=== PATIENT | female | born 1975 | race African-American/Black ===

== ENCOUNTER 2017-05-12 17:48 | Observation (INO) | payer MEDICARE, MEDICAID ==
[2017-05-12 18:38] LABS: #Eosinphils 0.4 thou/uL (0.0-0.7); #Lymphocytes 0.9 thou/uL (1.20-3.40); #Monocytes 0.5 thou/uL (0.11-0.59); #Neutrophils 4.3 thou/uL (1.40-6.50); %Basophils 0.2 % (0.0-1.0); %Eosinophils 6.8 % (0.0-10.0); %Lymphocytes 15.1 % (21.0-51.0); %Monocytes 8.5 % (0.0-10.0); Hematocrit 40.6 % (36.0-47.0); Mean Platelet Volume 9.8 fL (7.4-10.4); Red Blood Cell (RBC) Count 4.01 mill/uL (4.20-5.40); White Blood Cell (WBC) Count 6.2 thou/uL (4.8-10.8)
[2017-05-12 18:58] LABS: ALT (SGPT) 10 U/L (8-55); AST (SGOT) 18 U/L (5-34); Alkaline Phosphatase 134 U/L (40-150); Anion Gap 20 mmol/L (10-20); BUN (Urea Nitrogen) 18 mg/dL (7.0-18.7); CK (CPK) 33 U/L (29-168); Calc. Creatinine Clearance 0 mL/min (70-130); Calcium 8.5 mg/dL (7.8-10.44); Carbon Dioxide 24 mmol/L (22-29); Chloride 102 mmol/L (98-107); Estimated GFR-MDRD 5; Globulin 3.3 g/dL (2.4-3.5); Lipase 16 U/L (8-78); Protein, Total 7.2 g/dL (6.0-8.3)
[2017-05-12 19:05] LABS: Troponin I 0.024 ng/mL (< 0.028)
[2017-05-12] MEDS ORDERED: Nitroglycerin 0.4 MG TAB (25 Tab Bottle) ONE (19:06)
--- NOTE | 2017-05-12 19:18 | RAD ---
PORTABLE CHEST ONE VIEW: 05/12/17 at 6 p.m. HISTORY: Chest pain. FINDINGS/IMPRESSION: Comparison made with exam of 03/24/17. There are changes of median sternotomy again seen. The heart is enlarged. Pleural parenchymal change s in the left lower hemithorax are again noted. There is mild pulmonary vascular congestion. No pneumothoraces are identified. POS: [facility]
[2017-05-12] MEDS ORDERED: Enoxaparin Sodium 100 MG/ML SYRINGE ONE (19:49)
--- NOTE | 2017-05-12 21:34 | PDOC.EVN ---
Event Note - Event Note Event Note: [id number] h&p dictated 1. Chest pain 2. AFIB 3. ESRD 4. HTN 5. AOCD plan: see orders
[2017-05-12] MEDS ORDERED: ALPRAZolam 1 MG TAB PO PRN (22:15)
[2017-05-12] MEDS ORDERED: Gabapentin 300 MG CAP PO PRN (22:15)
[2017-05-12] MEDS ORDERED: Senokot 8.6 MG TAB PO PRN (22:16)
[2017-05-12] MEDS ORDERED: Docusate 100 MG CAP PO SCH (22:45)
[2017-05-12] MEDS ORDERED: Apixaban 5 MG TAB PO SCH (22:45)
[2017-05-12] MEDS ORDERED: levETIRAcetam 500 MG TAB PO SCH (22:45)
[2017-05-12] MEDS ORDERED: Heparin 5,000 UNITS/ML VIAL SC SCH (22:45)
[2017-05-12] MEDS ORDERED: Diltiazem HCl SR 60 mg Capsule PO SCH (22:45)
[2017-05-12] MEDS ORDERED: Cyclobenzaprine 10 MG TAB PO SCH (22:45)
[2017-05-12] MEDS: HYDROcodone/Acetaminophen 7.5/325 mg Tablet PO PRN (22:49)
[2017-05-12] MEDS: diphenhydrAMINE 25 MG CAP PO PRN (22:50)
[2017-05-12] MEDS: Ondansetron HCl/PF 4 MG/2 ML Vial IVP PRN (22:50)
[2017-05-12 22:59] VITALS: BMI 33.5
[2017-05-12 23:32] LABS: Troponin I 0.024 ng/mL (< 0.028)
[2017-05-13] MEDS ORDERED: Calcium Carbonate 500 MG ChewTAB PO PRN (00:56)
[2017-05-13 01:00] LABS: Troponin I 0.023 ng/mL (< 0.028)
[2017-05-13 04:50] LABS: #Eosinphils 0.4 thou/uL (0.0-0.7); #Lymphocytes 1.2 thou/uL (1.20-3.40); #Monocytes 0.7 thou/uL (0.11-0.59); #Neutrophils 4.4 thou/uL (1.40-6.50); %Basophils 0.2 % (0.0-1.0); %Eosinophils 6.1 % (0.0-10.0); %Lymphocytes 18.2 % (21.0-51.0); %Monocytes 10.5 % (0.0-10.0); Hematocrit 40.1 % (36.0-47.0); Mean Platelet Volume 8.5 fL (7.4-10.4); Red Blood Cell (RBC) Count 3.97 mill/uL (4.20-5.40); White Blood Cell (WBC) Count 6.8 thou/uL (4.8-10.8)
--- NOTE | 2017-05-13 06:13 | HP ---
DATE OF ADMISSION: 05/12/2017 CHIEF COMPLAINT: Chest pain. HISTORY OF PRESENT ILLNESS: Patient is a 41-year-old female with past medical history of end-stage renal disease, hypertension, anemia of chronic disease, seizures, atrial fibrillation, aortic dissection, who now came to the hospital because of chest pain and palpitations and constipation. Patient started having chest pain, all of sudden substernal pressure kind of pain, moderate in intensity, improved with pain medication, currently 5/10, worse with palpitations and irregular heartbeat, so patient came to the ER. The patient complains of constipation for the past 4 to 5 days. Last bowel movement is on Thursday. Constipation associated with blood. Today she had a bowel movement, but it was mixed with the stool. Denies any fever, denies any chills, denies any nausea, denies any vomiting. Complains some sweating also. The patient is supposed to go for dialysis today, but did not go to the dialysis because of the chest pain. PAST MEDICAL HISTORY: As per HPI. PAST SURGICAL HISTORY: AV fistula placement, colectomy, , and tubal ligation. SOCIAL HISTORY: Denies smoking, denies alcohol, denies any drugs. FAMILY HISTORY: Positive for heart problems. MEDICATIONS: Reviewed. REVIEW OF SYSTEMS: Constitutional: Denies any fever, denies any chills. Eyes : denies vision problems. Ears: Denies any hearing loss. Neck: Denies any neck pain. Cardiovascular System: Positive for chest pain. Respiratory System : Positive for dyspnea. Gastrointestinal: Positive for constipation. Positive for blood in the stool. Cranial Nerve System: Denies syncope, denies lightheadedness. Psychiatric: Denies anxiety. Integument: Denies any rash. Genitourinary: Denies dysuria. Musculoskeletal: denies joint deformities. All other review of systems are reviewed and are negative. PHYSICAL EXAMINATION: CONSTITUTIONAL/VITAL SIGNS: At the time of H and P performed, blood pressure is 123/89, afebrile, pulse oximetry 97%. GENERAL APPEARANCE: The patient appears comfortable. HEENT: Pupils are equal, round, and reactive. Anterior nares patent. Nose, normal. Ears, normal. Teeth, intact. Tongue is moist. NECK: Supple. No JVD. CARDIOVASCULAR SYSTEM: S1 and S2 present. Regular rate and rhythm. No murmurs , no rubs, no gallops. RESPIRATORY SYSTEM: No wheezing, no rhonchi. Breath sounds bilaterally. GASTROINTESTINAL: Soft, nontender, no guarding, no organomegaly, no masses felt. CRANIAL NERVE SYSTEM: Cranial nerves intact. Follows commands. Strength intact. Sensory intact. PSYCHIATRIC: Mood is appropriate at this time. GENITOURINARY: No suprapubic tenderness. No inguinal tenderness. MUSCULOSKELETAL: No edema. Positive for AV fistula. CRANIAL NERVES SYSTEM: Awake, follows commands, speech clear. LABORATORY DATA AND DIAGNOSTICS: At the time of H and P performed, white count 6.2, hemoglobin 12.6, and platelet count 158. BMP showed sodium 143, potassium 5.3, chloride 102, CO2 of 24, BUN 218, creatinine 9.49. EKG: Positive for atrial fibrillation. ASSESSMENT AND PLAN: The patient is a 41-year-old female. 1. Chest pain, need to rule out cardiac etiology. Plan to check cardiac enzymes. Plan to consult Cardiology to evaluate the patient. 2. History of atrial fibrillation. Monitor heart rate. Continue on home blood pressure medications. 3. Constipation plus history of GI bleed. Currently, hemoglobin is stable. We will monitor. We will check stool for occult blood. We will start patient on p.r.n. stool softeners and lactulose also. 4. History of hypertension. Continue on home blood pressure medications. 5. History of seizures. Continue seizure precautions. The case was discussed in detail with the patient. Patient is FULL CODE. MTDD
[2017-05-13 06:52] LABS: Anion Gap 19 mmol/L (10-20); BUN (Urea Nitrogen) 19 mg/dL (7.0-18.7); Calc. Creatinine Clearance 11 mL/min (70-130); Calcium 8.5 mg/dL (7.8-10.44); Carbon Dioxide 24 mmol/L (22-29); Chloride 103 mmol/L (98-107); Estimated GFR-MDRD 5
[2017-05-13 08:07] VITALS: BP 103/66
[2017-05-13] MEDS: diphenhydrAMINE 25 MG CAP PO PRN (08:15)
[2017-05-13] MEDS: HYDROcodone/Acetaminophen 7.5/325 mg Tablet PO PRN (08:15)
[2017-05-13] MEDS: Ondansetron HCl/PF 4 MG/2 ML Vial IVP PRN ×2 (08:15→19:47)
[2017-05-13] MEDS ORDERED: Docusate 100 MG CAP PO SCH (09:00)
[2017-05-13] MEDS ORDERED: Apixaban 5 MG TAB PO SCH (09:00)
[2017-05-13] MEDS ORDERED: levETIRAcetam 500 MG TAB PO SCH (09:00)
[2017-05-13] MEDS: Cyclobenzaprine 10 MG TAB PO SCH ×2 (14:14→14:54)
[2017-05-13] MEDS: Heparin 5,000 UNITS/ML VIAL SC SCH ×2 (14:15→14:54)
[2017-05-13] MEDS: Diltiazem HCl SR 60 mg Capsule PO SCH ×2 (14:15→14:54)
[2017-05-13 15:45] VITALS: TEMP 98.6
--- NOTE | 2017-05-13 20:37 | DIS ---
DATE OF ADMISISON: 05/12/2017 DATE OF DISCHARGE: 05/13/2017 DISCHARGE DIAGNOSES: 1. Acute volume overload in the context of end-stage renal disease with missed hemodialysis. 2. End-stage renal disease with hemodialysis. 3. Chronic atrial fibrillation with variable rate control on chronic Eliquis. 4. Constipation, resolved. 5. Hypertension, stable. 6. Seizure disorder, stable. 7. Hypokalemia, mild. CONSULTATIONS: Dr. Zeferino Matthew with Nephrology Service. PERTINENT LABORATORY DATA AND X-RAY FINDINGS: Potassium ranged between 3.1-3.3, creatinine ranged b etween 9.49-9.83 with estimated GFR of 5. LFTs within normal limits. Troponin I negative x3. BNP 1576 previously noted, 1153 on 03/24/2017. CBC showed a white blood cell count of 6.8, hemoglobin 1 2, hematocrit 40, MCV 101, platelet count 184. Stool Hemoccult negative x1 at 05/12/2017. Portable chest x-ray dated 05/12/2017 showed pulmonary vascular congestion. HOSPITAL COURSE: Patient was observed on the telemetry unit after initially presenting with chest p ain and shortness of breath in the context of missed hemodialysis. Patient underwent hemodialysis o n 05/13/2017 with near resolution of symptoms. The patient also was noted with constipation, treate d with lactulose and stool softeners with resolution of the situation. The patient was noted on tel emetry monitoring with atrial fibrillation with variable rate control, resumed on home regimen of di ltiazem 60 mg p.o. t.i.d. The patient was also continued on Eliquis 2.5 mg b.i.d. Overall, the pat ient remained clinically stable throughout the remainder of the hospital course and ready for discha rge on 05/13/2017. DISCHARGE MEDICATIONS: 1. Eliquis 2.5 mg p.o. b.i.d. 2. Alprazolam 1 mg p.o. b.i.d. p.r.n. 3. Flexeril 10 mg p.o. t.i.d. p.r.n. 4. Cardizem-SR 60 mg p.o. t.i.d. 5. Neurontin 300 mg p.o. daily. 6. [place] 7.5/325 mg 1 tab p.o. q.4-6 hours p.r.n. pain. 7. Motrin 600 mg p.o. q.8 hours p.r.n. 8. Floranex 1 tablet p.o. daily. 9. Multivitamin 1 tab p.o. daily. 10. Omeprazole 20 mg p.o. daily. 11. Zofran 4 mg p.o. q.6 hours p.r.n. 12. Zoloft 25 mg p.o. daily. 13. Ambien 5 mg p.o. at bedtime p.r.n. 14. Keppra 500 mg p.o. b.i.d. FOLLOWUP: The patient may follow up with her primary care provider, Dr. Bibiana Almanzar within 7 day s of discharge. The patient will follow with Dr. Zeferino Matthew with Nephrology service during hemodialysis 3 times per week. CONDITION ON DISCHARGE: Stable. ACTIVITY: ad emerson. DIET: Heart healthy and renal. CODE STATUS: FULL. DISPOSITION: Home, 05/13/2017.
--- NOTE | 2017-05-14 05:55 | CON ---
DATE OF CONSULTATION: 05/13/2017 CONSULTING PHYSICIAN: Zeferino Matthew M.D. REQUESTING PHYSICIAN: Dr. Rafa Selby. REASON FOR CONSULTATION: The need for maintenance hemodialysis. IMPRESSION: 1. End-stage renal disease, hemodialysis dependent on Thursday, , and Thursday schedule, vernon drummond dialyzed yesterday. 2. Chest pain, query cause. PLAN: The patient to be dialyzed today because of the fact that she skipped dialysis yesterday with ultrafiltration as tolerated by hemodynamics. We use a higher potassium bath. HISTORY OF PRESENT ILLNESS: History is that of a 41-year-old female patient, who presented here wit h chest pain and constipation. Of note, the patient has been having some runny issues with diarrhea for several months. Now, the patient is presented with constipation, query cause. Because of the need for maintenance hemodialysis, which the patient did not undergo yesterday, decision has been ta miguel to admit this patient today for further management. PAST MEDICAL HISTORY: Significant for end-stage renal disease, atrial fibrillation, bowel obstructi on status post bowel resection, peripheral vascular disease, status post aortic resection. SOCIAL HISTORY: Significant for tobacco use. No illicit drug use. REVIEW OF SYSTEMS: As documented in the body of the history. The other systems reviewed and were f ound not to be significantly related to the presenting illness. PHYSICAL EXAMINATION: GENERAL: The patient was found not to be in any obvious distress at dialysis. VITAL SIGNS: Afebrile with temperature 98.6, pulse 90-135, respiratory rate of 12-16, O2 saturation 98%, and blood pressure 103/63. HEENT: Unremarkable with moist oral mucosa. CARDIOVASCULAR SYSTEM: First and second heart sounds were heard. RESPIRATORY: Clear to auscultation anteriorly. DIGESTIVE: Revealed a benign abdomen. SUMMARY: A 41-year-old female patient with end-stage renal disease, hemodialysis dependent, who pre sented here with chest pain and constipation. Thank you for this consultation. We will follow with you.
--- OUTSIDE RECORDS SUMMARY | 2017-05-18 22:03 | XMS | Clinical Summary ---
:1975 Author Organization [facility] Address [address] [place] [address] Phone Care Team Providers Name Role Phone Luis F Veliz Primary Care Provider tel Allergies Active Allergy Reactions Severity Noted Date Comments Cefazolin Itching,Swelling 12/10/2015 Throat swells Codeine Sulfate Itching 12/10/2015 Phenytoin Sodium Extended 12/10/2015 Skins valencia Iodine And Iodide Containing Itching 05/22/2016 Products Current Medications Prescription Sig. Disp. Refills Start Date End Date Status carvedilol (COREG) 6.25 Take 3.125 mg by Active MG tablet mouth. diltiazem CD (CardIZEM Take 120 mg by Active CD) 120 MG 24 hr capsule mouth. levETIRAcetam (KEPPRA) Take 500 mg by Active 500 MG tablet mouth. pregabalin (LYRICA) 50 MG Take 50 mg by Active capsule mouth. pravastatin (PRAVACHOL) Take 20 mg by Active 20 MG tablet mouth. sevelamer (RENVELA) 800 Take 800 mg by Active mg tablet mouth. omeprazole (PriLOSEC) 20 Take 20 mg by mouth Active MG capsule daily. ALPRAZolam (XANAX) 1 MG Take 1 mg by mouth Active tablet nightly as needed for anxiety. zolpidem (AMBIEN) 5 MG Take 5 mg by mouth Active tablet nightly as needed for sleep. sertraline (ZOLOFT) 25 MG Take 25 mg by mouth Active tablet daily. Active Problems Problem Noted Date Hypertensive nephrosclerosis 05/22/2016 Social History Tobacco Use Types Packs/Day Years Used Date Former Smoker 0.25 17 Quit: 07/27/2014 Sex Assigned at Date Recorded Not on file Last Filed Vital Signs Not on file Plan of Treatment Not on file Results Not on filefrom Last 3 Months Insurance Payer Benefit Plan / Group Subscriber ID Type Phone Address MEDICAID MEDICAID [id number] Medicaid MEDICARE MEDICARE PART A AND B [id number] Medicare [place] [address]: [address] [phone] [place], [place] [phone] MYRIAM MORRIS [employer] Self 1975 Home: [address] Liability [phone] [place], [place] [phone]
== END 2017-05-13 20:13 | disposition home or self-care (01) ==
LOC: ERS 17:48 → 2SW 21:31
PROVIDERS: ADMIT Internal Medicine; ATTEND Internal Medicine
DX: E87.70 Fluid overload, unspecified (principal); I12.0 Hypertensive chronic kidney disease with stage 5 chronic kidney disease or end stage renal disease; N18.6 End stage renal disease; I48.2 Chronic atrial fibrillation; K59.00 Constipation, unspecified; G40.909 Epilepsy, unspecified, not intractable, without status epilepticus; E87.6 Hypokalemia; D63.1 Anemia in chronic kidney disease; R07.2 Precordial pain; F17.200 Nicotine dependence, unspecified, uncomplicated; Z79.01 Long term (current) use of anticoagulants; Z79.899 Other long term (current) drug therapy; Z91.041 Radiographic dye allergy status; Z90.49 Acquired absence of other specified parts of digestive tract; Z98.890 Other specified postprocedural states; Z98.51 Tubal ligation status; Z88.5 Allergy status to narcotic agent; Z88.8 Allergy status to other drugs, medicaments and biological substances; Z88.1 Allergy status to other antibiotic agents; Z99.2 Dependence on renal dialysis
CPT/HCPCS: 71010; 80048; 80053; 82274; 82550; 82553; 83690; 83880; 84484 ×3; 85025 ×2; 93005; 96372; 96374; 96376; 99285; G0378; 36415; 90935; G0257; J1644; J1650; J2405

== ENCOUNTER 2017-05-28 08:03 | Emergency (ER) | payer MEDICARE, MEDICAID ==
[2017-05-28] MEDS ORDERED: Hydrocortisone/Pramoxine (Proctofoam HC) 10 GM BOX PR ONE (09:15)
--- NOTE | 2017-05-28 09:29 | RAD ---
AP ABDOMINAL RADIOGRAPH: Date: 05/28/17 HISTORY: Constipation. COMPARISON: 12/14/16. FINDINGS: Surgical clips overlie the right mid abdomen, as well as pelvis. Vascular calcification again seen i n the abdominal aorta and involving the iliac arteries. The bowel gas pattern is overall nonspecific . No definite significant retained fecal material is seen throughout the expected course of the colo n. No suspicious calcifications are seen. Limited evaluation of the lung bases demonstrates what appears to be a left pleural effusion unchang ed from prior exam as well. No other interval change. IMPRESSION: 1. Nonspecific bowel gas pattern. 2. Pleural and parenchymal changes left lung base, probably related to left pleural effusion and at electasis. This is a stable finding compared to the prior exam. POS: [facility]
[2017-05-28] MEDS ORDERED: Bacitracin Zinc 1 Packet ONE (11:16)
[2017-05-28] MEDS ORDERED: Ibuprofen 200 MG TAB ONE (11:16)
== END 2017-05-28 11:35 | disposition home or self-care (01) ==
LOC: ERS 08:03
DX: K64.8 Other hemorrhoids (principal); K64.4 Residual hemorrhoidal skin tags; K59.00 Constipation, unspecified; I12.0 Hypertensive chronic kidney disease with stage 5 chronic kidney disease or end stage renal disease; N18.6 End stage renal disease; I48.91 Unspecified atrial fibrillation; F41.9 Anxiety disorder, unspecified; F17.210 Nicotine dependence, cigarettes, uncomplicated; Z79.891 Long term (current) use of opiate analgesic; Z79.899 Other long term (current) drug therapy
CPT/HCPCS: 74000; 94760; 99406

== ENCOUNTER 2017-05-29 21:48 | Inpatient (IN) | payer MEDICARE, MEDICAID ==
[~2017-05-29 21:48] MED LIST: ISOVUE-370 76%-LOCM 1 ML ONE
[2017-05-29] MEDS ORDERED: diphenhydrAMINE 50 MG/ML VIAL ONE (22:05)
[2017-05-29] MEDS ORDERED: Labetalol HCl 100 MG/20 ML VIAL ONE (22:13)
--- NOTE | 2017-05-29 22:19 | RAD ---
PORTABLE UPRIGHT FRONTAL CHEST RADIOGRAPH 05/29/17 COMPARISON: None. HISTORY: Pain. FINDINGS: Midline sternotomy wires are present. Stable vascular stent material overlies the superior aspect of the mediastinum. There is no pneumothorax seen. There is pulmonary vascular congestion. There is patchy interstitial and alveolar opacity in both jm ng bases, new when compared to the prior exam. There is stable blunting of the left costophrenic an gle suggesting left pleural effusion and/or pleural scar. IMPRESSION: Pulmonary vascular congestion with interstitial and alveolar opacity in the lung bases, new. Finding s may be related to pulmonary edema and/or infectious pneumonitis/aspiration. Followup imaging follo wing treatment advised. POS: [facility]
[2017-05-29] MEDS ORDERED: Morphine 4 MG/ML Carpuject ONE (22:33)
[2017-05-29 22:34] LABS: ALT (SGPT) 12 U/L (8-55); AST (SGOT) 15 U/L (5-34); Alkaline Phosphatase 114 U/L (40-150); Anion Gap 24 mmol/L (10-20); BUN (Urea Nitrogen) 31 mg/dL (7.0-18.7); Bilirubin, Total 0.9 mg/dL (0.2-1.2); CK (CPK) 40 U/L (29-168); Calc. Creatinine Clearance 0 mL/min (70-130); Calcium 8.7 mg/dL (7.8-10.44); Carbon Dioxide 23 mmol/L (22-29); Chloride 101 mmol/L (98-107); Estimated GFR-MDRD 5; Globulin 3.9 g/dL (2.4-3.5); Protein, Total 8.2 g/dL (6.0-8.3)
[2017-05-29 22:38] LABS: Troponin I 0.034 ng/mL (< 0.028)
[2017-05-29 22:42] LABS: Hematocrit 40.9 % (36.0-47.0); Mean Platelet Volume 9.2 fL (7.4-10.4); Neutrophil 65 % (42-75); Red Blood Cell (RBC) Count 4.07 mill/uL (4.20-5.40); White Blood Cell (WBC) Count 7.8 thou/uL (4.8-10.8)
[2017-05-29] MEDS ORDERED: Potassium Chloride 20 MEQ TAB ONE (22:49)
--- NOTE | 2017-05-29 22:49 | CT ---
CTA CHEST AND ABDOMEN AND PELVIS CTA AORTOGRAM WITH 3D VOLUME RENDERING 05/29/17 COMPARISON: 08/26/16 CLINICAL HISTORY: Chest pain. FINDINGS: There is a stable configuration of the aortic arch and great vessels that emanate from the aortic ar ch with associated peripherally located calcified and noncalcified plaque. There is no interval, acu te aortic dissection. Focal areas of ectasia of the thoracic aorta are similar appearing. Redemonstr ation of vascular stent about the left subclavian artery approximating the confluence with the SVC. There is grossly stable to slightly increased pleural based density of the left hemithorax. There is newly developed linear density along the major fissure of the right lung. There is increased volume of the previously described complex left renal lesion now measuring approximately 3.9 cm where it p reviously measured 3.5 cm in a similar location. Cirrhotic morphology of the liver with ascites is a gain seen. There is prominence of the splenic volume with adjacent varices compatible with portal hy pertension. Diffuse body wall edema is present. Stable multifocal patchy density of the mediastinal fat is seen. There is diffuse mottled appearance of the sclerotic osseous structures. Evaluation of the pelvic vasculature reveals a stable area of concentric predominantly noncalcified plaque of the proximal to mid aspect of the left common iliac artery with associated moderate stenosis. There are calcifications at the major branch vessels that emanate from the abdominal aorta. IMPRESSION: 1. Stable areas of ectasia of the thoracic aorta. There is no acute dissection identified. 2. Slight increased volume of the previously described complex left renal lesion. Recommend uro logy consultation for further evaluation. 3. Cirrhosis and portal hypertension. 4. Additional details are described above. POS: [facility]
[2017-05-29] MEDS ORDERED: Promethazine HCl 25 MG/ML VIAL ONE (22:57)
[2017-05-30] MEDS ORDERED: Diltiazem 125 MG/25 ML ONE (00:33)
[2017-05-30] MEDS ORDERED: Diltiazem HCl 125 MG, Admixture Fee 1 EACH in Sodium Chloride 0.9% 100 ML SLOW IVP SCH (00:45)
[2017-05-30 01:24] LABS: Troponin I 0.038 ng/mL (< 0.028)
[2017-05-30] MEDS ORDERED: Morphine 4 MG/ML Carpuject ONE (02:05)
[2017-05-30] MEDS ORDERED: Ondansetron ODT 4 MG TAB SL PRN (02:46)
[2017-05-30] MEDS ORDERED: Acetaminophen 325 MG TAB PO PRN (02:46)
[2017-05-30] MEDS ORDERED: Ondansetron HCl/PF 4 MG/2 ML Vial IVP PRN (02:46)
[2017-05-30] MEDS ORDERED: MORPHINE 10 MG/ML SYRINGE IV PRN ×2 (03:21→04:43)
[2017-05-30] MEDS ORDERED: Gabapentin 300 MG CAP PO PRN (03:21)
[2017-05-30] MEDS ORDERED: cloNIDine 0.1 MG TAB PO PRN (03:21)
[2017-05-30] MEDS ORDERED: Diltiazem 125 MG in Sodium Chloride 0.9% 100 ML IVPB SCH (03:21)
[2017-05-30] MEDS ORDERED: Sodium Chloride 0.9% 1,000 ML IV SCH (03:21)
[2017-05-30] MEDS ORDERED: hydrALAZINE 20 MG/ML VIAL SLOW IVP PRN (03:21)
[2017-05-30] MEDS: Ondansetron HCl/PF 4 MG/2 ML Vial IVP PRN (05:31)
[2017-05-30 05:42] LABS: Band 1 % (5-11); Hematocrit 39.4 % (36.0-47.0); Mean Platelet Volume 8.8 fL (7.4-10.4); Neutrophil 71 % (42-75); Red Blood Cell (RBC) Count 3.92 mill/uL (4.20-5.40); White Blood Cell (WBC) Count 7.7 thou/uL (4.8-10.8)
[2017-05-30 05:46] LABS: Anion Gap 20 mmol/L (10-20); BUN (Urea Nitrogen) 31 mg/dL (7.0-18.7); Calc. Creatinine Clearance 10 mL/min (70-130); Calcium 7.8 mg/dL (7.8-10.44); Carbon Dioxide 21 mmol/L (22-29); Chloride 104 mmol/L (98-107); Estimated GFR-MDRD 5
[2017-05-30 05:47] LABS: Troponin I 0.041 ng/mL (< 0.028)
[2017-05-30] MEDS: Ondansetron ODT 4 MG TAB PO PRN (08:54)
[2017-05-30] MEDS ORDERED: Famotidine/PF 20 mg/2ml Vial SLOW IVP SCH (09:00)
--- NOTE | 2017-05-30 10:05 | HP ---
DATE OF ADMISSION: 05/30/2017 PRIMARY CARE PROVIDER: Dr. Bibiana Almanzar. PRIMARY TAXATION INSPECTOR: Dr. Zeferino Matthew. CHIEF COMPLAINT: Chest pain, shortness of breath. HISTORY OF PRESENT ILLNESS: This is a 41-year-old -[place] female with significant history of end-stage renal disease with hemodialysis on Thursday, , and Saturdays presenting with angela [facility] pain and shortness of breath. The patient states her symptoms began last 24 to 48 hours and has been compliant with her hemodialysis sessions. The patient denies any specific increasing lower ext remity edema and notes that her current weight is below her actual dry weight calculated by the dial ysis unit. The patient does state she has a history of aortic dissection, status post repair as wel l as hypertension, and chronic atrial fibrillation. The patient denies any specific injury, blunt t rauma, cough, fever, or purulent sputum production. Patient denies any recent travel history, recen t increase to her activity level or family members listed more symptoms. In the emergency room, the patient underwent general evaluation, receiving normal saline 500 mL infusion as well as diltiazem 5 mg per hour after patient was noted with atrial fibrillation and rapid ventricular response. The patient also received aspirin 324 mg, Phenergan 12.5 mg IV, potassium chloride supplement 40 mEq ora lly and labetalol intravenously 10 mg, Benadryl 50 mg IV push and morphine intravenously 4 mg x1 dos e. The patient was referred to the Hospitalist Service for admission. PAST MEDICAL HISTORY: 1. End-stage renal disease with hemodialysis. 2. Chronic atrial fibrillation with variable rate, controlled on chronic Eliquis. 3. Hypertension. 4. Seizure disorder, stable. 5. History of hypokalemia. 6. Peripheral neuropathy. 7. Status post left tibial plateau fracture with open reduction internal fixation in 03/2017. 8. Seizure disorder. PAST SURGICAL HISTORY: 1. Status post AV fistula placement. 2. Status post colectomy. 3. Status post section. 4. Status post bilateral tubal ligation. CURRENT MEDICATIONS: 1. Eliquis 2.5 mg p.o. b.i.d. 2. Flexeril 10 mg 1 tab p.o. t.i.d. 3. Diltiazem SR 60 mg p.o. t.i.d. 4. Gabapentin 300 mg 1 tab p.o. daily. 5. [place] 7.5/325 mg 1 tab p.o. q.4-6 hours p.r.n. pain. 6. Motrin 600 mg 1 tab p.o. q.8 hours p.r.n. 7. Multivitamin 1 tab p.o. daily. 8. Omeprazole 20 mg p.o. daily. 9. Zoloft 25 mg 1 tab p.o. daily. 10. Ambien 5 mg 1 tablet p.o. at bedtime p.r.n. 11. Keppra 500 mg 1 tab p.o. b.i.d. ALLERGIES: To CEFAZOLIN, CODEINE, CLINDAMYCIN, IODINE. FAMILY HISTORY: Positive for coronary artery disease. SOCIAL HISTORY: Resides in [place], [place]. Disabled. Smokes up to half a pack to 1 pack of cigarett es daily. No alcohol or illicit drug use. REVIEW OF SYSTEMS: The following complete review of systems was negative, unless otherwise mentione d in the HPI or below: CONSTITUTIONAL: Weight loss or gain, ability to conduct usual activities. SKIN: Rash, itching. EYES: Double vision, pain. ENT/MOUTH: Nose bleeding, neck stiffness, pain, tenderness. CARDIOVASCULAR: Palpitations, dyspnea on exertion, orthopnea. RESPIRATORY: Shortness of breath, wheezing, cough, hemoptysis, fever or night sweats. GASTROINTESTINAL: Poor appetite, abdominal pain, heartburn, nausea, vomiting, constipation, or diar nadja. GENITOURINARY: Urgency, frequency, dysuria, nocturia. MUSCULOSKELETAL: Pain, swelling. NEUROLOGIC/PSYCHIATRIC: Anxiety, depression. ALLERGY/IMMUNOLOGIC: Skin rash, bleeding tendency. PHYSICAL EXAMINATION: VITAL SIGNS: Currently, blood pressure 127/96, pulse 89, respiratory rate is 18, temperature 97.9 d egrees Fahrenheit, O2 saturation 98% on room air. GENERAL APPEARANCE: This is a 41-year-old -[place] female, alert and oriented x3, pleasant, in no acute distress. HEENT: Pupils are equal, round, and reactive to light and accommodation. Extraocular muscles are i ntact. No scleral icterus, no conjunctival injection. Nares patent. OP is clear. NECK: Supple, no cervical adenopathy, no thyromegaly, no carotid bruits, no JVD appreciated. Cervi solomon spine with full active and passive range of motion. No meningeal signs appreciated. CHEST: Diminished breath sounds in the bases bilaterally. CARDIOVASCULAR: S1, S2 with a 2/6 systolic ejection murmur, loudest in the right upper sternal bord er. ABDOMEN: Obese, soft, nontender, nondistended. Bowel sounds are positive in all four quadrants. T here is no hepatosplenomegaly, no abdominal bruits, no rebound or guarding appreciated. EXTREMITIES: Warm and dry with fair turgor. Mild edema to the lower extremities bilaterally. No a symmetric edema appreciated. Pulses palpable distally at the dorsalis pedis, posterior tibial, and popliteal arteries bilaterally. Capillary refill less than 2 seconds. SKIN: Shows healing ulceration and open wound of the left proximal tibia anteriorly. No purulence expressed. No calor or erythema. PERTINENT LABORATORY DATA AND X-RAY FINDINGS: Sodium 145, potassium 2.7, chloride 101, CO2 of 23, B UN 31, creatinine 10.74, estimated GFR 5, glucose 105, calcium 8.7. LFTs within normal limits. Tro ponin I's ranged between 0.034 to 0.038, albumin 4.3. CBC showed a white blood cell count of 7.8, h emoglobin 12.7, hematocrit 41, MCV 100, platelet count 171 with 65% neutrophils. D-dimer 0.48. Por table chest x-ray dated on 05/29/2017 showed pulmonary vascular prominence with alveolar opacity in the lung bases. CT of the chest with aortic dissection protocol showed no evidence for aortic disse ction. Cirrhosis and portal hypertension noted. EKG dated on 05/29/2017 at 2248 shows atrial fibri llation with premature ventricular conducted complexes. Attenuated R waves noted in the precordial leads. Right axis deviation. Likely septal infarct, age indeterminate. A 2D transthoracic echocar diogram dated in 04/09/2017 showed preserved ejection fraction of 60% to 65%, moderate concentric le ft ventricular hypertrophy with severe tricuspid valve regurgitation and moderate pulmonic regurgita tion. ASSESSMENT AND PLAN: 1. Atrial fibrillation with rapid ventricular response. We will continue general supportive measur es. We will continue IV fluids with normal saline at 50 mL per hour. Continue diltiazem infusion f or optimal rate control. Resume Eliquis 2.5 mg p.o. b.i.d. 2. Chest pain. Suspect secondarily to mild volume overload in the context of end-stage renal disea se and conjunction with hypertension and conjunction with chronic atrial fibrillation with variable rate control. We will consult Cardiology service in the a.m. for any further recommendations. Cont inue general rate control measures including Cardizem SR 60 mg p.o. t.i.d. 3. End-stage renal disease with hemodialysis. We will consult Nephrology service for timing of the next hemodialysis session. 4. Hypokalemia. We will continue potassium chloride supplementation and repeat potassium level in the a.m. 5. Elevated troponin I. Suspect demand ischemia in the context of paroxysmal atrial fibrillation w ith variable rate control. We will complete third troponin I and monitor trend. 6. Seizure disorder. We will continue Keppra 500 mg p.o. b.i.d. 7. Prophylaxis. Sequential compression devices while in bed. Wound Care consult for left lower ex tremity. Pepcid 20 mg p.o. b.i.d. 8. Code status is FULL. Surrogate medical decision maker is patient's son, Jayden Morris.
[2017-05-30] MEDS: Apixaban 5 MG TAB PO SCH ×2 (12:17→20:25)
[2017-05-30] MEDS: Famotidine/PF 20 mg/2ml Vial SLOW IVP SCH (12:17)
[2017-05-30] MEDS: Cyclobenzaprine 10 MG TAB PO SCH ×3 (12:17→20:25)
[2017-05-30] MEDS: levETIRAcetam 500 MG TAB PO SCH ×2 (12:17→20:25)
[2017-05-30] MEDS: Diltiazem HCl SR 60 mg Capsule PO SCH ×3 (12:17→20:25)
--- NOTE | 2017-05-30 13:40 | PDOC.PN ---
- Subjective Encounter Start Date: 05/30/17 Encounter Start Time: 13:40 Ms. Morris is complaining of chest and upper back pain. She is requesting Morphine or Dilaudid for pain. She left Dialysis one hour early, in order to go to the bathroom, in which she was noted to be in the bathroom( by myself personally) . for almost 45 minutes. She is resting in bed now and appears comfortable - Objective Resuscitation Status: Resuscitation Status FULL:Full Resuscitation MAR Reviewed: Yes Vital Signs & Weight: Vital Signs (12 hours) Temp Pulse Resp BP Pulse Ox 05/30/17 13:22 98.0 F 98 18 115/72 95 05/30/17 08:17 97.7 F 87 19 105/75 98 I&O: 05/29/17 05/30/17 05/31/17 06:59 06:59 05:59 Intake Total 300 Balance 300 Result Diagrams: 05/30/17 04:24 05/30/17 04:24 Phys Exam - Physical Examination HEENT: PERRLA Respiratory: no wheezing, no rales, no rhonchi, clear to auscultation bilateral Cardiovascular: no significant murmur, irregular Gastrointestinal: soft, positive bowel sounds Musculoskeletal: no edema Dx/Plan (1) Atrial fibrillation Code(s): I48.91 - UNSPECIFIED ATRIAL FIBRILLATION Status: Chronic (2) Diastolic CHF Code(s): I50.30 - UNSPECIFIED DIASTOLIC (CONGESTIVE) HEART FAILURE Status: Chronic Qualifiers: Congestive heart failure chronicity: acute on chronic Qualified Code(s): I50.33 - Acute on chronic diastolic (congestive) heart failure (3) End stage renal failure on dialysis Code(s): N18.6 - END STAGE RENAL DISEASE; Z99.2 - DEPENDENCE ON RENAL DIALYSIS Status: Chronic (4) Benign hypertension Code(s): I10 - ESSENTIAL (PRIMARY) HYPERTENSION Status: Chronic - Plan * Persistent AFIB with variable heart rate- She was noted to have atrial fibrilation on priovious admissions. She was recommended to be on anticoagulation for at least a month before consideration of anti-arrhythmic therapy or cardioversion- That was in March. Will consult Cardiology for evaluation * Back and Chest pain-this is likely not ischemic in nature- She had a stress test a little over a year ago which was negative, and a CTA on this admission which was negative for dissection. There is currently not a good indication for opiod medication at this time- this was explained to the patient * ESRD- stable * Volume overload- improved * HTN- blood pressure is stable.
[2017-05-30] MEDS: diphenhydrAMINE 25 MG CAP PO PRN (18:24)
[2017-05-30] MEDS: traMADol HCl 50 MG TAB PO PRN (23:10)
--- NOTE | 2017-05-30 23:26 | CON ---
DATE OF CONSULTATION: 05/30/2017 HISTORY OF PRESENT: Patient is a 41-year-old woman who presented with chest pain and palpitations. The patient has a long history of cardiac disease. She has previously undergone stent placement into her thoracic aorta. She also has long history of atrial fibrillation. The patient has been admitted multiple occasions with volume overload. She also has a history of severe pulmonary hypertension. The patient has been maintained on chronic anticoagulation. The patient states that she developed right-sided chest discomfort. This has been a persistent discomfort for the past 24 hours. The patient states this chest pain is improved by taking pain medication. PAST MEDICAL HISTORY: 1. Chronic atrial fibrillation. 2. Hypertension. 3. Seizure disorder. 4. End-stage renal disease. PAST SURGICAL HISTORY: AV fistula colectomy, tubal ligation, . MEDICATIONS: See nursing list. ALLERGIES: CEFAZOLIN, CODEINE, IODINE, CLINDAMYCIN. FAMILY HISTORY: Strong family history of heart disease. SOCIAL HISTORY: The patient continues to abuse tobacco. REVIEW OF SYSTEMS: Ten point system noticeable for persistent pain. Ten-point system otherwise unremarkable. PHYSICAL EXAMINATION: GENERAL: This is an obese woman in no acute distress. VITAL SIGNS: Blood pressure of 115/72, heart rate is 110, irregular. NECK: Full. LUNGS: Clear to auscultation. HEART: Irregular rate and rhythm, normal S1 with a loud P2, 1/6 systolic murmur. ABDOMEN: Distended. EXTREMITIES: Showed mild bilateral edema. VASCULAR: Radial pulses 2+. NEUROLOGIC: Nonfocal. LABORATORY RESULTS: Sodium is 142, potassium 3.0, chloride 104, bicarbonate 21 , BUN 31, creatinine 10.6, troponin 0.041. White blood cell count 7.7, hemoglobin 11.9, hematocrit 39.4, platelets are 162. Her EKG revealed atrial fibrillation with a rate of approximately 140 with a right bundle branch block, and nonspecific T-wave abnormality. IMPRESSION: 1. Chest pain, atypical. 2. Rapid atrial fibrillation. 3. History of flutter ablation. 4. Severe pulmonary hypertension. 5. End-stage renal disease. 6. Hypertension. 7. History of thoracic aortic aneurysm repair. This patient presents with atypical chest pain. Her cardiac enzymes reveal no evidence of myocardial infarction. The patient's heart rate is very rapid. We will add Toprol. We will ask EP to further evaluate. The patient will continue on apixaban. We will follow this patient with you through her hospitalization. ABHINAV
[2017-05-31] MEDS: Acetaminophen 500 MG TAB PO PRN ×2 (04:37→22:33)
[2017-05-31] MEDS: Ondansetron ODT 4 MG TAB PO PRN ×2 (05:23→17:55)
[2017-05-31 05:59] LABS: Anion Gap 21 mmol/L (10-20); BUN (Urea Nitrogen) 20 mg/dL (7.0-18.7); Calc. Creatinine Clearance 13 mL/min (70-130); Carbon Dioxide 21 mmol/L (22-29); Chloride 101 mmol/L (98-107); Estimated GFR-MDRD 7
--- NOTE | 2017-05-31 07:12 | CON ---
DATE OF CONSULTATION: 05/30/2017 CONSULTING PHYSICIAN: Zeferino Matthew M.D. REQUESTING PHYSICIAN: Peng Leary D.O. REASON FOR CONSULTATION: Need for maintenance hemodialysis. IMPRESSION: 1. End-stage renal disease, hemodialysis dependent on Thursday, , and Thursday schedule, due for dialysis today. 2. Chest pain, query cause. 3. History of atrial fibrillation. PLAN: 1. The patient to be dialyzed today in accordance with her schedule. Given the low potassium in patient, we will go ahead and dialyze this patient with higher potassium bath. 2. Further management will be dependent on the clinical course. HISTORY OF PRESENT ILLNESS: This is a 41-year-old female patient with end-stage renal disease, hemo dialysis dependent, atrial fibrillation, secondary hyperparathyroidism, status post parathyroidectom y, who presented here with shortness of breath and chest pain and the need for continued hemodialysi s necessitated this renal consultation. PAST MEDICAL HISTORY: Significant for end-stage renal disease, atrial fibrillation, hypertension, s eizure disorder, peripheral neuropathy, status post fracture secondary to fall. MEDICATIONS: Have been reviewed and as documented on I-Pulse. ALLERGIES: CEFAZOLIN, CODEINE, CLINDAMYCIN, and IODINE. FAMILY HISTORY: Significant for heart disease. SOCIAL HISTORY: Significant for tobacco use. No alcohol, no illicit drug use. REVIEW OF SYSTEMS: As documented in the body of the history. All the other systems reviewed were f ound not to be significantly related to the presenting illness. PHYSICAL EXAMINATION: GENERAL: The patient was found not to be in any obvious distress. VITAL SIGNS: Noted with the following vital signs: Afebrile with temperature 98, pulse 98-116, res piratory rate of 18, O2 sat 95% with a blood pressure of 115/72. HEENT: Unremarkable with moist oral mucosa. Neck was supple. No conjunctival injection or icterus . CARDIOVASCULAR SYSTEM: First and second heart sounds, irregularly irregular. DIGESTIVE SYSTEM: Revealed a benign abdomen. EXTREMITIES: No peripheral edema. SKIN: No new gross rash. LYMPHATICS: No peripheral lymphadenopathy. SUMMARY: A 41-year-old female patient with end-stage renal disease, hemodialysis dependent, who pre sented here with chest pain and shortness of breath. Thank you for this consultation. We will follow with you.
[2017-05-31] MEDS: Apixaban 5 MG TAB PO SCH ×2 (09:28→22:34)
[2017-05-31] MEDS: Cyclobenzaprine 10 MG TAB PO SCH ×3 (09:29→22:33)
[2017-05-31] MEDS: levETIRAcetam 500 MG TAB PO SCH ×2 (09:29→22:34)
[2017-05-31] MEDS: Diltiazem HCl SR 60 mg Capsule PO SCH ×3 (09:29→22:34)
[2017-05-31] MEDS: Famotidine/PF 20 mg/2ml Vial SLOW IVP SCH (09:30)
--- NOTE | 2017-05-31 12:29 | PDOC.PN ---
- Subjective Encounter Start Date: 05/31/17 Encounter Start Time: 12:26 Ms. Morris says she is been having loose stools the past few days. She is breathing better. - Objective Resuscitation Status: Resuscitation Status FULL:Full Resuscitation MAR Reviewed: Yes Vital Signs & Weight: Vital Signs (12 hours) Temp Pulse Resp BP Pulse Ox 05/31/17 11:40 98.1 F 101 H 18 101/72 93 L 05/31/17 09:26 97.5 F L 96 18 114/71 96 05/31/17 04:00 97.8 F 97 20 93/71 92 L Weight Admit Weight 200 lb Weight 205 lb 0.478 oz I&O: 05/30/17 05/31/17 06/01/17 07:59 06:59 06:59 Intake Total Output Total Balance Result Diagrams: 05/30/17 04:24 05/31/17 04:59 Phys Exam - Physical Examination HEENT: PERRLA Respiratory: no wheezing, no rales, no rhonchi, clear to auscultation bilateral Cardiovascular: irregular tachycardic Gastrointestinal: soft, non-tender, positive bowel sounds Musculoskeletal: no edema Dx/Plan (1) Atrial fibrillation Code(s): I48.91 - UNSPECIFIED ATRIAL FIBRILLATION Status: Chronic (2) Diastolic CHF Code(s): I50.30 - UNSPECIFIED DIASTOLIC (CONGESTIVE) HEART FAILURE Status: Chronic Qualifiers: Congestive heart failure chronicity: acute on chronic Qualified Code(s): I50.33 - Acute on chronic diastolic (congestive) heart failure (3) End stage renal failure on dialysis Code(s): N18.6 - END STAGE RENAL DISEASE; Z99.2 - DEPENDENCE ON RENAL DIALYSIS Status: Chronic (4) Benign hypertension Code(s): I10 - ESSENTIAL (PRIMARY) HYPERTENSION Status: Chronic - Plan * AFIB with RVR- Cardiology input appreciated- Toprol has been added * She is on Eliquis for CVA prevention * Will consult EP in the AM * Diarrhea- will screen for C. Diff, and if negative, will treat symptomatically * ESRD- continue maintenance HD * HTN- blood pressure is stable.
[2017-05-31] MEDS: Hydrocortisone Acetate 25 MG Suppository PR PRN (17:55)
[2017-05-31] MEDS: Etodolac 200 MG CAP PO PRN (17:55)
[2017-05-31] MEDS: Famotidine 20 MG TAB PO SCH (22:34)
[2017-06-01] MEDS: Ondansetron ODT 4 MG TAB PO PRN ×2 (08:14→17:40)
[2017-06-01] MEDS: Apixaban 5 MG TAB PO SCH ×2 (09:36→22:09)
[2017-06-01] MEDS: levETIRAcetam 500 MG TAB PO SCH ×2 (09:36→22:13)
[2017-06-01] MEDS: Cyclobenzaprine 10 MG TAB PO SCH ×4 (09:37→22:12)
[2017-06-01] MEDS: Famotidine 20 MG TAB PO SCH ×2 (09:37→22:13)
[2017-06-01] MEDS: Diltiazem HCl SR 60 mg Capsule PO SCH ×4 (09:37→22:13)
[2017-06-01] MEDS ORDERED: Diprivan 0 ML ONE (14:10)
[2017-06-01] MEDS ORDERED: Benzocaine 20% Spray 60 ML CAN ONE (14:10)
[2017-06-01] MEDS ORDERED: Diprivan 20 ML ONE (14:11)
[2017-06-01] MEDS ORDERED: Norepinephrine 8 MG/0.9% NS 0 ML ONE ×2 (14:12→14:13)
[2017-06-01] MEDS ORDERED: EPINEPHrine 1 MG/ML AMP ONE (14:12)
[2017-06-01] MEDS ORDERED: Norepinephrine 4 MG/4 ML VIAL ONE (14:13)
[2017-06-01] MEDS ORDERED: Propofol 200 MG/20 ML VIAL ONE (14:23)
--- NOTE | 2017-06-01 15:48 | OP ---
PROCEDURE PERFORMED: Electrical cardioversion. This is a 41-year-old woman with paroxysmal atrial fibrillation. The patient was taken to the PACU. The patient was sedated by anesthesiology. The patient was shocked with 200 joules of synchronized electricity. The patient converted to normal sinus rhythm. IMPRESSION: Successful electrical cardioversion.
--- NOTE | 2017-06-01 15:53 | CON ---
ELECTROPHYSIOLOGY CONSULTATION REPORT DATE OF CONSULTATION: 06/01/2017 REFERRING PHYSICIANS: Dr. Sly Guardado and Dr. Vargas. I am seeing Ms. Morris at our [facility] telemetry floor as an electrophysiology agriculture consultant . Her problems are: 1. Recurrent atrial arrhythmias. A. Prior history of atrial flutter since ablation in 2011 and redo CTA ablation in 12/13/2014. B. Presentation in 10/2016 with narrow complex regular tachycardia, not typical for flutter, possib le SVT. C. Paroxysmal atrial fibrillation with recurrent admissions in 03/2017 and 05/2017. 2. History of normal EF of 55% of 60% on echo in 03/2017. 3. Mild left atrial enlargement, mild MR, severe TR and severe pulmonary hypertension . 4. History of coronary artery disease, status post abnormal stress test and heart catheterization d eclined in 2009. 5. History of thoracic aortic aneurysm, status post repair. 6. Coronary artery risk factors. A. Hypertension. 7. History of end-stage renal disease, on hemodialysis. ALLERGIES: CEFAZOLIN, CODEINE, CLINDAMYCIN, IODINE and PHENYTOIN. MEDICATIONS AT HOME: Included zolpidem, sertraline, alprazolam, multivitamins, levetiracetam, Keppr a, diltiazem 60 mg 3 times a day, ondansetron, cyclobenzaprine, diphenhydramine, polyethylene glycol , mupirocin, hydrocortisone, omeprazole, hyoscyamine and tramadol. SUBJECTIVE: Ms. Morris was admitted with chest tightness sensation and atrial fibrillation with rap id rate. She supposedly had a difficult time completing her hemodialysis sessions due to rapid rate . This began about 24-48 hours prior to admission. Now, the chest pain is resolved. Heart rates a re better controlled. She has no fever, chills or cough. No stroke-like symptoms. Rest of the 12- point review of systems otherwise unremarkable. PAST MEDICAL AND SURGICAL HISTORY: As above. She has a prior history of seizure disorder, which leonard s been stable; peripheral neuropathy; status post left tibial plateau fracture, ORIF on 03/2017. Sh krystin has a history of AV fistula placement; cholecystectomy; section and bilateral tubal ligat ion. SOCIAL HISTORY: Lives in [place]. Disabled. Smokes up to half pack to a 1 pack of cigarettes a day. No EtOH or drug use noted. FAMILY HISTORY: Significant for coronary artery disease. OBJECTIVE DATA: VITAL SIGNS: Blood pressure currently 99/63, heart rate is 80, respirations are 16 and temperature 96 degrees Fahrenheit. GENERAL: This is an alert and oriented woman in no apparent distress. NECK: Supple. Jugular veins not distended. CHEST: Coarse without crackles. CARDIAC: Heart sounds are irregularly irregular. S1 and S2 are variable. No murmur or gallop. ABDOMEN: Benign. Bowel sounds are positive. EXTREMITIES: Lower extremities without edema, clubbing or cyanosis. DATABASE: EKGs reviewed reveals atrial fibrillation without significant ST-T changes. LABORATORY DATA: White blood cell count is 7.7, hemoglobin 11.9 and platelet count is 162. Sodium 139, potassium 3.5, BUN is 20 and creatinine is 7.97. Troponin I is 0.03-0.04. Initial potassium w as 2.7. ASSESSMENT AND PLAN: Ms. Morris is a pleasant 41-year-old woman who has history of end-stage renal disease. She is on dialysis. She also has history of paroxysmal atrial arrhythmias as detailed abo ve. She has had severe pulmonary hypertension in the past. We did discuss the presence of atrial arrhythmias. At this point, she is somewhat difficult to rate control, some degree of noncompliance present. She has not been on anticoagulation as expected but she said she did not get the prescription for that. We discussed different options. At this point, it would be reasonable to proceed with transesophage al echocardiography cardioversion and attempting Multaq as a suppressive therapy. If she has furthe r recurrent arrhythmias, she might benefit from long-term repeat electrophysiology evaluation, possi ble left atrial pulmonary venous isolation procedure as well. She might need to also have slow path way evaluation for atrioventricular robyn reentry tachycardia and possible modification. We will initiate the Multaq. Thank you for allowing me to participate in the care of this patient.
--- NOTE | 2017-06-01 15:54 | PDOC.PN ---
- Subjective Encounter Start Date: 06/01/17 Encounter Start Time: 15:35 Subjective: f/u for A-fib with variable rate s/p cardioversion and SR on tele. -: Pt denies any current complaints other than intermittent diarrhea. - Objective Resuscitation Status: Resuscitation Status FULL:Full Resuscitation MAR Reviewed: Yes Vital Signs & Weight: Vital Signs (12 hours) Temp Pulse Resp BP BP Pulse Ox 06/01/17 13:01 96.7 F L 100 18 133/78 93 L 06/01/17 08:15 96.7 F L 100 18 06/01/17 08:09 96.0 F L 80 16 99/63 98 06/01/17 04:30 97.7 F 76 20 93/61 93 L Weight Admit Weight 200 lb Weight 203 lb 9.6 oz I&O: 05/31/17 06/01/17 06/02/17 06:59 06:59 06:59 Intake Total 850 50 Output Total Balance 850 50 Result Diagrams: 05/30/17 04:24 05/31/17 04:59 Additional Labs: Microbiology 05/31/17 14:29 Stool C. difficile GDH Antigen & Toxins - Final EKG Reviewed by me: Yes (Tele - SR with PVC's) Phys Exam - Physical Examination Constitutional: NAD HEENT: PERRLA, oral pharynx no lesions Neck: no JVD, supple Respiratory: no wheezing Cardiovascular: RRR Gastrointestinal: soft, non-tender, no distention, positive bowel sounds Musculoskeletal: no edema, pulses present Neurological: normal sensation, moves all 4 limbs Psychiatric: A&O x 3 Skin: normal turgor, cap refill <2 seconds Dx/Plan (1) Atrial fibrillation Code(s): I48.91 - UNSPECIFIED ATRIAL FIBRILLATION Status: Chronic Comment: s /p cardioversion with return of SR, continue Metoprolol 25mg BID, Multaq 400mg BID and Diltiazem 60mg TID, continue Eliquis 2.5mg BID (2) End stage renal failure on dialysis Code(s): N18.6 - END STAGE RENAL DISEASE; Z99.2 - DEPENDENCE ON RENAL DIALYSIS Status: Chronic Comment: HD per Renal service (3) Seizure disorder Code(s): G40.909 - EPILEPSY, UNSP, NOT INTRACTABLE, WITHOUT STATUS EPILEPTICUS Status: Chronic Comment: Continue Keppra 500mg BID (4) Clostridium difficile diarrhea Code(s): A04.7 - ENTEROCOLITIS DUE TO CLOSTRIDIUM DIFFICILE * DO NOT USE * Status: Acute Comment: Start Flagyl 250mg TID (5) Diastolic dysfunction Code(s): I51.9 - HEART DISEASE, UNSPECIFIED Status: Chronic Comment: Compensated, EF 60-65% - Plan continue antibiotics, social insurance administrator, out of bed/ambulate, DVT proph w/SCDs Stable currently -: Continue AV robyn blocking agents -: Multaq 400mg BID -: Continue Eliquis 2.5mg BID -: Start Flagyl 250mg TID * AM lab: BMP, CBC
[2017-06-01] MEDS ORDERED: Dronedarone HCl 400 MG TAB PO SCH (16:00)
--- NOTE | 2017-06-01 18:26 | ECHO ---
DATE: 06/01/2017 TRANSESOPHAGEAL ECHOCARDIOGRAM INDICATION: A 41-year-old woman with paroxysmal atrial fibrillation. PROCEDURE: The patient was taken to the PACU. The patient was sedated by Anesthesiology. The díaz sesophageal probe was placed in the distal esophagus and stomach. Echocardiographic images were obt ained. The transesophageal probe was removed. FINDINGS: 1. Right atrial enlargement. 2. The right ventricle is dilated. 3. The left ventricle is not dilated. 4. Normal aortic valves. 5. Severe mitral annular calcification. 6. Mild mitral regurgitation. 7. Moderate tricuspid regurgitation. 8. No thrombus in the left atrium or left atrial appendage. 9. Atherosclerotic debris in the descending aorta. IMPRESSION: No formed thrombus in the left atrium or left atrial appendage. POS: ALEKSEY
[2017-06-01] MEDS: metroNIDAZOLE 250 MG TAB PO SCH (22:13)
[2017-06-02] MEDS: Ondansetron ODT 4 MG TAB PO PRN (04:37)
[2017-06-02] MEDS: traMADol HCl 50 MG TAB PO PRN ×2 (04:40→14:54)
[2017-06-02 05:52] LABS: Band 2 % (5-11); Hematocrit 39.8 % (36.0-47.0); Mean Platelet Volume 9.1 fL (7.4-10.4); Neutrophil 71 % (42-75); Nucleated RBC 1 % (0); Red Blood Cell (RBC) Count 3.92 mill/uL (4.20-5.40); White Blood Cell (WBC) Count 7.4 thou/uL (4.8-10.8)
[2017-06-02 06:11] LABS: Anion Gap 22 mmol/L (10-20); BUN (Urea Nitrogen) 31 mg/dL (7.0-18.7); Calc. Creatinine Clearance 10 mL/min (70-130); Calcium 7.6 mg/dL (7.8-10.44); Carbon Dioxide 22 mmol/L (22-29); Chloride 98 mmol/L (98-107); Estimated GFR-MDRD 5
[2017-06-02] MEDS: Cyclobenzaprine 10 MG TAB PO SCH ×3 (09:00→21:36)
[2017-06-02] MEDS: metroNIDAZOLE 250 MG TAB PO SCH ×3 (09:00→21:37)
--- NOTE | 2017-06-02 13:18 | PDOC.PN ---
- Subjective Encounter Start Date: 06/02/17 Encounter Start Time: 13:15 Subjective: f/u after cardioversion 06/01/17 for A-fib now with recurrence and tele -: showing accelerated junctional rhythm. Tolerated HD this am. - Objective Resuscitation Status: Resuscitation Status FULL:Full Resuscitation MAR Reviewed: Yes Vital Signs & Weight: Vital Signs (12 hours) Temp Pulse Resp BP Pulse Ox 06/02/17 06:00 81 20 100/69 06/02/17 04:00 97.5 F L 104 H 18 83/56 L 98 Weight Admit Weight 200 lb Weight 201 lb 8 oz I&O: 06/01/17 06/02/17 06/03/17 06:59 06:59 06:59 Intake Total 850 530 Output Total 0 Balance 850 530 Result Diagrams: 06/02/17 04:59 06/02/17 04:59 Radiology Reviewed by me: Yes (SOLITARIO - severe mitral annular calcification, mod TR ) EKG Reviewed by me: Yes (Tele - accelerated junctional in 110's) Phys Exam - Physical Examination Constitutional: NAD HEENT: PERRLA Neck: no JVD, supple Respiratory: no wheezing, clear to auscultation bilateral Cardiovascular: RRR Gastrointestinal: soft, non-tender, no distention, positive bowel sounds Musculoskeletal: no edema, pulses present Neurological: normal sensation, moves all 4 limbs Psychiatric: A&O x 3 Skin: normal turgor, cap refill <2 seconds Dx/Plan (1) Atrial fibrillation Code(s): I48.91 - UNSPECIFIED ATRIAL FIBRILLATION Status: Chronic Comment: s /p cardioversion with A-fib recurrence and now accelerated junctional rhythm, continue Metoprolol 25mg BID, Multaq 400mg BID and Diltiazem 60mg TID, continue Eliquis 2.5mg BID, may need RFA (2) End stage renal failure on dialysis Code(s): N18.6 - END STAGE RENAL DISEASE; Z99.2 - DEPENDENCE ON RENAL DIALYSIS Status: Chronic Comment: HD per Renal service (3) Seizure disorder Code(s): G40.909 - EPILEPSY, UNSP, NOT INTRACTABLE, WITHOUT STATUS EPILEPTICUS Status: Chronic Comment: Continue Keppra 500mg BID (4) Clostridium difficile diarrhea Code(s): A04.7 - ENTEROCOLITIS DUE TO CLOSTRIDIUM DIFFICILE * DO NOT USE * Status: Acute Comment: Flagyl 250mg TID (5) Diastolic dysfunction Code(s): I51.9 - HEART DISEASE, UNSPECIFIED Status: Chronic Comment: Compensated, EF 60-65% - Plan continue antibiotics, clinical social work aide, out of bed/ambulate, DVT proph w/SCDs Stable overall -: Continue Multaq 400mg BID -: Continue Metoprolol 25mg BID -: Continue Diltiazem 60mg TID -: HD per Renal service * Continue Flagyl 250mg TID * AM lab: BMP, Mg++, TSH
[2017-06-02] MEDS: Apixaban 5 MG TAB PO SCH ×2 (14:52→21:37)
[2017-06-02] MEDS: Dronedarone HCl 400 MG TAB PO SCH (14:52)
[2017-06-02] MEDS: levETIRAcetam 500 MG TAB PO SCH ×2 (14:53→21:37)
[2017-06-02] MEDS: Diltiazem HCl SR 60 mg Capsule PO SCH ×3 (14:55→22:43)
[2017-06-02] MEDS: Famotidine 20 MG TAB PO SCH ×2 (14:59→21:36)
--- NOTE | 2017-06-02 19:06 | PRG ---
DATE OF SERVICE: 06/02/2017 SUBJECTIVE: The patient was seen and examined today, status post hemodialysis with no new complaint noted with the following vital signs. PHYSICAL EXAMINATION: VITAL SIGNS: Afebrile with temperature 98.2, pulse 80, respiratory rate of 18, O2 sat 99% with bloo d pressure 100/63. HEENT EXAMINATION: Unremarkable. CARDIOVASCULAR SYSTEM: First and second heart sounds were heard, irregularly irregular. RESPIRATORY SYSTEM: Clear to auscultation. DIGESTIVE SYSTEM: Revealed a benign abdomen with positive bowel sounds. EXTREMITIES: No peripheral edema. SKIN EXAMINATION: No new gross rash. LYMPHATICS: No peripheral lymphadenopathy. IMPRESSION: 1. End-stage renal disease on hemodialysis Thursday, , and Thursday. 2. Atrial fibrillation with some difficulty in control. 3. Labile hemodynamics. PLAN: 1. We will continue the patient's hemodialysis per schedule. 2. Further management to be dependent on the clinical course as well as further recommendations fro m other specialty services.
[2017-06-02] MEDS: Acetaminophen 500 MG TAB PO PRN (21:36)
[2017-06-02] MEDS: Ondansetron HCl/PF 4 MG/2 ML Vial IVP PRN (21:38)
--- NOTE | 2017-06-02 22:18 | PRG ---
DATE OF SERVICE: 06/02/2017 ELECTROPHYSIOLOGY FOLLOWUP NOTE SUBJECTIVE: Ms. Morris seems to be doing well one day after her cardioversion, but she continues to have rapid heart rates. She has mild palpitations with that. No dizziness or loss of consciousness. No chest pains are noted. She has more issues with abdomen and history of C. diff. OBJECTIVE DATA: VITAL SIGNS: Blood pressure is 100/69, heart rate 81, respirations 20, temperature 97 degrees Fahrenheit. The heart rates are 110. GENERAL: Alert and oriented woman in no apparent distress. NECK: Supple. Jugular veins not distended. CHEST: Coarse without crackles. CARDIOVASCULAR: Heart sounds are regular to rate and rhythm, but tachycardic. No murmur or gallop. ABDOMEN: Benign. Bowel sounds positive. EXTREMITIES: Lower extremities without edema, clubbing or cyanosis. DATABASE: The telemetry strips reviewed, initially reveals atrial fibrillation occurring after the cardioversion, but later on converted to sinus rhythm. Eventually, a SVT at 110 beats per minute is noted which could be atrial tachycardia versus AVNRT seen. ASSESSMENT AND PLAN: Ms. Morris is a pleasant 41-year-old woman with prior history of atrial arrhythmias. She had prior history of atrial flutter with two ablations in the past in 2011 and 2014. In October, she was noted to have an supraventricular tachycardia and this last couple of admission, she had persistent atrial fibrillation. She underwent TET guided cardioversion yesterday, but had recurrence and Multaq was initiated which eventually terminated the atrial fibrillation. Now, she seems to be in a regular supraventricular tachycardia which either atrial tachycardia versus atrioventricular robyn reentrant tachycardia. I did attempt today without success to eliminate the arrhythmia. 1. I discussed the potential treatment options. For now, she prefers continued Multaq therapy over repeat ablation. I agree with that. 2. Anticoagulation on lower dose of Eliquis 2.5 mg twice a day. 3. History of Clostridium difficile on Flagyl. 4. History of seizure disorder on Keppra. 5. Diastolic dysfunction now stable. We will follow with you. ABHINAV
[2017-06-03] MEDS: traMADol HCl 50 MG TAB PO PRN ×2 (02:17→14:46)
[2017-06-03] MEDS: diphenhydrAMINE 25 MG CAP PO PRN ×2 (02:17→11:41)
[2017-06-03] MEDS: Hydrocortisone Acetate 25 MG Suppository PR PRN ×2 (02:28→14:52)
[2017-06-03 06:18] LABS: Anion Gap 17 mmol/L (10-20); BUN (Urea Nitrogen) 15 mg/dL (7.0-18.7); Calc. Creatinine Clearance 16 mL/min (70-130); Calcium 7.8 mg/dL (7.8-10.44); Carbon Dioxide 25 mmol/L (22-29); Chloride 100 mmol/L (98-107); Estimated GFR-MDRD 8; Magnesium 1.7 mg/dL (1.6-2.6)
[2017-06-03] MEDS: Apixaban 5 MG TAB PO SCH ×2 (10:51→21:50)
[2017-06-03] MEDS: metroNIDAZOLE 250 MG TAB PO SCH ×4 (10:52→21:53)
[2017-06-03] MEDS: Dronedarone HCl 400 MG TAB PO SCH ×3 (10:52→17:13)
[2017-06-03] MEDS: Cyclobenzaprine 10 MG TAB PO SCH ×4 (10:52→23:02)
[2017-06-03] MEDS: levETIRAcetam 500 MG TAB PO SCH ×2 (10:52→21:52)
[2017-06-03] MEDS: Famotidine 20 MG TAB PO SCH ×2 (10:53→21:51)
[2017-06-03] MEDS: Diltiazem HCl SR 60 mg Capsule PO SCH ×3 (11:41→21:48)
--- NOTE | 2017-06-03 12:19 | PRG ---
DATE OF SERVICE: 06/03/2017 The patient was seen and examined with no new complaint. PHYSICAL EXAMINATION: VITAL SIGNS: Afebrile with temperature 97.7, pulse 108, respiratory rate 16, O2 sat 94% with blood pressure 92/62. HEENT: Unremarkable. CARDIOVASCULAR: First and second heart sounds were heard. RESPIRATORY: Clear to auscultation. DIGESTIVE: Revealed a benign abdomen. EXTREMITIES: No peripheral edema. SKIN: No new gross rash. LYMPHATICS: No peripheral lymphadenopathy. IMPRESSION: 1. End-stage renal disease on hemodialysis. 2. Atrial fibrillation with rapid ventricular response. PLAN: 1. Continue renal supportive measures. 2. Further management to be dependent on the clinical course.
--- NOTE | 2017-06-03 15:27 | PDOC.PN ---
- Subjective Encounter Start Date: 06/03/17 Encounter Start Time: 15:25 Subjective: f/u for A-fib RVR and variable rates on Multaq and Eliquis. Plan for -: medical mgmt rather than ablation. Still having frequent, loose stools - Objective Resuscitation Status: Resuscitation Status FULL:Full Resuscitation MAR Reviewed: Yes Vital Signs & Weight: Vital Signs (12 hours) Temp Pulse Resp BP Pulse Ox 06/03/17 12:23 96.5 F L 110 H 17 100/67 92 L 06/03/17 08:00 96.5 F L 110 H 17 116/74 94 L Weight Admit Weight 200 lb Weight 201 lb 8 oz I&O: 06/02/17 06/03/17 06/04/17 06:59 06:59 06:59 Intake Total 530 720 870 Output Total 0 2000 Balance 530 -1280 870 Result Diagrams: 06/02/17 04:59 06/03/17 05:30 EKG Reviewed by me: Yes (Tele - A-fib with rates in 100's) Phys Exam - Physical Examination Constitutional: NAD HEENT: PERRLA, oral pharynx no lesions Neck: no JVD, supple Respiratory: no wheezing Cardiovascular: irregular Gastrointestinal: soft, non-tender, no distention, positive bowel sounds Musculoskeletal: no edema, pulses present Neurological: normal sensation, moves all 4 limbs Psychiatric: A&O x 3 Skin: normal turgor, cap refill <2 seconds Dx/Plan (1) Atrial fibrillation Code(s): I48.91 - UNSPECIFIED ATRIAL FIBRILLATION Status: Chronic Comment: s /p cardioversion with A-fib recurrence and now accelerated junctional rhythm, continue Metoprolol 25mg BID, Multaq 400mg BID and Diltiazem 60mg TID, continue Eliquis 2.5mg BID, opting for med mgmt (2) End stage renal failure on dialysis Code(s): N18.6 - END STAGE RENAL DISEASE; Z99.2 - DEPENDENCE ON RENAL DIALYSIS Status: Chronic Comment: HD per Renal service (3) Seizure disorder Code(s): G40.909 - EPILEPSY, UNSP, NOT INTRACTABLE, WITHOUT STATUS EPILEPTICUS Status: Chronic Comment: Continue Keppra 500mg BID (4) Clostridium difficile diarrhea Code(s): A04.7 - ENTEROCOLITIS DUE TO CLOSTRIDIUM DIFFICILE * DO NOT USE * Status: Acute Comment: Flagyl 250mg TID, start Vancomycin 125mg po q6h (5) Diastolic dysfunction Code(s): I51.9 - HEART DISEASE, UNSPECIFIED Status: Chronic Comment: Compensated, EF 60-65% - Plan continue antibiotics, out of bed/ambulate, DVT proph w/SCDs Stable overall -: Start Proctofoam HC BID prn -: Tums 1000mg q4h prn -: Continue Multaq 400mg BID -: Continue Diltiazem 60mg TID * Eliquis 2.5mg BID * HD per Renal service
[2017-06-03] MEDS ORDERED: Calcium Carbonate 500 MG ChewTAB PO PRN (15:32)
[2017-06-03] MEDS ORDERED: Vancomycin HCl 25 MG/ML Oral PO SCH (17:00)
[2017-06-03] MEDS: Hydrocortisone/Pramoxine (Proctofoam HC) 10 GM BOX TOP SCH ×2 (17:02→21:51)
[2017-06-03] MEDS: Ondansetron ODT 4 MG TAB PO PRN (17:05)
--- NOTE | 2017-06-03 17:31 | PRG ---
DATE OF SERVICE: 06/03/2017 ELECTROPHYSIOLOGY FOLLOWUP NOTE SUBJECTIVE: Ms. Morris seems to be doing fair today, her abdominal discomfort is better. She has atypical left-sided abnormal lower chest pains only. Minimal palpitations. OBJECTIVE DATA: VITAL SIGNS: Blood pressure is 90/62, heart rate 108, respirations 16. The patient is afebrile. GENERAL: Alert and oriented woman in no apparent distress. NECK: Supple. Jugular veins not distended. CHEST: Coarse without crackles. CARDIOVASCULAR: Heart sounds are regular to rate and rhythm. No murmur or gallop. ABDOMEN: Benign. Bowel sounds positive. EXTREMITIES: Lower extremities without edema, clubbing or cyanosis. Left upper extremity AV fistula is noted. DATABASE: Telemetry strips review reveals intermittent sinus rhythm alternating with persisting SVT with short RP and long RP type of tachycardia. LABORATORY DATA: Electrolytes with sodium 139, potassium 3.4, BUN 15, and creatinine is 6.49. ASSESSMENT AND PLAN: Ms. Morris is a pleasant 41-year-old woman with prior history of atrial arrhythmias. She had a prior cavotricuspid isthmus ablation, but had atrial fibrillation in the last visit and this visit as well. She was cardioverted from that and placed on Multaq, but now she has a regular arrhythmia, which could be atrial tachycardia versus atrioventricular robyn reentrant tachycardia. We will continue Multaq and monitor for maintenance of the rhythms. Alternatively, the EP study and ablation could be considered possibly tomorrow. Risks and benefits discussed and for now, we will continue to monitor her.. MTDD
[2017-06-03] MEDS ORDERED: Diltiazem HCl SR 60 mg Capsule PO SCH (21:55)
[2017-06-03 22:30] LABS: Mode NC; Modified Allen's Test POSITIVE; Oxyhemoglobin 96.3 % (94.0-97.0); Sodium 138 mmol/L (135-148); Vent NO
[2017-06-03 22:40] LABS: Hematocrit 38.5 % (36.0-47.0); Mean Platelet Volume 8.4 fL (7.4-10.4); Red Blood Cell (RBC) Count 3.76 mill/uL (4.20-5.40); White Blood Cell (WBC) Count 7.8 thou/uL (4.8-10.8)
--- NOTE | 2017-06-03 22:40 | RAD ---
FRONTAL VIEW CHEST 06/03/17 COMPARISON: 05/29/17 INDICATION: Shortness of breath. FINDINGS: There is enlargement of the cardiac silhouette and pulmonary vasculature. Left sided pleural effusio n present. Interval improvement with regard to edema from prior exam. IMPRESSION: Evidence of CHF with left side effusion. Improved edema comparing to prior exam. POS: [facility]
[2017-06-03 22:51] LABS: Anion Gap 21 mmol/L (10-20); BUN (Urea Nitrogen) 17 mg/dL (7.0-18.7); Calc. Creatinine Clearance 15 mL/min (70-130); Calcium 6.7 mg/dL (7.8-10.44); Carbon Dioxide 17 mmol/L (22-29); Chloride 103 mmol/L (98-107); Estimated GFR-MDRD 8
[2017-06-03 22:54] LABS: Band 2 % (5-11); Neutrophil 76 % (42-75); Nucleated RBC 1 % (0); Tear Drops SLIGHT = 2-5 cells (100X) (0-1/hpf)
[2017-06-03 22:57] LABS: Troponin I 0.024 ng/mL (< 0.028)
[2017-06-03] MEDS: Acetaminophen 500 MG TAB PO PRN (23:02)
[2017-06-03] MEDS: Norepinephrine 8 MG/0.9% NS 250 ML IVPB PRN (23:07)
[2017-06-03] MEDS ORDERED: Lidocaine 1% (PF) 30 ML VIAL ONE (23:53)
[2017-06-04] MEDS: Vancomycin HCl 25 MG/ML Oral PO SCH ×5 (00:50→23:48)
--- NOTE | 2017-06-04 01:10 | PRG ---
DATE OF SERVICE: 06/03/2017 I was called in for a code green because the patient's systolic blood pressure was in the 60s. She got 250 mL IV bolus and embarked the blood pressure only to 72. She also was a little short of edilma th with bibasilar rales on my examination. The patient is going to be transferred to the CCU. ABG and chest x-ray are pending. Most likely diagnosis would be loss of volume secondary to chronic C. diff. She will be monitored in the CCU for today, central line if needed, and Levophed if needed. Other diagnosis are atrial fibrillation, end-stage renal disease on dialysis, seizure disorder, Clos tridium difficile diarrhea , diastolic dysfunction. Possible cause of shortness of breath would be worsening diastolic dysfunction.
[2017-06-04 04:43] LABS: ALT (SGPT) 10 U/L (8-55); AST (SGOT) 15 U/L (5-34); Alkaline Phosphatase 94 U/L (40-150); Anion Gap 17 mmol/L (10-20); BUN (Urea Nitrogen) 20 mg/dL (7.0-18.7); Bilirubin, Total 0.9 mg/dL (0.2-1.2); Calc. Creatinine Clearance 14 mL/min (70-130); Calcium 7.4 mg/dL (7.8-10.44); Carbon Dioxide 24 mmol/L (22-29); Chloride 100 mmol/L (98-107); Estimated GFR-MDRD 7; Globulin 3.1 g/dL (2.4-3.5); Protein, Total 6.9 g/dL (6.0-8.3)
[2017-06-04 04:46] LABS: #Eosinphils 0.2 thou/uL (0.0-0.7); #Lymphocytes 1.5 thou/uL (1.20-3.40); #Monocytes 0.8 thou/uL (0.11-0.59); #Neutrophils 6.6 thou/uL (1.40-6.50); %Basophils 0.3 % (0.0-1.0); %Eosinophils 2.1 % (0.0-10.0); %Lymphocytes 16.3 % (21.0-51.0); %Monocytes 8.4 % (0.0-10.0); Hematocrit 39.3 % (36.0-47.0); Mean Platelet Volume 8.6 fL (7.4-10.4); Red Blood Cell (RBC) Count 3.84 mill/uL (4.20-5.40)
[2017-06-04 04:47] LABS: Troponin I 0.039 ng/mL (< 0.028)
--- NOTE | 2017-06-04 05:47 | OP-2 ---
DATE OF PROCEDURE: 06/04/2017 INDICATION: Hypotension requiring pressors. PROCEDURE MEDICAL TECHNOLOGIST GENERALIST: Dr. Britta Zamora and Dr. Cayetano Morse ATTENDING PHYSICIAN: Dr. Garo Wilks CONSENT: Consent was obtained from Myriam Morris prior to the procedure. Indications, risks and benefits were explained at length. PROCEDURE SUMMARY: A timeout was performed. Sterile procedure was used with handwashing, surgical caps, mask, protective eyewear, full gowns and sterile gloves worn by all parties throughout the procedure. The patient was placed in Trendelenburg position. The right chest and neck region was prepped using chlorhexidine, scrubbed and draped in sterile fashion. The internal jugular vein was identified using ultrasound and anesthesia was achieved over the vein using 1% lidocaine. The introducer needle was inserted into the internal jugular vein under direct ultrasound visualization and venous blood was withdrawn. The syringe was removed and a guidewire was advanced into the introducer needle; however, at this point, the guidewire was met with resistance and was unable to be fully advanced into the internal jugular vein. The introducer needle was removed and upon further ultrasound assessment, the internal jugular vein of this patient was found to be very torturous and so it was decided to switch to a subclavian approach. Anesthesia was achieved with 1% lidocaine. The introducer needle was inserted approximately 2 cm lateral to and 1 cm inferior to the normal curvature of the patient's clavicle. Venous blood was withdrawn. The syringe was removed and a guidewire was advanced into the introducer needle. A small incision was made at the skin surface with a scalpel and the introducer needle was exchanged for a dilator over the guidewire. After appropriate dilation was obtained, the dilator was exchanged over the wire for a triple-lumen central venous catheter. The wire was removed and the catheter was sutured in place at 15 cm. A sterile shield was placed over the catheter at the insertion site. The patient tolerated the procedure without any hemodynamic compromise. At time of procedure completion, all ports were aspirated and flushed properly. Post- procedure chest x-ray is pending at this time. ESTIMATED BLOOD LOSS: Less than 100 mL. MTDD
[2017-06-04] MEDS ORDERED: Budesonide 0.5 MG/2 ML NEB ONE (06:17)
--- NOTE | 2017-06-04 07:55 | RAD ---
SINGLE VIEW OF THE CHEST: COMPARISON: 06/03/17. HISTORY: Central line placement. FINDINGS: A single view of the chest shows an enlarged but stable cardiomediastinal silhouette. The patient i s status post sternotomy. There is a right subclavian central venous catheter with its tip in the s uperior vena cava. No pneumothorax is seen. There appears is a stent in the upper mediastinum. Th ere is a small left pleural effusion. IMPRESSION: 1. Status post central line placement without evidence of complication. 2. Small left pleural effusion. POS: [facility]
--- NOTE | 2017-06-04 07:56 | PDOC.PN ---
- Subjective Encounter Start Date: 06/04/17 Encounter Start Time: 07:30 Subjective: f/u after hypotensive episode overnight requiring IVF's, Levophed and -: transfer to CCU. Pt feels better overall and requesting to eat. No CP, SOB. -: + loose stools but decreased in last 24h. - Objective Resuscitation Status: Resuscitation Status FULL:Full Resuscitation MAR Reviewed: Yes Vital Signs & Weight: Vital Signs (12 hours) Temp Pulse Pulse Pulse Resp Resp BP 06/04/17 03:00 96.2 F L 06/04/17 00:00 95 F L 80 16 06/03/17 22:15 69 06/03/17 22:11 69 68 20 79/50 L 06/03/17 22:00 22 H 06/03/17 21:45 88 24 H 06/03/17 20:00 98.2 F 77 18 BP BP BP Pulse Ox Pulse Ox Pulse Ox 06/04/17 03:00 06/04/17 00:00 94 L 06/03/17 22:15 72/43 L 06/03/17 22:11 71/44 L 72/46 L 96 95 06/03/17 22:00 71/44 L 06/03/17 21:45 67/45 L 96 06/03/17 20:00 92/50 L 96 Weight Admit Weight 200 lb Weight 201 lb 8 oz Most Recent Monitor Data Heart Rate from ECG 64 NIBP 91/64 NIBP BP-Mean 75 Respiration from ECG 30 SpO2 87 I&O: 06/03/17 06/04/17 06/05/17 06:59 06:59 06:59 Intake Total 720 1842 Output Total 1999 Balance -1280 1842 Result Diagrams: 06/04/17 03:45 06/04/17 03:45 Additional Labs: Microbiology 05/31/17 14:29 Stool C. difficile GDH Antigen & Toxins - Final Laboratory Tests 06/03/17 06/03/17 06/03/17 05:30 05:30 22:22 Magnesium 1.7 Troponin I 0.024 TSH 3rd Generation 3.6845 06/04/17 03:45 Magnesium Troponin I 0.039 H TSH 3rd Generation Radiology Reviewed by me: Yes (PCXR - no acute infiltrates) EKG Reviewed by me: Yes (Tele - A-tach/fib in 70's) Phys Exam - Physical Examination Constitutional: NAD HEENT: PERRLA, oral pharynx no lesions Neck: no JVD, supple Respiratory: no wheezing Cardiovascular: irregular Gastrointestinal: soft, non-tender, no distention, positive bowel sounds Musculoskeletal: no edema, pulses present Neurological: normal sensation, moves all 4 limbs Psychiatric: A&O x 3 Skin: normal turgor, cap refill <2 seconds Dx/Plan (1) Hypotension Status: Acute Qualifiers: Hypotension type: other hypotension type Qualified Code(s): I95.89 - Other hypotension Comment: Likely due to volume depletion in context of C. diff colitis, improved currently, wean Levophed gtt, hold Diltiazem and Metoprolol, follow clinically (2) Atrial fibrillation Code(s): I48.91 - UNSPECIFIED ATRIAL FIBRILLATION Status: Chronic Comment: s /p cardioversion with A-fib recurrence and now accelerated junctional rhythm, continue Metoprolol 25mg BID, Multaq 400mg BID and Diltiazem 60mg TID, continue Eliquis 2.5mg BID, opting for med mgmt (3) End stage renal failure on dialysis Code(s): N18.6 - END STAGE RENAL DISEASE; Z99.2 - DEPENDENCE ON RENAL DIALYSIS Status: Chronic Comment: HD per Renal service, no volume removal (4) Seizure disorder Code(s): G40.909 - EPILEPSY, UNSP, NOT INTRACTABLE, WITHOUT STATUS EPILEPTICUS Status: Chronic Comment: Continue Keppra 500mg BID (5) Clostridium difficile diarrhea Code(s): A04.7 - ENTEROCOLITIS DUE TO CLOSTRIDIUM DIFFICILE * DO NOT USE * Status: Acute Comment: Flagyl 250mg TID, start Vancomycin 125mg po q6h (6) Diastolic dysfunction Code(s): I51.9 - HEART DISEASE, UNSPECIFIED Status: Chronic Comment: Compensated, EF 60-65% - Plan continue antibiotics, 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
[2017-06-04] MEDS: Dronedarone HCl 400 MG TAB PO SCH ×2 (08:48→17:09)
[2017-06-04] MEDS: levETIRAcetam 500 MG TAB PO SCH ×2 (08:51→20:05)
[2017-06-04] MEDS: Apixaban 5 MG TAB PO SCH ×2 (08:51→20:03)
[2017-06-04] MEDS: metroNIDAZOLE 250 MG TAB PO SCH ×4 (08:52→20:05)
[2017-06-04] MEDS: Cyclobenzaprine 10 MG TAB PO SCH ×3 (09:00→20:04)
[2017-06-04] MEDS: Hydrocortisone/Pramoxine (Proctofoam HC) 10 GM BOX TOP SCH ×3 (09:53→21:45)
--- NOTE | 2017-06-04 12:33 | CON ---
DATE OF CONSULTATION: 06/04/2017 HISTORY OF PRESENT ILLNESS: Ms. Morris is a 41-year-old female with end-stage renal disease. She p resented to the hospital with chest discomfort, shortness of breath and atrial fibrillation. I was consulted because of her presence in the Critical Care Unit. Apparently she was moved in last night because of blood pressures that were reported to be low. The lowest blood pressure I see rec orded was in the 70s. She has no complaints and says she feels fine at this time. She was electrically cardioverted on 06/01/2017 out of atrial fibrillation after a SOLITARIO was negative for thrombus. A note from yesterday showed the patient's blood pressure dropped into the 60s. Apparently, she has been diagnosed with C. diff and has been having issues with diarrhea. Reviewing weights, it looks like she was admitted with a weight of 200 pounds, her weight yesterday was 201. Her weight has been as high as 205 on the . It is not clear to me how these weight are being taken. She was noted to have 3 bowel movements yesterday, 2 yesterday and 1 each day the day before, so it is hard to believe she became severely volume contraction and with that. In any event, she says she feels much better and has no complaints today. PAST MEDICAL HISTORY: 1. Otherwise remarkable for vascular access procedures. 2. History of colon surgery in the past. 3. History of tibial plateau fracture requiring surgery in March of this year with Dr. Dipika nobles. 4. History of seizure disorder. 5. History of diastolic dysfunction. 6. History of hypertension. 7. History of reflux disease. 8. History of aortic dissection repair reportedly. 9. Her colon surgery and ileocolectomy with reanastomosis. 10. History of cholecystectomy. 11. History two C-sections and a tubal ligation. ALLERGIES: She reports an intolerance/allergy to CEFAZOLIN, CODEINE, CLINDAMYCIN, IODINE and PHENYT OIN. MEDICATIONS: Medications have been reviewed. SOCIAL HISTORY: She is a smoker, nondrinker. REVIEW OF SYSTEMS: Otherwise negative. PHYSICAL EXAMINATION: VITAL SIGNS: Blood pressure currently is 111/77, heart rate 95. She is being dialyzed, respiratory rate 16. GENERAL: She is in no distress. LUNGS: Clear anteriorly and laterally. HEART: Regular rhythm. S1 and S2 are normal. ABDOMEN: Soft. EXTREMITIES: Without asymmetry. LABORATORY DATA: White count 9, hemoglobin 12, platelets 187. Sodium 137, potassium 3.8, chloride 100, bicarbonate 24, BUN 20, creatinine 7.72, glucose 129. IMPRESSION: End-stage renal disease with transient hypotension that responded to volume resuscitati on. She is being dialyzed, but not having volume removed today. We need accurate weights on her. She does not clinically appear to be septic. Hopefully, she will be stable to move out of the ICU by late today or first thing in the morning.
[2017-06-04] MEDS: traMADol HCl 50 MG TAB PO PRN (12:54)
--- NOTE | 2017-06-04 18:18 | PRG ---
DATE OF SERVICE: 06/04/2017 SUBJECTIVE: The events of last night when patient decompensated necessitating transfer to ICU noted . PHYSICAL EXAMINATION: VITAL SIGNS: The patient today at the time of this dictation noted with the following vital signs. Afebrile, temperature 98, pulse 100, blood pressure 121/84. HEENT: Unremarkable with moist oral mucosa. Neck was supple. No conjunctival injection or icterus . CARDIOVASCULAR: First and second heart sounds were heard. RESPIRATORY: Clear to auscultation. DIGESTIVE: Revealed a benign abdomen with positive bowel sounds. EXTREMITIES: No peripheral edema. SKIN: No new gross rash. LYMPHATICS: No peripheral lymphadenopathy. IMPRESSION: 1. End-stage renal disease, hemodialysis dependent. 2. Cardiac decompensation in the context of cardiac arrhythmia. PLAN: 1. The patient to be dialyzed today in accordance with her schedule with no ultrafiltration to avoi d precipitating cardiac decompensation. 2. Further management will be dependent on the clinical course.
[2017-06-04] MEDS: Ondansetron HCl/PF 4 MG/2 ML Vial IVP PRN (18:30)
[2017-06-04] MEDS: Norepinephrine 8 MG/0.9% NS 250 ML IVPB PRN (19:05)
[2017-06-04] MEDS: Acetaminophen 500 MG TAB PO PRN (20:05)
[2017-06-04] MEDS: Famotidine 20 MG TAB PO SCH (20:05)
[2017-06-04] MEDS: Hydrocortisone Acetate 25 MG Suppository PR PRN (21:21)
[2017-06-04] MEDS: diphenhydrAMINE 25 MG CAP PO PRN (21:24)
--- NOTE | 2017-06-04 23:30 | PRG ---
DATE OF SERVICE: 06/04/2017 ELECTROPHYSIOLOGY FOLLOWUP NOTE SUBJECTIVE: Ms. Morris is being transferred overnight to the ICU having hypertension and dyspnea. She required Levophed for blood pressure adjustments. She seems to have more diarrhea than before. She denies chest pains or palpitations. The heart rates are normalized overnight. Rest of 12-poin t system otherwise unremarkable. OBJECTIVE: VITAL SIGNS: Blood pressure 111/77, heart rate 95, respirations 16. The patient is afebrile. GENERAL: This is an alert, oriented woman in no apparent distress. NECK: Supple. Jugular veins difficult to visualize. CHEST: Coarse without crackles. Left arm AV fistula is present. CARDIOVASCULAR: Heart sounds are regular to rate and rhythm. No murmur or gallop. ABDOMEN: Benign. Bowel sounds positive. EXTREMITIES: Lower extremities without edema, clubbing or cyanosis noted. SKIN: Without rash. DATABASE: The EKG shows junctional rhythm with some degree of AV disassociation. No bradycardia no dunia. Atrial flutter is also seen with controlled ventricular rates. LABORATORY DATA: White count 9, hemoglobin 12.4, platelet count is 187. Sodium 137, potassium 3.8, BUN is 7, creatinine is 7.72. Troponin I 0.24, then 0.039. ASSESSMENT AND PLAN: Ms. Morris is a 41-year-old woman with history of atrial arrhythmias. 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 She also has had a trial fibrillation on this admission for which she required cardioversion. She is on Multaq, and no w her SVT seems to be resolving. She has occasional atrial arrhythmias, but rates are controlled. On the other hand, she is somewhat hypertensive likely due to depleted volume status with diarrhea. Discussed with Dr. Leary. For now, we will monitor her current regimen including Multaq, but if the diarrhea not controllable with antibiotic measures, she might need to be considered to be discussin g the Multaq for which this is a known side effects. For now she is a poor candidate for ablation procedure.
[2017-06-04] MEDS: Etodolac 200 MG CAP PO PRN (23:47)
[2017-06-05] MEDS: Ondansetron HCl/PF 4 MG/2 ML Vial IVP PRN ×2 (00:56→12:26)
[2017-06-05 04:36] LABS: Anion Gap 17 mmol/L (10-20); BUN (Urea Nitrogen) 14 mg/dL (7.0-18.7); Calc. Creatinine Clearance 20 mL/min (70-130); Calcium 7.4 mg/dL (7.8-10.44); Carbon Dioxide 25 mmol/L (22-29); Chloride 101 mmol/L (98-107); Estimated GFR-MDRD 11
[2017-06-05 04:47] LABS: Hematocrit 36.9 % (36.0-47.0); Mean Platelet Volume 8.6 fL (7.4-10.4); Neutrophil 66 % (42-75); Red Blood Cell (RBC) Count 3.62 mill/uL (4.20-5.40); White Blood Cell (WBC) Count 6.9 thou/uL (4.8-10.8)
[2017-06-05] MEDS: Vancomycin HCl 25 MG/ML Oral PO SCH ×4 (06:18→23:33)
[2017-06-05] MEDS: levETIRAcetam 500 MG TAB PO SCH ×2 (10:09→20:17)
[2017-06-05] MEDS: metroNIDAZOLE 250 MG TAB PO SCH ×4 (10:09→20:17)
[2017-06-05] MEDS: Cyclobenzaprine 10 MG TAB PO SCH ×3 (10:09→20:17)
[2017-06-05] MEDS: Dronedarone HCl 400 MG TAB PO SCH ×2 (10:10→17:03)
[2017-06-05] MEDS: Apixaban 5 MG TAB PO SCH ×2 (10:23→20:16)
[2017-06-05] MEDS: Hydrocortisone/Pramoxine (Proctofoam HC) 10 GM BOX TOP SCH ×3 (10:40→20:18)
--- NOTE | 2017-06-05 10:40 | PRG ---
DATE OF SERVICE: 06/05/2017 SUBJECTIVE: Ms. Morris slept well. She says she is feeling better. PHYSICAL EXAMINATION: VITAL SIGNS: Blood pressure is in the 90s, heart rate 79 to 104 this morning, respiratory rate is in the low teens. LUNGS: Lungs are clear. HEART: Regular rhythm. ABDOMEN: Soft. LABORATORY DATA: White count 6.9, hemoglobin 11.3, platelets 152. Sodium 139, potassium 3.7, chloride 101, bicarb 25, BUN 14, creatinine 5.36. Stool is Clostridium difficile antigen positive, toxin negative. IMPRESSION: 1. Hypotension, for the most part resolved. 2. End-stage renal disease. 3. Clostridium difficile antigen positive on p.o. vancomycin and p.o. Flagyl. 4. Seizure disorder on Keppra, stable. PLAN: Continue current supportive care. I feel it would be reasonable to move her out of the Critical Care Unit. Critical care time 35 min. ABHINAV
[2017-06-05] MEDS: traMADol HCl 50 MG TAB PO PRN (16:59)
--- NOTE | 2017-06-05 19:24 | PDOC.PN ---
- Subjective Encounter Start Date: 06/05/17 Encounter Start Time: 19:00 Subjective: f/u for hypotension previously requiring Levophed and IVF's. BP stable -: but remains in 90's systolic. Decreased frequency of BM's. - Objective Resuscitation Status: Resuscitation Status FULL:Full Resuscitation MAR Reviewed: Yes Vital Signs & Weight: Vital Signs (12 hours) Temp Pulse Resp Pulse Ox 06/05/17 16:00 98.3 F 06/05/17 12:00 97.8 F 06/05/17 08:00 96.5 F L 71 16 100 Weight Admit Weight 200 lb Weight 201 lb 8 oz Most Recent Monitor Data Heart Rate from ECG 84 NIBP 95/67 NIBP BP-Mean 73 Respiration from ECG 17 SpO2 97 I&O: 06/04/17 06/05/17 06/06/17 06:59 06:59 06:59 Intake Total 1842 941 660 Output Total 0 Balance 1842 941 660 Result Diagrams: 06/05/17 03:50 06/05/17 03:50 EKG Reviewed by me: Yes (Tele - A-fib in 80's) Phys Exam - Physical Examination Constitutional: NAD HEENT: PERRLA, oral pharynx no lesions Neck: no JVD, supple Respiratory: no wheezing Cardiovascular: irregular Gastrointestinal: soft, non-tender, no distention, positive bowel sounds Musculoskeletal: no edema, pulses present Neurological: normal sensation, moves all 4 limbs Psychiatric: A&O x 3 Skin: normal turgor, cap refill <2 seconds Dx/Plan (1) Hypotension Status: Acute Qualifiers: Hypotension type: other hypotension type Qualified Code(s): I95.89 - Other hypotension Comment: Likely due to volume depletion in context of C. diff colitis, improved currently, wean Levophed gtt, hold Diltiazem and Metoprolol, follow clinically (2) Atrial fibrillation Code(s): I48.91 - UNSPECIFIED ATRIAL FIBRILLATION Status: Chronic Comment: s /p cardioversion with A-fib recurrence and now accelerated junctional rhythm, continue Metoprolol 25mg BID, Multaq 400mg BID and Diltiazem 60mg TID, continue Eliquis 2.5mg BID, opting for med mgmt (3) End stage renal failure on dialysis Code(s): N18.6 - END STAGE RENAL DISEASE; Z99.2 - DEPENDENCE ON RENAL DIALYSIS Status: Chronic Comment: HD per Renal service, no volume removal (4) Seizure disorder Code(s): G40.909 - EPILEPSY, UNSP, NOT INTRACTABLE, WITHOUT STATUS EPILEPTICUS Status: Chronic Comment: Continue Keppra 500mg BID (5) Clostridium difficile diarrhea Code(s): A04.7 - ENTEROCOLITIS DUE TO CLOSTRIDIUM DIFFICILE * DO NOT USE * Status: Acute Comment: Flagyl 250mg TID, start Vancomycin 125mg po q6h, improved (6) Diastolic dysfunction Code(s): I51.9 - HEART DISEASE, UNSPECIFIED Status: Chronic Comment: Compensated, EF 60-65% - Plan continue antibiotics, 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 difficile -: Hold Diltiazem and Metoprolol due to hypotension -: Continue Multaq 400mg BID -: Continue Eliquis 2.5mg BID * HD per Renal service
--- NOTE | 2017-06-05 19:48 | PRG ---
DATE OF SERVICE: 06/05/2017 SUBJECTIVE: The patient was seen and examined today with no new complaint, noted with the following vital signs. OBJECTIVE: VITAL SIGNS: Blood pressure 95/67, pulse of 84, respiratory rate of 17, O2 sat of 97%. HEENT: Unremarkable. CARDIOVASCULAR SYSTEM: First and second heart sounds were irregular. RESPIRATORY SYSTEM: Clear to auscultation. DIGESTIVE SYSTEM: Revealed a benign abdomen. EXTREMITIES: No peripheral edema. SKIN: No new gross rash. LYMPHATICS: No peripheral lymphadenopathy. IMPRESSION: 1. End-stage renal disease on hemodialysis. 2. Atrial fibrillation/hemodynamic instability. PLAN: 1. The patient to continue with renal replacement therapy (hemodialysis per her normal schedule of Thursday, , and Thursday). 2. Further management to be dependent on the clinical course.
[2017-06-05] MEDS: Famotidine 20 MG TAB PO SCH (20:17)
[2017-06-05] MEDS: Hydrocortisone Acetate 25 MG Suppository PR PRN (22:17)
[2017-06-06] MEDS: Vancomycin HCl 25 MG/ML Oral PO SCH ×4 (05:14→23:14)
[2017-06-06] MEDS: Apixaban 5 MG TAB PO SCH ×2 (08:36→20:02)
[2017-06-06] MEDS: Dronedarone HCl 400 MG TAB PO SCH ×2 (08:36→16:55)
[2017-06-06] MEDS: levETIRAcetam 500 MG TAB PO SCH ×2 (08:36→20:05)
[2017-06-06] MEDS: Cyclobenzaprine 10 MG TAB PO SCH ×3 (08:37→20:04)
[2017-06-06] MEDS: metroNIDAZOLE 250 MG TAB PO SCH ×4 (08:37→20:04)
[2017-06-06] MEDS: Hydrocortisone/Pramoxine (Proctofoam HC) 10 GM BOX TOP SCH ×3 (08:37→20:06)
[2017-06-06] MEDS: Ondansetron HCl/PF 4 MG/2 ML Vial IVP PRN (11:04)
--- NOTE | 2017-06-06 11:36 | PRG ---
DATE OF SERVICE: 06/06/2017 SERVICE: Pulmonary Medicine. INTERVAL HISTORY: The patient is doing fine from a respiratory standpoint. She denies any shortness breath or chest discomfort. She is currently on dialysis. She has no specific complaints of nausea, vomiting, diarrhea, fevers or chills. There were no significant overnight events. PHYSICAL EXAMINATION: VITAL SIGNS: Afebrile, pulse 85, blood pressure 102/73, respirations 17, saturation 98% on 2 liters nasal cannula. GENERAL: Patient is awake, alert, in no apparent distress. LUNGS: Excellent air entry with no prolonged expiratory phase, wheezing, rhonchi or crackles. HEART: Normal rate, regular. ABDOMEN: Soft, nontender, and nondistended. Bowel sounds positive. MUSCULOSKELETAL: No cyanosis or clubbing. A 1+ pitting throughout. GENITOURINARY: No Stewart. NEUROLOGIC: Grossly nonfocal. LABORATORY DATA: WBC 6.9, hemoglobin 11.3, platelets 152,000. Basic metabolic profile is unremarkable except for creatinine 5.37. BUN is nice and low at 14. C. diff antigen is positive, but toxin negative. ASSESSMENT: 1. Atrial flutter with 3:1 conduction. 2. Acute hypoxic respiratory failure, improving. 3. End-stage renal disease. 4. Hypotension, resolved. 5. Seizure disorder. 6. Possible Clostridium difficile infection. PLAN: She is stable from a respiratory standpoint. She is asymptomatic and rate controlled in atrial flutter, currently being worked up by EP. Pulmonary will continue to follow up for the time being. She has no further requirements for monitoring in the ICU; however. After dialysis is done, we will make an effort to transition her over to the telemetry unit. ABHINAV
[2017-06-06] MEDS: traMADol HCl 50 MG TAB PO PRN (12:15)
[2017-06-06] MEDS ORDERED: HYDROcodone/Acetaminophen 5/325 mg Tablet PO PRN (14:17)
[2017-06-06] MEDS: diphenhydrAMINE 25 MG CAP PO PRN ×2 (14:29→23:13)
[2017-06-06] MEDS: HYDROcodone/Acetaminophen 5/325 mg Tablet PO PRN ×2 (15:42→23:13)
--- NOTE | 2017-06-06 18:33 | PDOC.PN ---
- Subjective Encounter Start Date: 06/06/17 Encounter Start Time: 18:00 Subjective: f/u for C. diff colitis on Vanc and Flagyl. + 4 BM's daily down from 10. -: BP stable per nsg off all pressor support. A-fib persists but rate -: controlled. - Objective Resuscitation Status: Resuscitation Status FULL:Full Resuscitation MAR Reviewed: Yes Vital Signs & Weight: Vital Signs (12 hours) Temp Pulse Resp Pulse Ox 06/06/17 16:00 97.5 F L 06/06/17 12:00 97.9 F 06/06/17 08:00 98.0 F 106 H 15 94 L Weight Admit Weight 200 lb Weight 201 lb 8 oz Most Recent Monitor Data Heart Rate from ECG 87 NIBP 106/77 NIBP BP-Mean 91 Respiration from ECG 16 SpO2 98 I&O: 06/05/17 06/06/17 06/07/17 06:59 06:59 06:59 Intake Total 941 1000 540 Output Total 0 Balance 941 1000 540 Result Diagrams: 06/05/17 03:50 06/05/17 03:50 EKG Reviewed by me: Yes (Tele - A-fib in 90's) Phys Exam - Physical Examination Constitutional: NAD HEENT: PERRLA, oral pharynx no lesions Neck: no JVD, supple Respiratory: no wheezing Cardiovascular: irregular Gastrointestinal: soft, non-tender, no distention, positive bowel sounds Musculoskeletal: no edema, pulses present Neurological: normal sensation, moves all 4 limbs Psychiatric: A&O x 3 Skin: normal turgor, cap refill <2 seconds Dx/Plan (1) Hypotension Status: Acute Qualifiers: Hypotension type: other hypotension type Qualified Code(s): I95.89 - Other hypotension Comment: Likely due to volume depletion in context of C. diff colitis, improved (2) Atrial fibrillation Code(s): I48.91 - UNSPECIFIED ATRIAL FIBRILLATION Status: Chronic Comment: s /p cardioversion with A-fib recurrence and now accelerated junctional rhythm, continue Metoprolol 25mg BID, Multaq 400mg BID and Diltiazem 60mg TID, continue Eliquis 2.5mg BID, opting for med mgmt (3) End stage renal failure on dialysis Code(s): N18.6 - END STAGE RENAL DISEASE; Z99.2 - DEPENDENCE ON RENAL DIALYSIS Status: Chronic Comment: HD per Renal service, no volume removal (4) Seizure disorder Code(s): G40.909 - EPILEPSY, UNSP, NOT INTRACTABLE, WITHOUT STATUS EPILEPTICUS Status: Chronic Comment: Continue Keppra 500mg BID (5) Clostridium difficile diarrhea Code(s): A04.7 - ENTEROCOLITIS DUE TO CLOSTRIDIUM DIFFICILE * DO NOT USE * Status: Acute Comment: Flagyl 250mg TID, start Vancomycin 125mg po q6h, improved, may be a candidate for fecal transplant (6) Diastolic dysfunction Code(s): I51.9 - HEART DISEASE, UNSPECIFIED Status: Chronic Comment: Compensated, EF 60-65% - Plan continue antibiotics, PT/OT, social worker health services, out of bed/ambulate, DVT proph w/ SCDs Stable overall -: Continue Vancomycin and Flagyl for c. diff colitis -: Consider fecal transplantation(3 episode of C. diff) -: Continue Multaq 400mg BID -: Transfer to Telemetry * Likely home in 24-48h
[2017-06-06] MEDS: Famotidine 20 MG TAB PO SCH (20:05)
--- NOTE | 2017-06-07 00:49 | PRG ---
DATE OF SERVICE: 06/06/2017 HISTORY: The patient was seen and examined with no new complaint, now off pressors. Tolerating gisel lysis very well. Hemodynamically stable. PHYSICAL EXAMINATION: HEENT: Unremarkable. CARDIOVASCULAR SYSTEM: First and second heart sounds were heard. RESPIRATORY SYSTEM: Clear to auscultation. DIGESTIVE SYSTEM: Revealed a benign abdomen. EXTREMITIES: No peripheral edema.
[2017-06-07] MEDS: Vancomycin HCl 25 MG/ML Oral PO SCH ×3 (05:32→17:15)
--- NOTE | 2017-06-07 07:46 | PDOC.PN ---
- Subjective Encounter Start Date: 06/07/17 Encounter Start Time: 08:50 Subjective: Diarrhea down to 4x per day. Was seen by Dr. Villegas in past and d/c'd last -: time on 2 weeks of abx. - Objective Resuscitation Status: Resuscitation Status FULL:Full Resuscitation MAR Reviewed: Yes Vital Signs & Weight: Vital Signs (12 hours) Temp Pulse Resp BP BP Pulse Ox 06/07/17 04:42 88 16 98/58 L 06/07/17 04:26 97.5 F L 88 16 98/58 L 98 06/06/17 21:26 96.3 F L 86 16 97 06/06/17 21:20 96.3 F L 86 16 107/63 91 L 06/06/17 19:49 98.1 F 89 20 96 Weight Admit Weight 200 lb Weight 7.041 oz Most Recent Monitor Data Heart Rate from ECG 91 NIBP 86/57 NIBP BP-Mean 69 Respiration from ECG 16 SpO2 80 I&O: 06/06/17 06/07/17 06/08/17 06:59 06:59 06:59 Intake Total 1000 950 Balance 1000 950 Result Diagrams: 06/05/17 03:50 06/05/17 03:50 Phys Exam - Physical Examination Constitutional: NAD HEENT: moist MMs Respiratory: no wheezing, no rales, no rhonchi, clear to auscultation bilateral Cardiovascular: RRR, no significant murmur Gastrointestinal: soft, positive bowel sounds mild TTP generalized, no guarding Neurological: non-focal, moves all 4 limbs Psychiatric: normal affect, A&O x 3 Dx/Plan (1) Hypotension Status: Acute Qualifiers: Hypotension type: other hypotension type Qualified Code(s): I95.89 - Other hypotension Comment: Likely due to volume depletion in context of C. diff colitis, improved (2) Atrial fibrillation Code(s): I48.91 - UNSPECIFIED ATRIAL FIBRILLATION Status: Chronic Comment: s /p cardioversion with A-fib recurrence and now accelerated junctional rhythm, continue Metoprolol 25mg BID, Multaq 400mg BID and Diltiazem 60mg TID, continue Eliquis 2.5mg BID, opting for med mgmt (3) Clostridium difficile diarrhea Code(s): A04.7 - ENTEROCOLITIS DUE TO CLOSTRIDIUM DIFFICILE * DO NOT USE * Status: Acute Comment: Flagyl 250mg TID, Vancomycin 125mg po q6h, improved, consult Dr. Villegas in AM (4) End stage renal failure on dialysis Code(s): N18.6 - END STAGE RENAL DISEASE; Z99.2 - DEPENDENCE ON RENAL DIALYSIS Status: Chronic Comment: HD per Renal service, no volume removal (5) Seizure disorder Code(s): G40.909 - EPILEPSY, UNSP, NOT INTRACTABLE, WITHOUT STATUS EPILEPTICUS Status: Chronic Comment: Continue Keppra 500mg BID (6) Diastolic CHF Code(s): I50.30 - UNSPECIFIED DIASTOLIC (CONGESTIVE) HEART FAILURE Status: Chronic Qualifiers: Congestive heart failure chronicity: chronic Qualified Code(s): I50.32 - Chronic diastolic (congestive) heart failure Comment: Compensated, EF 60-65% - Plan cont current plan of care, continue antibiotics, out of bed/ambulate Possibly home tomorrow. Will ask GI to evaluate and determine home C. -: diff regimen. Wean O2. * . - Discharge Day Encounter end time: 09:15
[2017-06-07] MEDS: Saccharomyces boulardii 250 MG CAP PO SCH (08:35)
[2017-06-07] MEDS: Apixaban 5 MG TAB PO SCH ×2 (08:35→20:31)
[2017-06-07] MEDS: Cyclobenzaprine 10 MG TAB PO SCH ×3 (08:35→20:31)
[2017-06-07] MEDS: levETIRAcetam 500 MG TAB PO SCH ×2 (08:35→20:32)
[2017-06-07] MEDS: Dronedarone HCl 400 MG TAB PO SCH ×2 (08:35→15:58)
[2017-06-07] MEDS: Hydrocortisone/Pramoxine (Proctofoam HC) 10 GM BOX TOP SCH ×3 (08:35→20:32)
[2017-06-07] MEDS: metroNIDAZOLE 250 MG TAB PO SCH ×4 (08:35→20:31)
[2017-06-07] MEDS: Ondansetron HCl/PF 4 MG/2 ML Vial IVP PRN ×2 (12:50→20:37)
--- NOTE | 2017-06-07 15:48 | PDOC.CTH ---
<Adia Santamaria - Last Filed: 06/07/17 15:46> Cardiology Progress Note - Subjective the pt was seen and examined. No overnight events. No cardiac complaints. She still complains of mild lightheadedness when she gets up to bathroom. - Objective Vital Signs Temp Pulse Resp BP BP Pulse Ox 06/07/17 12:00 97.9 F 96 17 102/81 93 L 06/07/17 08:00 97.6 F 89 17 94/64 100 06/07/17 04:42 88 16 98/58 L 06/07/17 04:26 97.5 F L 88 16 98/58 L 98 Admit Weight 200 lb Weight 7.041 oz 06/06/17 06/07/17 06/08/17 06:59 06:59 06:59 Intake Total 1000 950 Balance 1000 950 - Physical Examination General/Neuro: alert & oriented x3 Neck: no JVD present Lungs: CTA Heart: other: (irregular) Abdomen: soft Extremities: other: (No edemas) - Telemetry Telemetry Rhythm: Afib 90-100s - Labs Result Diagrams: 06/05/17 03:50 06/05/17 03:50 Troponin/CKMB CK-MB (CK-2) 0.8 ng/mL (0-6.6) 05/29/17 21:59 Troponin I 0.039 ng/mL (< 0.028) H 06/04/17 03:45 - Assessment/Plan 1. Hypotension - gradually improved; still holding BP med; cont. monitor 2. Afib w/ S/p SOLITARIO and Cardioversion on 06/01/17 - remain Afib with HR 90-100s. on Eliquis 2.5mg BID 3. ESRD - Managed by drawing press operator 4. Chronic diastolic HF - stable with RA; cont. monitor 5. C diff diarrhea - GI consult by PCP MAR reviewed Review of Systems - Review of Systems Constitutional: reports: no symptoms reported EENTM: reports: no symptoms reported Respiratory: reports: no symptoms reported Cardiac (ROS): reports: no symptoms reported ABD/GI: reports: no symptoms reported : reports: no symptoms reported Musculoskeletal: reports: no symptoms reported Skin: reports: no symptoms reported <Sussy Duron - Last Filed: 06/07/17 23:11> Cardiology Progress Note - Objective Vital Signs Temp Pulse Resp BP Pulse Ox 06/07/17 20:00 97.8 F 99 20 111/73 92 L 06/07/17 16:00 97.9 F 97 18 110/75 96 06/07/17 12:00 97.9 F 96 17 102/81 93 L Admit Weight 200 lb Weight 7.041 oz 06/06/17 06/07/17 06/08/17 06:59 06:59 06:59 Intake Total 5451 490 5596 Balance 3436 554 7953 - Labs Result Diagrams: 06/05/17 03:50 06/05/17 03:50 Troponin/CKMB CK-MB (CK-2) 0.8 ng/mL (0-6.6) 05/29/17 21:59 Troponin I 0.039 ng/mL (< 0.028) H 06/04/17 03:45 - Assessment/Plan Pt. seen and eval. by me. I agree with the A/P by the PSYCHIATRIC AIDE INSTRUCTOR
[2017-06-07] MEDS: HYDROcodone/Acetaminophen 5/325 mg Tablet PO PRN (15:56)
[2017-06-07] MEDS: diphenhydrAMINE 25 MG CAP PO PRN (15:58)
--- NOTE | 2017-06-07 18:02 | PRG ---
DATE OF SERVICE: 06/07/2017 SERVICE: Pulmonary Medicine. INTERVAL HISTORY: The patient is doing very well from a respiratory standpoint. She has been weane d off of oxygen. She has no complaints of chest pain or shortness of breath. She remains in atrial fibrillation. She has converted into this from her atrial flutter with 3:1 block yesterday. PHYSICAL EXAMINATION: VITAL SIGNS: Afebrile, pulse 97, blood pressure 110/75, respirations 18, saturation 96% on room air . GENERAL: Patient is awake, alert, no apparent distress. LUNGS: Excellent air entry with no prolonged expiratory phase, wheezing, rhonchi or crackles. HEART: Tachycardic. Regular. ABDOMEN: Soft, nontender, nondistended. Bowel sounds positive. MUSCULOSKELETAL: No cyanosis or clubbing. No pitting in the bilateral lower extremities. NEUROLOGIC: Grossly nonfocal. ASSESSMENT: 1. Atrial fibrillation with rapid ventricular response, currently nearly rate controlled. 2. Acute hypoxic respiratory failure, resolved. 3. End-stage renal disease. 4. Seizure disorder. 5. Possible Clostridium difficile infection. PLAN: She is doing very well from a respiratory standpoint. Supportive care will be continued incl uding antibiotics and dialysis. Cardiology and Electrophysiology are trying to stabilize her atrial flutter/fibrillation. Dr. Gillis will resume care on Thursday. Please call with additional questions or concerns moving forward.
[2017-06-07] MEDS: Famotidine 20 MG TAB PO SCH (20:31)
[2017-06-08] MEDS: Vancomycin HCl 25 MG/ML Oral PO SCH ×4 (00:30→18:17)
[2017-06-08] MEDS: diphenhydrAMINE 25 MG CAP PO PRN ×3 (03:47→20:38)
[2017-06-08] MEDS: HYDROcodone/Acetaminophen 5/325 mg Tablet PO PRN ×2 (03:47→13:09)
--- NOTE | 2017-06-08 06:14 | PRG ---
DATE OF SERVICE: 06/07/2017 SUBJECTIVE: The patient was seen and examined today with no new complaint. Noted with the followin g vital signs, hemodynamically stable. PHYSICAL EXAMINATION: VITAL SIGNS: Temperature 97.8, pulse 99, respirations 20, blood pressure 111/73. HEENT: Unremarkable. CARDIOVASCULAR: First and second heart sounds were heard. RESPIRATORY: Clear to auscultation. DIGESTIVE: Revealed a benign abdomen. EXTREMITIES: No peripheral edema. SKIN: No new gross rash. LYMPHATICS: No peripheral lymphadenopathy. IMPRESSION: 1. End-stage renal disease, on hemodialysis. 2. Atrial fibrillation . PLAN: 1. The patient to continue with current support (01:23) dialysis patient .
[2017-06-08 06:40] LABS: Hematocrit 35.4 % (36.0-47.0); Mean Platelet Volume 8.4 fL (7.4-10.4); Red Blood Cell (RBC) Count 3.48 mill/uL (4.20-5.40); White Blood Cell (WBC) Count 6.4 thou/uL (4.8-10.8)
[2017-06-08 06:41] LABS: Myelocyte 1 % (0-0); Neutrophil 69 % (42-75); Nucleated RBC 1 % (0)
[2017-06-08 06:47] LABS: Anion Gap 16 mmol/L (10-20); BUN (Urea Nitrogen) 22 mg/dL (7.0-18.7); Calc. Creatinine Clearance 15 mL/min (70-130); Carbon Dioxide 26 mmol/L (22-29); Chloride 101 mmol/L (98-107); Estimated GFR-MDRD 8
--- NOTE | 2017-06-08 07:53 | PDOC.PN ---
- Subjective Encounter Start Date: 06/08/17 Encounter Start Time: 08:00 Subjective: 4 BM overnight. Some rectal spasm. Otherwise doing well. No abdominal pain. - Objective Resuscitation Status: Resuscitation Status FULL:Full Resuscitation MAR Reviewed: Yes Vital Signs & Weight: Vital Signs (12 hours) Temp Pulse Resp BP Pulse Ox 06/08/17 04:00 97.9 F 99 20 97/66 91 L 06/08/17 03:10 96 06/08/17 00:00 98.5 F 105 H 20 109/76 91 L 06/07/17 20:00 97.8 F 99 20 111/73 96 Weight Admit Weight 200 lb Weight 199 lb 1.6 oz Most Recent Monitor Data Heart Rate from ECG 91 NIBP 86/57 NIBP BP-Mean 69 Respiration from ECG 16 SpO2 80 I&O: 06/07/17 06/08/17 06/09/17 06:59 06:59 06:59 Intake Total 950 1590 Output Total 0 Balance 950 1590 Result Diagrams: 06/08/17 06:15 06/08/17 06:15 Phys Exam - Physical Examination Constitutional: NAD HEENT: moist MMs Respiratory: no wheezing, no rales, no rhonchi, clear to auscultation bilateral Cardiovascular: no significant murmur, irregular Gastrointestinal: soft, non-tender, no distention, positive bowel sounds Neurological: non-focal, moves all 4 limbs Psychiatric: normal affect, A&O x 3 Dx/Plan (1) Hypotension Status: Resolved Qualifiers: Hypotension type: other hypotension type Qualified Code(s): I95.89 - Other hypotension Comment: Likely due to volume depletion in context of C. diff colitis, improved (2) Atrial fibrillation Code(s): I48.91 - UNSPECIFIED ATRIAL FIBRILLATION Status: Chronic Comment: s /p cardioversion with A-fib recurrence and now accelerated junctional rhythm, continue Metoprolol 25mg BID, Multaq 400mg BID and Diltiazem 60mg TID, continue Eliquis 2.5mg BID, opting for med mgmt (3) Clostridium difficile diarrhea Code(s): A04.7 - ENTEROCOLITIS DUE TO CLOSTRIDIUM DIFFICILE * DO NOT USE * Status: Acute Comment: Flagyl 250mg TID, Vancomycin 125mg po q6h, improved, consult Dr. Villegas for recommendation on home regimen (4) End stage renal failure on dialysis Code(s): N18.6 - END STAGE RENAL DISEASE; Z99.2 - DEPENDENCE ON RENAL DIALYSIS Status: Chronic Comment: HD per Renal service, no volume removal (5) Seizure disorder Code(s): G40.909 - EPILEPSY, UNSP, NOT INTRACTABLE, WITHOUT STATUS EPILEPTICUS Status: Chronic Comment: Continue Keppra 500mg BID (6) Diastolic CHF Code(s): I50.30 - UNSPECIFIED DIASTOLIC (CONGESTIVE) HEART FAILURE Status: Chronic Qualifiers: Congestive heart failure chronicity: chronic Qualified Code(s): I50.32 - Chronic diastolic (congestive) heart failure Comment: Compensated, EF 60-65% - Plan cont current plan of care, continue antibiotics, out of bed/ambulate Home after GI sees and determines treatment plan for recurrent C. diff. * .
[2017-06-08] MEDS: levETIRAcetam 500 MG TAB PO SCH ×2 (09:02→20:38)
[2017-06-08] MEDS: Apixaban 5 MG TAB PO SCH ×2 (09:02→20:37)
[2017-06-08] MEDS: Saccharomyces boulardii 250 MG CAP PO SCH (09:02)
[2017-06-08] MEDS: Dronedarone HCl 400 MG TAB PO SCH ×2 (09:02→16:01)
[2017-06-08] MEDS: Cyclobenzaprine 10 MG TAB PO SCH ×3 (09:02→20:38)
[2017-06-08] MEDS: metroNIDAZOLE 250 MG TAB PO SCH ×3 (09:03→16:01)
[2017-06-08] MEDS: Hydrocortisone/Pramoxine (Proctofoam HC) 10 GM BOX TOP SCH ×3 (09:03→20:41)
[2017-06-08] MEDS: Ondansetron HCl/PF 4 MG/2 ML Vial IVP PRN (10:02)
--- NOTE | 2017-06-08 13:27 | PRG ---
DATE OF SERVICE: 06/08/2017 Ms. Morris is still having fairly frequent bowel movements. PHYSICAL EXAMINATION: VITAL SIGNS: She is afebrile, heart rate 99 to 105, blood pressures have been 97 to 111. There is no change in her exam. IMPRESSION: Status post hypotensive episode that led to transfer to the Critical Care Unit. Other than frequent bowel movements, no pathological process has been identified. She is Clostridium diff icile antigen positive, toxin negative. She is being treated for this. It may have been that she w as just a little on the dry side from a dialysis standpoint. I have no pulmonary suggestions at thi s point in time, she appears to be stable.
[2017-06-08 14:35] VITALS: BMI 32.1
--- NOTE | 2017-06-08 18:37 | PRG ---
DATE OF SERVICE: 06/08/2017 SUBJECTIVE: The patient was seen and examined with no new complaints and noted with the following. OBJECTIVE: VITAL SIGNS: Afebrile with a temperature of 97.9, pulse 99, respiratory rate of 20, blood pressure 97/66 and O2 sat 91% to 96%. HEENT: Unremarkable. Moist oral mucosa. No conjunctival injection or icterus. NECK: Supple. CARDIOVASCULAR: First and second heart sounds were heard, irregularly irregular diet. RESPIRATORY: Clear to auscultation. DIGESTIVE: Revealed a benign abdomen with positive bowel sounds. EXTREMITIES: No peripheral edema. SKIN: No new gross rash. LYMPHATICS: No peripheral lymphadenopathy. IMPRESSION: 1. End-stage renal disease, hemodialysis dependent, due for dialysis tomorrow. 2. Atrial fibrillation with rapid ventricular response. 3. Hypotension. 4. Seizure disorder. PLAN: 1. If patient remains here by tomorrow, we will undergo dialysis as per her schedule. 2. Further management will be dependent on the clinical course.
[2017-06-08] MEDS: Cholestyramine/Aspartame 4 gm Packet PO SCH (20:36)
[2017-06-08] MEDS: Famotidine 20 MG TAB PO SCH (20:38)
--- NOTE | 2017-06-08 22:07 | CON ---
DATE OF CONSULTATION: 06/08/2017 HISTORY OF PRESENT ILLNESS: The patient is a 41-year-old -[place] female who presented to [facility] on 05/29/2017 with chest pain. She initially reports a little bit of diarrhea on presen tation, but then she was checked for C. diff and was noted to be antigen positive and toxin negative . She has been started on treatment with both Flagyl and vancomycin and has had persistent diarrhea . She is having 7 bowel movements per day, which are watery in color, watery in consistency. She d enies any abdominal pain, any nausea, vomiting, any fever or chills. She received antibiotics for a leg fracture. She reports she has had C. diff earlier this year in January and earlier this year as w nicolle. She reports that these episodes were treated successfully and she had no further problems with diarrhea. Looking back in the electronic medical record, she had a stool for Clostridium difficile in January, which was negative; however, 02/08, is antigen positive, toxin negative. Stool lactoferri n in November was positive and again November antigen was positive, toxin negative. Back in 2014, stool antig en and toxin were both negative. The patient was last seen in the office in 02/2017. She was start ed on cholestyramine, which seemed to resolve her diarrhea and was having some constipation at that time. Previous endoscopy from 02/09 showed a diffuse gastritis, but otherwise no abnormalities. Th ere is a protuberant area in the ileocolonic anastomosis, which was felt to be possibly a retained i leocecal valve versus lipoma. Biopsies returned as unremarkable duodenal mucosa, gastritis without Helicobacter pylori and anastomotic biopsies showed focal active colitis. Random biopsies of the co ivanna were unremarkable. PAST MEDICAL HISTORY: Includes end-stage renal disease on hemodialysis, chronic atrial fibrillation with variable rate, hypertension, seizure disorder, neuropathy, leg fracture, seizure disorder. PAST SURGICAL HISTORY: Includes a partial colectomy, AV fistula, and tubal ligation. MEDICATIONS ON ADMISSION: Include Eliquis, Flexeril, diltiazem, gabapentin, [place], Motrin, multivit [place], omeprazole, Zoloft, Ambien, and Keppra. ALLERGIES: Include CEFAZOLIN, CODEINE, CLINDAMYCIN, and IODINE. SOCIAL HISTORY: She smokes up to a half pack per day and does not drink. FAMILY HISTORY: Negative for GI or liver disease. REVIEW OF SYSTEMS: Constitutional: No fever or chills, no weight loss. Eyes: No blurred vision o r double vision. ENT: No sore throat or earaches. Cardiovascular: Positive for chest pain. Posi tive for shortness of breath. Positive for palpitations. Pulmonary: Negative for cough. GI: See above. : No hematuria or dysuria. Musculoskeletal: Positive for right lower extremity pain. Neurologic: No numbness or seizure activity. PHYSICAL EXAMINATION: GENERAL: She is a well-developed, well-nourished -[place] female in no acute distress. VITAL SIGNS: Temperature 97.8, pulse 101, respiratory rate 18, blood pressure 113/82. HEENT: Unremarkable. NECK: Supple. CHEST: Clear. CARDIOVASCULAR: Regular rate and rhythm. ABDOMEN: Soft, nontender, without organomegaly or masses. Bowel sounds are present and normoactive . RECTAL: Deferred. EXTREMITIES: Normal. NEUROLOGIC: Nonfocal. LABORATORY DATA: Shows a white blood cell count of 6.4, hemoglobin 10.9, hematocrit 35.4 with MCV o f 102. Chemistries show a creatinine of 7.01, BUN 22. ASSESSMENT: 1. Acute diarrhea - the patient received antibiotics for lower extremity fracture and subsequently developed diarrhea, this was not her main complaint. Stool studies showed a positive C. difficile a ntigen, but negative toxin. Lactoferrin was not done. She was started on treatment for this and he r diarrhea seems to have worsened; therefore, may be an antibiotic-associated of diarrhea on top of a bile acid diarrhea with possible contribution from other medications. 2. End-stage renal disease on hemodialysis. 3. Atrial fibrillation. 4. Partial colectomy. RECOMMENDATIONS: 1. Resume cholestyramine. 2. Discontinue Flagyl. 3. Complete course of vancomycin.
[2017-06-09] MEDS: Vancomycin HCl 25 MG/ML Oral PO SCH ×4 (00:20→17:43)
[2017-06-09] MEDS: Ondansetron HCl/PF 4 MG/2 ML Vial IVP PRN (07:37)
[2017-06-09 07:43] VITALS: TEMP 98.2
[2017-06-09] MEDS: Hydrocortisone/Pramoxine (Proctofoam HC) 10 GM BOX TOP SCH ×2 (09:00→14:08)
--- NOTE | 2017-06-09 10:04 | PDOC.PN ---
- Subjective Encounter Start Date: 06/09/17 Encounter Start Time: 10:20 Subjective: Continued loose stools, maybe a bit less today after starting -: cholestyramine. No other complaints. - Objective Resuscitation Status: Resuscitation Status FULL:Full Resuscitation MAR Reviewed: Yes Vital Signs & Weight: Vital Signs (12 hours) Temp Pulse Resp BP Pulse Ox 06/09/17 07:43 98.2 F 119 H 18 98 06/09/17 07:42 98.2 F 119 H 18 104/46 L 98 06/09/17 04:00 97.9 F 116 H 18 96/58 L 100 06/09/17 02:13 96 Weight Admit Weight 200 lb Weight 200 lb 1.6 oz Most Recent Monitor Data Heart Rate from ECG 91 NIBP 86/57 NIBP BP-Mean 69 Respiration from ECG 16 SpO2 80 I&O: 06/08/17 06/09/17 06/10/17 06:59 06:59 06:59 Intake Total 1590 1330 Output Total 0 0 Balance 1590 1330 Result Diagrams: 06/08/17 06:15 06/08/17 06:15 Phys Exam - Physical Examination Constitutional: NAD HEENT: moist MMs Respiratory: no wheezing, no rales, no rhonchi Cardiovascular: no significant murmur, irregular Gastrointestinal: soft, non-tender, positive bowel sounds Musculoskeletal: no edema Neurological: non-focal, moves all 4 limbs Psychiatric: normal affect, A&O x 3 Dx/Plan (1) Hypotension Status: Resolved Qualifiers: Hypotension type: other hypotension type Qualified Code(s): I95.89 - Other hypotension Comment: Likely due to volume depletion in context of C. diff colitis, improved (2) Atrial fibrillation Code(s): I48.91 - UNSPECIFIED ATRIAL FIBRILLATION Status: Chronic Comment: s /p cardioversion with A-fib recurrence and now accelerated junctional rhythm, continue Metoprolol 25mg BID, Multaq 400mg BID and Diltiazem 60mg TID, continue Eliquis 2.5mg BID, opting for med mgmt (3) Clostridium difficile diarrhea Code(s): A04.7 - ENTEROCOLITIS DUE TO CLOSTRIDIUM DIFFICILE * DO NOT USE * Status: Acute Comment: Antigen positive, toxin negative. Diarrhea thought to be antibiotic associate. Dr. Villegas has resumed cholestyramine, stopped Flagyl, will complete 2 week course of oral vancomycin. (4) End stage renal failure on dialysis Code(s): N18.6 - END STAGE RENAL DISEASE; Z99.2 - DEPENDENCE ON RENAL DIALYSIS Status: Chronic Comment: HD per Renal service, no volume removal (5) Seizure disorder Code(s): G40.909 - EPILEPSY, UNSP, NOT INTRACTABLE, WITHOUT STATUS EPILEPTICUS Status: Chronic Comment: Continue Keppra 500mg BID (6) Diastolic CHF Code(s): I50.30 - UNSPECIFIED DIASTOLIC (CONGESTIVE) HEART FAILURE Status: Chronic Qualifiers: Congestive heart failure chronicity: chronic Qualified Code(s): I50.32 - Chronic diastolic (congestive) heart failure Comment: Compensated, EF 60-65% - Plan cont current plan of care, continue antibiotics can d/c home after ok'd by cardiology. * . - Discharge Day Encounter end time: 10:40
[2017-06-09] MEDS: Dronedarone HCl 400 MG TAB PO SCH ×2 (12:59→17:43)
[2017-06-09] MEDS: Saccharomyces boulardii 250 MG CAP PO SCH (13:00)
[2017-06-09] MEDS: levETIRAcetam 500 MG TAB PO SCH (13:00)
[2017-06-09] MEDS: Apixaban 5 MG TAB PO SCH (13:00)
[2017-06-09] MEDS: Cyclobenzaprine 10 MG TAB PO SCH ×2 (13:00→14:09)
--- NOTE | 2017-06-09 13:04 | PRG ---
DATE OF SERVICE: 06/09/2017 SUBJECTIVE: The patient has had one bowel movement today. She had 5 last night. She says they see m to be getting thicker in consistency. She has no abdominal pain, no nausea, vomiting. OBJECTIVE: VITAL SIGNS: Temperature 98.2, pulse 119, respiratory rate 18, blood pressure 104/46. A repeat Clostridium difficile has not been performed. ASSESSMENT: 1. Diarrhea. I think this is multifactorial secondary to recent antibiotics, right colon resection and possibly Clostridium difficile with antigen positive, toxin negative. Her Flagyl was stopped, but her vancomycin was continued. 2. End-stage renal disease on hemodialysis. 3. Atrial fibrillation. 4. Partial colectomy. RECOMMENDATIONS: 1. Continue Cholestyramine. 2. Continue vancomycin.
[2017-06-09] MEDS: Cholestyramine/Aspartame 4 gm Packet PO SCH (14:08)
[2017-06-09] MEDS: HYDROcodone/Acetaminophen 5/325 mg Tablet PO PRN (14:09)
[2017-06-09] MEDS: diphenhydrAMINE 25 MG CAP PO PRN (14:09)
[2017-06-09 14:15] VITALS: BP 101/68
[2017-06-09] MEDS: Acetaminophen 500 MG TAB PO PRN (16:35)
--- NOTE | 2017-06-10 21:46 | EKG ---
Test Reason : Blood Pressure : / mmHG Vent. Rate : 111 BPM Atrial Rate : 015 BPM P-R Int : 000 ms QRS Dur : 094 ms QT Int : 406 ms P-R-T Axes : 000 153 108 degrees QTc Int : 552 ms Accelerated Junctional rhythm Right axis deviation Incomplete right bundle branch block Right ventricular hypertrophy Abnormal ECG When compared with ECG of 29-MAY-2017 22:48, (Unconfirmed) Junctional rhythm has replaced Atrial fibrillation Criteria for Septal infarct are no longer Present T wave inversion no longer evident in Anterior leads Confirmed by ABHINAV MARIA (2) on 06/10/2017 9:46:31 PM Referred By: CROW Confirmed By:ABHINAV MARIA
--- NOTE | 2017-06-10 22:12 | DIS ---
PRIMARY CARE PHYSICIAN: Dr. Bibiana Almanzar. PRIMARY AREA OPERATIONS DIRECTOR: Dr. Mcgarry. ADMISSION DIAGNOSES: 1. Atrial fibrillation with rapid ventricular response. 2. Chest pain. 3. End-stage renal disease with hemodialysis. 4. Hypokalemia. 5. Elevated troponin I. DISCHARGE DIAGNOSES: 1. Hypotension, resolved secondary to volume depletion from diarrhea. 2. Clostridium difficile diarrhea combined with direct antibiotic affect causing diarrhea, improved with cholestyramine. 3. Atrial fibrillation with rapid ventricular response, controlled. 4. End-stage renal disease, on dialysis. 5. Seizure disorder. 6. Diastolic congestive heart failure. CONSULTATIONS: 1. Cardiology, Dr. Vargas. 2. Nephrology, Dr. Mcgarry. 3. EP, Dr. Aleman. 4. Pulmonology, Dr. Gillis. 5. Gastroenterology, Dr. Villegas. PROCEDURES PERFORMED: 1. CT dissection protocol showing stable areas of ectasia of the thoracic aorta, a slightly increase d left renal lesion cirrhosis with portal hypertension. 2. Transesophageal echocardiogram showing no formed thrombus in the left atrium or left atrial appen dage, but with some dilation of the right and left ventricles, right atrial enlargement. 3. Electrical cardioversion with return to normal sinus rhythm, but later returned to atrial fibrill ation spontaneously. 4. Triple lumen catheter placed under ultrasound guidance. PERTINENT LABORATORY DATA: Hemoglobin was stable around 10. D-dimer was elevated initially during h ospitalization. Creatinine remained around 7. Discharged with regular hemodialysis and normal elect rolytes. SUMMARY OF HOSPITAL COURSE: This is a 41-year-old -[place] Islander female with family history of end -stage renal disease on hemodialysis, who presented with chest pain and shortness of breath. She was found to be in atrial fibrillation with rapid ventricular rate, was also noted to be hypotensive. S he was given fluids and antibiotics in the hospital. During the hospitalization, she did not have hy potension initially, but she developed during the hospitalization and had to be put in the ICU and gi dave pressors. She had developed significant diarrhea during the hospitalization as well with the int roduction of antibiotics and she has a history of 2 possible previous C. diff episodes. The patient was put on Flagyl and vancomycin and she had improvement, though not resolution of the diarrhea. She was initially transferred out of the unit. Her atrial fibrillation was initially controlled with ca rdioversion after assuring that there were no clots in the heart; however, it returned into atrial fi brillation, so it was determined to do a rate control strategy. Dr. Villegas was consulted for Gastroent erology about the diarrhea. He determined after reviewing the records that he was uncertain if C. di ff was a big cause as patient has never had toxin positive, only antigen positive. He discontinued t he Flagyl, kept the vancomycin and added cholestyramine, which she had in the past for this recurrent diarrhea, but had stopped when she got constipated. Patient's diarrhea markedly improved. She was determined to be stable from a cardiovascular standpoint and she was discharged home. DISCHARGE MANAGEMENT: Discharged home with home health. ACTIVITY: As tolerated. DIET: Low sodium, renal diet. DISCHARGE MEDICATIONS: 1. Cholestyramine 4 grams twice a day, 60 doses. 2. Multaq 400 mg twice a day, 60 doses. 3. Hydrocortisone/pramoxine (Proctofoam-HC) to be applied 3 times a day. 4. Florastor 250 mg daily, 30 tablets dispensed. 5. Vancomycin 125 mg every 6 hours, 2 weeks supply dispensed. The patient is also to continue her sertraline 25 mg daily, her Apresoline as needed and her ProRenal softgels along with her Keppra 500 mg twice a day, her ondansetron 4 mg every 6 hours as needed, her cyclobenzaprine 5 mg 3 times a day as needed, her diphenhydramine as needed, her mupirocin ointment to her leg wound 3 times a day, her omeprazole 40 mg daily and her hyoscyamine sulfate 1-2 tabs subli ngual as needed for GI upset. She is to stop her Ambien, her diltiazem HCL, her polyethylene glycol and her tramadol. FOLLOWUP INSTRUCTIONS: She is to follow up with Dr. Mcgarry for continued hemodialysis. She is a lso to follow up with Dr. Villegas in 2 weeks, to follow up with Dr. Bibiana Almanzar on 06/12 and to follo w up with Dr. Vargas on 07/01.
--- NOTE | 2017-06-14 14:39 | EKG ---
Test Reason : Blood Pressure : / mmHG Vent. Rate : 093 BPM Atrial Rate : 070 BPM P-R Int : 000 ms QRS Dur : 098 ms QT Int : 454 ms P-R-T Axes : 000 166 109 degrees QTc Int : 564 ms Accelerated Junctional rhythm Right axis deviation Incomplete right bundle branch block Right ventricular hypertrophy Nonspecific ST abnormality Prolonged QT Abnormal ECG When compared with ECG of 02-JUN-2017 10:28, (Unconfirmed) No significant change was found Confirmed by ABHINAV MARIA (2) on 06/14/2017 2:39:46 PM Referred By: CROW Confirmed By:ABHINAV MARIA
--- NOTE | 2017-07-24 14:46 | EKG ---
Test Reason : CHEST PAIN Blood Pressure : / mmHG Vent. Rate : 143 BPM Atrial Rate : 119 BPM P-R Int : 000 ms QRS Dur : 144 ms QT Int : 336 ms P-R-T Axes : 000 147 -40 degrees QTc Int : 518 ms Wide QRS tachycardia with Fusion complexes Right bundle branch block Abnormal ECG Confirmed by GERRI MARVIN, SHIRLEY Cadena ([id number]), video editor HERSON GARZA ([id number]) on 07/24/2017 2:45:49 PM Referred By: Confirmed By:SHIRLEY TALLEY MD
--- NOTE | 2017-07-24 14:46 | EKG ---
Test Reason : Blood Pressure : / mmHG Vent. Rate : 098 BPM Atrial Rate : 093 BPM P-R Int : 000 ms QRS Dur : 088 ms QT Int : 424 ms P-R-T Axes : 000 166 108 degrees QTc Int : 541 ms Atrial fibrillation with premature ventricular or aberrantly conducted complexes Right axis deviation Right ventricular hypertrophy with repolarization abnormality Septal infarct , age undetermined Prolonged QT Abnormal ECG Confirmed by GERRI MARVIN, SHIRLEY Cadena ([id number]), railroad dispatcher HERSON GARZA ([id number]) on 07/24/2017 2:45:51 PM Referred By: Confirmed By:SHIRLEY TALLEY MD
== END 2017-06-09 19:57 | disposition home health service (06) | DRG 308 ==
LOC: ERS 21:48 → 2NO 05-30 02:40 → CCU 06-03 22:41 → 2NO 06-06 21:53
PROVIDERS: ADMIT Family Medicine; ATTEND Family Medicine
PROC: 5A1D70Z Performance of Urinary Filtration, Intermittent, Less than 6 Hours Per Day (ICD-10-PCS; 2017-05-30)
PROC: 5A2204Z Restoration of Cardiac Rhythm, Single (ICD-10-PCS; principal; 2017-06-01)
PROC: B24BZZ4 Ultrasonography of Heart with Aorta, Transesophageal (ICD-10-PCS; 2017-06-01)
PROC: 02HV33Z Insertion of Infusion Device into Superior Vena Cava, Percutaneous Approach (ICD-10-PCS; 2017-06-04)
PROC: B548ZZA Ultrasonography of Superior Vena Cava, Guidance (ICD-10-PCS; 2017-06-04)
PROC: 05JY3ZZ Inspection of Upper Vein, Percutaneous Approach (ICD-10-PCS; 2017-06-04)
DX: I48.0 Paroxysmal atrial fibrillation (principal); N18.6 End stage renal disease; J96.01 Acute respiratory failure with hypoxia; I50.33 Acute on chronic diastolic (congestive) heart failure; I95.89 Other hypotension; K52.1 Toxic gastroenteritis and colitis; A04.72 Enterocolitis due to Clostridium difficile, not specified as recurrent; I13.2 Hypertensive heart and chronic kidney disease with heart failure and with stage 5 chronic kidney disease, or end stage renal disease; I50.32 Chronic diastolic (congestive) heart failure; I24.8 Other forms of acute ischemic heart disease; N25.81 Secondary hyperparathyroidism of renal origin; E86.9 Volume depletion, unspecified; Z99.2 Dependence on renal dialysis; E87.6 Hypokalemia; I48.2 Chronic atrial fibrillation; T36.95XA Adverse effect of unspecified systemic antibiotic, initial encounter; R07.89 Other chest pain; G40.909 Epilepsy, unspecified, not intractable, without status epilepticus; Z90.49 Acquired absence of other specified parts of digestive tract; G62.9 Polyneuropathy, unspecified; F17.210 Nicotine dependence, cigarettes, uncomplicated; I27.20 Pulmonary hypertension, unspecified; I47.1 Supraventricular tachycardia; S81.812A Laceration without foreign body, left lower leg, initial encounter; X58.XXXA Exposure to other specified factors, initial encounter
CPT/HCPCS: 36415; 71010; 71275; 74000; 80048; 80053; 82550; 82553; 82805; 83735; 84443; 84484; 85007; 85025; 85027; 85379; 85730; 87324; 87340; 87449; 87493; 90935; 92960; 93005; 93010; 93312; 94760; 96365; 96375; 99406; A4216; C1751; G0257; J0171; J1200; J2001; J2270; J2405; J2550; J2704; J7050; J7626; Q0162; S0028

== ENCOUNTER 2017-06-20 13:10 | Observation (INO) | payer MEDICARE, MEDICAID ==
[2017-06-20] MEDS ORDERED: Ondansetron HCl/PF 4 MG/2 ML Vial ONE (14:24)
[2017-06-20 14:31] LABS: #Basophils 0.1 thou/uL (0.0-0.2); #Eosinphils 0.2 thou/uL (0.0-0.7); #Lymphocytes 1.3 thou/uL (1.20-3.40); #Monocytes 0.7 thou/uL (0.11-0.59); #Neutrophils 5.9 thou/uL (1.40-6.50); %Basophils 0.7 % (0.0-1.0); %Eosinophils 2.7 % (0.0-10.0); %Lymphocytes 15.8 % (21.0-51.0); %Monocytes 8.3 % (0.0-10.0); Mean Platelet Volume 8.4 fL (7.4-10.4); Red Blood Cell (RBC) Count 4.16 mill/uL (4.20-5.40); White Blood Cell (WBC) Count 8.2 thou/uL (4.8-10.8)
[2017-06-20 14:38] LABS: PTT 34.4 SEC (22.9-36.1); Prothrombin Time 15.9 SEC (12.0-14.7)
[2017-06-20 14:44] LABS: ALT (SGPT) 9 U/L (8-55); AST (SGOT) 9 U/L (5-34); Alkaline Phosphatase 83 U/L (40-150); Anion Gap 20 mmol/L (10-20); BUN (Urea Nitrogen) 33 mg/dL (7.0-18.7); CK (CPK) 18 U/L (29-168); Calc. Creatinine Clearance 0 mL/min (70-130); Calcium 8.3 mg/dL (7.8-10.44); Carbon Dioxide 25 mmol/L (22-29); Chloride 102 mmol/L (98-107); Estimated GFR-MDRD 6; Globulin 3.3 g/dL (2.4-3.5); Lipase 13 U/L (8-78); Magnesium 1.9 mg/dL (1.6-2.6); Phosphorus 2.8 mg/dL (2.3-4.7); Protein, Total 7.3 g/dL (6.0-8.3)
[2017-06-20 14:47] LABS: Troponin I 0.033 ng/mL (< 0.028)
[2017-06-20] MEDS ORDERED: Nitroglycerin 2% Ointment 1 INCH/1 GM Packet ONE (15:12)
--- NOTE | 2017-06-20 15:58 | RAD ---
PORTABLE AP CHEST XRAY: DATE: 06/20/17. HISTORY: Chest pain. COMPARISON: 05/29/17. FINDINGS: Postsurgical changes related to median sternotomy are noted. Vascular stent again overlies the left upper chest and mediastinum. Cardiac silhouette remains enlarged. Again noted are pleural and paren chymal changes at the left lung base which may be related to left pleural effusion and atelectasis. Pulmonary vasculature is at the upper limits of normal. Right lung appears clear. There has been no significant interval change compared to the prior exam. IMPRESSION: 1. Persistent pleural and parenchymal changes left lung base which may be related to persistent left pleural effusion and associated atelectasis. Associated pneumonia at the left lung base could not b e entirely excluded. 2. Cardiomegaly. POS: ALEKSEY
--- NOTE | 2017-06-20 16:03 | HP ---
PRIMARY CARE PHYSICIAN: Bibiana Almanzar M.D. REASON FOR ADMISSION: Atrial fibrillation with rapid ventricular response. HISTORY OF PRESENT ILLNESS: A 41-year-old -[place] female who has history of paroxysmal atri al fibrillation with rapid ventricular response, who was sent from dialysis because she was having A. fib with RVR. The patient took Cardizem which she carries with her, but that did not drop her pulse rate and that is why they were not able to do dialysis. The patient was also feeling palpitations a nd chest discomfort and that is why they advised her to go to the emergency room for evaluation. This patient did not take her medications today because she was scheduled for dialysis today and she was instructed not to take medication to prevent hypotension with dialysis. The patient's last dialysis was on Thursday. Because of holiday, her regular dialysis schedule of , Thursday, , Thursday was changed and today she had regular dialysis day, but they were n ot able to do dialysis and that is why they sent her back to the emergency room. Her chest pain description is nonanginal. She describes chest pain is all over the place. Her descr iption of pain is not classic for angina. She reports across the chest discomfort with palpitations and with shortness of breath, without any association of vomiting, but she feels nausea, she denies a ny syncope. In the emergency room when she arrived, at that time her heart rate was 127. She was given Cardizem bolus and subsequently her heart rate dropped to below 100, again her heart rate increased to 115 and that is why Cardizem drip was started. She is given Zofran and nitropatch and subsequently she does not have any further pain. REVIEW OF SYSTEMS: The following complete review of systems was negative, unless otherwise mentioned in the HPI or below: Constitutional: Weight loss or gain, ability to conduct usual activities. Skin: Rash, itching. Eyes: Double vision, pain. ENT/Mouth: Nose bleeding, neck stiffness, pain, tenderness . Cardiovascular: Palpitations, dyspnea on exertion, orthopnea. Respiratory: Shortness of breath, whe ezing, cough, hemoptysis, fever or night sweats. Gastrointestinal: Poor appetite, abdominal pain, hea rtburn, nausea, vomiting, constipation, or diarrhea. Genitourinary: Urgency, frequency, dysuria, noct uria. Musculoskeletal: Pain, swelling. Neurologic/Psychiatric: Anxiety, depression. Allergy/Immunolog ic: Skin rash, bleeding tendency. Please see my HPI for pertinent positives and negatives. All other review of systems reviewed and negative except as mentioned in the HPI. ALLERGIES: ANCEF, CLINDAMYCIN, CODEINE, SULFATE, DILANTIN, HYDROCODONE, IODINE. CURRENT HOME MEDICATIONS: The patient was recently admitted in our hospital and she was given follow ing medications: Xanax 1 mg p.o. b.i.d. p.r.n., Questran 4 grams p.o. b.i.d., Flexeril 5 mg t.i.d. p .r.n., Multaq 400 mg p.o. b.i.d., Keppra 500 mg p.o. b.i.d., omeprazole 40 mg p.o. daily, Florastor 2 50 mg p.o. daily, Zoloft 25 mg p.o. daily, first vancomycin 125 mg q.6 hourly. ADDITIONAL INFORMATION: This patient was recently admitted in our hospital. At that time, transesop hageal echocardiography was done and cardioversion was done, but the patient did not have any success ful cardioversion. The patient also has several ablations done in the past for her atrial arrhythmia . In 2011 as well as in 2014, the patient had ablation done. The patient also required an admission in 03/2017 as well as in 05/2017 and this is the third admission for atrial fibrillation with rapid ventricular response. She also had C. diff diarrhea, which was treated with [facility]comycin [facility] that [facility] course in next couple of days. PAST MEDICAL HISTORY: End-stage renal disease on hemodialysis Thursday, , and Thursday; atria l fibrillation with variable rate control, chronic anticoagulation with Eliquis, seizure disorder, hy pertension, and peripheral neuropathy. PAST SURGICAL HISTORY: AV fistula placement, colectomy, , bilateral tubal ligation, thoraci c aortic aneurysm repair. PAST PSYCHIATRIC HISTORY: Anxiety and depression. FAMILY HISTORY: Positive for heart disease among several family members. SOCIAL HISTORY: Patient lives in [place]. She is on disability. She smokes about 1/2 pack per day. She denies any alcohol abuse. She denies any other illicit drug abuse. EMERGENCY ROOM COURSE: Patient is given Cardizem bolus and subsequently Cardizem drip was started. Patient is also given nitropatch and Zofran. PHYSICAL EXAMINATION: VITAL SIGNS: On arrival, blood pressure 106/79, pulse 127, respiratory rate 18, temperature 97.7, sa turation 94% on room air, weight 94.2 kilogram. GENERAL: Patient is currently alert, awake, no obvious acute distress. HEENT: Head: Normocephalic, atraumatic. Eyes: Pupils round, reactive to light. Extraocular muscl es intact. ENT: Oropharynx within normal limits. Moist mucous membranes. No oral lesions. No pharyngeal eryt christo, no exudate. NECK: Supple. Range of motion is normal. No meningeal signs of irritation. LUNGS: Clear to auscultation without any rhonchi or rales. CARDIAC: S1, S2 irregularly irregular. No murmur, no gallop, no rub. ABDOMEN: Obesity present. Bowel sounds present. Nontender, nondistended. No organomegaly, no mass , no suprapubic tenderness. BACK: Unremarkable, no CVA tenderness. EXTREMITIES: Upper extremity, AV fistula in left upper extremity with good thrill. Lower extremitie s: No edema. Good peripheral pulsation. No calf tenderness. SKIN: No skin rash. HEMATOLOGIC: No lymphadenopathy. PSYCHIATRIC: Normal affect. SIGNIFICANT LABS: 1. CBC: WBC 8.2, hemoglobin 13.2, MCV 101, platelets 172. INR 1.3. D-dimer is 0.50. BMP: Sodium 143, potassium 3.8, chloride 102, carbon dioxide 25, anion gap 20, BUN 33, creatinine 8.58, glucose 90, calcium 8.3, phosphorus 2.8, magnesium 1.9. 2. LFT: AST 9, ALT 9, alkaline phosphatase 83, albumin 4.0, lipase 13. CK 18, CK-MB 0.8, troponin I 0.033. EKG based on my review, atrial fibrillation with rapid ventricular response. Chest x-ray based on my review, mild pulmonary vascular congestion, chronic changes. ASSESSMENT AND PLAN: 1. Atrial fibrillation with rapid ventricular response. At this point, the patient's heart rate is variable. The patient is started on Cardizem drip in the emergency room. Currently, rate is under c ontrol. We will monitor on telemetry floor. We will keep as observation status. We will start Mult aq 400 mg twice daily. We will use p.o. Cardizem 30 mg p.o. a.c. and at bedtime and only absolutely needed then we will use Cardizem drip p.r.n. basis. If patient needs constantly Cardizem drip, then we will consider changing her status to inpatient status. We will consult Cardiology for her recurre nt atrial fibrillation with rapid ventricular response. The patient will continue chronic anticoagul ation therapy with Eliquis. 2. End-stage renal disease on hemodialysis. Patient missed her dialysis today. We will consult Dr. Mcgarry and he will have dialysis done today. 3. Macrocytosis. We will consider adding Nephro-Clinton one tablet p.o. daily. 4. Seizure disorder. We will continue Keppra 500 mg twice daily. 5. History of Clostridium difficile diarrhea. Patient will finish vancomycin therapy while in [facility] and will also continue Florastor 250 mg p.o. daily. Patient does not have any longer diarrhea. 6. Chest pain. The patient's chest pain description is atypical, most likely noncardiac pain, proba cassidy related with missed dialysis as well as atrial fibrillation. We will do serial cardiac enzymes x 3 and check lipid profile for risk stratification. We will use nitroglycerin p.r.n. basis and aspiri n 81 mg p.o. daily. 7. Abnormal troponin, likely due to demand ischemia and renal failure. We will do serial cardiac en zymes x3 to rule out acute coronary syndrome. 8. Anxiety and depression. We will continue Xanax 1 mg p.o. b.i.d. p.r.n. and Zoloft 25 mg p.o. polina ly. 9. Deep venous thrombosis prophylaxis not needed because the patient is already on Levaquin therapy. 10. Gastrointestinal prophylaxis. Pepcid 20 mg daily. CODE STATUS: The patient is FULL CODE. Patient does not have a surrogate decision maker. Disposition plan based on clinical course, we are expecting patient's stay in the hospital for 24 medardo rs, but if needed, we will consider changing to inpatient status based on clinical course.
[2017-06-20] MEDS ORDERED: hydrALAZINE 20 MG/ML VIAL SLOW IVP PRN (17:18)
[2017-06-20] MEDS ORDERED: Ondansetron HCl/PF 4 MG/2 ML Vial IVP PRN (17:18)
[2017-06-20] MEDS ORDERED: Eucerin (Mineral Oil/Petrolatum,White) 30 gm Jar TOP PRN (17:18)
[2017-06-20] MEDS ORDERED: cloNIDine 0.1 MG TAB PO PRN (17:18)
[2017-06-20] MEDS ORDERED: Artificial Tear Sol 15 ML BOT EA EYE PRN (17:18)
[2017-06-20] MEDS ORDERED: Milk Of Magnesia 30 ML UDCUP PO PRN (17:18)
[2017-06-20] MEDS ORDERED: ALPRAZolam 1 MG TAB PO PRN (17:18)
[2017-06-20] MEDS ORDERED: Acetaminophen 325 MG TAB PO PRN (17:18)
[2017-06-20] MEDS ORDERED: Mag-Al 1200 mg/1200 mg/30 ML UDCUP PO PRN (17:18)
[2017-06-20] MEDS ORDERED: Ondansetron ODT 4 MG TAB PO PRN (17:18)
[2017-06-20] MEDS ORDERED: Loratadine 10 MG TAB PO PRN (17:18)
[2017-06-20] MEDS ORDERED: Senokot 8.6 MG TAB PO PRN (17:18)
[2017-06-20] MEDS ORDERED: Loperamide HCl 2 MG CAP PO PRN (17:18)
[2017-06-20] MEDS ORDERED: Zolpidem Tartrate 5 MG TAB PO PRN (17:18)
[2017-06-20] MEDS ORDERED: Cyclobenzaprine 10 MG TAB PO PRN (17:18)
[2017-06-20] MEDS ORDERED: Sodium Chloride 0.65% Nasal 44 ML BOT EA NARE PRN (17:18)
[2017-06-20] MEDS ORDERED: Diabetic Tussin 200 MG/10 ML UDCUP PO PRN (17:18)
[2017-06-20] MEDS ORDERED: Nitroglycerin 0.4 MG TAB (25 Tab Bottle) SL PRN (17:18)
[2017-06-20] MEDS ORDERED: Chloraseptic Spray 180 ml Bottle PO PRN (17:18)
[2017-06-20 17:34] LABS: Troponin I 0.033 ng/mL (< 0.028)
[2017-06-20] MEDS: Vancomycin HCl 25 MG/ML Oral PO SCH ×2 (17:52→21:00)
[2017-06-20] MEDS: Dronedarone HCl 400 MG TAB PO SCH (17:53)
[2017-06-20 18:15] VITALS: BMI 33.0
[2017-06-20] MEDS: Apixaban 5 MG TAB PO SCH (20:59)
[2017-06-20] MEDS: levETIRAcetam 500 MG TAB PO SCH (20:59)
[2017-06-20 21:43] LABS: Troponin I 0.028 ng/mL (< 0.028)
--- NOTE | 2017-06-20 21:55 | CON ---
DATE OF CONSULTATION: 06/20/2017 REASON FOR CONSULTATION: Atrial fibrillation with rapid ventricular response. HISTORY OF PRESENT ILLNESS: Ms. Morris is a very pleasant 41-year-old -[place] female, who c omes to the hospital for atrial fibrillation with RVR. She was recently here for the same reason. S he had a cardioversion, started on Multaq and Eliquis and she went back into atrial fibrillation soon after, so she was discharged home with a rate control strategy. Her blood pressure dips down during dialysis, so they instructed her to stop all her medications on dialysis days. When she got to them , they found that she was in atrial fibrillation with RVR, so she was sent back to the hospital for t his. Heart rate was in the 120s. Restart all her home medications and her heart rate is back to bet ween 90 and 105. She is doing better. She denies any tightness or pressure. She admits some chest pain, which she has had for some time. PAST MEDICAL HISTORY: 1. Several episodes of atrial arrhythmias including atrial fibrillation in the past. 2. End-stage renal disease on hemodialysis Thursday, , and Thursday. 3. Chronic anticoagulation with Eliquis. 4. Seizure disorder. 5. Hypertension. 6. Peripheral neuropathy. PAST SURGICAL HISTORY: 1. IV fistula placement. 2. Colectomy. 3. . 4. BTL. 5. Thoracic aortic aneurysm repair. FAMILY HISTORY: Heart disease. Positive for early coronary artery disease. SOCIAL HISTORY: On disability. Smokes half a pack a day. No alcohol, no drug use. REVIEW OF SYSTEMS: A 12-point review of systems was done and is all negative unless stated in the hi story of present illness. PHYSICAL EXAMINATION: VITAL SIGNS: Temperature 98.2, pulse 102, respiratory rate 20, satting 92% on room air, blood pressu re 115/70. GENERAL: Awake, alert, oriented x3, in no distress. HEENT: Normocephalic, atraumatic. NECK: Supple. LUNGS: Clear. CARDIOVASCULAR: S1, S2. No S3, S4. No murmurs or rubs. ABDOMEN: Soft, positive bowel sounds. EXTREMITIES: 1+ edema. SKIN: Warm and dry. LABORATORY DATA: Laboratory work was reviewed. Hematology with white count of 8, hemoglobin of 13, hematocrit of 42, platelet count of 172. Coags were unremarkable except for PT of 15 and D-dimer of 0.5. Chemistry; high BUN and creatinine, otherwise normal. Troponins were 0.03, 0.03, and 0.03. CK -MB was normal x2. Albumin of 4.0, lipase of 13. EKG was reviewed, atrial fibrillation with RVR. Telemetry has been reviewed, atrial fibrillation wit h heart rate between 90 and 105. ASSESSMENT AND PLAN: Atrial fibrillation with rapid ventricular rate, likely related to not taking h er medications. We will agree with restarting all her home medications. We will see how her heart r ate does overnight. If it is difficult to rate control, we will try to put her on low dose digoxin a s this will not drop her blood pressure. She should not stop her Multaq on dialysis days. She may s top her diltiazem, although she only takes this every night. Otherwise, continue Eliquis with curren t dose for stroke prophylaxis. Thank you for letting us to participate in the care of your patient. We will follow.
[2017-06-21] MEDS: Cholestyramine/Aspartame 4 gm Packet PO SCH ×2 (00:06→10:01)
[2017-06-21 06:28] LABS: Hematocrit 40.4 % (36.0-47.0); Mean Platelet Volume 8.4 fL (7.4-10.4); Neutrophil 69 % (42-75); Red Blood Cell (RBC) Count 3.97 mill/uL (4.20-5.40); White Blood Cell (WBC) Count 7.8 thou/uL (4.8-10.8)
[2017-06-21 06:34] LABS: Anion Gap 19 mmol/L (10-20); BUN (Urea Nitrogen) 40 mg/dL (7.0-18.7); BUN/Creatinine Ratio 4.34; Calc. Creatinine Clearance 12 mL/min (70-130); Calcium 7.8 mg/dL (7.8-10.44); Carbon Dioxide 23 mmol/L (22-29); Chloride 104 mmol/L (98-107); Cholesterol 117 mg/dl (< 200 Desired); Estimated GFR-MDRD 6; LDL Cholesterol, Calculated 42 mg/dL; Phosphorus 3.1 mg/dL (2.3-4.7)
[2017-06-21] MEDS: Apixaban 5 MG TAB PO SCH (08:33)
[2017-06-21] MEDS: Vancomycin HCl 25 MG/ML Oral PO SCH ×3 (08:33→18:08)
[2017-06-21] MEDS: levETIRAcetam 500 MG TAB PO SCH (08:34)
[2017-06-21] MEDS: Dronedarone HCl 400 MG TAB PO SCH ×2 (08:34→17:12)
[2017-06-21] MEDS ORDERED: Famotidine 20 MG TAB PO SCH (09:00)
[2017-06-21] MEDS ORDERED: Folic Acid/Vit B Comp W-C PO SCH (09:00)
[2017-06-21] MEDS ORDERED: Saccharomyces boulardii 250 MG CAP PO SCH (09:00)
--- NOTE | 2017-06-21 11:28 | DIS ---
DATE OF ADMISSION: 06/20/2017 DATE OF DISCHARGE: 06/21/2017 PRIMARY CARE PHYSICIAN: Dr. Bibiana Almanzar. DISCHARGE DISPOSITION: Home. PRIMARY DISCHARGE DIAGNOSES: 1. Atrial fibrillation with rapid ventricular response, controlled. 2. Chest pain, resolved. 3. Demand ischemia. SECONDARY DISCHARGE DIAGNOSES: Recent history of Clostridium difficile diarrhea, improved; anxiety a nd depression; hypertension; chronic diastolic heart failure; end-stage renal disease, on hemodialysi s; gastroesophageal reflux disease; history of aortic dissection, requiring surgical repair; dyslipid emia; obesity with BMI 33; paroxysmal atrial fibrillation with variable rate control; seizure disorde r. PRIMARY PROCEDURE/OPERATION: Maintenance hemodialysis. RADIOLOGICAL INVESTIGATION: Chest x-ray showed cardiomegaly and chronic lung changes without any acu te process. SIGNIFICANT LABORATORY DATA: WBC 7.8, hemoglobin 12.4, MCV 102, platelets 161. INR 1.3. D-dimer 0. 50. Sodium 142, potassium 3.8, BUN 40, creatinine 9.21, calcium 7.8, phosphorus 3.1, CK-MB 1.0, trop onin 0.028, triglycerides 73, cholesterol 117, LDL 42, HDL 60, lipase 13. DISCHARGE MEDICATIONS: Xanax 1 mg p.o. b.i.d. p.r.n., Questran 4 mg p.o. b.i.d. to finish as prescri bed, Flexeril 5 mg t.i.d. p.r.n., Cardizem 30 mg p.o. a.c. and at bedtime, Benadryl 25 mg q.6 hourly p.r.n., Multaq 400 mg p.o. b.i.d., Nephro-Clinton one tablet p.o. daily, Keppra 500 mg p.o. b.i.d., omep razole 40 mg p.o. daily, Florastor 250 mg p.o. daily to finish as directed, Zoloft 25 mg p.o. daily, vancomycin 125 mg p.o. q.6 hourly finish as directed, Eliquis 2.5 mg p.o. b.i.d. CONTRAINDICATIONS: None. CODE STATUS: FULL CODE. INPATIENT CONSULTANTS: Dr. Cabral was consulted while in hospital and he recommended to continue her home medications. INPATIENT REGISTERED NURSE FETAL: Dr. Mcgarry was consulted for maintenance hemodialysis. TEST RESULTS PENDING ON DISCHARGE: None. ALLERGIES: CEFAZOLIN, CODEINE, CLINDAMYCIN, IODINE, DILANTIN. DISCHARGE PLAN: Post hospital, the patient will follow up with primary care physician, Dr. Cristina arguello and Cardiology as instructed. HOSPITAL COURSE: The patient is a 41-year-old female with the above mentioned medical problems who h as a history of atrial fibrillation with rapid ventricular response and heart rate is already variabl y controlled and she went to dialysis center where her heart rate was fast and she took her Cardizem at dialysis center, but that did not drop her pulse and that is why they did not do dialysis and send her back to the emergency room. The patient was feeling mild chest discomfort at that time. In the emergency room, she was found with atrial fibrillation with rapid ventricular response. She was giv en Cardizem bolus and subsequently rate was under control. She was admitted as observation status to observation floor. She was not requiring any Cardizem drip while in hospital. The patient was not taking her medication as prescribed as well. We continued her Multaq therapy as well as we added Car dizem to use at home as well. The patient will continue her chronic anticoagulation with Eliquis. At this point, the patient is chest pain free. We are doing dialysis today; after dialysis, the roderick ent will be discharged home. Her rate is under control. She does not need any further evaluation at this point. She was fully evaluated in the recent admission in our hospital. PHYSICAL EXAMINATION: The patient is seen and examined at bedside today. VITAL SIGNS: Currently, temperature 97.1, pulse 90 with irregularity, respiratory rate 20, saturatio n 95%, blood pressure 101/76, weight 206 pounds. GENERAL: The patient is currently alert, awake, no obvious acute distress. HEAD: Normocephalic, atraumatic. EYES: Pupils round, reactive to light. Extraocular muscle intact. ENT: Oropharynx within normal limits. Moist mucous membranes. No oral lesions. No pharyngeal eryt christo, no exudates. NECK: Supple, range of motion is normal. No meningeal signs of irritation. LUNGS: Clear to auscultation without any rhonchi. EXTREMITIES: Lower extremity, she has wound which is dressed by wound care team today. NEUROLOGIC: Nonfocal examination. ADDENDUM: As mentioned above, I added Cardizem on her discharge medication, but we know that this patient is go ing for hypotension more frequently and that is why we discontinued Cardizem prescription and instead we started on digoxin 0.125 mg p.o. daily and 30 tablets prescription is given. She will continue a long with that Multaq therapy.
[2017-06-21 14:48] VITALS: BP 98/65; TEMP 98
--- NOTE | 2017-06-21 15:43 | PDOC.CTH ---
Cardiology Progress Note - Subjective She is doing well. No chest pain, no more episodes of SVT. - Objective Vital Signs Temp Pulse Resp BP Pulse Ox 06/21/17 14:42 98.0 F 104 H 16 98/65 93 L 06/21/17 07:50 97.1 F L 105 H 16 110/80 98 06/21/17 07:49 98.3 F 90 20 Weight 206 lb 14.4 oz 06/20/17 06/21/17 06/22/17 06:59 06:59 06:59 Intake Total 1320 Output Total 0 Balance 1320 - Physical Examination General/Neuro: alert & oriented x3, NAD Neck: no JVD present Lungs: unlabored respirations Heart: RRR Abdomen: NT/ND Extremities: other: (no edema.) - Telemetry Telemetry Rhythm: NSR - Labs Result Diagrams: 06/21/17 05:34 06/21/17 05:34 Troponin/CKMB CK-MB (CK-2) 1.0 ng/mL (0-6.6) 06/20/17 21:06 Troponin I 0.028 ng/mL (< 0.028) 06/20/17 21:06 - Assessment/Plan 1. Afib RVR, rate control now. PLAN: - Continue home meds. - Eliquis for stroke prophylaxis. - Follow up with EP as outpatient.
--- NOTE | 2017-06-22 00:18 | CON ---
DATE OF CONSULTATION: 06/21/2017 CONSULTING PHYSICIAN: Dr. Mcgarry. REQUESTING PHYSICIAN: Dr. Snider. REASON FOR CONSULTATION: The need for maintenance hemodialysis. IMPRESSION: 1. End-stage renal disease, hemodialysis dependent, unable to dialyze yesterday. 2. Atrial fibrillation with rapid ventricular response. 3. Hypervolemia. PLAN: 1. The patient to be dialyzed today with ultrafiltration as tolerated by hemodynamics. 2. Further management will be dependent on the clinical course. HISTORY OF PRESENT ILLNESS: This is a 41-year-old female patient with end-stage renal disease, hemod ialysis dependent, who went to dialysis, but could not dialyze because of hemodynamic instability in of atrial fibrillation with rapid ventricular response. The patient presented to the ER and wa s stabilized overnight. The patient is now due for dialysis to address the hypervolemia. Past medical history, family history and social history remains the same. Please for the details, re alvaro to the recent note during the recent hospitalization. REVIEW OF SYSTEMS: As documented in the body of the history. All the other systems were reviewed an d were found not to be significantly related to the presenting illness. PHYSICAL EXAMINATION: GENERAL: On exam, the patient was found to be in some respiratory distress, noted with the following . VITAL SIGNS: Afebrile with temperature 98.3, pulse 90, respiratory rate 20, O2 sat 98% on 2 liters w ith a blood pressure of 101/76. HEENT: Unremarkable. Moist oral mucosa. Neck was supple. CARDIOVASCULAR SYSTEM: First and second heart sounds were heard. RESPIRATORY SYSTEM: Clear to auscultation. DIGESTIVE SYSTEM: Revealed a benign abdomen. EXTREMITIES: Showed some mild peripheral edema. NEUROLOGIC: Alert and oriented. No lateralizing sign. SUMMARY: A 41-year-old female patient with end-stage renal disease who presented here with hemodynam ic instability in the context of atrial fibrillation with rapid ventricular response. Thank you for this consultation. We will follow with you.
== END 2017-06-21 18:09 | disposition home or self-care (01) ==
LOC: ERS 13:10 → 2SW 16:41
PROVIDERS: ADMIT Internal Medicine; ATTEND Internal Medicine
DX: I48.0 Paroxysmal atrial fibrillation (principal); R07.89 Other chest pain; I24.8 Other forms of acute ischemic heart disease; I13.2 Hypertensive heart and chronic kidney disease with heart failure and with stage 5 chronic kidney disease, or end stage renal disease; N18.6 End stage renal disease; I50.32 Chronic diastolic (congestive) heart failure; G40.909 Epilepsy, unspecified, not intractable, without status epilepticus; E78.5 Hyperlipidemia, unspecified; K21.9 Gastro-esophageal reflux disease without esophagitis; F32.9 Major depressive disorder, single episode, unspecified; F41.9 Anxiety disorder, unspecified; F17.210 Nicotine dependence, cigarettes, uncomplicated; E66.9 Obesity, unspecified; Z68.33 Body mass index [BMI] 33.0-33.9, adult; Z88.5 Allergy status to narcotic agent; Z88.1 Allergy status to other antibiotic agents; Z88.8 Allergy status to other drugs, medicaments and biological substances; Z91.041 Radiographic dye allergy status; Z79.01 Long term (current) use of anticoagulants; Z79.899 Other long term (current) drug therapy; Z90.49 Acquired absence of other specified parts of digestive tract; Z98.890 Other specified postprocedural states; Z99.2 Dependence on renal dialysis
CPT/HCPCS: 71010; 80053; 80061; 80069; 82550; 82553 ×2; 83690; 83735; 84100; 84484 ×2; 85025 ×2; 85379; 85610; 85730; 93005; 96365; 96375; 96376 ×2; 97139; 99285; G0378; 36415; 36416; 90935; G0257; J2405; J7050

== ENCOUNTER 2017-07-01 21:19 | Emergency (ER) | payer MEDICARE, MEDICAID ==
[2017-07-01 22:01] LABS: Hematocrit 44.9 % (36.0-47.0); Mean Platelet Volume 8.6 fL (7.4-10.4); Red Blood Cell (RBC) Count 4.45 mill/uL (4.20-5.40)
--- NOTE | 2017-07-01 22:07 | RAD ---
EXAM: TIBIA AND FIBULA TWO VIEWS 07/01/17 HISTORY: Pain. Previous surgery. Comparison 04/10/17. FINDINGS: Internal fixation hardware at the level of the proximal tibia is present. There is no perihardware jm cency. When compared to the previous fluoroscopic views, there is no change. No acute fracture. No co rtical irregularity or periosteal reaction. There does appear to be ulceration involving the anterior left lower extremity soft tissues, to the l evel of the proximal tibia. IMPRESSION: 1. Soft tissue ulceration. Correlate for possible infection. 2. No radiographic evidence of osteomyelitis or loosening of the internal fixation hardware. POS: [facility]
[2017-07-01 22:11] LABS: Lactic Acid - Sepsis 1.4 mmol/L (0.5-2.2)
[2017-07-01 22:15] LABS: ALT (SGPT) 8 U/L (8-55); AST (SGOT) 12 U/L (5-34); Alkaline Phosphatase 83 U/L (40-150); Anion Gap 15 mmol/L (10-20); BUN (Urea Nitrogen) 16 mg/dL (7.0-18.7); Bilirubin, Total 1.2 mg/dL (0.2-1.2); Calc. Creatinine Clearance 0 mL/min (70-130); Calcium 9.2 mg/dL (7.8-10.44); Carbon Dioxide 30 mmol/L (22-29); Chloride 98 mmol/L (98-107); Estimated GFR-MDRD 8; Globulin 3.4 g/dL (2.4-3.5); Protein, Total 7.4 g/dL (6.0-8.3)
[2017-07-01 22:17] LABS: Band 1 % (5-11); Neutrophil 75 % (42-75); Nucleated RBC 1 % (0); White Blood Cell (WBC) Count 7.8 thou/uL (4.8-10.8)
[2017-07-01] MEDS ORDERED: Ketorolac Tromethamine 30 MG/ML VIAL ONE (22:27)
== END 2017-07-01 22:48 | disposition home or self-care (01) ==
LOC: ERS 21:19
DX: T81.89XA Other complications of procedures, not elsewhere classified, initial encounter (principal); I12.0 Hypertensive chronic kidney disease with stage 5 chronic kidney disease or end stage renal disease; N18.6 End stage renal disease; I48.91 Unspecified atrial fibrillation; F41.9 Anxiety disorder, unspecified; F17.210 Nicotine dependence, cigarettes, uncomplicated; Z79.899 Other long term (current) drug therapy
CPT/HCPCS: 80053; 83605; 85025; 96374; 99406; J1885

== ENCOUNTER 2017-07-07 11:24 | Inpatient (IN) | payer MEDICARE, MEDICAID ==
[2017-07-07] MEDS ORDERED: Lidocaine 1% (PF) 30 ML VIAL ONE ×2 (12:36→18:13)
[2017-07-07] MEDS ORDERED: Fentanyl 100 MCG/2 ML VIAL ONE ×2 (12:53→15:18)
[2017-07-07] MEDS ORDERED: Vancomycin HCl 1.5 GM in Sodium Chloride 0.9% 250 ML 300 ML IVPB SCH (13:00)
[2017-07-07 14:04] LABS: Hemoglobin 15.1 g/dL (12.0-16.0)
[2017-07-07 14:33] LABS: Anion Gap 22 mmol/L (10-20); BUN (Urea Nitrogen) 32 mg/dL (7.0-18.7); Calc. Creatinine Clearance 11 mL/min (70-130); Calcium 8.9 mg/dL (7.8-10.44); Carbon Dioxide 25 mmol/L (22-29); Chloride 98 mmol/L (98-107); Estimated GFR-MDRD 6; Glucose 73 mg/dL (70-105); Potassium 3.8 mmol/L (3.5-5.1); Sodium 141 mmol/L (136-145)
[2017-07-07] MEDS ORDERED: Propofol 200 MG/20 ML VIAL ONE (16:21)
[2017-07-07] MEDS ORDERED: Ondansetron ODT 4 MG TAB PO PRN ×2 (17:21→18:14)
[2017-07-07] MEDS ORDERED: Morphine 4 MG/ML VIAL ONE ×2 (17:27→17:45)
[2017-07-07] MEDS ORDERED: Hydrocortisone/Pramoxine (Proctofoam HC) 10 GM BOX TOP PRN (17:30)
[2017-07-07] MEDS ORDERED: Zolpidem Tartrate 5 MG TAB PO PRN (17:30)
[2017-07-07] MEDS ORDERED: Digoxin 0.125 MG TAB PO PRN (17:30)
[2017-07-07] MEDS ORDERED: Fentanyl 250 MCG/5 ML VIAL ONE (18:15)
--- NOTE | 2017-07-07 19:52 | OP ---
DATE OF OPERATION: 07/07/2017 OPERATIONS: 1. Left tibia hardware removal, tibial plateau plate. 2. Irrigation and debridement with wound closure. 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 COMPLICATIONS: None. ESTIMATED BLOOD LOSS: Minimal. SURGEON: Zion Salmeron M.D. ANESTHESIA: General plus local. INDICATIONS: Ms. Morris is a 41-year-old female who is on dialysis. She sustained a fracture of the tibial plateau. She underwent open reduction and internal fixation. She developed a wound, which i s nonhealing. She has received wound care, but has not made progress. She has been indicated for ir rigation and debridement of the wound with closure as well as removal of her underlying tibial instru mentation. Risks have been reviewed which to include further infection, wound complication, worsenin g with problems such as osteomyelitis and others. She wants to proceed. DESCRIPTION OF PROCEDURE: Ms. Morris was identified in the preoperative holding area. Her correct e xtremity was marked. She was carried to the operating room. She was positioned supine. General ane sthesia was induced. A multidisciplinary timeout was performed. The left lower extremity was preppe d and draped in sterile fashion. We began the procedure with opening the patient's previous scar. We ellipsed out the chronic wound d own through the subcutaneous tissue to the fascia level. This tissue was cultured. At this point, w e trimmed all the skin edges to a bleeding healthy viable tissue. We then thoroughly irrigated with copious lavage. Next, I opened the deep fascia and exposed the underlying tibial plate. Screws were removed and the plate was removed appropriately. We took an x-ray image confirming this. The fracture was well heal ed. At this point, we thoroughly irrigated with copious lavage. We then closed with an 0 Vicryl sut ure, followed by 2-0 Vicryl suture and multiple nylon sutures were placed. A sterile dressing was pl aced as well as a knee brace. The patient was taken to the recovery room appropriately.
[2017-07-07] MEDS ORDERED: Ondansetron HCl/PF 4 MG/2 ML Vial IVP PRN (20:43)
[2017-07-07] MEDS ORDERED: Promethazine HCl 25 MG/ML VIAL IM PRN (20:43)
[2017-07-07] MEDS ORDERED: Promethazine HCl 25 MG/ML VIAL SLOW IVP PRN (20:43)
[2017-07-07] MEDS: HYDROcodone/Acetaminophen 5/325 mg Tablet PO PRN (21:35)
[2017-07-07] MEDS: Docusate 100 MG CAP PO SCH (21:36)
[2017-07-07] MEDS: diphenhydrAMINE 25 MG CAP PO PRN (21:36)
[2017-07-07] MEDS: levETIRAcetam 500 MG TAB PO SCH (21:36)
[2017-07-07] MEDS: Cholestyramine/Aspartame 4 gm Packet PO SCH (21:36)
[2017-07-07] MEDS: traMADol HCl 50 MG TAB PO PRN (22:58)
[2017-07-07] MEDS: Cyclobenzaprine 10 MG TAB PO PRN (23:01)
[2017-07-08] MEDS: HYDROcodone/Acetaminophen 5/325 mg Tablet PO PRN ×2 (01:41→09:13)
[2017-07-08] MEDS: Ibuprofen 200 MG TAB PO PRN ×3 (03:42→23:14)
[2017-07-08] MEDS: diphenhydrAMINE 25 MG CAP PO PRN ×3 (03:42→20:48)
[2017-07-08 07:37] LABS: #Eosinphils 0.3 thou/uL (0.0-0.7); #Lymphocytes 1.3 thou/uL (1.20-3.40); #Monocytes 0.6 thou/uL (0.11-0.59); #Neutrophils 5.6 thou/uL (1.40-6.50); %Basophils 0.1 % (0.0-1.0); %Lymphocytes 16.4 % (21.0-51.0); %Neutrophils 71.5 % (42.0-75.0); Hemoglobin 13.2 g/dL (12.0-16.0); Mean Corpuscular HGB CONC 30.7 g/dL (32.0-36.0); Mean Corpuscular Hemoglobin 30.7 pg (27.0-31.0); Mean Corpuscular Volume 99.7 fl (81.0-99.0); Platelet Count 160 thou/uL (130-400); RBC Distribution Width 18.2 % (11.5-14.5); Red Blood Cell (RBC) Count 4.31 mill/uL (4.20-5.40); White Blood Cell (WBC) Count 7.9 thou/uL (4.8-10.8)
[2017-07-08 07:52] LABS: Anion Gap 20 mmol/L (10-20); BUN (Urea Nitrogen) 37 mg/dL (7.0-18.7); Calc. Creatinine Clearance 10 mL/min (70-130); Calcium 8.2 mg/dL (7.8-10.44); Carbon Dioxide 25 mmol/L (22-29); Chloride 98 mmol/L (98-107); Estimated GFR-MDRD 5; Glucose 108 mg/dL (70-105); Sodium 140 mmol/L (136-145)
[2017-07-08 08:15] LABS: HBSAg Index 0.26 S/CO (0-0.99); Hep B Surf Ag Non-Reactive S/CO (NonReactive)
[2017-07-08] MEDS: Dronedarone HCl 400 MG TAB PO SCH ×2 (14:34→18:16)
[2017-07-08] MEDS: Cholestyramine/Aspartame 4 gm Packet PO SCH ×2 (14:35→20:48)
[2017-07-08] MEDS: Docusate 100 MG CAP PO SCH ×2 (14:35→20:48)
[2017-07-08] MEDS: Cyclobenzaprine 10 MG TAB PO PRN ×2 (14:41→23:13)
[2017-07-08] MEDS: levETIRAcetam 500 MG TAB PO SCH ×2 (14:42→20:48)
[2017-07-08] MEDS: Enoxaparin Sodium 30 MG/0.3 ML SYRINGE SC SCH (14:42)
[2017-07-08] MEDS: Folic Acid/Vit B Comp W-C PO SCH (17:04)
[2017-07-08] MEDS: Acetaminophen 325 MG TAB PO PRN (20:48)
[2017-07-09] MEDS: ALPRAZolam 1 MG TAB PO PRN (05:06)
[2017-07-09] MEDS: diphenhydrAMINE 25 MG CAP PO PRN ×3 (05:06→22:24)
[2017-07-09] MEDS: Acetaminophen 325 MG TAB PO PRN (05:06)
[2017-07-09 05:11] VITALS: BMI 32.3
--- NOTE | 2017-07-09 06:04 | CON ---
DATE OF CONSULTATION: 07/08/2017 CONSULTING PHYSICIAN: Dr. Mcgarry. REQUESTING PHYSICIAN: Dr. Salmeron. REASON FOR CONSULTATION: The need for maintenance dialysis. IMPRESSION: 1. End-stage renal disease, hemodialysis dependent. 2. management of . 3. Atrial fibrillation, labile hemodynamics. PLAN: 1. The patient to be dialyzed with ultrafiltration as tolerated by hemodynamics. 2. Further management to be dependent on the clinical course. Renally dose all medications. HISTORY OF PRESENT ILLNESS: History is that of a 41-year-old female patient, who presented here for . The patient is due for hemodialysis and therefore will be placed on hemodialysis. The patien t denies any other significant medical history. FAMILY HISTORY: Not significantly related to the presenting illness. SOCIAL HISTORY: Denies alcohol or illicit drug use. The patient smokes cigarettes. REVIEW OF SYSTEMS: As documented in the body of the history. All the other systems were reviewed an d are negative. SUMMARY: A 41-year-old female patient with end-stage renal disease .
[2017-07-09 06:16] LABS: Anion Gap 17 mmol/L (10-20); BUN (Urea Nitrogen) 21 mg/dL (7.0-18.7); Calc. Creatinine Clearance 15 mL/min (70-130); Calcium 8.2 mg/dL (7.8-10.44); Carbon Dioxide 27 mmol/L (22-29); Chloride 100 mmol/L (98-107); Estimated GFR-MDRD 8; Glucose 94 mg/dL (70-105); Potassium 3.3 mmol/L (3.5-5.1); Sodium 141 mmol/L (136-145)
[2017-07-09] MEDS: Docusate 100 MG CAP PO SCH ×3 (09:54→22:15)
[2017-07-09] MEDS: Cholestyramine/Aspartame 4 gm Packet PO SCH ×2 (09:54→22:15)
[2017-07-09] MEDS: Enoxaparin Sodium 30 MG/0.3 ML SYRINGE SC SCH (09:54)
[2017-07-09] MEDS: Dronedarone HCl 400 MG TAB PO SCH ×2 (09:54→16:07)
[2017-07-09] MEDS: Folic Acid/Vit B Comp W-C PO SCH (09:54)
[2017-07-09] MEDS: levETIRAcetam 500 MG TAB PO SCH ×2 (09:55→22:15)
[2017-07-09] MEDS: Ibuprofen 200 MG TAB PO PRN (13:55)
[2017-07-09] MEDS: Cyclobenzaprine 10 MG TAB PO PRN (13:55)
[2017-07-09] MEDS: HYDROcodone/Acetaminophen 5/325 mg Tablet PO PRN ×2 (17:00→22:24)
[2017-07-10] MEDS: ALPRAZolam 1 MG TAB PO PRN (03:21)
[2017-07-10 05:48] LABS: Anion Gap 15 mmol/L (10-20); BUN (Urea Nitrogen) 17 mg/dL (7.0-18.7); Calc. Creatinine Clearance 22 mL/min (70-130); Calcium 7.8 mg/dL (7.8-10.44); Carbon Dioxide 28 mmol/L (22-29); Chloride 101 mmol/L (98-107); Estimated GFR-MDRD 12; Glucose 95 mg/dL (70-105); Potassium 3.7 mmol/L (3.5-5.1); Sodium 140 mmol/L (136-145)
[2017-07-10] MEDS: Dronedarone HCl 400 MG TAB PO SCH (08:04)
[2017-07-10] MEDS: Enoxaparin Sodium 30 MG/0.3 ML SYRINGE SC SCH (08:04)
[2017-07-10] MEDS: levETIRAcetam 500 MG TAB PO SCH (08:05)
[2017-07-10] MEDS: Docusate 100 MG CAP PO SCH (08:05)
[2017-07-10] MEDS: traMADol HCl 50 MG TAB PO PRN (08:05)
[2017-07-10] MEDS: Folic Acid/Vit B Comp W-C PO SCH (08:05)
--- NOTE | 2017-07-10 08:47 | PRG ---
DATE OF SERVICE: 07/09/2017 SUBJECTIVE: The patient was seen in dialysis with no new complaint. PHYSICAL EXAMINATION: VITAL SIGNS: AFebrile, temperature 97.6, pulse 98, respiratory rate 20, O2 sat 91%, blood pressure 9 6/63. HEAD/NECK: Moist oral mucosa. NECK: Supple. CARDIOVASCULAR: First and second heart sounds heard. LUNGS: Clear to auscultation. ABDOMEN: . SKIN: No new gross rash. LYMPHATICS: No peripheral lymphadenopathy. IMPRESSION: 1. End-stage renal disease on hemodialysis. 2. Atrial fibrillation. PLAN: 1. The patient to continue with current hemodialysis. 2. The patient gastroenterology evaluation. 3. Further management to be dependent on clinical course.
[2017-07-10] MEDS: HYDROcodone/Acetaminophen 5/325 mg Tablet PO PRN (11:32)
[2017-07-10] MEDS: diphenhydrAMINE 25 MG CAP PO PRN (11:36)
[2017-07-10 16:09] VITALS: BP 106/70; TEMP 97.9
--- NOTE | 2017-07-10 23:52 | PRG ---
DATE OF SERVICE: 07/10/2017 SUBJECTIVE: No new complaint. Noted with the following vital signs. PHYSICAL EXAMINATION: VITAL SIGNS: Afebrile with temperature 97.9, pulse 96, respiratory rate 16, and blood pressure 106/7 0. HEENT: Unremarkable with moist oral mucosa. Neck was supple. No conjunctival injection or icterus. CARDIOVASCULAR: First and second heart sounds were heard. RESPIRATORY SYSTEM: Clear to auscultation. DIGESTIVE SYSTEM: Revealed a benign abdomen. EXTREMITIES: No peripheral edema. SKIN: No new gross rash. LYMPHATICS: No peripheral lymphadenopathy. IMPRESSION: 1. End-stage renal disease, hemodialysis dependent. 2. Atrial fibrillation with rapid ventricular response. PLAN: 1. The patient scheduled for dialysis Thursday, and Thursday. 2. Further management will be dependent on the clinical course.
--- NOTE | 2017-07-13 12:43 | DIS ---
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 PROCEDURE: 1. Left tibial hardware removal of the tibial plateau plate. 2. Irrigation and debridement with wound closure. HOSPITAL COURSE: Hospital stay was unremarkable. The patient was admitted to [address] where she worked with staff, physical therapy, occupational therapy, and progressed fairly well. By 07/10/2017, she was ready to discharge home. DISCHARGE CONDITION: Good/stable. DISPOSITION: Home with family. FOLLOWUP: Followup would be in 10-14 days, sooner if there are problems and/or concerns. DISCHARGE MEDICATIONS: Given with usage instructions. This is Santana Darling PA-C dictating for Dr. Zion Salmeron.
== END 2017-07-10 19:00 | disposition home health service (06) | DRG 907 ==
LOC: SDC 11:24 → SURG A 17:21
PROVIDERS: ADMIT Orthopaedic Surgery; ATTEND Orthopaedic Surgery
PROC: 0JDP0ZZ Extraction of Left Lower Leg Subcutaneous Tissue and Fascia, Open Approach (ICD-10-PCS; principal; 2017-07-07)
PROC: 0QPH04Z Removal of Internal Fixation Device from Left Tibia, Open Approach (ICD-10-PCS; 2017-07-07)
PROC: 5A1D70Z Performance of Urinary Filtration, Intermittent, Less than 6 Hours Per Day (ICD-10-PCS; 2017-07-08)
DX: T81.32XA Disruption of internal operation (surgical) wound, not elsewhere classified, initial encounter (principal); N18.6 End stage renal disease; I12.0 Hypertensive chronic kidney disease with stage 5 chronic kidney disease or end stage renal disease; T84.84XA Pain due to internal orthopedic prosthetic devices, implants and grafts, initial encounter; I48.91 Unspecified atrial fibrillation; Z87.81 Personal history of (healed) traumatic fracture; Z99.2 Dependence on renal dialysis
CPT/HCPCS: 36415; 76001; 80048; 85014; 85018; 85025; 87070; 87077; 87186; 87205; 87340; 90935; G0257; G8978-GP-CJ; G8979-GP-CI; J1650; J2001; J2270; J2704; J3010; J3370; J7050; Q0162

== ENCOUNTER 2017-07-24 00:22 | Inpatient (IN) | payer MEDICARE, MEDICAID ==
[2017-07-24] MEDS ORDERED: Nitroglycerin 0.4 MG TAB (25 Tab Bottle) ONE (00:55)
[2017-07-24 01:24] LABS: Band 1 % (5-11); Eosinophils 1 % (0-10); Hemoglobin 13.7 g/dL (12.0-16.0); Lymphocytes 22 % (21-51); MDiff Complete? YES; Mean Corpuscular HGB CONC 31.3 g/dL (32.0-36.0); Mean Corpuscular Hemoglobin 31.1 pg (27.0-31.0); Mean Corpuscular Volume 99.4 fl (81.0-99.0); Mean Platelet Volume 9.2 fL (7.4-10.4); Monocytes 4 % (0-10); Neutrophil 72 % (42-75); Nucleated RBC 3 % (0); PLT Morphology Comment Appears Adequate; Platelet Count 157 thou/uL (130-400); RBC Distribution Width 18.9 % (11.5-14.5); Red Blood Cell (RBC) Count 4.42 mill/uL (4.20-5.40); White Blood Cell (WBC) Count 8.9 thou/uL (4.8-10.8)
[2017-07-24] MEDS ORDERED: Fentanyl 100 MCG/2 ML VIAL ONE ×2 (01:25→06:45)
[2017-07-24 01:35] LABS: Anion Gap 23 mmol/L (10-20); BUN (Urea Nitrogen) 31 mg/dL (7.0-18.7); Calc. Creatinine Clearance 0 mL/min (70-130); Calcium 10.1 mg/dL (7.8-10.44); Carbon Dioxide 24 mmol/L (22-29); Chloride 96 mmol/L (98-107); Estimated GFR-MDRD 8; Glucose 109 mg/dL (70-105); Potassium 4.2 mmol/L (3.5-5.1); Sodium 139 mmol/L (136-145)
[2017-07-24 01:41] LABS: CKMB 1.4 ng/mL (0-6.6); Troponin I 0.094 ng/mL (< 0.028)
[2017-07-24] MEDS ORDERED: diphenhydrAMINE 50 MG/ML VIAL ONE (04:10)
[2017-07-24] MEDS ORDERED: methylPREDNISolone Sod Succ/PF 125 MG/2 ML VIAL ONE (04:10)
[2017-07-24] MEDS ORDERED: Famotidine 20 MG TAB ONE (04:10)
[2017-07-24] MEDS ORDERED: Acetaminophen 325 MG TAB PO PRN (06:00)
[2017-07-24] MEDS ORDERED: Ondansetron HCl/PF 4 MG/2 ML Vial IVP PRN (06:00)
[2017-07-24] MEDS ORDERED: Ondansetron ODT 4 MG TAB SL PRN (06:00)
[2017-07-24] MEDS ORDERED: Aspirin 325 MG TAB ONE (06:29)
[2017-07-24 07:41] LABS: Troponin I 1.091 ng/mL (< 0.028)
--- NOTE | 2017-07-24 08:31 | RAD ---
PORTABLE CHEST ONE VIEW: 07/24/2017 at 2:11 a.m. HISTORY: Chest pain. FINDINGS/IMPRESSION: Comparison is made with the exam of 06/20/2017. There are post op changes of median sternotomy. The heart size is normal. There is a vascular stent that remains in place. There is a left-sided pleural effusion. No overt consolidation or pneumotho races are seen. There is no evidence of lavelle pleural edema. POS: [facility]
[2017-07-24] MEDS ORDERED: Nitroglycerin 0.4 MG TAB (25 Tab Bottle) SL PRN (08:52)
[2017-07-24] MEDS ORDERED: Heparin 25,000 units/D5W 500 ML IVPB SCH (09:00)
--- NOTE | 2017-07-24 09:03 | CT ---
PRELIMINARY REPORT/[facility]/EMERGENCY AFTER HOURS PROCEDURE: EXAM: CT Angiography Chest With Intravenous Contrast CLINICAL HISTORY: 41 years old, female; Pain and signs and symptoms; Tachypnea; Sternal or substernal pain; Other: Tach ycardia; Other: Chest pain; Prior surgery; Surgery type: Peritoneal shunt (removed), surgical history of cholecystectomy, surgical history of section x 2 , surgical history of dialysis shunt, t o the left upper extremity, surgical history of tubal ligation. Thyroidectomy. Partial colectomy on 11/21/16; Patient HX: F41 presents to ed C/O substernal cp. HX of afib but she's not on anticoagulants . Tachy 120-130. 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 History difficult to obtain TECHNIQUE: Axial computed tomographic angiography images of the chest with intravenous contrast using pulmonary embolism protocol. Coronal and sagittal reformatted images were created and reviewed. CONTRAST: 95 mL of isovue 370 administered intravenously. COMPARISON: No relevant prior studies available. FINDINGS: Pulmonary arteries: There is no evidence of peripheral filling defects within the pulmonary arterial circulation to suggest pulmonary embolism. Findings consistent with acute pulmonary embolism. Aorta: There is no evidence of aortic dissection, leak, rupture, or other complications. There is solomon cification of the ascending aorta. Great vessels of aortic arch: There is partially visualized dissection of the LEFT common carotid art therese and proximal LEFT subclavian artery which may be chronic. Other veins: There is a patent LEFT brachiocephalic vein stent. Lungs: There is prominent vasculature within the LEFT lower lobe which may represent anomalous vascul ar shunting. LEFT basilar atelectasis and/or scarring is also noted. No mass. Pleural space: Normal. No significant effusion. No pneumothorax. Heart: There is marked calcification of the coronary arteries. No significant pericardial effusion. N o evidence of RV dysfunction. Thyroid: The visualized thyroid gland is unremarkable. Bones/joints: There are sternal wires consistent with previous sternotomy incision. No acute fracture . No dislocation. Soft tissues: Normal. Lymph nodes: There is nonspecific innumerable hypoattenuating densities throughout the mediastinum wh ich are nonspecific probably represent venous collaterals (given the amount of LEFT chest wall collat erals) although reactive lymphadenopathy or postsurgical change is also possible. IMPRESSION: 1. 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 Correlation with prior CTA neck performed 07/03/16 is advised (imag es not available for comparison). 2. There is no evidence of aortic dissection, leak, rupture, or other complications. 3. There is prominent vasculature within the LEFT lower lobe which may represent anomalous vascular s hunting. LEFT basilar atelectasis and/or scarring is also noted. Findings were discussed with ELINOR PURCELL at 07/24/2017 5:42 AM TAILOR HELPER. EXAM: CT Angiography Abdomen With Intravenous Contrast EXAM DATE/TIME: Exam ordered 07/24/2017 5:02 AM CLINICAL HISTORY: 41 years old, female; Pain and signs and symptoms; Tachypnea; Sternal or substernal pain; Other: Tach ycardia; Other: Chest pain; Prior surgery; Surgery type: Peritoneal shunt (removed), surgical history of cholecystectomy, surgical history of section x 2 , surgical history of dialysis shunt, t o the left upper extremity, surgical history of tubal ligation. Thyroidectomy. Partial colectomy on 11/21/16; Patient HX: F41 presents to ed C/O substernal cp. HX of afib but she's not on anticoagulants . Tachy 120-130. 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 Coronal and sagittal reformatted images were created and reviewed. CONTRAST: 95 mL of isovue 370 administered intravenously. COMPARISON: No relevant prior studies available. FINDINGS: Aorta: No acute findings. No abdominal aortic aneurysm. No dissection. Celiac trunk and mesenteric arteries: The inferior mesenteric artery is patent with noncalcified plaq ue just prior to its colic bifurcation. There is mild calcification of the origin of the celiac arter y without significant stenosis. The SMA is patent. Renal arteries: There is atherosclerotic calcification of the bilateral renal arteries, resulting in moderate to severe stenosis. Iliac arteries: There is moderate stenosis of the LEFT common iliac artery from atherosclerotic disea se. There is atherosclerotic calcification of the RIGHT common iliac artery with mild stenosis. Liver: There are no focal liver lesions present. Gallbladder and bile ducts: There has been a cholecystectomy. No ductal dilation. Pancreas: The pancreas is normal. No ductal dilation. Spleen: The spleen is normal. Adrenals: The adrenal glands are normal. Kidneys and ureters: The bilateral kidneys are atrophic with numerous simple cysts within the LEFT ki dney. Hyperdense RIGHT renal cyst is noted. Stomach and bowel: The stomach is normal. The duodenum is unremarkable. There are multiple surgical c lips consistent with previous bowel resection and reanastomosis. No obstruction. No mucosal thickenin g. Intraperitoneal space: There is small to moderate RIGHT upper quadrant and small LEFT upper quadrant ascites. No free air. Bones/joints: No acute fracture. No dislocation. Soft tissues: Bilateral flank soft tissue edema is noted. Lymph nodes: Normal. No enlarged lymph nodes. IMPRESSION: No acute findings. Thank you for allowing us to participate in the care of your patient. Dictated and Authenticated by: Neeraj Mera MD 07/24/2017 5:55 AM Central Time ([place] & [place]) FINAL REPORT CT ANGIOGRAM OF THE THORACIC AND ABDOMINAL AORTA: HISTORY: Substernal chest pain. The patient has a history of dissection. COMPARISON: 05/29/2017 TECHNIQUE: A CT angiogram of the thoracic and abdominal aorta is performed in the axial plane. Sagittal and cor onal three-dimensional reformatted images are submitted for interpretation. FINDINGS: No evidence of an acute aortic dissection, leak, or rupture. There are chronic short-segment dissect ions involving the left common carotid artery and the proximal left subclavian artery. This dissecti on is noted on a CT from 08/26/2016. Nonspecific lung parenchymal opacities. There is evidence of portal hypertension, along with hepatom egaly. There is nonspecific free fluid in the abdomen and pelvis. There is renal atrophy. Sclerosi s of the osseous structures due to renal osteodystrophy is identified. The report is in agreement with the preliminary report by [facility]. POS: [facility]
[2017-07-24] MEDS ORDERED: Digoxin 0.125 MG TAB PO PRN (09:15)
[2017-07-24] MEDS ORDERED: Hydrocortisone/Pramoxine (Proctofoam HC) 10 GM BOX TOP PRN (09:15)
[2017-07-24] MEDS ORDERED: Zolpidem Tartrate 5 MG TAB PO PRN (09:15)
[2017-07-24 10:00] LABS: Hemoglobin 13.7 g/dL (12.0-16.0); Platelet Count 143 thou/uL (130-400)
[2017-07-24] MEDS: Aspirin 325 MG TAB PO SCH (10:03)
[2017-07-24] MEDS: Heparin 10,000 UNITS/ 10 ML VIAL SLOW IVP SCH ×2 (10:04→22:39)
[2017-07-24] MEDS: Nicotine 21 MG PATCH TD SCH (10:25)
[2017-07-24] MEDS: traMADol HCl 50 MG TAB PO PRN (10:25)
[2017-07-24] MEDS ORDERED: Digoxin 0.5 MG/2 ML AMP SLOW IVP SCH (11:30)
--- NOTE | 2017-07-24 11:36 | HP ---
PRIMARY CARE PHYSICIAN: Bibiana Almanzar M.D. CHIEF COMPLAINT: Chest pain. HISTORY OF PRESENT ILLNESS: Ms. Morris is a pleasant 41-year-old lady who was seen at [facility] on 07/24/2017. She reports that she developed chest pain last night. She descri bes it as a squeezing sensation in retrosternal area, radiating to the back, 10/10 at its worst, acco mpanied by shortness of breath, not accompanied by nausea or vomiting. She cannot recall any aggrava ting or relieving factors. She denies any fevers or chills. She came to the emergency room because of ongoing chest pain. REVIEW OF SYSTEMS: The following complete review of systems was negative, unless otherwise mentioned in the HPI or below: Constitutional: Weight loss or gain, sense of well-being, ability to conduct usual activities, exerc ise tolerance. Skin/Breast: Rash, itching, changes in hair growth or loss, nail changes, breast lumps, tenderness, swelling, nipple discharge. Eyes: Vision, double vision, tearing, blind spots, pain. ENT/Mouth: Headaches (location, time of onset, duration, precipitating factors), vertigo, lightheade dness, injury. Vision, double vision, tearing, blind spots, pain, nose bleeding, colds, obstruction, discharge, dental difficulties, gingival bleeding, dentures, neck stiffness, pain, tenderness, masses in thyroid or other areas Cardiovascular: Precordial pain, substernal distress, palpitations, syncope, dyspnea on exertion, or thopnea, nocturnal paroxysmal dyspnea, edema, cyanosis, hypertension, heart murmurs, varicosities, ph lebitis, claudication. Respiratory: Pain, shortness of breath, wheezing, stridor, cough, hemoptysis, fever or night sweats Gastrointestinal: Poor appetite, dysphagia, indigestion, abdominal pain, heartburn, eructation, naus ea, vomiting, hematemesis, jaundice, constipation, or diarrhea, abnormal stools (moi-colored, tarry, bloody, greasy, foul smelling), flatulence, hemorrhoids, recent changes in bowel habits. Genitourinary: Urgency, frequency, dysuria, nocturia, hematuria, polyuria, oliguria, unusual (or ori nge in) color of urine, stones, hesitancy, change in size of stream, dribbling, acute retention or in continence, libido, potency. Musculoskeletal: Pain, swelling, redness or heat of muscles or joints, limitation, of motion, muscul ar weakness, atrophy, cramps. Neurologic/Psychiatric: Convulsions, paralyses, tremor, incoordination, paraesthesias, difficulties with memory of speech, sensory or motor disturbances, or muscular coordination (ataxia, tremor), emot ional problems, anxiety, depression, previous psychiatric care, unusual perceptions, hallucinations. Allergy/Immunologic: Skin rash, anemia, bleeding tendency, polydipsia, polyuria, intolerance to heat or cold. PAST MEDICAL HISTORY: Significant for atrial tachyarrhythmia, end-stage renal disease on hemodialysi s Thursday, , and Thursday, seizure disorder, hypertension, and peripheral neuropathy. She wa s supposed to be on chronic anticoagulation, but is not taking any anticoagulants at this time. PAST SURGICAL HISTORY: Significant for AV fistula placement, colectomy, , bilateral tubal l igation and thoracic aortic aneurysm repair. PSYCHIATRIC HISTORY: Significant for anxiety and depression. FAMILY HISTORY: Myocardial infarction among several family members. SOCIAL HISTORY: She smokes half to 1 pack of cigarettes a day. She denies any alcohol use or recrea tional drug use. ALLERGIES: ANCEF, CLINDAMYCIN, CODEINE, PHENYTOIN, HYDROCODONE, and IODINE. CURRENT MEDICATIONS: Cardizem 60 mg 3 times a day, Fiorinal 1 tablet daily, levetiracetam 500 mg 2 t imes a day, sertraline 25 mg daily, zolpidem 5 mg at bedtime, alprazolam 1 mg as needed, and Coreg 3. 125 mg daily. PHYSICAL EXAMINATION: GENERAL: On examination, Ms. Morris is awake and alert, not in acute distress. VITAL SIGNS: Blood pressure is 83/63, pulse is 112. She is breathing at rate of 26 and saturating 9 2% on 2 liters of oxygen. She is afebrile. She is obese, with BMI of 30.7 kilogram per square meter . EYES: No scleral icterus. No conjunctival pallor. ENT: Moist mucosal membranes, no oropharyngeal erythema or exudates. NECK: Supple, nontender, normal range of movement, trachea is midline. RESPIRATORY: Accessory muscles of breathing are not active. Chest wall movements are symmetric bila terally. LUNGS: Clear to auscultation without wheeze, rhonchi or crepitations. CARDIOVASCULAR: S1 and S2 are heard, tachycardic and regular. LUNGS: Peripheral pulses palpable. No carotid bruit, no pericardial rub. ABDOMEN: Soft, nontender, bowel sounds heard, no hepatomegaly, no splenomegaly. NEUROLOGIC: Cranial nerves II-XII intact, deep tendon reflexes are 2+. SKIN: No rashes or subcutaneous nodules. She has dialysis access over the left upper extremity MUSCULOSKELETAL: Power is 5/5 in all 4 extremities. Normal range of movement at all major extremity joints. PSYCHIATRIC: Normal mood, normal affect, patient is oriented to person, place and time. LYMPHATIC: No cervical lymphadenopathy. IMAGING DATA AND LABORATORY DATA: Ms. Morris's labs and investigations were reviewed. I reviewed he r electrocardiogram, which shows atrial fibrillation with rapid ventricular response. I also reviewe d her chest x-ray, which does not show any pulmonary infiltrates. She also had CT dissection protoco l, which did not show any acute abnormalities. Laboratory investigations show an unremarkable CBC, n ormal sodium, normal potassium, elevated creatinine of 7.07, elevated blood urea nitrogen of 31, trop onin I elevated at 1.091 at 0650 hours, from 0.094 at 0052 hours today. ASSESSMENT AND PLAN: Ms. Morris is a pleasant 41-year-old lady who was seen at [facility] on 07/24/2017. Her problem list includes: 1. Non-ST elevation myocardial infarction: Ms. Morris is presenting with non-ST elevation myocardia l infarction. She will be admitted to the hospital for further management. Will start patient on he laura drip and consult Cardiology Service. She will be monitored on telemetry. We will obtain 2D ec hocardiogram to rule out regional wall motion abnormalities. 2. End-stage renal disease on dialysis. Nephrology Service will be consulted for maintenance hemodi alysis. She gets dialyzed on Thursday, , and Thursday. 3. Atrial fibrillation with rapid ventricular response: She is currently hypotensive, will not give any diltiazem. She is taking digoxin at home. We will give an extra dose of digoxin. 4. Hypertension: Monitor vital signs, titrate antihypertensives as needed. Hold antihypertensives at this time secondary to hypotension. 5. Tobacco abuse: Patient counseled regarding tobacco cessation, start nicotine replacement therapy . Many thanks for allowing me to participate in your patient's care. Please feel free to contact me wi th any questions or concerns. LEVEL OF RISK: High. LEVEL OF COMPLEXITY: High.
[2017-07-24] MEDS: Vancomycin HCl 25 MG/ML Oral PO SCH ×3 (13:30→21:02)
[2017-07-24] MEDS ORDERED: ISOVUE-370 76%-LOCM 1 ML ONE (16:53)
[2017-07-24] MEDS: Dronedarone HCl 400 MG TAB PO SCH (17:37)
[2017-07-24] MEDS ORDERED: Communication Order-Pharmacy FS SCH (20:15)
[2017-07-24] MEDS ORDERED: Diazepam 5 MG TAB PO SCH (20:15)
[2017-07-24] MEDS: Cyclobenzaprine 10 MG TAB PO SCH (21:00)
[2017-07-24] MEDS: ALPRAZolam 0.5 MG TAB PO SCH (21:00)
[2017-07-24] MEDS: levETIRAcetam 500 MG TAB PO SCH (21:00)
[2017-07-24] MEDS: Famotidine 20 MG TAB PO SCH (21:01)
[2017-07-24] MEDS: predniSONE 20 MG TAB PO SCH (21:01)
[2017-07-24] MEDS: Cholestyramine/Aspartame 4 gm Packet PO SCH (21:02)
--- NOTE | 2017-07-24 21:11 | CON ---
DATE OF CONSULTATION: 07/24/2017 REASON FOR CONSULTATION: Non-ST elevation myocardial infarction, chest pain, atrial fibrillation. PRIMARY THAW SHED HEATER TENDER: Dr. Sly Guardado. HISTORY OF PRESENT ILLNESS: Ms. Morris is a 41-year-old woman. She has a long cardiac history. She has been admitted to the hospital on multiple occasions. Please see the notes for full details. Josie mcclelland has been seen in the hospital by Dr. Cabral, Dr. Duron, Dr. Newman, Dr. Vargas, but she identif ies Dr. Guardado is her primary iron miner. The patient was in the hospital previously, she was in atrial fibrillation. Apparently, she was card ioverted, but went back into fibrillation; therefore, she was taken off the Multaq and put on Cardize m; however, the patient somehow is got now back on the Multaq and off the Cardizem. She said she had an episode of severe substernal chest pain yesterday, she lost consciousness, she woke up on the aicha or. She came to the emergency room for further evaluation. She did have a CT angiogram done at the aorta and pulmonary arteries. There is no pulmonary embolism and she has a previous dissection of th e aorta, but that is not a problem now it is healed, but her troponin levels elevated. She had severe substernal pain. PAST MEDICAL HISTORY: 1. She has end-stage renal disease. 2. Aortic dissection. 3. Atrial fibrillation. She also states she has a fractured leg and fractured knee in the past. REVIEW OF SYSTEMS: Constitutional: No significant weight gain or loss. Vision: No changes. Heari ng: No changes. Pulmonary: No cough or wheezing. Gastrointestinal: No nausea, vomiting, diarrhea . Skin: No rashes. Neurologic: No unilateral weakness or numbness. Psychiatric: No unusual depr ession or anxiety. Hematologic: No unusual bruising. Genitourinary: No burning with urination. She does not make urine. PHYSICAL EXAMINATION: GENERAL: This is a pleasant 41-year-old woman. She looks much older than her chronologic age. VITAL SIGNS: Blood pressure 111/85, pulse 90 to 100, irregular. HEENT: Eyes: Sclerae nonicteric. Mouth: Mucous membranes moist. NECK: Supple, no lymphadenopathy. LUNGS: Clear. CARDIAC: Irregularly irregular. ABDOMEN: Soft, nontender. EXTREMITIES: Cool, but not cold. Peripheral pulses are diminished. I did feel diminished pulses in both femoral arteries. I do not feel popliteal pulses or any pulses in her feet. X-RAY FINDINGS: EKG reveals atrial fibrillation. PERTINENT LABORATORY DATA: The troponin level was at 1.09 up to 3. ASSESSMENT: 1. End-stage renal disease. 2. Previous thoracic aortic dissection. 3. Atrial fibrillation. 4. Substernal non-ST elevation myocardial infarction. 5. Peripheral vascular disease. 6. As mentioned in end-stage renal disease on dialysis. The patient's prognosis is guarded. She has multiple problems. PLAN: I discussed the options, the patient wishes to have a cardiac catheterization that define her coronary anatomy to see if anything else could be done. Discussed risks of stroke, heart attack, iod ine allergy, loss of blood supply to the leg or kidney, stent thrombosis, stent restenosis. The roderick ent understands and wishes to proceed. The patient does have markedly diminished pulses. If we were unable to obtain access from the femoral arteries may need to come back from the radial artery in th e right, the access is on the left, though we would try to avoid doing that and the patient is on gisel lysis. Long-term prognosis is guarded to poor.
[2017-07-25] MEDS: predniSONE 20 MG TAB PO SCH ×2 (02:16→08:06)
[2017-07-25] MEDS: Famotidine 20 MG TAB PO SCH ×2 (02:16→08:05)
[2017-07-25 04:21] LABS: #Basophils 0.1 thou/uL (0.0-0.2); #Lymphocytes 1.1 thou/uL (1.20-3.40); #Monocytes 0.5 thou/uL (0.11-0.59); #Neutrophils 8.1 thou/uL (1.40-6.50); %Basophils 0.5 % (0.0-1.0); %Eosinophils 0.4 % (0.0-10.0); %Lymphocytes 11.5 % (21.0-51.0); %Monocytes 5.5 % (0.0-10.0); %Neutrophils 82.1 % (42.0-75.0); Hemoglobin 12.3 g/dL (12.0-16.0); Mean Corpuscular HGB CONC 30.8 g/dL (32.0-36.0); Mean Corpuscular Hemoglobin 30.8 pg (27.0-31.0); Mean Platelet Volume 9.3 fL (7.4-10.4); Platelet Count 164 thou/uL (130-400); RBC Distribution Width 19.4 % (11.5-14.5); White Blood Cell (WBC) Count 9.8 thou/uL (4.8-10.8)
[2017-07-25 04:36] LABS: PTT 134.9 SEC (22.9-36.1)
[2017-07-25 04:50] LABS: Digoxin 0.51 ng/mL (0.8-2.0)
[2017-07-25 04:54] LABS: Anion Gap 22 mmol/L (10-20); BUN (Urea Nitrogen) 48 mg/dL (7.0-18.7); Calc. Creatinine Clearance 12 mL/min (70-130); Calcium 8.6 mg/dL (7.8-10.44); Carbon Dioxide 23 mmol/L (22-29); Chloride 96 mmol/L (98-107); Estimated GFR-MDRD 6; Glucose 122 mg/dL (70-105); Potassium 4.8 mmol/L (3.5-5.1); Sodium 136 mmol/L (136-145)
[2017-07-25] MEDS: Sodium Chloride 0.9% 1,000 ML IV SCH ×2 (06:28→21:10)
[2017-07-25] MEDS: Cyclobenzaprine 10 MG TAB PO SCH ×2 (06:33→21:06)
[2017-07-25] MEDS: Folic Acid/Vit B Comp W-C PO SCH (06:33)
[2017-07-25] MEDS: Aspirin 325 MG TAB PO SCH (06:33)
[2017-07-25] MEDS: levETIRAcetam 500 MG TAB PO SCH ×2 (06:33→21:06)
[2017-07-25] MEDS: Dronedarone HCl 400 MG TAB PO SCH ×2 (06:33→16:18)
[2017-07-25] MEDS: Cholestyramine/Aspartame 4 gm Packet PO SCH ×2 (06:34→21:48)
[2017-07-25] MEDS: Nicotine 21 MG PATCH TD SCH (06:34)
[2017-07-25] MEDS: Vancomycin HCl 25 MG/ML Oral PO SCH ×4 (06:34→21:05)
[2017-07-25] MEDS: diphenhydrAMINE 25 MG CAP PO PRN (08:54)
[2017-07-25] MEDS ORDERED: Midazolam HCl 2 mg/2 ml Vial ONE (09:02)
[2017-07-25] MEDS ORDERED: Digoxin 0.5 MG/2 ML AMP ONE (09:09)
[2017-07-25] MEDS ORDERED: Nitroglycerin 0.4 MG TAB (25 Tab Bottle) SL PRN (09:38)
[2017-07-25] MEDS ORDERED: Sodium Chloride 0.9% 200 ML IV SCH (09:45)
[2017-07-25] MEDS ORDERED: Iopamidol 370 76% 100 ML VIAL ONE (11:31)
--- NOTE | 2017-07-25 12:54 | PDOC.PN ---
- Subjective Encounter Start Date: 07/25/17 Encounter Start Time: 09:00 Pt seen for followup re: NSTEMI. Sleepy but arousable. Denies chest pain, shortness of breath, fevers or chills. - Objective MAR Reviewed: Yes Vital Signs & Weight: Vital Signs (12 hours) Temp Pulse Resp BP BP BP BP 07/25/17 11:47 96.6 F L 92 20 93/58 L 07/25/17 09:39 97.9 F 93 16 97/76 97/76 07/25/17 08:00 97.8 F 95 18 07/25/17 07:40 97.8 F 95 18 119/51 L 07/25/17 06:23 97.6 F 100 20 101/63 07/25/17 04:29 96.1 F L 88 20 89/70 L 07/25/17 02:13 88 20 93/56 L Pulse Ox 07/25/17 11:47 95 07/25/17 09:39 92 L 07/25/17 08:00 95 07/25/17 07:40 95 07/25/17 06:23 90 L 07/25/17 04:29 94 L 07/25/17 02:13 91 L Weight Weight 193 lb 4 oz I&O: 07/24/17 07/25/17 07/26/17 06:59 06:59 06:59 Intake Total 380 Balance 380 Result Diagrams: 07/25/17 04:10 07/25/17 04:10 EKG Reviewed by me: Yes (Tele: mike alarcon) Phys Exam - Physical Examination Obese HEENT: PERRLA, moist MMs, sclera anicteric, oral pharynx no lesions Neck: no nodes, no JVD, supple, full ROM Respiratory: no wheezing, no rales, no rhonchi, clear to auscultation bilateral Cardiovascular: no significant murmur, no rub, irregular Gastrointestinal: soft, non-tender, no distention, positive bowel sounds Neurological: moves all 4 limbs Psychiatric: normal affect, A&O x 3 Skin: no rash Dx/Plan (1) NSTEMI (non-ST elevated myocardial infarction) Code(s): I21.4 - NON-ST ELEVATION (NSTEMI) MYOCARDIAL INFARCTION Status: Acute (2) Benign hypertension Code(s): I10 - ESSENTIAL (PRIMARY) HYPERTENSION Status: Chronic (3) End stage renal disease on dialysis Code(s): N18.6 - END STAGE RENAL DISEASE; Z99.2 - DEPENDENCE ON RENAL DIALYSIS Status: Chronic (4) GERD (gastroesophageal reflux disease) Code(s): K21.9 - GASTRO-ESOPHAGEAL REFLUX DISEASE WITHOUT ESOPHAGITIS Status: Chronic (5) Hyperlipidemia Code(s): E78.5 - HYPERLIPIDEMIA, UNSPECIFIED Status: Chronic (6) Paroxysmal a-fib Code(s): I48.0 - PAROXYSMAL ATRIAL FIBRILLATION Status: Chronic - Plan * . Cath report noted. For medical management. Monitor vital signs, titrarte antihypertensives as needed. Dialysis per nephrology service. Continue PPI. Review of Systems - Review of Systems Respiratory: negative: Cough, Dry, Shortness of Breath, Hemoptysis, SOB with Excertion, Pleuritic Pain, Sputum, Wheezing Cardiovascular: negative: chest pain, palpitations, orthopnea, paroxysmal nocturnal dyspnea, edema, light headedness Gastrointestinal: negative: Nausea, Vomiting, Abdominal Pain, Diarrhea, Constipation, Melena, Hematochezia Genitourinary: negative: Dysuria, Frequency, Incontinence, Hematuria, Retention Skin: negative: Rash, Lesions, David, Bruising - Medications/Allergies Allergies/Adverse Reactions: Allergies Allergy/AdvReac Type Severity Reaction Status Date / Time cefazolin sodium [From Ancef] Allergy Intermediate Anaphylaxis Verified 07:48 codeine [Codeine] Allergy Intermediate ITCHING Verified 07/24/17 07:48 clindamycin Allergy Verified 07/24/17 07:48 Iodinated Contrast- Oral and Allergy itching Verified 07/24/17 07:48 IV Dye phenytoin sodium Allergy Rash Verified 07/24/17 07:48 [From Dilantin] phenytoin sodium extended Allergy Rash Verified 07/24/17 07:48 [From Dilantin] Medications: Current Medications Hydrocodone Bitart/Acetaminophen ([place] 5/325) 1 tab PO Q4H PRN PRN Reason: Moderate Pain (4-6) Alprazolam (Xanax) 1 mg PO QPM [facility] Last Admin: 07/24/17 21:00 Dose: 1 mg Aspirin (Aspirin) 325 mg PO DAILY [facility] Last Admin: 07/25/17 06:33 Dose: 325 mg Cholestyramine Resin (Questran Light) 4 gm PO BID [facility] Last Admin: 12/30/17 06:34 Dose: Not Given Cyclobenzaprine HCl (Flexeril) 5 mg PO BID [facility] Last Admin: 07/25/17 06:33 Dose: 5 mg Diazepam (Valium) 5 mg PO ONE [facility] Stop: 07/25/17 20:16 Digoxin (Lanoxin) 0.125 mg PO ASDIR PRN PRN Reason: A FIB Diphenhydramine HCl (Benadryl) 25 mg PO Q6H PRN PRN Reason: Itching & Insomnia Last Admin: 07/25/17 08:54 Dose: 25 mg Dronedarone (Multaq) 400 mg PO BID[facility] Last Admin: 07/25/17 06:33 Dose: 400 mg Hydrocortisone/Pramoxine (Proctofoam Hc) 0.5 gm TOP PRN PRN PRN Reason: Anal/Rectal Irritations Sodium Chloride (Normal Saline 0.9%) 1,000 mls @ 80 mls/hr IV .[id number] [facility] Last Admin: 07/25/17 06:28 Dose: 1,000 mls Sodium Chloride (Normal Saline 0.9%) 200 mls @ 0 mls/hr IV ONE [facility] PRN Reason: As Directed Stop: 07/25/17 21:00 Ibuprofen (Motrin) 600 mg PO Q4H PRN PRN Reason: Fever>101/(Mi/Mod/Sev) Pain Levetiracetam (Keppra) 500 mg PO BID [facility] Last Admin: 07/25/17 06:33 Dose: 500 mg Miscellaneous Information (Communication Order-Pharmacy) 0 each FS ONE [facility] Stop: 07/25/17 20:16 Nicotine (Nicoderm Patch) 21 mg TD Q24HR [facility] Last Admin: 07/25/17 06:34 Dose: Not Given Nitroglycerin (Nitrostat) 0.4 mg SL Q5MIN PRN PRN Reason: Chest Pain Nitroglycerin (Nitrostat) 0.4 mg SL Q5MIN PRN PRN Reason: Chest Pain Ondansetron HCl (Zofran Odt) 4 mg PO Q6H PRN PRN Reason: Nausea/Vomiting Pantoprazole Sodium (Protonix) 40 mg PO DAILY [facility] Last Admin: 07/25/17 06:33 Dose: 40 mg Sertraline HCl (Zoloft) 25 mg PO QAM [facility] Last Admin: 07/25/17 06:33 Dose: 25 mg Tramadol HCl (Ultram) 50 mg PO Q6H PRN PRN Reason: pain Last Admin: 07/24/17 10:25 Dose: 50 mg Tramadol HCl (Ultram) 50 mg PO Q6H PRN PRN Reason: Moderate Pain (4-6) Vancomycin HCl (First Vancomycin) 250 mg PO QID [facility] Last Admin: 07/25/17 06:34 Dose: Not Given Vitamin B Complex/Vit C/Folic Acid (Nephro-Clinton Tablet) 1 tab PO DAILY [facility] Last Admin: 07/25/17 06:33 Dose: 1 tab Zolpidem Tartrate (Ambien) 5 mg PO PRN PRN PRN Reason: Insomnia
--- NOTE | 2017-07-25 12:54 | EKG ---
Test Reason : CP Blood Pressure : / mmHG Vent. Rate : 115 BPM Atrial Rate : 144 BPM P-R Int : 000 ms QRS Dur : 092 ms QT Int : 404 ms P-R-T Axes : 000 133 053 degrees QTc Int : 558 ms Atrial fibrillation with rapid ventricular response with premature ventricular or aberrantly conducte d complexes Incomplete right bundle branch block Confirmed by ELINOR PURCELL ([id number]), film and video editor HERSON GARZA ([id number]) on 07/25/2017 12:53:58 PM Referred By: Confirmed By:ELINOR PURCELL
[2017-07-25] MEDS: ALPRAZolam 0.5 MG TAB PO SCH (21:05)
[2017-07-25] MEDS: traMADol HCl 50 MG TAB PO PRN (21:09)
[2017-07-26 04:41] LABS: Band 4 % (5-11); Hemoglobin 12.7 g/dL (12.0-16.0); Lymphocytes 8 % (21-51); MDiff Complete? YES; Mean Corpuscular HGB CONC 29.7 g/dL (32.0-36.0); Mean Corpuscular Hemoglobin 29.6 pg (27.0-31.0); Mean Corpuscular Volume 99.4 fl (81.0-99.0); Mean Platelet Volume 9.2 fL (7.4-10.4); Monocytes 2 % (0-10); Neutrophil 86 % (42-75); Nucleated RBC 4 % (0); PLT Morphology Comment Appears Adequate; Platelet Count 178 thou/uL (130-400); RBC Distribution Width 19.4 % (11.5-14.5); Red Blood Cell (RBC) Count 4.28 mill/uL (4.20-5.40); White Blood Cell (WBC) Count 8.8 thou/uL (4.8-10.8)
[2017-07-26 04:52] LABS: Anion Gap 21 mmol/L (10-20); BUN (Urea Nitrogen) 30 mg/dL (7.0-18.7); Calc. Creatinine Clearance 18 mL/min (70-130); Calcium 8.3 mg/dL (7.8-10.44); Carbon Dioxide 24 mmol/L (22-29); Chloride 95 mmol/L (98-107); Estimated GFR-MDRD 10; Glucose 98 mg/dL (70-105); Potassium 4.5 mmol/L (3.5-5.1); Sodium 135 mmol/L (136-145)
[2017-07-26] MEDS: Sodium Chloride 0.9% 1,000 ML IV SCH ×2 (06:43→22:29)
[2017-07-26] MEDS: Vancomycin HCl 25 MG/ML Oral PO SCH ×4 (08:13→21:24)
[2017-07-26] MEDS: Dronedarone HCl 400 MG TAB PO SCH ×2 (08:13→17:09)
[2017-07-26] MEDS: Cyclobenzaprine 10 MG TAB PO SCH ×2 (08:13→21:23)
[2017-07-26] MEDS: Folic Acid/Vit B Comp W-C PO SCH (08:13)
[2017-07-26] MEDS: levETIRAcetam 500 MG TAB PO SCH ×2 (08:14→21:24)
[2017-07-26] MEDS: Nicotine 21 MG PATCH TD SCH (08:14)
[2017-07-26] MEDS: Aspirin 325 MG TAB PO SCH (08:14)
[2017-07-26] MEDS: Cholestyramine/Aspartame 4 gm Packet PO SCH ×2 (08:15→21:24)
[2017-07-26] MEDS: diphenhydrAMINE 25 MG CAP PO PRN (12:03)
[2017-07-26] MEDS: HYDROcodone/Acetaminophen 5/325 mg Tablet PO PRN (12:03)
--- NOTE | 2017-07-26 14:31 | PDOC.PN ---
- Subjective Encounter Start Date: 07/26/17 Encounter Start Time: 10:00 Pt seen for followup re: NSTEMI. Denies chest pain or shortness of breath. No nausea or vomiting. - Objective MAR Reviewed: Yes Vital Signs & Weight: Vital Signs (12 hours) Temp Pulse Resp BP BP Pulse Ox 07/26/17 12:00 98.2 F 89 19 88/61 L 95 07/26/17 08:00 98.5 F 90 20 125/61 90 L 07/26/17 06:08 91 20 96/66 95 07/26/17 04:00 98.4 F 93 20 106/73 96 Weight Weight 191 lb 1.005 oz I&O: 07/25/17 07/26/17 07/27/17 06:59 06:59 06:59 Intake Total 380 810 Output Total 1600 Balance 380 -790 Result Diagrams: 07/26/17 03:56 07/26/17 03:56 EKG Reviewed by me: Yes (Tele: a. fib) Phys Exam - Physical Examination Constitutional: NAD HEENT: moist MMs Neck: supple Respiratory: clear to auscultation bilateral Cardiovascular: irregular Gastrointestinal: positive bowel sounds Neurological: moves all 4 limbs Psychiatric: normal affect Dx/Plan (1) NSTEMI (non-ST elevated myocardial infarction) Code(s): I21.4 - NON-ST ELEVATION (NSTEMI) MYOCARDIAL INFARCTION Status: Acute (2) Benign hypertension Code(s): I10 - ESSENTIAL (PRIMARY) HYPERTENSION Status: Chronic (3) End stage renal disease on dialysis Code(s): N18.6 - END STAGE RENAL DISEASE; Z99.2 - DEPENDENCE ON RENAL DIALYSIS Status: Chronic (4) GERD (gastroesophageal reflux disease) Code(s): K21.9 - GASTRO-ESOPHAGEAL REFLUX DISEASE WITHOUT ESOPHAGITIS Status: Chronic (5) Hyperlipidemia Code(s): E78.5 - HYPERLIPIDEMIA, UNSPECIFIED Status: Chronic (6) Paroxysmal a-fib Code(s): I48.0 - PAROXYSMAL ATRIAL FIBRILLATION Status: Chronic - Plan out of bed/ambulate * . For medical management of CAD. Dialysis per nephrology service. Monitor vital signs, titrate antihypertensives PRN. Review of Systems - Review of Systems Respiratory: negative: Cough, Dry, Shortness of Breath, Hemoptysis, SOB with Excertion, Pleuritic Pain, Sputum, Wheezing Cardiovascular: negative: chest pain, palpitations, orthopnea, paroxysmal nocturnal dyspnea, edema, light headedness - Medications/Allergies Allergies/Adverse Reactions: Allergies Allergy/AdvReac Type Severity Reaction Status Date / Time cefazolin sodium [From Ancef] Allergy Intermediate Anaphylaxis Verified 07:48 codeine [Codeine] Allergy Intermediate ITCHING Verified 07/24/17 07:48 clindamycin Allergy Verified 07/24/17 07:48 Iodinated Contrast- Oral and Allergy itching Verified 07/24/17 07:48 IV Dye phenytoin sodium Allergy Rash Verified 07/24/17 07:48 [From Dilantin] phenytoin sodium extended Allergy Rash Verified 07/24/17 07:48 [From Dilantin] Medications: Current Medications Hydrocodone Bitart/Acetaminophen ([place] 5/325) 1 tab PO Q4H PRN PRN Reason: Moderate Pain (4-6) Last Admin: 07/26/17 12:03 Dose: 1 tab Alprazolam (Xanax) 1 mg PO QPM [facility] Last Admin: 07/25/17 21:05 Dose: 1 mg Apixaban (Eliquis) 5 mg PO BID [facility] Aspirin (Aspirin) 325 mg PO DAILY [facility] Last Admin: 07/26/17 08:14 Dose: 325 mg Cholestyramine Resin (Questran Light) 4 gm PO BID [facility] Last Admin: 07/26/17 08:15 Dose: 4 gm Cyclobenzaprine HCl (Flexeril) 5 mg PO BID [facility] Last Admin: 07/26/17 08:13 Dose: 5 mg Digoxin (Lanoxin) 0.125 mg PO ASDIR PRN PRN Reason: A FIB Diphenhydramine HCl (Benadryl) 25 mg PO Q6H PRN PRN Reason: Itching & Insomnia Last Admin: 07/26/17 12:03 Dose: 25 mg Dronedarone (Multaq) 400 mg PO BID[facility] Last Admin: 07/26/17 08:13 Dose: 400 mg Hydrocortisone/Pramoxine (Proctofoam Hc) 0.5 gm TOP PRN PRN PRN Reason: Anal/Rectal Irritations Sodium Chloride (Normal Saline 0.9%) 1,000 mls @ 80 mls/hr IV .[id number] [facility] Last Admin: 07/26/17 06:43 Dose: Not Given Ibuprofen (Motrin) 600 mg PO Q4H PRN PRN Reason: Fever>101/(Mi/Mod/Sev) Pain Levetiracetam (Keppra) 500 mg PO BID [facility] Last Admin: 07/26/17 08:14 Dose: 500 mg Nicotine (Nicoderm Patch) 21 mg TD Q24HR [facility] Last Admin: 07/26/17 08:14 Dose: Not Given Nitroglycerin (Nitrostat) 0.4 mg SL Q5MIN PRN PRN Reason: Chest Pain Nitroglycerin (Nitrostat) 0.4 mg SL Q5MIN PRN PRN Reason: Chest Pain Ondansetron HCl (Zofran Odt) 4 mg PO Q6H PRN PRN Reason: Nausea/Vomiting Pantoprazole Sodium (Protonix) 40 mg PO DAILY [facility] Last Admin: 07/26/17 08:13 Dose: 40 mg Sertraline HCl (Zoloft) 25 mg PO QAM [facility] Last Admin: 07/26/17 08:13 Dose: 25 mg Tramadol HCl (Ultram) 50 mg PO Q6H PRN PRN Reason: pain Last Admin: 07/24/17 10:25 Dose: 50 mg Tramadol HCl (Ultram) 50 mg PO Q6H PRN PRN Reason: Moderate Pain (4-6) Last Admin: 07/25/17 21:09 Dose: 50 mg Vancomycin HCl (First Vancomycin) 250 mg PO QID [facility] Last Admin: 07/26/17 12:03 Dose: 250 mg Vitamin B Complex/Vit C/Folic Acid (Nephro-Clinton Tablet) 1 tab PO DAILY [facility] Last Admin: 07/26/17 08:13 Dose: 1 tab Zolpidem Tartrate (Ambien) 5 mg PO PRN PRN PRN Reason: Insomnia
[2017-07-26] MEDS: ALPRAZolam 0.5 MG TAB PO SCH (21:23)
[2017-07-26] MEDS: Apixaban 5 MG TAB PO SCH (21:23)
[2017-07-26] MEDS: Docusate 100 MG CAP PO SCH (21:24)
[2017-07-27 05:39] LABS: Anion Gap 23 mmol/L (10-20); BUN (Urea Nitrogen) 44 mg/dL (7.0-18.7); Calc. Creatinine Clearance 15 mL/min (70-130); Calcium 8.1 mg/dL (7.8-10.44); Carbon Dioxide 21 mmol/L (22-29); Chloride 95 mmol/L (98-107); Estimated GFR-MDRD 8; Glucose 91 mg/dL (70-105); Potassium 4.5 mmol/L (3.5-5.1); Sodium 134 mmol/L (136-145)
[2017-07-27 05:52] LABS: Eosinophils 2 % (0-10); Hemoglobin 13.2 g/dL (12.0-16.0); Lymphocytes 19 % (21-51); MDiff Complete? YES; Mean Corpuscular HGB CONC 30.4 g/dL (32.0-36.0); Mean Corpuscular Hemoglobin 30.4 pg (27.0-31.0); Mean Corpuscular Volume 99.9 fl (81.0-99.0); Mean Platelet Volume 8.9 fL (7.4-10.4); Monocytes 11 % (0-10); Neutrophil 68 % (42-75); Nucleated RBC 3 % (0); PLT Morphology Comment Appears Adequate; Platelet Count 160 thou/uL (130-400); RBC Distribution Width 19.6 % (11.5-14.5); Red Blood Cell (RBC) Count 4.35 mill/uL (4.20-5.40); White Blood Cell (WBC) Count 10.1 thou/uL (4.8-10.8)
[2017-07-27] MEDS: Sodium Chloride 0.9% 1,000 ML IV SCH ×2 (06:47→07:25)
[2017-07-27] MEDS: Docusate 100 MG CAP PO SCH ×2 (08:24→20:41)
[2017-07-27] MEDS: Dronedarone HCl 400 MG TAB PO SCH ×2 (08:25→18:28)
[2017-07-27] MEDS: Cyclobenzaprine 10 MG TAB PO SCH ×2 (08:25→20:40)
[2017-07-27] MEDS: Aspirin 325 MG TAB PO SCH (08:25)
[2017-07-27] MEDS: Apixaban 5 MG TAB PO SCH ×2 (08:26→20:42)
[2017-07-27] MEDS: Nicotine 21 MG PATCH TD SCH (08:26)
[2017-07-27] MEDS: levETIRAcetam 500 MG TAB PO SCH ×2 (08:26→20:41)
[2017-07-27] MEDS: Folic Acid/Vit B Comp W-C PO SCH (08:26)
[2017-07-27] MEDS: Vancomycin HCl 25 MG/ML Oral PO SCH ×4 (08:26→20:42)
[2017-07-27] MEDS: HYDROcodone/Acetaminophen 5/325 mg Tablet PO PRN ×3 (10:06→22:01)
[2017-07-27] MEDS: Cholestyramine/Aspartame 4 gm Packet PO SCH ×2 (10:08→20:42)
[2017-07-27] MEDS: diphenhydrAMINE 25 MG CAP PO PRN ×2 (10:12→22:01)
[2017-07-27] MEDS: Cepastat Lozenges 1 LOZ PO PRN ×2 (11:59→18:28)
[2017-07-27] MEDS: traMADol HCl 50 MG TAB PO PRN ×2 (12:02→18:29)
--- NOTE | 2017-07-27 15:24 | PDOC.CTH ---
<Adia Santamaria - Last Filed: 07/27/17 16:48> Cardiology Progress Note - Subjective The pt seen and examined. No overnight events. No cardiac complaints. She complains of discomfort at Rt shoulder. - Objective Vital Signs Temp Pulse Resp BP Pulse Ox 07/27/17 11:48 97.6 F 96 20 92/53 L 95 07/27/17 07:50 97.8 F 89 20 89/56 L 91 L 07/27/17 07:46 97.4 F L 83 16 94 L 07/27/17 04:00 97.4 F L 83 16 89/61 L 97 Weight 199 lb 6.4 oz 07/26/17 07/27/17 07/28/17 06:59 06:59 06:59 Intake Total 810 1200 Output Total 1600 0 Balance -790 1200 - Physical Examination General/Neuro: alert & oriented x3 Neck: no JVD present Lungs: other: (diminished at bases; on 3LNC) Heart: other: (Irregular) Abdomen: soft Extremities: other: (dressing on Lt knee; mild edema in RLE) - Telemetry Telemetry Rhythm: Afib 90s - Labs Result Diagrams: 07/27/17 04:49 07/27/17 04:49 Troponin/CKMB CK-MB (CK-2) 1.4 ng/mL (0-6.6) 07/24/17 00:52 Troponin I 3.000 ng/mL (< 0.028) H* 07/24/17 09:49 - Assessment/Plan 1. Afib with RVR - Rate well controlled with Multaq and Eliquis 5mg BID shich was started on 07/26/17; EP consult request for possible Ablation (LA is > 5.0cm ) 2. NSTEMI - W/p Cath; stable with medical management 3. ESRD - On HD; Last HD was on last Thursday 4. HTN - Hypotension at this moment; cont. monitor 5. seizure - on Keppra; managed by PCP 6. Hx of thracic Aorta dissection - healed and stable 7. smoker - on Nicotin patch; MAR reviewed Review of Systems - Review of Systems Constitutional: reports: no symptoms reported EENTM: reports: no symptoms reported Respiratory: reports: no symptoms reported Cardiac (ROS): reports: no symptoms reported ABD/GI: reports: no symptoms reported : reports: no symptoms reported Musculoskeletal: reports: see HPI Skin: reports: no symptoms reported <Sussy Duron - Last Filed: 07/27/17 20:02> Cardiology Progress Note - Objective Vital Signs Temp Pulse Resp BP Pulse Ox 07/27/17 15:48 97.8 F 79 20 85/57 L 100 07/27/17 11:48 97.6 F 96 20 92/53 L 95 Weight 199 lb 6.4 oz 07/26/17 07/27/17 07/28/17 06:59 06:59 06:59 Intake Total 810 1200 1030 Output Total 1600 0 Balance -790 1200 1030 - Labs Result Diagrams: 07/27/17 04:49 07/27/17 04:49 Troponin/CKMB CK-MB (CK-2) 1.4 ng/mL (0-6.6) 07/24/17 00:52 Troponin I 3.000 ng/mL (< 0.028) H* 07/24/17 09:49 - Assessment/Plan Pt. was seen and eval. by me. I agree with the A/P by the SLOT SHIFT MANAGER. Will consult EP for consideration for ablation. Chest clear. No edema.
--- NOTE | 2017-07-27 15:47 | PDOC.PN ---
- Subjective Encounter Start Date: 07/27/17 Encounter Start Time: 11:00 Pt seen for followup re: NSTEMI. Denies chest pain. Reports sore throat. No fevers or chills. - Objective MAR Reviewed: Yes Vital Signs & Weight: Vital Signs (12 hours) Temp Pulse Resp BP Pulse Ox 07/27/17 11:48 97.6 F 96 20 92/53 L 95 07/27/17 07:50 97.8 F 89 20 89/56 L 91 L 07/27/17 07:46 97.4 F L 83 16 94 L 07/27/17 04:00 97.4 F L 83 16 89/61 L 97 Weight Weight 199 lb 6.4 oz I&O: 07/26/17 07/27/17 07/28/17 06:59 06:59 06:59 Intake Total 810 1200 Output Total 1600 0 Balance -790 1200 Result Diagrams: 07/27/17 04:49 07/27/17 04:49 EKG Reviewed by me: Yes (Tele: a. fib) Phys Exam - Physical Examination Obese HEENT: moist MMs, oral pharynx no lesions Neck: supple Respiratory: clear to auscultation bilateral Cardiovascular: irregular Gastrointestinal: soft Neurological: moves all 4 limbs Psychiatric: normal affect Dx/Plan (1) NSTEMI (non-ST elevated myocardial infarction) Code(s): I21.4 - NON-ST ELEVATION (NSTEMI) MYOCARDIAL INFARCTION Status: Acute (2) Throat pain Code(s): R07.0 - PAIN IN THROAT Status: Acute (3) Benign hypertension Code(s): I10 - ESSENTIAL (PRIMARY) HYPERTENSION Status: Chronic (4) End stage renal disease on dialysis Code(s): N18.6 - END STAGE RENAL DISEASE; Z99.2 - DEPENDENCE ON RENAL DIALYSIS Status: Chronic (5) GERD (gastroesophageal reflux disease) Code(s): K21.9 - GASTRO-ESOPHAGEAL REFLUX DISEASE WITHOUT ESOPHAGITIS Status: Chronic (6) Hyperlipidemia Code(s): E78.5 - HYPERLIPIDEMIA, UNSPECIFIED Status: Chronic (7) Paroxysmal a-fib Code(s): I48.0 - PAROXYSMAL ATRIAL FIBRILLATION Status: Chronic - Plan PT/OT, out of bed/ambulate * . Lozenges PRN. Medical management of CAD. Cardiac Rehab. Dialysis per nephrology service. Cardiology following. Awaiting telemetry bed. Review of Systems - Review of Systems ENT: Throat Pain Respiratory: negative: Cough, Dry, Shortness of Breath, Hemoptysis, SOB with Excertion, Pleuritic Pain, Sputum, Wheezing Cardiovascular: negative: chest pain, palpitations, orthopnea, paroxysmal nocturnal dyspnea, edema, light headedness - Medications/Allergies Allergies/Adverse Reactions: Allergies Allergy/AdvReac Type Severity Reaction Status Date / Time cefazolin sodium [From Ancef] Allergy Intermediate Anaphylaxis Verified 07:48 codeine [Codeine] Allergy Intermediate ITCHING Verified 07/24/17 07:48 clindamycin Allergy Verified 07/24/17 07:48 Iodinated Contrast- Oral and Allergy itching Verified 07/24/17 07:48 IV Dye phenytoin sodium Allergy Rash Verified 07/24/17 07:48 [From Dilantin] phenytoin sodium extended Allergy Rash Verified 07/24/17 07:48 [From Dilantin] Medications: Current Medications Hydrocodone Bitart/Acetaminophen ([place] 5/325) 1 tab PO Q4H PRN PRN Reason: Moderate Pain (4-6) Last Admin: 07/27/17 13:57 Dose: 1 tab Alprazolam (Xanax) 1 mg PO QPM [facility] Last Admin: 07/26/17 21:23 Dose: 1 mg Apixaban (Eliquis) 5 mg PO BID [facility] Last Admin: 07/27/17 08:26 Dose: 5 mg Aspirin (Aspirin) 325 mg PO DAILY [facility] Last Admin: 07/27/17 08:25 Dose: 325 mg Cholestyramine Resin (Questran Light) 4 gm PO BID [facility] Last Admin: 07/27/17 10:08 Dose: 4 gm Cyclobenzaprine HCl (Flexeril) 5 mg PO BID [facility] Last Admin: 07/27/17 08:25 Dose: 5 mg Digoxin (Lanoxin) 0.125 mg PO ASDIR PRN PRN Reason: A FIB Diphenhydramine HCl (Benadryl) 25 mg PO Q6H PRN PRN Reason: Itching & Insomnia Last Admin: 07/27/17 10:12 Dose: 25 mg Docusate Sodium (Colace) 100 mg PO BID [facility] Last Admin: 07/27/17 08:24 Dose: 100 mg Dronedarone (Multaq) 400 mg PO BID[facility] Last Admin: 07/27/17 08:25 Dose: 400 mg Hydrocortisone/Pramoxine (Proctofoam Hc) 0.5 gm TOP PRN PRN PRN Reason: Anal/Rectal Irritations Ibuprofen (Motrin) 600 mg PO Q4H PRN PRN Reason: Fever>101/(Mi/Mod/Sev) Pain Levetiracetam (Keppra) 500 mg PO BID [facility] Last Admin: 07/27/17 08:26 Dose: 500 mg Nicotine (Nicoderm Patch) 21 mg TD Q24HR [facility] Last Admin: 07/27/17 08:26 Dose: Not Given Nitroglycerin (Nitrostat) 0.4 mg SL Q5MIN PRN PRN Reason: Chest Pain Nitroglycerin (Nitrostat) 0.4 mg SL Q5MIN PRN PRN Reason: Chest Pain Ondansetron HCl (Zofran Odt) 4 mg PO Q6H PRN PRN Reason: Nausea/Vomiting Pantoprazole Sodium (Protonix) 40 mg PO DAILY [facility] Last Admin: 07/27/17 08:26 Dose: 40 mg Sertraline HCl (Zoloft) 25 mg PO QAM [facility] Last Admin: 07/27/17 08:24 Dose: 25 mg Sodium Chloride (Flush - Normal Saline) 10 ml IVF Q12HR [facility] Sodium Chloride (Flush - Normal Saline) 10 ml IVF PRN PRN PRN Reason: Saline Flush Throat Lozenges (Cepastat Lozenges) 1 jass PO Q2H PRN PRN Reason: Sore Throat Last Admin: 07/27/17 11:59 Dose: 1 jass Tramadol HCl (Ultram) 50 mg PO Q6H PRN PRN Reason: pain Last Admin: 07/27/17 12:02 Dose: 50 mg Tramadol HCl (Ultram) 50 mg PO Q6H PRN PRN Reason: Moderate Pain (4-6) Last Admin: 07/25/17 21:09 Dose: 50 mg Vancomycin HCl (First Vancomycin) 250 mg PO QID [facility] Last Admin: 07/27/17 12:00 Dose: 250 mg Vitamin B Complex/Vit C/Folic Acid (Nephro-Clinton Tablet) 1 tab PO DAILY [facility] Last Admin: 07/27/17 08:26 Dose: 1 tab Zolpidem Tartrate (Ambien) 5 mg PO PRN PRN PRN Reason: Insomnia
--- NOTE | 2017-07-27 20:04 | CON ---
DATE OF CONSULTATION: 07/25/2017 CONSULTING PHYSICIAN: Zeferino Matthew M.D. REQUESTING PHYSICIAN: Dr. Underwood. REASON FOR CONSULTATION: Need for maintenance hemodialysis. IMPRESSION: 1. Chest pain, query cause. 2. End-stage renal disease, hemodialysis dependent. 3. Atrial fibrillation with labile hemodynamics. PLAN: 1. Patient would be dialyzed in accordance with a scheduled of Thursday, , and Thursday. 2. Further management to be dependent on the clinical course. HISTORY OF PRESENT ILLNESS: A 41-year-old female patient with end-stage renal disease, hemodialysis dependent, who presented here with chest pain and need for continued maintenance hemodialysis necessi tated this renal consultation. PAST MEDICAL HISTORY: Significant for end-stage renal disease, atrial fibrillation with labile hemod ynamics, seizure disorder, peripheral neuropathy. MEDICATIONS: List reviewed and as documented on M2G. FAMILY HISTORY: Significant for heart disease. SOCIAL HISTORY: Significant for tobacco use. No alcohol, no illicit drug use. ALLERGIES: To ANCEF, CLINDAMYCIN, CODEINE, PHENYTOIN, HYDROCODONE, and IODINE. MEDICATIONS: As documented on M2G. PHYSICAL EXAMINATION: GENERAL: Patient was found not to be in any obvious distress noted with the following vital signs. VITAL SIGNS: Afebrile, temperature 98.4, pulse 112, respiratory rate of 26, O2 sat on 92%, blood pre ssure 83/63 to 95/60. HEENT: Unremarkable. Moist oral mucosa. NECK: Supple. No conjunctival injection or icterus. CARDIOVASCULAR SYSTEM: First and second heart sounds were heard. RESPIRATORY SYSTEM: Clear to auscultation. DIGESTIVE SYSTEM: Revealed a benign abdomen with positive bowel sounds. EXTREMITIES: No peripheral edema. SKIN: No new gross rash. LYMPHATICS: No peripheral lymphadenopathy. SUMMARY: A 41-year-old female patient with end-stage renal disease who is here with chest pain.
[2017-07-27] MEDS: ALPRAZolam 0.5 MG TAB PO SCH (20:41)
--- NOTE | 2017-07-27 22:58 | PRG ---
DATE OF SERVICE: 07/27/2017 SUBJECTIVE: The patient was seen and examined. Noted with the following vital signs. OBJECTIVE: VITAL SIGNS: Afebrile. Blood pressure of 96/66, respiratory rate of 20, O2 sat of 100%. The patien t complaining of right-sided chest pain, across the back and to the shoulder. HEENT: Unremarkable. Moist oral mucosa. No conjunctival injection or icterus. NECK: Supple. CARDIOVASCULAR SYSTEM: First and second heart sounds were heard. RESPIRATORY SYSTEM: Clear to auscultation. DIGESTIVE SYSTEM: Revealed a benign abdomen with positive bowel sounds. EXTREMITIES: No peripheral edema. SKIN: No new gross rash. LYMPHATICS: No peripheral lymphadenopathy. IMPRESSION: 1. End-stage renal disease, hemodialysis dependent. 2. Right-sided back pain, query cause. PLAN: 1. The patient to continue with hemodialysis per schedule. 2. Further management to be dependent on the clinical course including .
[2017-07-28] MEDS: traMADol HCl 50 MG TAB PO PRN (04:29)
[2017-07-28] MEDS: Cepastat Lozenges 1 LOZ PO PRN ×4 (06:01→21:23)
[2017-07-28] MEDS: Vancomycin HCl 25 MG/ML Oral PO SCH ×4 (09:54→21:16)
--- NOTE | 2017-07-28 11:20 | PRG ---
DATE OF SERVICE: 07/28/2017 SUBJECTIVE: The patient was seen and examined today at dialysis with no new complaint noted with the following vital signs. PHYSICAL EXAMINATION: VITAL SIGNS: Afebrile with temperature 98.2, pulse 78, respiratory rate of 18, O2 sat of 92% with bl ood pressure 103/64. HEENT EXAMINATION: Unremarkable with moist oral mucosa. No conjunctival injection or icterus. NECK: Supple. CARDIOVASCULAR SYSTEM: First and second heart sounds were heard. RESPIRATORY SYSTEM: Clear to auscultation. DIGESTIVE SYSTEM: Revealed and benign abdomen with positive bowel sounds. EXTREMITIES: No peripheral edema. SKIN EXAMINATION: No new gross rash. LYMPHATICS: No peripheral lymphadenopathy. IMPRESSION: 1. End-stage renal disease, on hemodialysis, undergoing hemodialysis per her schedule today. 2. Atrial fibrillation with rapid ventricular response. 3. Labile hemodynamics. PLAN: 1. Hemodialysis with ultrafiltration as tolerated by hemodynamics. 2. Further management will be dependent on the clinical course.
[2017-07-28] MEDS: Cholestyramine/Aspartame 4 gm Packet PO SCH ×2 (13:45→21:27)
[2017-07-28] MEDS: Apixaban 5 MG TAB PO SCH ×2 (13:46→21:17)
[2017-07-28] MEDS: Aspirin 325 MG TAB PO SCH (13:46)
[2017-07-28] MEDS: Dronedarone HCl 400 MG TAB PO SCH (13:46)
[2017-07-28] MEDS: Cyclobenzaprine 10 MG TAB PO SCH ×2 (13:47→21:17)
[2017-07-28] MEDS: Folic Acid/Vit B Comp W-C PO SCH (13:47)
[2017-07-28] MEDS: levETIRAcetam 500 MG TAB PO SCH ×2 (13:48→21:17)
[2017-07-28] MEDS: HYDROcodone/Acetaminophen 5/325 mg Tablet PO PRN ×2 (13:48→19:47)
[2017-07-28] MEDS: Docusate 100 MG CAP PO SCH ×2 (13:48→21:16)
[2017-07-28] MEDS: Nicotine 21 MG PATCH TD SCH (13:49)
[2017-07-28] MEDS: diphenhydrAMINE 25 MG CAP PO PRN ×2 (13:54→19:48)
--- NOTE | 2017-07-28 14:36 | PDOC.PN ---
- Subjective Encounter Start Date: 07/28/17 Encounter Start Time: 07:20 Pt seen for followup re; throat pain. Continues to complain of throat pain. No fevers or chills. - Objective MAR Reviewed: Yes Vital Signs & Weight: Vital Signs (12 hours) Temp Pulse Resp BP Pulse Ox 07/28/17 08:00 98.2 F 78 18 07/28/17 07:50 98.2 F 78 18 103/64 92 L 07/28/17 04:00 98.0 F 84 18 86/56 L 93 L Weight Admit Weight 190 lb 6.4 oz Weight 218 lb 3.2 oz I&O: 07/27/17 07/28/17 07/29/17 06:59 06:59 06:59 Intake Total 1200 1250 Output Total 0 0 Balance 1200 1250 Result Diagrams: 07/27/17 04:49 07/27/17 04:49 EKG Reviewed by me: Yes (Tele; a. fib) Phys Exam - Physical Examination Obese HEENT: moist MMs Mild pharyngeal erythema, no exudates Neck: no nodes Respiratory: clear to auscultation bilateral Cardiovascular: irregular Gastrointestinal: soft Neurological: moves all 4 limbs Psychiatric: normal affect Skin: no rash Dx/Plan (1) Throat pain Code(s): R07.0 - PAIN IN THROAT Status: Acute (2) NSTEMI (non-ST elevated myocardial infarction) Code(s): I21.4 - NON-ST ELEVATION (NSTEMI) MYOCARDIAL INFARCTION Status: Acute (3) Benign hypertension Code(s): I10 - ESSENTIAL (PRIMARY) HYPERTENSION Status: Chronic (4) End stage renal disease on dialysis Code(s): N18.6 - END STAGE RENAL DISEASE; Z99.2 - DEPENDENCE ON RENAL DIALYSIS Status: Chronic (5) GERD (gastroesophageal reflux disease) Code(s): K21.9 - GASTRO-ESOPHAGEAL REFLUX DISEASE WITHOUT ESOPHAGITIS Status: Chronic (6) Hyperlipidemia Code(s): E78.5 - HYPERLIPIDEMIA, UNSPECIFIED Status: Chronic (7) Paroxysmal a-fib Code(s): I48.0 - PAROXYSMAL ATRIAL FIBRILLATION Status: Chronic - Plan * . Chect strep swab. CT scan of neck to r/o deep space infections. Discussed with radiology and nephrology services. Medical management for CAD. Dialysis per nephrology service. Review of Systems - Review of Systems Constitutional: negative: fever, chills, sweats, weakness, malaise ENT: Throat Pain Respiratory: negative: Cough, Dry, Shortness of Breath, Hemoptysis, SOB with Excertion, Pleuritic Pain, Sputum, Wheezing Cardiovascular: negative: chest pain, palpitations, orthopnea, paroxysmal nocturnal dyspnea, edema, light headedness - Medications/Allergies Allergies/Adverse Reactions: Allergies Allergy/AdvReac Type Severity Reaction Status Date / Time cefazolin sodium [From Ancef] Allergy Intermediate Anaphylaxis Verified 07:48 codeine [Codeine] Allergy Intermediate ITCHING Verified 07/24/17 07:48 clindamycin Allergy Verified 07/24/17 07:48 Iodinated Contrast- Oral and Allergy itching Verified 07/24/17 07:48 IV Dye phenytoin sodium Allergy Rash Verified 07/24/17 07:48 [From Dilantin] phenytoin sodium extended Allergy Rash Verified 07/24/17 07:48 [From Dilantin] Medications: Current Medications Hydrocodone Bitart/Acetaminophen ([place] 5/325) 1 tab PO Q4H PRN PRN Reason: Moderate Pain (4-6) Last Admin: 07/28/17 13:48 Dose: 1 tab Alprazolam (Xanax) 1 mg PO QPM [facility] Last Admin: 07/27/17 20:41 Dose: 1 mg Apixaban (Eliquis) 2.5 mg PO BID [facility] Aspirin (Ecotrin) 81 mg PO DAILY [facility] Cholestyramine Resin (Questran Light) 4 gm PO BID [facility] Last Admin: 07/28/17 13:45 Dose: 4 gm Cyclobenzaprine HCl (Flexeril) 5 mg PO BID [facility] Last Admin: 07/28/17 13:47 Dose: 5 mg Digoxin (Lanoxin) 0.125 mg PO ASDIR PRN PRN Reason: A FIB Diphenhydramine HCl (Benadryl) 25 mg PO Q6H PRN PRN Reason: Itching & Insomnia Last Admin: 07/28/17 13:54 Dose: 25 mg Docusate Sodium (Colace) 100 mg PO BID [facility] Last Admin: 07/28/17 13:48 Dose: 100 mg Hydrocortisone/Pramoxine (Proctofoam Hc) 0.5 gm TOP PRN PRN PRN Reason: Anal/Rectal Irritations Ibuprofen (Motrin) 600 mg PO Q4H PRN PRN Reason: Fever>101/(Mi/Mod/Sev) Pain Levetiracetam (Keppra) 500 mg PO BID [facility] Last Admin: 07/28/17 13:48 Dose: 500 mg Nicotine (Nicoderm Patch) 21 mg TD Q24HR [facility] Last Admin: 07/28/17 13:49 Dose: Not Given Nitroglycerin (Nitrostat) 0.4 mg SL Q5MIN PRN PRN Reason: Chest Pain Ondansetron HCl (Zofran Odt) 4 mg PO Q6H PRN PRN Reason: Nausea/Vomiting Pantoprazole Sodium (Protonix) 40 mg PO DAILY [facility] Last Admin: 07/28/17 13:48 Dose: 40 mg Sertraline HCl (Zoloft) 25 mg PO QAM [facility] Last Admin: 07/28/17 13:48 Dose: 25 mg Sodium Chloride (Flush - Normal Saline) 10 ml IVF Q12HR [facility] Last Admin: 07/28/17 13:49 Dose: 10 ml Sodium Chloride (Flush - Normal Saline) 10 ml IVF PRN PRN PRN Reason: Saline Flush Throat Lozenges (Cepastat Lozenges) 1 jass PO Q2H PRN PRN Reason: Sore Throat Last Admin: 07/28/17 09:54 Dose: 1 jass Tramadol HCl (Ultram) 50 mg PO Q6H PRN PRN Reason: Moderate Pain (4-6) Last Admin: 07/28/17 04:29 Dose: 50 mg Vancomycin HCl (First Vancomycin) 250 mg PO QID [facility] Last Admin: 07/28/17 13:44 Dose: 250 mg Vitamin B Complex/Vit C/Folic Acid (Nephro-Clinton Tablet) 1 tab PO DAILY [facility] Last Admin: 07/28/17 13:47 Dose: 1 tab Zolpidem Tartrate (Ambien) 5 mg PO PRN PRN PRN Reason: Insomnia
[2017-07-28] MEDS ORDERED: Apixaban 5 MG TAB PO SCH (21:00)
[2017-07-28] MEDS: ALPRAZolam 0.5 MG TAB PO SCH (21:15)
[2017-07-28] MEDS: predniSONE 50 MG TAB PO SCH (21:17)
[2017-07-29] MEDS: HYDROcodone/Acetaminophen 5/325 mg Tablet PO PRN ×4 (01:04→23:43)
[2017-07-29] MEDS: diphenhydrAMINE 25 MG CAP PO PRN ×3 (01:06→23:43)
[2017-07-29] MEDS: predniSONE 50 MG TAB PO SCH ×2 (03:28→09:46)
[2017-07-29] MEDS: Cholestyramine/Aspartame 4 gm Packet PO SCH (09:00)
[2017-07-29] MEDS ORDERED: diphenhydrAMINE 50 MG CAP PO SCH (09:00)
--- NOTE | 2017-07-29 09:18 | CON ---
DATE OF CONSULTATION: 07/28/2017. REASON FOR CONSULTATION: Atrial arrhythmias. REFERRING PHYSICIAN: Dr. Sly Guardado. HISTORY OF PRESENT ILLNESS: Ms. Morris is a 41-year-old -[place] woman with an extensive cardiac history. She has been seen by our group multiple times with recent hospitalizations given her recurrent atrial arrhythmias including atrial fibrillation and supraventricular tachycardia. Most recently, she was hospitalized in 06/2017 at which point we placed her on Multaq for antiarrhythmia therapy and Eliquis. At that time, she was in and out of atrial fibrillation, but ultimately remained in sinus rhythm prior to discharge. She reports that she has continued to take the Multaq and Eliquis since discharge, but was taken off of the Multaq since being hospitalized. Prior to presenting to the emergency room, she had an episode of severe chest pain that radiated to the back, at which point she lost consciousness, she woke up on the floor. She has never had this happened before. She denies any recent illness or medication adjustments. She does report that she has had some low blood pressure episodes and that with her dialysis, they have not been able to remove fluid given her low blood pressure. She denies any heart racing, palpitations, stroke or stroke-like symptoms including unilateral weakness, speech changes, vision changes or mentation changes. When she presented to the emergency room, she was evaluated with CT angiogram given her history of aortic dissection. This is to not be a problem that it had healed, but her troponin levels were elevated. She underwent a left heart catheterization since admission which revealed mild coronary artery disease to be medically managed. There was no PCI performed at that time, and is unlikely to be the source of her chest pain and passing out. She has multiple chronic illnesses and she reports that she is overall in fairly poor health. PAST MEDICAL HISTORY: 1. Atrial fibrillation, tachy-atrial arrhythmia. 2. End-stage renal disease. 3. Aortic dissection. 4. Preserved ejection fraction of 55-60% on echocardiogram performed in 2016. PAST SURGICAL HISTORY: Atrial flutter ablation originally in 2011 with a redo CTI on 12/13/2014. SOCIAL HISTORY: The patient lives in [place]. She is disabled. She smokes half a pack to 1 pack of cigarettes a day. She denies any alcohol or illegal drug use. FAMILY HISTORY: Significant for coronary artery disease. REVIEW OF SYSTEMS: Constitutional: The patient denies any fevers, chills, malaise, or recent unintentional weight fluctuations. She denies any vision changes. There have been no hearing changes. Pulmonary: She denies any recent respiratory illness, cough, wheezing, bloody sputum. Gastrointestinal: The patient denies any nausea, vomiting, diarrhea or blood in her stool. : The patient reports she is anuric. Skin: Denies any rashes, lesions or lacerations. Neurologic: As per HPI. Hematologic: The patient denies any uncontrolled bleeding or blood dyscrasias. PHYSICAL EXAMINATION: VITAL SIGNS: Include 98.2 degrees Fahrenheit, pulse is 78, and respirations are 18, oxygen saturation is 92% on 2 liters via nasal cannula. Blood pressure is currently 103/64 seated. GENERAL: The patient is alert and oriented to time, person, place, situation. She is normocephalic, atraumatic. Her speech is clear. She has a fair to poor historian. She is in no acute distress, but does appear chronically ill and will advance beyond her age. HEENT: Reveals pupils are equally round and reactive to light. Her sclerae are anicteric. Her mucous membranes are moist. NECK: Supple. Her trachea is midline. There is no thyromegaly or lymphadenopathy. LUNGS: Respirations are even and unlabored with good bilateral excursion. There are no wheezes, crackles or rhonchi. CARDIOVASCULAR: Reveals her heart rate is irregularly irregular. Her PMI is faint given her habitus. Pedal pulses are nonpalpable, given the patient's peripheral vascular disease. Patient has a hemodialysis fistula in the left upper extremity. There is no edema or swelling of the extremities. There is no jugular venous distention. GASTROINTESTINAL: Abdomen is soft and nontender, without masses or hepatosplenomegaly. Hepatojugular reflex is negative. ALLERGIES: CEFAZOLIN, CODEINE, CLINDAMYCIN, IODINE, PHENYTOIN. HOME MEDICATIONS: Zolpidem, sertraline, alprazolam, multivitamin, levetiracetam , Keppra, diltiazem, Zofran, cyclobenzaprine, Benadryl, MiraLax, mupirocin, hydrocodone, omeprazole, tramadol, also Multaq and Eliquis. DATABASE: EKG reveals atrial fibrillation with a ventricular rate in the 90s and nonspecific ST changes. LABORATORY DATA: Lab results from 07/27/2017, WBC 10.1, hemoglobin 13.2, hematocrit 43.5, platelet count is 160. Sodium 134, potassium 4.5, chloride 95 , carbon dioxide 21, BUN is 44, creatinine 6.76, serial troponins were started on admission and checked x3, peaking at 3.0. Digoxin level from 07/25/2017 was 0.51. ASSESSMENT AND PLAN: Ms. Morris is a pleasant, chronically ill 41-year-old woman with a history of paroxysmal atrial fibrillation, flutter, and tachyarrhythmias who is currently in persistent atrial fibrillation. Her rate appears rate controlled on digoxin alone. On her previous admission, we had started her on Multaq, which she reports had been discontinued given her atrial fibrillation, continued to be paroxysmal. Given her atrial arrhythmias, she continues to be at high risk for stroke and thrombus formation. We recommend that she continue on Eliquis 5 mg b.i.d. She has undergone 2 ablations in the past for atrial flutter. Given her atrial fibrillation, it is difficult to manage medically. The next step would be for a PVI. This was discussed with the patient versus medical management. It is not without risk given the patient 's multiple comorbidities and tenuous medical status. At this point, the patient is rate controlled and not symptomatic with her atrial fibrillation. We will continue to follow her while in hospital, but will further evaluate and arrange and discuss for PVI as an outpatient. At this point, our recommendation is for rate control and continued anticoagulation therapy on Eliquis. Thank you for allowing us to participate in the care of this patient. ABHINAV
[2017-07-29] MEDS: Folic Acid/Vit B Comp W-C PO SCH (09:44)
[2017-07-29] MEDS: Vancomycin HCl 25 MG/ML Oral PO SCH ×4 (09:44→23:40)
[2017-07-29] MEDS: Aspirin 81 mg Enteric Coated Tablet PO SCH (09:45)
[2017-07-29] MEDS: Apixaban 5 MG TAB PO SCH ×2 (09:45→23:42)
[2017-07-29] MEDS: Cyclobenzaprine 10 MG TAB PO SCH ×2 (09:45→23:41)
[2017-07-29] MEDS: Docusate 100 MG CAP PO SCH ×2 (09:46→23:41)
[2017-07-29] MEDS: levETIRAcetam 500 MG TAB PO SCH ×2 (09:46→23:42)
[2017-07-29] MEDS: Nicotine 21 MG PATCH TD SCH (10:03)
--- NOTE | 2017-07-29 12:33 | PDOC.PN ---
- Subjective Encounter Start Date: 07/29/17 Encounter Start Time: 11:20 Subjective: feeling better, no pain this morning - Objective MAR Reviewed: Yes Vital Signs & Weight: Vital Signs (12 hours) Temp Pulse Resp BP Pulse Ox 07/29/17 04:00 97.6 F 82 20 106/58 L 93 L Weight Admit Weight 190 lb 6.4 oz Weight 211 lb 13.828 oz I&O: 07/28/17 07/29/17 07/30/17 06:59 06:59 06:59 Intake Total 1250 1040 Output Total 0 3000 Balance 1250 -1960 Result Diagrams: 07/27/17 04:49 07/27/17 04:49 Phys Exam - Physical Examination Constitutional: NAD HEENT: PERRLA, moist MMs, sclera anicteric Neck: supple, full ROM Respiratory: no wheezing, no rhonchi Cardiovascular: irregular Gastrointestinal: soft, non-tender, positive bowel sounds Musculoskeletal: edema present Neurological: non-focal, moves all 4 limbs Psychiatric: normal affect, A&O x 3 Skin: no rash Dx/Plan (1) Atrial fibrillation with RVR Code(s): I48.91 - UNSPECIFIED ATRIAL FIBRILLATION Status: Acute (2) Chest pain Code(s): R07.9 - CHEST PAIN, UNSPECIFIED Status: Acute Qualifiers: Chest pain type: intercostal pain Qualified Code(s): R07.82 - Intercostal pain (3) Throat pain Code(s): R07.0 - PAIN IN THROAT Status: Acute (4) Anxiety and depression Code(s): F41.8 - OTHER SPECIFIED ANXIETY DISORDERS Status: Chronic (5) Benign hypertension Code(s): I10 - ESSENTIAL (PRIMARY) HYPERTENSION Status: Chronic (6) NSTEMI (non-ST elevated myocardial infarction) Code(s): I21.4 - NON-ST ELEVATION (NSTEMI) MYOCARDIAL INFARCTION Status: Acute - Plan cont current plan of care cards input for NSTEMI, continue supportive care. * .
--- NOTE | 2017-07-29 12:34 | CT ---
CT OF NECK WITH CONTRAST: Indication: Neck pain. FINDINGS: Mild nonspecific prominence of the palatine tonsils is present without a drainable abscess. Hypertrop hy of lingual and adenoid tonsils is present. There is no evidence of a discrete thyroid lesion. Ther e are numerous enlarged mediastinal lymph nodes within the incidentally imaged portions of the chest. Bilateral enlargement of supraclavicular lymph nodes are present. There is nonspecific mild wall pr ominence of the under distended esophagus. Diffuse vascular calcification is present. There is enlarg ement of the pulmonary arterial system. Nonspecific patchy opacities of the imaged upper lung zones a re seen. Prior sternotomy noted. There is nonspecific diffuse increased density of the osseous struct ures. No evidence of retropharyngeal edema of significance. No soft tissue emphysema. Salivary glands are grossly unremarkable. Mild pericardial fluid is seen. There is prominent collateralization of th e body wall vasculature. IMPRESSION: 1. Incidentally imaged thoracic adenopathy, involving the imaged mediastinum. There is slight fat str anding. Periclavicular lymph node prominence also present. There is also prominence of Waldeyer's ri ng. Correlate for entities such as lymphoma or alternatively, findings could be on a reactive basis. 2. Nonspecific partially imaged ground glass opacities of the upper lung zones. Partially imaged pleu ral based densities may relate to incompletely imaged pleural effusions although they are not reliabl y assessed on the basis of this exam. 3. Prominent pulmonary arterial system could relate to pulmonary artery hypertension. There is diffu se vascular disease, advanced for patient's age, including dense coronary artery calcium. POS: ALEKSEY
--- NOTE | 2017-07-29 14:59 | PRG ---
DATE OF SERVICE: 07/28/2017 PHYSICAL EXAMINATION: VITAL SIGNS: Afebrile with temperature 98.8, pulse 98, respiratory rate 20, O2 saturation 94%, blood pressure today is 116/71. HEENT: Unremarkable with moist oral mucosa. No conjunctival injection or icterus. NECK: Supple. CARDIOVASCULAR: First and second heart sounds were heard, irregular. RESPIRATORY: Clear to auscultation. IMPRESSION: 1. End-stage renal disease, hemodialysis dependent. 2. Chest pain, query cause. 3. Atrial fibrillation. PLAN: 1. The patient to continue with her regular schedule of dialysis Thursday, and Thursday. 2. Further management to be dependent on the clinical course.
--- NOTE | 2017-07-29 16:19 | PRG ---
DATE OF SERVICE: 07/29/2017 ELECTROPHYSIOLOGY FOLLOWUP NOTE SUBJECTIVE: Ms. Morris says she has been doing fair. No recurrent palpitations or chest pains are n oted. OBJECTIVE DATA: VITAL SIGNS: Blood pressure 116/71, heart rate 98, respiratory rate is 20, temperature 98.8 degrees Fahrenheit. GENERAL: Alert, oriented woman, in no apparent distress. NECK: Supple. Jugular veins not distended. CHEST: Coarse, no crackles. CARDIOVASCULAR: Heart sounds are irregularly irregular. S1 and S2 variable. No murmur or gallop. Slight rub is heard. ABDOMEN: Benign. Bowel sounds positive. EXTREMITIES: Lower extremities without edema, clubbing, or cyanosis. DATABASE: Telemetry strips revealed continued atrial fibrillation with controlled ventricular rates. LABORATORY DATA: None new noted. ASSESSMENT AND PLAN: Mrs. Morris is a pleasant 41-year-old woman with a prior history of end-stage r enal disease, history of narrow-complex supraventricular tachycardia as well as now chronic atrial fi brillation. We discussed the treatment options including ablation procedure as well. She will follow up in our o ffice in that regard. For now, initiate digoxin for rate control, which seems to be reasonable. Con senior cost accountant adding beta blockers if tolerated from the blood pressure standpoint, although relatively runni ng on a lower side at times. Continue oral anticoagulation as well with apixaban, also baby aspirin.
[2017-07-29] MEDS: Ondansetron ODT 4 MG TAB PO PRN (18:35)
[2017-07-29] MEDS: traMADol HCl 50 MG TAB PO PRN (18:35)
[2017-07-29] MEDS: ALPRAZolam 0.5 MG TAB PO SCH (23:41)
[2017-07-30] MEDS: Cholestyramine/Aspartame 4 gm Packet PO SCH ×3 (00:56→21:26)
[2017-07-30 06:43] LABS: Hemoglobin 12.9 g/dL (12.0-16.0); Platelet Count 200 thou/uL (130-400)
--- NOTE | 2017-07-30 11:26 | PRG ---
DATE OF SERVICE: 07/30/2017 SUBJECTIVE: The patient is seen and examined at bedside. She is getting dialyzed in the hemodialysi s unit during my visit. She still has throat discomfort and neck discomfort of what she had before. She also stated that her left leg/left knee post-incision wound is not healing properly. OBJECTIVE: VITAL SIGNS: Blood pressure is 124/80, temperature is 97.5, pulse is 88, respiratory rate is 12, O2 saturation is 97% on 3 liters by nasal cannula. HEENT: Head is atraumatic, normocephalic. Eyes: PERRLA. Sclerae nonicteric. Oral mucosa is moist. NECK: Supple. I do not feel any lymphadenopathy. LUNGS: Expiratory rales at the right base. No wheezing. CARDIOVASCULAR: S1, S2 normal, no S3, no S4. ABDOMEN: Soft, obese, nondistended, nontender. EXTREMITIES: No clubbing, cyanosis or edema. Left knee area presents with a linear incision which i s somewhat open and draining clear fluid. No pus, no erythema around. NEUROLOGIC: She is alert and oriented x4. There is no sensorimotor deficit. Cranial nerves intact. LABORATORY DATA: Showed a hemoglobin of 12.9, hematocrit 40.2, platelet count is 200, creatinine 7.1 9 and GFR is calculated at 8. MICROBIOLOGY: Throat swab negative for Streptococcus. CT of the neck soft tissue showed: 1. Incidental imaged thoracic adenopathy involving the imaged mediastinum, there is slight fat stran ding, periclavicular lymph node prominence is present and prominence of Waldeyer's ring. 2. Nonspecific partially imaged ground glass opacities of the upper lung zone. 3. Prominent pulmonary arterial system could relate to pulmonary artery hypertension as diffuse vasc ular disease, advanced for patient's age including dense coronary artery calcium. IMPRESSION: 1. Atrial fibrillation with rapid ventricular response, rate controlled at this point. 2. Chest pain, resolved. 3. Throat pain could be related to lymphadenopathy, which is presenting on the CT of the neck soft t issue. 4. Anxiety and depression. 5. Benign hypertension. 6. Non-ST elevation myocardial infarction, acute. 7. Left knee nonhealing postop incision of unclear etiology. The wound does not look infected. 8. Abnormal CT of the neck soft tissue findings requiring correlation and with clinical presentation plus Hematology consultation. PLAN: The plan is to consult Dr. Colin for above-mentioned lymphadenopathy of the chest. The roderick ent was seen by Dr. Aleman who recommends to follow up with him on an outpatient basis for further kristi tment of her atrial fibrillation and coronary artery disease. After addressing this issue the patien t will be able to go home in the next 24 hours.
[2017-07-30] MEDS: Cyclobenzaprine 10 MG TAB PO SCH ×2 (12:29→21:25)
[2017-07-30] MEDS: Docusate 100 MG CAP PO SCH ×2 (12:29→21:26)
[2017-07-30] MEDS: HYDROcodone/Acetaminophen 5/325 mg Tablet PO PRN ×2 (12:29→18:40)
[2017-07-30] MEDS: Aspirin 81 mg Enteric Coated Tablet PO SCH (12:29)
[2017-07-30] MEDS: Apixaban 5 MG TAB PO SCH ×2 (12:29→21:25)
[2017-07-30] MEDS: levETIRAcetam 500 MG TAB PO SCH ×2 (12:29→21:24)
[2017-07-30] MEDS: diphenhydrAMINE 25 MG CAP PO PRN ×2 (12:30→18:40)
[2017-07-30] MEDS: Folic Acid/Vit B Comp W-C PO SCH (12:30)
[2017-07-30] MEDS: Nicotine 21 MG PATCH TD SCH (12:30)
[2017-07-30] MEDS: Vancomycin HCl 25 MG/ML Oral PO SCH ×4 (12:38→21:26)
--- NOTE | 2017-07-30 12:39 | PRG ---
DATE OF SERVICE: 07/30/2017 SUBJECTIVE: Ms. Morris seems to be doing pretty much same as yesterday and no new symptoms are noted . No palpitations, no dizziness are appreciated at this time. OBJECTIVE: VITAL SIGNS: Blood pressure is 96/60, heart rate 80, respiration is 12, and temperature 97.5 degrees Fahrenheit. GENERAL: Alert and oriented woman in no apparent distress. NECK: Supple. Jugular veins not distended. CHEST: Coarse, no crackles. CARDIOVASCULAR: Irregularly irregular. S1 and S2, variable. No murmur or gallop. ABDOMEN: Benign. Bowel sounds positive. EXTREMITIES: Lower extremities without edema, clubbing or cyanosis. Left upper extremity AV fistula in present. ASSESSMENT AND PLAN: Ms. Morris is a 41-year-old woman with history of now persisting atrial fibrill ation, prior history of SVT, who admitted with chest pains, but workup was negative. She also had an episode of syncope. She likely to be orthostatic and has not been associated with any observed arrh ythmias during this admission. 1. At this point, I would continue with rate control with digoxin. She is off antiarrhythmic medica tion, has previously used Multaq, but not 100% successful suppressing her rhythm. Our plan is to see her back as an outpatient, could consider pulmonary venous isolation procedure and the patient is so mewhat hesitant at this time. 2. Continue anticoagulation with Eliquis. 3. Borderline blood pressures, but adequate. 4. End-stage renal disease on hemodialysis, stable.
--- NOTE | 2017-07-30 18:00 | PRG ---
DATE OF SERVICE: 07/30/2017 SUBJECTIVE: The patient is seen and examined with no new complaint noted. PHYSICAL EXAMINATION: VITAL SIGNS: Afebrile with temperature 97.9, pulse 88, respiratory rate 18, O2 sat 96%, blood pressu re 96/69. HEENT: Unremarkable with moist oral mucosa. Neck is supple. No conjunctival injection or icterus. CARDIOVASCULAR: First and second heart sounds were heard. Heart rate is irregularly irregular. RESPIRATORY: Clear to auscultation. LABORATORY INVESTIGATIONS: Showed a creatinine of 7.19. IMPRESSION: 1. End-stage renal disease, hemodialysis dependent, Thursday, , and Thursday schedule. 2. Atrial fibrillation with rapid ventricular response. 3. Cervical lymphadenopathy, query cause. PLAN: 1. The patient to continue with his dialysis on a Thursday, schedule. 2. Further management including disposition planning per the primary team.
[2017-07-30] MEDS: ALPRAZolam 0.5 MG TAB PO SCH (21:24)
[2017-07-31] MEDS: HYDROcodone/Acetaminophen 5/325 mg Tablet PO PRN ×5 (00:38→23:43)
[2017-07-31] MEDS: diphenhydrAMINE 25 MG CAP PO PRN ×4 (00:38→23:43)
[2017-07-31] MEDS ORDERED: Simethicone Chewable 80 MG TAB PO SCH (00:45)
[2017-07-31] MEDS: Ondansetron ODT 4 MG TAB PO PRN (06:47)
[2017-07-31] MEDS: Folic Acid/Vit B Comp W-C PO SCH (10:40)
[2017-07-31] MEDS: Cyclobenzaprine 10 MG TAB PO SCH ×2 (10:40→21:31)
[2017-07-31] MEDS: Apixaban 5 MG TAB PO SCH ×2 (10:41→21:31)
[2017-07-31] MEDS: levETIRAcetam 500 MG TAB PO SCH ×2 (10:41→21:32)
[2017-07-31] MEDS: Docusate 100 MG CAP PO SCH ×2 (10:41→21:32)
[2017-07-31] MEDS: Aspirin 81 mg Enteric Coated Tablet PO SCH (10:41)
[2017-07-31] MEDS: Vancomycin HCl 25 MG/ML Oral PO SCH ×4 (10:42→21:32)
[2017-07-31] MEDS: Nicotine 21 MG PATCH TD SCH (10:42)
[2017-07-31] MEDS: Cholestyramine/Aspartame 4 gm Packet PO SCH ×2 (13:09→21:32)
--- NOTE | 2017-07-31 13:54 | RAD ---
CHEST ONE VIEW: HISTORY: Cough. COMPARISON: 06/04/2017 FINDINGS: Stable cardiomegaly.. Re-demonstration of sternotomy wires and vascular stent. The pulmonary vessel s are slightly prominent. Patchy interstitial opacities. Stable blunting of the left costophrenic a ngle related to pleural effusion. No pneumothorax. IMPRESSION: 1. Persistent cardiomegaly. 2. Persistent blunting of the left costophrenic angle, likely due to pleural effusion. Adjacent par enchymal changes are suspected. 3. Patchy interstitial opacities due to edema or infiltrate. POS: [facility]
--- NOTE | 2017-07-31 14:50 | PRG ---
ELECTROPHYSIOLOGY FOLLOWUP NOTE DATE OF SERVICE: 07/31/2017 SUBJECTIVE: Ms. Morris seems to be doing the same as before, although she does have some cough repor dunia this morning. She has no palpitations, no chest pains, no marked dyspnea. She tolerates her hem odialysis well yesterday. OBJECTIVE: VITAL SIGNS: Blood pressure 100/62, heart rate 95, respirations 18 and temperature 99.6 degrees Fahr enheit. GENERAL: This is an alert and oriented woman in no apparent distress. NECK: Supple. Jugular veins not distended. CHEST: Coarse. No crackles. CARDIOVASCULAR: Heart sounds are irregularly irregular. S1 and S2 variable. Left upper arm fistula is without reaction. ABDOMEN: Benign. Bowel sounds positive. EXTREMITIES: Lower extremities without edema, clubbing or cyanosis. The telemetry strips reveal continued atrial fibrillation without rapid rates mostly in the 90-105 ra nge. LABORATORY DATA: Creatinine is elevated as before. Potassium 4.5. Digoxin levels were checked on t 30, it was 0.5. ASSESSMENT AND PLAN: Ms. Morris is a 41-year-old woman with a history of atrial arrhythmias. She do es have an EKG documentation of supraventricular tachycardia as well as atrial fibrillation, both. C urrently, she is persisting atrial fibrillation. Hence she was taken off Multaq, which was not suffi ciently suppressing her, but now her heart rate control is adequate. She is not very symptomat ic at this stage. Her main reason for admission was chest pains, which seem to have resolved. She u nderwent cardiac evaluation in this regard. She was noted to have cervical lymphadenopathy, which is being evaluated as well. At this point, plan is to continue rate control for now. Long-term, after full recovery as an outpatient, we will consider pulmonary venous isolation for her. Naturally with her multiple comorbidities, there is somewhat of a more elevated risk, but still could be feasible. For now, she is still hesitant. We will discuss again as an outpatient followup.
--- NOTE | 2017-07-31 16:55 | PRG ---
DATE OF SERVICE: 07/31/2017 SUBJECTIVE: The patient was seen and examined at the bedside. She is coughing a lot. She is able t o cough up mucus and slightly yellowish phlegm. OBJECTIVE: VITAL SIGNS: Blood pressure is 106/56, pulse is 97, temperature is 98.0, respiratory rate is 18 and O2 saturation is 100%. GENERAL: She is not in any distress during my visit. HEENT: Eyes, PERRLA. Oral mucosa is moist. NECK: JVD plus. LUNGS: Breath sounds are diminished at both bases with few inspiratory wheezes bilaterally at both b ases. HEART: S1, S2. Irregularly irregular. No S3, no S4. ABDOMEN: Soft, obese and nontender. EXTREMITIES: No clubbing, cyanosis or edema. NEUROLOGIC: She is alert and oriented x4. There is not any sensory motor deficits present. Cranial nerves are intact. LABORATORY DATA: None today. IMAGING DATA: Chest x-ray showed; 1. Persistent cardiomegaly. 2. Persistent blunting of the left costophrenic angle, likely due to pleural effusion and adjacent p arenchymal changes. 3. Patchy interstitial opacities due to edema or infiltrate. IMPRESSION: 1. Atrial fibrillation with rapid ventricular response, rate controlled at this time. 2. Chest pain, resolved. 3. Lymphadenopathy mediastinal with possible pulmonary artery hypertension per CT. 4. Anxiety and depression. 5. End-stage renal disease, on hemodialysis. 6. Non-ST elevation myocardial infarction, acute 7. Left knee nonhealing postoperative incision of unclear etiology. PLAN: To get Dr. Salmeron to come and take a look at the wound and make a decision about the next s tep since the wound is not healing properly. Also, after I talked to Dr. Colin yesterday regarding her lymphadenopathy, she recommended to do the workup of that and based on the final results, do payal ropriate referral. We will have Dr. Chau to come and see her for the possible pulmonary hypertens ion and no lymphadenopathy. We will see what he recommends, whether this needs to be biopsied. Dr. Aleman recommends further outpatient follow up with him after the patient is discharged to control her atrial fibrillation. Apparently, she will continue her Eliquis and he will talk to her about pulmona ry vein isolation procedure. For now, we will continue apixaban along with aspirin 81 mg and digoxin . Also, she will continue on Keppra and Zoloft.
[2017-07-31] MEDS: ALPRAZolam 0.5 MG TAB PO SCH (21:31)
[2017-07-31] MEDS ORDERED: Mag-Al 1200 mg/1200 mg/30 ML UDCUP PO SCH (22:00)
--- NOTE | 2017-08-01 01:19 | PRG ---
DATE OF SERVICE: 07/31/2017 The patient seen and examined and noted with the following vital signs. PHYSICAL EXAMINATION: VITAL SIGNS: Temperature 98.5, pulse 99, respirations 18, O2 SAT 100%, blood pressure 102/62. HEENT: IMPRESSION: 1. . 2. End stage renal disease, on hemodialysis. PLAN: 1. The patient is to continue with hemodialysis as per current schedule, Thursday, , Thursday . 2. Further management to be dependent on the clinical course.
[2017-08-01 06:10] LABS: Hemoglobin 13.3 g/dL (12.0-16.0); Platelet Count 150 thou/uL (130-400)
[2017-08-01] MEDS: Ibuprofen 200 MG TAB PO PRN ×2 (07:40→17:46)
[2017-08-01] MEDS: Vancomycin HCl 25 MG/ML Oral PO SCH ×4 (10:10→22:14)
[2017-08-01] MEDS: Cyclobenzaprine 10 MG TAB PO SCH (11:10)
[2017-08-01] MEDS: Apixaban 5 MG TAB PO SCH ×2 (11:12→22:14)
[2017-08-01] MEDS: Folic Acid/Vit B Comp W-C PO SCH (11:12)
[2017-08-01] MEDS: HYDROcodone/Acetaminophen 5/325 mg Tablet PO PRN (11:12)
[2017-08-01] MEDS: Aspirin 81 mg Enteric Coated Tablet PO SCH (11:12)
[2017-08-01] MEDS: guaiFENesin ER 600 MG TAB PO SCH ×2 (11:13→22:13)
[2017-08-01] MEDS: Cholestyramine/Aspartame 4 gm Packet PO SCH ×2 (11:13→22:17)
[2017-08-01] MEDS: Docusate 100 MG CAP PO SCH ×2 (11:13→22:13)
[2017-08-01] MEDS: levETIRAcetam 500 MG TAB PO SCH ×2 (11:13→22:13)
[2017-08-01] MEDS: Nicotine 21 MG PATCH TD SCH (11:14)
--- NOTE | 2017-08-01 12:46 | PRG ---
DATE OF SERVICE: 08/01/2017 SUBJECTIVE: The patient is seen and examined, not feeling very well overall, especially during dialy sis. OBJECTIVE: VITAL SIGNS: The patient also became febrile with a temperature of up to 101, heart rate in the 90s- 100s, respiratory rate of 20, O2 saturation of 94% and blood pressure 125/84. HEENT: Unremarkable with moist oral mucosa. No conjunctival injection or icterus. NECK: Supple. CARDIOVASCULAR SYSTEM: First and second heart sounds were heard. RESPIRATORY SYSTEM: Reveals some rales. DIGESTIVE SYSTEM: Revealed a benign abdomen. EXTREMITIES: No peripheral edema. SKIN: No new gross rash. IMPRESSION: 1. End-stage renal disease, hemodialysis dependent. 2. Fever, query cause, likely of pulmonary origin. 3. Labile hemodynamics. 4. Atrial fibrillation with rapid ventricular response. PLAN: 1. The patient may need to be evaluated for possible flu. 2. Hemodialysis per schedule with minimal ultrafiltration as tolerated by hemodynamics. 3. Further management including the management of the fever as per the primary team.
[2017-08-01] MEDS: traMADol HCl 50 MG TAB PO PRN (14:05)
[2017-08-01 14:48] LABS: White Blood Cell (WBC) Count 8.3 thou/uL (4.8-10.8)
--- NOTE | 2017-08-01 14:57 | PRG ---
DATE OF SERVICE: 08/01/2017 SUBJECTIVE: The patient was seen and examined at bedside. She spiked fever this morning of 101. Sh e feels body aches all over her body. She was tested for influenza A and B and strep throat, which c niya back negative. OBJECTIVE: VITAL SIGNS: Blood pressure is 96/58, temperature is 98.6 now, respiratory rate is 22, O2 saturation is 89 on 2 liters by nasal cannula. HEENT: Her eyes are PERRLA. Oral mucosa is moist. NECK: Supple. Thyroid is nonpalpable. LUNGS: She has crackles at both mid and lower lobes bilaterally. HEART: S1, S2 normal, no S3, no S4. ABDOMEN: Soft. Obese, nontender. EXTREMITIES: No clubbing, cyanosis or edema. Left knee area with wound post ortho operation. The s titches were taken out today by the Wound Care Team. NEUROLOGIC: She is alert and oriented x4. There is no sensorimotor deficits present. Cranial nerve s are intact. LABORATORY DATA: Showed hemoglobin of 13.3, hematocrit 42.5, platelet count was 150, and creatinine 6.69. IMPRESSION: 1. Fever with a nonproductive cough, most likely pulmonary origin of the problem. Infection of the line was ruled out. She has IV access on the right side. Also, infection of the left knee postop wo und still out. Clinically, the wound looks noninfected according to the wound care nurse. 2. Atrial fibrillation with rapid ventricular response, rate controlled at this time. 3. Chest pain, resolved, status post evaluation. 4. Lymphadenopathy mediastinal with possible pulmonary artery hypertension per CT. 5. Anxiety and depression. 6. End-stage renal disease, on hemodialysis 3 times a week. 7. Non-ST elevation myocardial infarction, acute. 8. Left knee nonhealing postoperative incision of unclear etiology. PLAN: To obtain blood cultures on her if her fever comes back. She developed this cough and fever w hile in the hospital. She had chest x-ray done on the which is yesterday which showed some patch y interstitial opacities due to edema or infiltrate, unclear whether this was infectious or not. At this point, I would recommend to wait additional 24 hours before we make a decision about disposition whether she can go home or she needs to stay in the hospital and started on additional antibiotics. I will obtain the chest x-ray tomorrow and will keep an eye on her.
[2017-08-01] MEDS: diphenhydrAMINE 25 MG CAP PO PRN (22:14)
--- NOTE | 2017-08-02 00:53 | CON ---
DATE OF CONSULTATION: 08/01/2017 SERVICE: Pulmonary Medicine. REASON FOR CONSULTATION: Mediastinal changes, and pulmonary hypertension. HISTORY OF PRESENT ILLNESS: The patient is a 41-year-old -[place] female with past medical h istory significant for end-stage renal disease. She was in her usual state of health on 07/24/2017 w hen she had a syncopal episode after standing up. When she woke up, she had severe chest discomfort and heaviness. She presented to the Emergency Department. She has been here for the better part of 8 days at this point. We were trying to get some atrial arrhythmias under control. Two days ago, 6 days into her hospital stay, she started having fevers, chills, and a viral prodrome. A CT of the so ft tissue of the neck was performed because of neck discomfort and incidentally discovered were findi ngs consistent with possible mediastinal changes, and pulmonary hypertension. As such, this consult was generated. The patient currently has dyspnea with exertion. She currently denies any nausea, vo miting or diarrhea. She is having no current chest discomfort. PAST MEDICAL HISTORY: 1. End-stage renal disease. 2. Seizure disorder. 3. Hypertension. 4. Peripheral neuropathy. 5. Peripheral vascular disease. PAST SURGICAL HISTORY: 1. AV fistula placement. 2. Colectomy. 3. section. 4. Bilateral tubal ligation. 5. Thoracic aortic aneurysm repair. FAMILY HISTORY: Noncontributory. SOCIAL HISTORY: She smokes a pack on a daily basis still. She denies any alcohol or illicit drugs. She has no exposure to chemicals, asbestos or tuberculosis. ALLERGIES: ANCEF, CLINDAMYCIN, CODEINE, PHENYTOIN, HYDROCODONE, IODINE. MEDICATIONS: List of her inpatient medications were reviewed. REVIEW OF SYSTEMS: General, head, ears, eyes, nose, throat, cardiovascular, respiratory, GI, , mus culoskeletal, neurologic and skin is negative except as mentioned in the HPI. PHYSICAL EXAMINATION: VITAL SIGNS: Afebrile, pulse 84, blood pressure 96/55, respirations 21, saturation 95% on 3 liters n kera cannula. GENERAL: The patient is awake and alert. No apparent distress. LUNGS: Decent air entry. There are crackles present bilaterally. They are quite extensive. No pro longed expiratory phases appreciated. No rhonchi or wheezing is appreciated. HEART: Normal rate, regular. ABDOMEN: Soft, nontender, nondistended. Bowel sounds are positive. MUSCULOSKELETAL: No cyanosis or clubbing. There is 2+ to 3+ pitting edema in the bilateral lower ex tremities. GENITOURINARY: No Stewart. NEUROLOGIC: Grossly nonfocal. LABORATORIES: WBC 8.3, hemoglobin recently 13.3. Creatinine 6.69. Influenza A is unremarkable. Gr oup A Streptococcus screen is negative. Culture did not isolate A. IMAGIN. CT dissection protocol demonstrates no acute neck issues. Incidentally noted was portal hyperten jese, hepatomegaly, renal atrophy, and renal osteodystrophy. 2. Chest x-ray demonstrates findings consistent with volume overload to include pulmonary vascular c ongestion, cardiomegaly, left-sided pleural effusion, and previous sternotomy wires. 3. CT of the soft tissue of neck demonstrated no acute process. There are some findings consistent with a little bit of volume overload in the bilateral lung sarmiento. Prominent pulmonary artery system is consistent with pulmonary hypertension. There are also some mediastinal abnormalities. 4. CT scan with dissection protocol from 01/2015 demonstrated a similar appearance of the mediastinu m. There has been no significant interval [employer] administrator the last 2-1/2 years to the mediastinum in [facility] ticular. ASSESSMENT: 1. Abnormal mediastinum, stable for greater than 2 years. 2. Pulmonary hypertension, suspected. 3. Obstructive sleep apnea, suspected. 4. End-stage renal disease with overt volume overload presently. 5. Atrial fibrillation. PLAN: The mediastinal changes have been present for a longstanding period of time. As such, no chad tional investigation needs to be entertained at this time. We can consider repeat imaging in a year to verify these things do not change through time. The pulmonary hypertension is likely multifactori al. She has a strong screen for this process. Hopefully, we can get her some more energy if we are able to identify and treat severe sleep apnea. Dr. Gillis will resume care on Thursday. Please call sooner if any additional questions or concerns com e up. Respiratory virus profile will be sent because the patient does have a viral prodrome.
[2017-08-02] MEDS: Cyclobenzaprine 10 MG TAB PO SCH ×3 (01:19→20:29)
[2017-08-02] MEDS: ALPRAZolam 0.5 MG TAB PO SCH ×2 (01:19→20:29)
[2017-08-02] MEDS: HYDROcodone/Acetaminophen 5/325 mg Tablet PO PRN ×4 (01:21→20:44)
[2017-08-02 06:11] LABS: #Basophils 0.2 thou/uL (0.0-0.2); #Eosinphils 0.3 thou/uL (0.0-0.7); #Lymphocytes 0.6 thou/uL (1.20-3.40); #Neutrophils 5.9 thou/uL (1.40-6.50); %Basophils 1.9 % (0.0-1.0); %Eosinophils 3.7 % (0.0-10.0); %Lymphocytes 7.8 % (21.0-51.0); %Neutrophils 74.5 % (42.0-75.0); Mean Corpuscular Hemoglobin 31.6 pg (27.0-31.0); Mean Corpuscular Volume 98.6 fl (81.0-99.0); Mean Platelet Volume 9.6 fL (7.4-10.4); Platelet Count 146 thou/uL (130-400); RBC Distribution Width 19.5 % (11.5-14.5); Red Blood Cell (RBC) Count 4.11 mill/uL (4.20-5.40); White Blood Cell (WBC) Count 7.9 thou/uL (4.8-10.8)
[2017-08-02] MEDS: Vancomycin HCl 25 MG/ML Oral PO SCH ×4 (10:14→20:28)
--- NOTE | 2017-08-02 14:45 | PDOC.PN ---
- Subjective Encounter Start Date: 08/02/17 Encounter Start Time: 08:40 Pt seen for followup re: cough. Reports cough, yellow sputum. Spiked fever during dialysis. - Objective MAR Reviewed: Yes Vital Signs & Weight: Vital Signs (12 hours) Temp Pulse Resp BP BP Pulse Ox 08/02/17 07:55 98.4 F 103 H 19 112/65 95 08/02/17 04:00 98.4 F 94 20 105/61 97 Weight Admit Weight 190 lb 6.4 oz Weight 221 lb 4.8 oz I&O: 08/01/17 08/02/17 08/03/17 06:59 06:59 06:59 Intake Total 1642 1586 Output Total 0 1600 Balance 1642 -14 Result Diagrams: 08/02/17 05:05 08/01/17 04:52 EKG Reviewed by me: Yes (Tele: mike alarcon) Phys Exam - Physical Examination Obesity HEENT: moist MMs, oral pharynx no lesions Neck: supple Respiratory: wheezing present Cardiovascular: RRR, no rub Gastrointestinal: soft, positive bowel sounds Neurological: moves all 4 limbs Psychiatric: normal affect Skin: no rash Dx/Plan (1) Cough Code(s): R05 - COUGH Status: Acute (2) Throat pain Code(s): R07.0 - PAIN IN THROAT Status: Acute (3) NSTEMI (non-ST elevated myocardial infarction) Code(s): I21.4 - NON-ST ELEVATION (NSTEMI) MYOCARDIAL INFARCTION Status: Acute (4) Benign hypertension Code(s): I10 - ESSENTIAL (PRIMARY) HYPERTENSION Status: Chronic (5) End stage renal disease on dialysis Code(s): N18.6 - END STAGE RENAL DISEASE; Z99.2 - DEPENDENCE ON RENAL DIALYSIS Status: Chronic (6) GERD (gastroesophageal reflux disease) Code(s): K21.9 - GASTRO-ESOPHAGEAL REFLUX DISEASE WITHOUT ESOPHAGITIS Status: Chronic (7) Hyperlipidemia Code(s): E78.5 - HYPERLIPIDEMIA, UNSPECIFIED Status: Chronic (8) Paroxysmal a-fib Code(s): I48.0 - PAROXYSMAL ATRIAL FIBRILLATION Status: Chronic - Plan PT/OT, out of bed/ambulate, DVT proph w/heparin * . URTI vs pneumonia. Start levaquin (anaphylaxis with cephalosporins), chest chest xray, influenza screen. Dialysis today, further dialysis per nephrology service. Medical management of NSTEMI (s/p cath during this admission). Review of Systems - Review of Systems Constitutional: fever Respiratory: Cough, SOB with Excertion, Sputum. negative: Dry, Shortness of Breath, Hemoptysis, Pleuritic Pain, Wheezing Cardiovascular: negative: chest pain, palpitations, orthopnea, paroxysmal nocturnal dyspnea, edema, light headedness - Medications/Allergies Allergies/Adverse Reactions: Allergies Allergy/AdvReac Type Severity Reaction Status Date / Time cefazolin sodium [From Ancef] Allergy Intermediate Anaphylaxis Verified 07:48 codeine [Codeine] Allergy Intermediate ITCHING Verified 07/24/17 07:48 clindamycin Allergy Verified 07/24/17 07:48 Iodinated Contrast- Oral and Allergy itching Verified 07/24/17 07:48 IV Dye phenytoin sodium Allergy Rash Verified 07/24/17 07:48 [From Dilantin] phenytoin sodium extended Allergy Rash Verified 07/24/17 07:48 [From Dilantin] Medications: Current Medications Hydrocodone Bitart/Acetaminophen ([place] 5/325) 1 tab PO Q4H PRN PRN Reason: Moderate Pain (4-6) Last Admin: 08/02/17 09:35 Dose: 1 tab Alprazolam (Xanax) 1 mg PO QPM [facility] Last Admin: 08/02/17 01:19 Dose: 1 mg Apixaban (Eliquis) 5 mg PO BID [facility] Last Admin: 08/01/17 22:14 Dose: 5 mg Aspirin (Ecotrin) 81 mg PO DAILY [facility] Last Admin: 08/01/17 11:12 Dose: 81 mg Cholestyramine Resin (Questran Light) 4 gm PO BID [facility] Last Admin: 08/01/17 22:17 Dose: Not Given Cyclobenzaprine HCl (Flexeril) 5 mg PO BID [facility] Last Admin: 08/02/17 01:19 Dose: 5 mg Diphenhydramine HCl (Benadryl) 25 mg PO Q6H PRN PRN Reason: Itching & Insomnia Last Admin: 08/01/17 22:14 Dose: 25 mg Docusate Sodium (Colace) 100 mg PO BID [facility] Last Admin: 08/01/17 22:13 Dose: 100 mg Guaifenesin (Mucinex) 1,200 mg PO Q12HR [facility] Last Admin: 08/01/17 22:13 Dose: 1,200 mg Hydrocortisone/Pramoxine (Proctofoam Hc) 0.5 gm TOP PRN PRN PRN Reason: Anal/Rectal Irritations Ibuprofen (Motrin) 600 mg PO Q4H PRN PRN Reason: Fever>101/(Mi/Mod/Sev) Pain Last Admin: 08/01/17 17:46 Dose: 600 mg Levetiracetam (Keppra) 500 mg PO BID [facility] Last Admin: 08/01/17 22:13 Dose: 500 mg Levofloxacin (Levaquin) 500 mg PO Q48H [facility] Nicotine (Nicoderm Patch) 21 mg TD Q24HR [facility] Last Admin: 08/01/17 11:14 Dose: Not Given Nitroglycerin (Nitrostat) 0.4 mg SL Q5MIN PRN PRN Reason: Chest Pain Ondansetron HCl (Zofran Odt) 4 mg PO Q6H PRN PRN Reason: Nausea/Vomiting Last Admin: 07/31/17 06:47 Dose: 4 mg Pantoprazole Sodium (Protonix) 40 mg PO DAILY [facility] Last Admin: 08/01/17 11:13 Dose: 40 mg Sertraline HCl (Zoloft) 25 mg PO QAM [facility] Last Admin: 08/01/17 11:12 Dose: 25 mg Sodium Chloride (Flush - Normal Saline) 10 ml IVF Q12HR [facility] Last Admin: 08/01/17 22:17 Dose: 10 ml Sodium Chloride (Flush - Normal Saline) 10 ml IVF PRN PRN PRN Reason: Saline Flush Throat Lozenges (Cepastat Lozenges) 1 jass PO Q2H PRN PRN Reason: Sore Throat Last Admin: 07/28/17 21:23 Dose: 1 jass Tramadol HCl (Ultram) 50 mg PO Q6H PRN PRN Reason: Moderate Pain (4-6) Last Admin: 08/01/17 14:05 Dose: 50 mg Vancomycin HCl (First Vancomycin) 250 mg PO QID [facility] Last Admin: 08/02/17 10:14 Dose: Not Given Vitamin B Complex/Vit C/Folic Acid (Nephro-[place] Tablet) 1 tab PO DAILY [facility] Last Admin: 08/01/17 11:12 Dose: 1 tab Zolpidem Tartrate (Ambien) 5 mg PO PRN PRN PRN Reason: Insomnia
[2017-08-02] MEDS: Aspirin 81 mg Enteric Coated Tablet PO SCH (15:05)
[2017-08-02] MEDS: Apixaban 5 MG TAB PO SCH ×2 (15:06→20:29)
[2017-08-02] MEDS: levETIRAcetam 500 MG TAB PO SCH ×2 (15:06→20:29)
[2017-08-02] MEDS: Heparin 5,000 UNITS/ML VIAL SC SCH ×2 (15:08→20:30)
[2017-08-02] MEDS: Docusate 100 MG CAP PO SCH ×2 (15:09→20:30)
[2017-08-02] MEDS: Cholestyramine/Aspartame 4 gm Packet PO SCH ×2 (15:09→20:30)
[2017-08-02] MEDS: guaiFENesin ER 600 MG TAB PO SCH ×2 (15:10→20:30)
[2017-08-02] MEDS: Cepastat Lozenges 1 LOZ PO PRN (15:10)
[2017-08-02] MEDS: Folic Acid/Vit B Comp W-C PO SCH (15:10)
[2017-08-02] MEDS: Nicotine 21 MG PATCH TD SCH (15:10)
--- NOTE | 2017-08-02 15:51 | RAD ---
TWO VIEW CHEST: Indication: Fever, cough. Comparison: 12-09-16, 07-31-17 FINDINGS: There is stable pleural based density of the inferior left chest. Interstitial prominence of each say g is grossly stable. There is enlargement of the cardiac silhouette and pulmonary vasculature. No sig nificant interval change. IMPRESSION: Stable chest. POS: [facility]
--- NOTE | 2017-08-03 01:16 | PRG ---
DATE OF SERVICE: 08/02/2017 SUBJECTIVE: The patient was seen and examined today, seems to be having significant respiratory dist ress and noted to be severely hypervolemic with bilateral lower extremity edema. OBJECTIVE: VITAL SIGNS: Noted with temperature 99.4. During the dialysis, the patient had temperature up to 10 0, pulse of 104, respiratory rate of 19, O2 sat 95%, with blood pressure 102/65. HEENT: Unremarkable. Moist oral mucosa. NECK: Supple. CARDIOVASCULAR SYSTEM: First and second heart sounds were heard. RESPIRATORY SYSTEM: Revealed some diminished breath sounds. EXTREMITIES: Show 2-3+ bilateral lower extremity edema. LYMPHATICS: No peripheral lymphadenopathy. IMPRESSION: 1. End-stage renal disease, on hemodialysis. 2. Hypervolemia contributing to respiratory distress in this patient. 3. Atrial fibrillation. PLAN: The patient to be dialyzed, despite the fact that the patient was dialyzed yesterday. We will go ahead and focus on the ultrafiltration to improve the pulmonary status of this patient.
[2017-08-03] MEDS: HYDROcodone/Acetaminophen 5/325 mg Tablet PO PRN ×3 (03:55→21:03)
[2017-08-03 06:44] LABS: Hemoglobin 13.1 g/dL (12.0-16.0); Platelet Count 127 thou/uL (130-400)
--- NOTE | 2017-08-03 08:43 | PDOC.PN ---
- Subjective Encounter Start Date: 08/03/17 Encounter Start Time: 08:42 Subjective: still having chills, sweats - Objective MAR Reviewed: Yes Vital Signs & Weight: Vital Signs (12 hours) Temp Pulse Resp BP Pulse Ox 08/03/17 04:00 100.5 F H 101 H 18 105/57 L 93 L 08/03/17 00:00 100.2 F H 96 20 100/56 L 93 L 08/02/17 23:35 95 18 94 L Weight Admit Weight 190 lb 6.4 oz Weight 215 lb 4.8 oz I&O: 08/02/17 08/03/17 08/04/17 06:59 06:59 06:59 Intake Total 1586 970 Output Total 1600 0 Balance -14 970 Result Diagrams: 08/03/17 05:08 08/03/17 05:08 Phys Exam - Physical Examination Constitutional: NAD Neck: no JVD diffuse post rales Cardiovascular: irregular Gastrointestinal: soft, positive bowel sounds 2-3 + edema Dx/Plan (1) Atrial fibrillation with RVR Code(s): I48.91 - UNSPECIFIED ATRIAL FIBRILLATION Status: Acute (2) Cough Code(s): R05 - COUGH Status: Acute (3) Demand ischemia Code(s): I24.8 - OTHER FORMS OF ACUTE ISCHEMIC HEART DISEASE Status: Acute (4) Anxiety and depression Code(s): F41.8 - OTHER SPECIFIED ANXIETY DISORDERS Status: Chronic (5) Diastolic CHF, chronic Code(s): I50.32 - CHRONIC DIASTOLIC (CONGESTIVE) HEART FAILURE Status: Chronic (6) End stage renal disease on dialysis Code(s): N18.6 - END STAGE RENAL DISEASE; Z99.2 - DEPENDENCE ON RENAL DIALYSIS Status: Chronic (7) Hyperlipidemia Code(s): E78.5 - HYPERLIPIDEMIA, UNSPECIFIED Status: Chronic (8) Seizure disorder Code(s): G40.909 - EPILEPSY, UNSP, NOT INTRACTABLE, WITHOUT STATUS EPILEPTICUS Status: Chronic Comment: Continue Keppra 500mg BID - Plan volume overload, discussed with Dr Mcgarry, will do daily HD -: fluid restiction -: blood C&S * .
[2017-08-03] MEDS: levETIRAcetam 500 MG TAB PO SCH ×2 (09:04→21:04)
[2017-08-03] MEDS: Aspirin 81 mg Enteric Coated Tablet PO SCH (09:04)
[2017-08-03] MEDS: Folic Acid/Vit B Comp W-C PO SCH (09:04)
[2017-08-03] MEDS: Apixaban 5 MG TAB PO SCH ×2 (09:04→21:03)
[2017-08-03] MEDS: Cyclobenzaprine 10 MG TAB PO SCH ×2 (09:04→21:03)
[2017-08-03] MEDS: Heparin 5,000 UNITS/ML VIAL SC SCH ×3 (09:05→21:02)
[2017-08-03] MEDS: Nicotine 21 MG PATCH TD SCH (09:05)
[2017-08-03] MEDS: Docusate 100 MG CAP PO SCH ×2 (09:05→21:01)
[2017-08-03] MEDS: guaiFENesin ER 600 MG TAB PO SCH ×2 (09:05→21:07)
[2017-08-03] MEDS: Cholestyramine/Aspartame 4 gm Packet PO SCH ×2 (09:06→21:04)
[2017-08-03] MEDS: Vancomycin HCl 25 MG/ML Oral PO SCH ×4 (09:06→21:02)
[2017-08-03] MEDS: diphenhydrAMINE 25 MG CAP PO PRN ×2 (09:08→21:07)
[2017-08-03] MEDS: ALPRAZolam 0.5 MG TAB PO SCH (21:03)
--- NOTE | 2017-08-04 00:02 | PRG ---
DATE OF SERVICE: 08/03/2017 SUBJECTIVE: Ms. Myriam Morris is in dialysis. She is in no distress. OBJECTIVE: VITAL SIGNS: She is afebrile. Heart rate 76, respiratory rate 20, oximetry is 91% and blood pressur e 106/61. There is no change in her exam from Dr. Chau's exam. IMPRESSION: 1. Atrial fibrillation. 2. Mediastinal abnormalities that are likely old granulomatous disease. 3. Cough. 4. Volume overload, probably contributing to cough. She is on daily dialysis now and fluid restrict ion. There may have been a low-grade temperature elevation and may have been viral illness with this cough. There are no positive culture so far.
[2017-08-04] MEDS: HYDROcodone/Acetaminophen 5/325 mg Tablet PO PRN ×2 (03:56→12:06)
[2017-08-04] MEDS: Cepastat Lozenges 1 LOZ PO PRN (03:56)
[2017-08-04] MEDS: diphenhydrAMINE 25 MG CAP PO PRN (03:56)
--- NOTE | 2017-08-04 15:26 | PDOC.PN ---
- Subjective Encounter Start Date: 08/04/17 Encounter Start Time: 15:24 Subjective: much less sob - Objective MAR Reviewed: Yes Vital Signs & Weight: Vital Signs (12 hours) Temp Pulse Resp BP BP Pulse Ox 08/04/17 07:44 97.6 F 77 16 90/53 L 95 08/04/17 04:00 98.0 F 83 18 99/60 93 L Weight Admit Weight 190 lb 6.4 oz Weight 200 lb 4.8 oz I&O: 08/03/17 08/04/17 08/05/17 06:59 06:59 06:59 Intake Total 970 1690 Output Total 0 3600 Balance 970 -1910 Result Diagrams: 08/03/17 05:08 08/03/17 05:08 Phys Exam - Physical Examination Constitutional: NAD Neck: no JVD bilat rales Cardiovascular: RRR, no significant murmur Gastrointestinal: soft, non-tender, positive bowel sounds Musculoskeletal: edema present Dx/Plan (1) Atrial fibrillation with RVR Code(s): I48.91 - UNSPECIFIED ATRIAL FIBRILLATION Status: Acute (2) Cough Code(s): R05 - COUGH Status: Acute (3) Demand ischemia Code(s): I24.8 - OTHER FORMS OF ACUTE ISCHEMIC HEART DISEASE Status: Acute (4) Anxiety and depression Code(s): F41.8 - OTHER SPECIFIED ANXIETY DISORDERS Status: Chronic (5) Diastolic CHF, chronic Code(s): I50.32 - CHRONIC DIASTOLIC (CONGESTIVE) HEART FAILURE Status: Chronic (6) End stage renal disease on dialysis Code(s): N18.6 - END STAGE RENAL DISEASE; Z99.2 - DEPENDENCE ON RENAL DIALYSIS Status: Chronic (7) Hyperlipidemia Code(s): E78.5 - HYPERLIPIDEMIA, UNSPECIFIED Status: Chronic (8) Seizure disorder Code(s): G40.909 - EPILEPSY, UNSP, NOT INTRACTABLE, WITHOUT STATUS EPILEPTICUS Status: Chronic Comment: Continue Keppra 500mg BID - Plan .cont meds, inpt HD 1 more day * .
[2017-08-04] MEDS: Apixaban 5 MG TAB PO SCH ×2 (15:29→20:54)
[2017-08-04] MEDS: Aspirin 81 mg Enteric Coated Tablet PO SCH (15:29)
[2017-08-04] MEDS: Cyclobenzaprine 10 MG TAB PO SCH ×2 (15:30→20:54)
[2017-08-04] MEDS: Cholestyramine/Aspartame 4 gm Packet PO SCH ×2 (15:30→20:56)
[2017-08-04] MEDS: Docusate 100 MG CAP PO SCH ×2 (15:30→20:56)
[2017-08-04] MEDS: Folic Acid/Vit B Comp W-C PO SCH (15:30)
[2017-08-04] MEDS: guaiFENesin ER 600 MG TAB PO SCH ×2 (15:31→20:55)
[2017-08-04] MEDS: Heparin 5,000 UNITS/ML VIAL SC SCH ×3 (15:31→20:56)
[2017-08-04] MEDS: levETIRAcetam 500 MG TAB PO SCH ×2 (15:32→20:55)
[2017-08-04] MEDS: Nicotine 21 MG PATCH TD SCH (15:33)
[2017-08-04] MEDS: Vancomycin HCl 25 MG/ML Oral PO SCH ×4 (15:34→20:56)
[2017-08-04] MEDS: Ibuprofen 200 MG TAB PO PRN (20:55)
[2017-08-04] MEDS: ALPRAZolam 0.5 MG TAB PO SCH (20:55)
--- NOTE | 2017-08-04 21:00 | PRG ---
DATE OF SERVICE: 08/04/2017 SUBJECTIVE: The patient was seen and examined with evidence of fluid overload and noted with the fol lowing vital signs. OBJECTIVE: VITAL SIGNS: Afebrile with temperature 97.6, pulse 93, respiratory rate 16, O2 sat 95%, blood pressu re 93/63. HEENT: Unremarkable. CARDIOVASCULAR SYSTEM: First and second heart sounds were heard. RESPIRATORY SYSTEM: Reveal some bibasilar crackles. DIGESTIVE SYSTEM: Revealed a benign abdomen. EXTREMITIES: Showed some peripheral edema. IMPRESSION: 1. End-stage renal disease, hemodialysis dependent. 2. Hypervolemia. 3. Flu. PLAN: 1. The patient to be dialyzed today with ultrafiltration. 2. Further management to be dependent on the clinical course. From all indication, patient may bene fit from dialysis tomorrow prior to being discharged.
[2017-08-04] MEDS: Ondansetron ODT 4 MG TAB PO PRN (21:06)
[2017-08-05 05:53] LABS: Hemoglobin 12.2 g/dL (12.0-16.0); Platelet Count 143 thou/uL (130-400)
[2017-08-05] MEDS: Vancomycin HCl 25 MG/ML Oral PO SCH ×4 (09:33→20:40)
[2017-08-05] MEDS: Cholestyramine/Aspartame 4 gm Packet PO SCH ×2 (09:34→20:39)
[2017-08-05] MEDS: levETIRAcetam 500 MG TAB PO SCH ×2 (09:35→20:40)
[2017-08-05] MEDS: guaiFENesin ER 600 MG TAB PO SCH ×2 (09:36→20:39)
[2017-08-05] MEDS: Docusate 100 MG CAP PO SCH ×2 (09:36→20:39)
[2017-08-05] MEDS: Apixaban 5 MG TAB PO SCH ×2 (09:36→20:39)
[2017-08-05] MEDS: Cyclobenzaprine 10 MG TAB PO SCH ×2 (09:36→20:39)
[2017-08-05] MEDS: Folic Acid/Vit B Comp W-C PO SCH (09:36)
[2017-08-05] MEDS: Aspirin 81 mg Enteric Coated Tablet PO SCH (09:36)
[2017-08-05] MEDS: Nicotine 21 MG PATCH TD SCH (09:39)
[2017-08-05] MEDS: Heparin 5,000 UNITS/ML VIAL SC SCH ×3 (09:39→20:39)
--- NOTE | 2017-08-05 17:43 | PDOC.PN ---
- Subjective Encounter Start Date: 08/05/17 Encounter Start Time: 17:41 Subjective: post HD, dizzy, BP 82/54 - Objective MAR Reviewed: Yes Vital Signs & Weight: Vital Signs (12 hours) Temp Pulse Resp BP BP Pulse Ox 08/05/17 15:25 97.7 F 82 16 96 08/05/17 12:10 97.6 F 90 18 103/64 92 L 08/05/17 07:10 97.8 F 93 16 97 08/05/17 07:07 97.8 F 93 16 92/61 97 Weight Admit Weight 190 lb 6.4 oz Weight 197 lb I&O: 08/04/17 08/05/17 08/06/17 06:59 06:59 06:59 Intake Total 1690 1200 480 Output Total 3600 4000 Balance -1910 -2800 480 Result Diagrams: 08/05/17 05:13 08/05/17 05:13 Phys Exam - Physical Examination Constitutional: NAD Neck: no JVD Respiratory: clear to auscultation bilateral Cardiovascular: RRR, no significant murmur Gastrointestinal: soft, non-tender, positive bowel sounds Musculoskeletal: edema present Dx/Plan (1) Atrial fibrillation with RVR Code(s): I48.91 - UNSPECIFIED ATRIAL FIBRILLATION Status: Acute (2) Cough Code(s): R05 - COUGH Status: Acute (3) Demand ischemia Code(s): I24.8 - OTHER FORMS OF ACUTE ISCHEMIC HEART DISEASE Status: Acute (4) Anxiety and depression Code(s): F41.8 - OTHER SPECIFIED ANXIETY DISORDERS Status: Chronic (5) Diastolic CHF, chronic Code(s): I50.32 - CHRONIC DIASTOLIC (CONGESTIVE) HEART FAILURE Status: Chronic (6) End stage renal disease on dialysis Code(s): N18.6 - END STAGE RENAL DISEASE; Z99.2 - DEPENDENCE ON RENAL DIALYSIS Status: Chronic (7) Hyperlipidemia Code(s): E78.5 - HYPERLIPIDEMIA, UNSPECIFIED Status: Chronic (8) Seizure disorder Code(s): G40.909 - EPILEPSY, UNSP, NOT INTRACTABLE, WITHOUT STATUS EPILEPTICUS Status: Chronic Comment: Continue Keppra 500mg BID - Plan hold disharge, cont current meds, recheck in am * .
--- NOTE | 2017-08-05 18:57 | DIS ---
DATE OF ADMISSION: 07/24/2017 DATE OF DISCHARGE: 08/05/2017 PRIMARY CARE PROVIDER: Bibiana Almanzar M.D. MOTOR EXPERT: Dr. Zeferino Matthew. DIAGNOSES: End-stage renal disease, volume overload, non-ST elevation myocardial infarction, essenti al hypertension, chest pain, atrial fibrillation with rapid ventricular response, history of Clostrid ium difficile diarrhea, anxiety depression, gastroesophageal reflux disease, dyslipidemia, seizure di sorder. DISCHARGE MEDICATIONS: Vancomycin 250 mg p.o. q.i.d., tramadol 50-100 mg p.o. q.6 h. p.r.n., Keppra 500 mg p.o. b.i.d., Ambien 5 mg at bedtime p.r.n., Zoloft 25 mg in the morning, omeprazole 40 mg a da y, digoxin 125 mcg a day, Questran Light 4 mg twice a day, alprazolam 1 mg in evening as needed, aspi rin 81 mg a day, Eliquis 5 mg twice a day. ALLERGIES: Adverse reaction to CEFAZOLIN, CODEINE, CLINDAMYCIN, IODINE, IV CONTRAST, DILANTIN. CODE STATUS: FULL. PENDING AT THE TIME OF DISCHARGE: Nothing. HOSPITAL COURSE: The patient admitted to the [facility] Service through [facility], initially presented with chest pain and atrial fibrillation with rapid ventricular respon se. Dr. Juliana Valles was consulted. Echocardiogram revealed EF of 65% to 70%. Atrial fibrillation was well controlled with Multaq and Eliquis. EP was consulted for possible ablation. The patient u nderwent a cardiac catheterization on 07/24/2017. The patient was seen in consultation by her nephro logist, Dr. Zeferino Matthew for hemodialysis. Initially, her chest x-ray revealed borderline car diomegaly with post-median sternotomy surgery changes. She was seen in consultation by Dr. Valdes To . Multaq was discontinued. During the past week, she has had daily hemodialysis with marked resol ution of her posterior rales, which is 3 days ago extended to the upper chest, marked diminishing ove r 3+ pedal edema, marked decreased shortness of breath. Current vital signs, blood pressure 103/64, O2 sat was 96 on room air today, respiratory rate 16. Laboratory on 08/02/2017, white count was 7.9. Her hemoglobin has been checked with dialysis daily units 13+ or minus 0.8. Her last electrolytes were normal. With this, potassium 4.5, BUN of 44, creatinine 6.76. Her digoxin level was 0.5. She is currently doing well, ambulating and got to the room without oxygen. She states she is ready to g o home. Other laboratory done during her hospital stay included troponins of 0.094 on 07/24/2017. F ollow up 1.09 and follow up 3.0. The patient is currently not having any chest pains. She has been discharged followup with her PCP in 1 week. Follow up with her assembler rubber footwear at hemodialysis. She is to keep her Thursday, , and Thursday hemodialysis appointments.
[2017-08-05] MEDS: ALPRAZolam 0.5 MG TAB PO SCH (20:39)
[2017-08-06] MEDS: Ibuprofen 200 MG TAB PO PRN (01:55)
[2017-08-06] MEDS: Cepastat Lozenges 1 LOZ PO PRN (02:03)
--- NOTE | 2017-08-06 02:57 | PRG ---
DATE OF SERVICE: 08/05/2017 SUBJECTIVE: The patient was seen and examined today and seems to still be showing evidence of fluid overload despite literally daily dialysis. The patient noted to be very low in terms of hemodynamics . Therefore, arrangement is being made to dialyze this patient today prior to discharge. PAST MEDICAL HISTORY: 1. End-stage renal disease who is hemodialysis dependent. 2. Obesity. 3. Hypertension. PLAN: 1. The patient to continue with current medications. 2. Further management to be dependent on the clinical course.
[2017-08-06 09:38] LABS: HBSAg Index 0.26 S/CO (0-0.99); Hep B Surf Ag Non-Reactive S/CO (NonReactive)
[2017-08-06] MEDS: Vancomycin HCl 25 MG/ML Oral PO SCH ×3 (09:42→17:41)
[2017-08-06] MEDS: Apixaban 5 MG TAB PO SCH (11:40)
[2017-08-06] MEDS: Cholestyramine/Aspartame 4 gm Packet PO SCH (11:40)
[2017-08-06] MEDS: Cyclobenzaprine 10 MG TAB PO SCH (11:40)
[2017-08-06] MEDS: Aspirin 81 mg Enteric Coated Tablet PO SCH (11:40)
[2017-08-06] MEDS: Folic Acid/Vit B Comp W-C PO SCH (11:41)
[2017-08-06] MEDS: guaiFENesin ER 600 MG TAB PO SCH (11:41)
[2017-08-06] MEDS: Heparin 5,000 UNITS/ML VIAL SC SCH ×2 (11:42→14:01)
[2017-08-06] MEDS: levETIRAcetam 500 MG TAB PO SCH (11:42)
[2017-08-06] MEDS: Nicotine 21 MG PATCH TD SCH (11:45)
[2017-08-06] MEDS: Docusate 100 MG CAP PO SCH (11:45)
[2017-08-06 14:44] VITALS: BMI 32.4
--- NOTE | 2017-08-06 14:58 | ADD-DIS ---
DATE OF ADMISSION: 07/24/2017 DATE OF DISCHARGE: 08/06/2017 DISPOSITION: Discharged home. PRIMARY CARE PROVIDER: Dr. Flores. All of the discharge summary applies except post-dialysis on 08/05/2017, she had an 82/47 blood pres sure, was dizzy arising. Her discharge was held. She underwent a light dialysis today. Currently h er O2 saturation is 93 on room air, blood pressure is 95/57 systolic. I have discussed this with Dr. Mcgarry, Nephrology, and he states that is where she lives her usual blood pressure is in that ra nge. She is being discharged home to continue her Thursday, , and Thursday hemodialysis to fo llow up with her PCP in 1 week. All other information in the discharge summary of 08/05/2017 applies .
[2017-08-06 16:19] VITALS: BP 86/50; TEMP 97.6
--- NOTE | 2017-08-06 17:31 | ADD-DIS ---
DATE OF ADMISSION: 07/24/2017 DATE OF DISCHARGE: 08/06/2017 ADDENDUM PRIMARY CARE PROVIDER: Bibiana Almanzar M.D. DIAGNOSES: End-stage renal disease, volume overload, demand ischemia, essential hypertension, chest pain, atrial fibrillation with rapid ventricular response, history of Clostridium difficile diarrhea, anxiety, depression, gastroesophageal reflux disease, seizure disorder, dyslipidemia. DISCHARGE MEDICATIONS: Vancomycin 250 p.o. q.i.d., tramadol 50-100 mg p.o. q.6 hours p.r.n., Keppra 500 mg p.o. b.i.d., Ambien 5 mg at bedtime, Zoloft 25 mg in the morning, omeprazole 40 mg a day, digo erasmo 125 mcg a day, Questran Light 4 mg twice a day, alprazolam 1 mg in the evening as needed, aspirin 81 mg a day, Eliquis 5 mg a day. MEDICATION DISCONTINUED DURING HER HOSPITALIZATION: Multaq by Cardiology. ADVERSE REACTIONS: CEFAZOLIN, CODEINE, CLINDAMYCIN IV CONTRAST, DILANTIN. CODE STATUS: FULL. PENDING AT THE TIME OF DISCHARGE: Nothing. HOSPITAL COURSE: The patient admitted to the [facility] [place] Service through [facility]. Initially presented with chest pain and atrial fibrillation with rapid ventricular respo nse. Dr. Juliana Valles was consulted. Echocardiogram revealed EF of 65-70%. EP was consulted for a n ablation. The patient underwent cardiac catheterization 07/24/2017. Patient was seen in consultat ion by section cutter, Dr. Vipul Mcgarry for hemodialysis. She was seen in consultation by Dr. Elias Aleman, Electrophysiology. At this point, the Multaq was discontinued. The patient had marked f or volume overload with rales to upper chest, 3+ pitting edema. She underwent daily hemodialysis wit h marked resolution of her edema and rales in her chest. Her initial chest x-ray revealed only a lef t pleural effusion with some atelectasis and fluid in the left lung, also showed post-median sternoto my changes. Her final chest x-ray on 08/02/2017 revealed sternotomy changes, improved aeration, stil l fixed scarring in the left lower lung field. Her chest is now absent of the rales previously heard . On 08/03/2017, blood pressure is running 95 systolic. I have discussed this with Dr. Zeferino clancy, her section cutter. Follow up will be at hemodialysis Thursday, , and Thursday. Melo w up with primary care provider, Dr. Bibiana Almanzar 1 week. Follow up with Dr. Mcgarry per his di rections. She is on 1500 mL fluid restriction and high protein renal diet. Echocardiogram revealed 65%-70% EF with dilated left atrium consistent with her atrial fibrillation.
[2017-08-06] MEDS ORDERED: Sodium Chloride 0.9% 1,000 ML IV SCH (18:00)
--- NOTE | 2017-08-07 06:23 | PRG ---
DATE OF SERVICE: 08/06/2017 SUBJECTIVE: The patient was seen and examined at dialysis . OBJECTIVE: VITAL SIGNS: Blood pressure 93/54. HEENT: Unremarkable. CARDIOVASCULAR SYSTEM: First and second heart sounds were heard. RESPIRATORY SYSTEM: Clear to auscu ltation. DIGESTIVE SYSTEM: Revealed a benign abdomen with positive bowel sounds. EXTREMITIES: Showed improved peripheral edema. NEUROLOGIC: Alert, no lateralizing sign. IMPRESSION: 1. End-stage renal disease on hemodialysis. 2. Atrial fibrillation with rapid ventricular response hemodynamics. PLAN: 1. We will continue hemodialysis per schedule. 2. Further manangement will be dependent on the clinical course.
== END 2017-08-06 19:40 | disposition home or self-care (01) | DRG 280 ==
LOC: ERS 00:22 → IMCU/EMU 06:25 → 2NO 07-27 22:01
PROVIDERS: ADMIT Family Medicine; ATTEND Family Medicine
PROC: 4A023N7 Measurement of Cardiac Sampling and Pressure, Left Heart, Percutaneous Approach (ICD-10-PCS; principal; 2017-07-25)
PROC: B2111ZZ Fluoroscopy of Multiple Coronary Arteries using Low Osmolar Contrast (ICD-10-PCS; 2017-07-25)
PROC: B2151ZZ Fluoroscopy of Left Heart using Low Osmolar Contrast (ICD-10-PCS; 2017-07-25)
PROC: 5A1D70Z Performance of Urinary Filtration, Intermittent, Less than 6 Hours Per Day (ICD-10-PCS; 2017-07-25)
DX: I21.4 Non-ST elevation (NSTEMI) myocardial infarction (principal); N18.6 End stage renal disease; I13.2 Hypertensive heart and chronic kidney disease with heart failure and with stage 5 chronic kidney disease, or end stage renal disease; I95.9 Hypotension, unspecified; I50.32 Chronic diastolic (congestive) heart failure; T81.89XA Other complications of procedures, not elsewhere classified, initial encounter; I48.2 Chronic atrial fibrillation; I73.9 Peripheral vascular disease, unspecified; G62.9 Polyneuropathy, unspecified; F17.210 Nicotine dependence, cigarettes, uncomplicated; Z99.2 Dependence on renal dialysis; G40.909 Epilepsy, unspecified, not intractable, without status epilepticus; E66.9 Obesity, unspecified; J11.1 Influenza due to unidentified influenza virus with other respiratory manifestations; F41.8 Other specified anxiety disorders; R59.1 Generalized enlarged lymph nodes; Y83.8 Other surgical procedures as the cause of abnormal reaction of the patient, or of later complication, without mention of misadventure at the time of the procedure; K21.9 Gastro-esophageal reflux disease without esophagitis; E78.5 Hyperlipidemia, unspecified; Z79.01 Long term (current) use of anticoagulants; Z68.30 Body mass index [BMI] 30.0-30.9, adult
CPT/HCPCS: 36415; 70491; 71010; 71045; 71046; 71275; 76942; 80048; 80162; 82553; 82565; 84484; 85014; 85018; 85025; 85048; 85049; 85730; 87081; 87340; 87430; 90935; 93005; 93306; 93458; 93798; 94640; 96361; 96374; 96375; 96376; 99152; 99153; A4216; C1769; G0257; J1160; J1200; J1644; J2250; J2930; J3010; Q0162

== ENCOUNTER 2017-09-10 17:14 | Emergency (ER) | payer MEDICARE, MEDICAID ==
[2017-09-10 17:55] LABS: Hemoglobin 13.7 g/dL (12.0-16.0); Mean Corpuscular HGB CONC 30.6 g/dL (32.0-36.0); Mean Corpuscular Hemoglobin 30.4 pg (27.0-31.0); Mean Corpuscular Volume 99.3 fl (81.0-99.0); Mean Platelet Volume 7.1 fL (7.4-10.4); Platelet Count 96 thou/uL (130-400); RBC Distribution Width 21.6 % (11.5-14.5); White Blood Cell (WBC) Count 5.4 thou/uL (4.8-10.8)
[2017-09-10 18:19] LABS: CKMB 1.4 ng/mL (0-6.6); Troponin I 0.222 ng/mL (< 0.028)
[2017-09-10 18:20] LABS: ALT (SGPT) 16 U/L (8-55); AST (SGOT) 26 U/L (5-34); Albumin 3.9 g/dL (3.5-5.0); Alkaline Phosphatase 111 U/L (40-150); Anion Gap 21 mmol/L (10-20); BUN (Urea Nitrogen) 32 mg/dL (7.0-18.7); Bilirubin, Total 1.1 mg/dL (0.2-1.2); Calc. Creatinine Clearance 0 mL/min (70-130); Calcium 8.5 mg/dL (7.8-10.44); Carbon Dioxide 23 mmol/L (22-29); Chloride 97 mmol/L (98-107); Estimated GFR-MDRD 6; Globulin 3.4 g/dL (2.4-3.5); Glucose 113 mg/dL (70-105); Potassium 4.1 mmol/L (3.5-5.1); Protein, Total 7.3 g/dL (6.0-8.3); Sodium 137 mmol/L (136-145)
[2017-09-10 18:24] LABS: Anisocytosis SLIGHT = 6-15 cells (100X) (0-5/hpf); Band 3 % (5-11); Large Platelets SLIGHT; Lymphocytes 10 % (21-51); MDiff Complete? YES; Metamyelocyte 1 % (0-0); Monocytes 8 % (0-10); Neutrophil 74 % (42-75); Nucleated RBC 2 % (0); PLT Morphology Comment Appears Decreased; Reactive Lymphocytes 4 % (0-10)
--- NOTE | 2017-09-10 18:34 | RAD ---
PORTABLE AP CHEST X-RAY 09/10/17 HISTORY: Chest pain for two days. Cough and swelling to the left leg. Fever last night. COMPARISON: 07/24/17. FINDINGS: Postsurgical changes related to median sternotomy are noted. A vascular stent again overlies the uppe r mediastinum in expected location of the innominate vein extending into the expected location of the SVC. Cardiac silhouette remains enlarged. Pleural based density at the left lung base is again seen, this was also seen on a prior study of 05/04/16 and may be related to either persistent left pleural effusion or pleural and parenchymal scarring. Right lung is clear. Pulmonary vasculature is within no rmal limits. Vascular calcifications are seen in the thoracic aorta. IMPRESSION: 1. Stable chest without evidence of an acute cardiopulmonary process. 2. Cardiomegaly. 3. Pleural and parenchymal changes left lung base which may be related to either persistent left pleural and atelectasis versus pleural and parenchymal scarring. POS: [facility]
[2017-09-10] MEDS ORDERED: HYDROcodone/Acetaminophen 5/325 mg Tablet ONE (19:10)
--- NOTE | 2017-10-03 19:55 | EKG ---
Test Reason : Blood Pressure : / mmHG Vent. Rate : 089 BPM Atrial Rate : 163 BPM P-R Int : 000 ms QRS Dur : 094 ms QT Int : 390 ms P-R-T Axes : 000 213 138 degrees QTc Int : 474 ms Atrial fibrillation Right superior axis deviation Incomplete right bundle branch block Right ventricular hypertrophy Anteroseptal infarct , age undetermined Abnormal ECG Confirmed by ALBINA GOMEZ ([id number]), digital editor HERSON GARZA ([id number]) on 10/03/2017 7:54:54 PM Referred By: Confirmed By:ALBINA GOMEZ
== END 2017-09-10 19:20 | disposition home or self-care (01) ==
LOC: ERS 17:14
DX: I12.0 Hypertensive chronic kidney disease with stage 5 chronic kidney disease or end stage renal disease (principal); N18.6 End stage renal disease; I96 Gangrene, not elsewhere classified; I48.91 Unspecified atrial fibrillation; F41.9 Anxiety disorder, unspecified; F17.210 Nicotine dependence, cigarettes, uncomplicated; Z99.2 Dependence on renal dialysis; Z79.899 Other long term (current) drug therapy
CPT/HCPCS: 71045; 80053; 82553; 84484; 85025; 87804; 93005

== ENCOUNTER 2017-09-13 22:00 | Inpatient (IN) | payer MEDICARE, MEDICAID ==
[2017-09-13 22:55] LABS: INR-International Normal Ratio 1.3; PTT 37.9 SEC (22.9-36.1)
[2017-09-13 23:05] LABS: Hemoglobin 13.7 g/dL (12.0-16.0); Mean Corpuscular HGB CONC 30.1 g/dL (32.0-36.0); Mean Corpuscular Hemoglobin 29.7 pg (27.0-31.0); Mean Corpuscular Volume 98.5 fl (81.0-99.0); Mean Platelet Volume 11.3 fL (7.4-10.4); Platelet Count 114 thou/uL (130-400); Red Blood Cell (RBC) Count 4.62 mill/uL (4.20-5.40); White Blood Cell (WBC) Count 5.1 thou/uL (4.8-10.8)
[2017-09-13 23:09] LABS: Anion Gap 21 mmol/L (10-20); BUN (Urea Nitrogen) 28 mg/dL (7.0-18.7); Calc. Creatinine Clearance 0 mL/min (70-130); Carbon Dioxide 27 mmol/L (22-29); Chloride 96 mmol/L (98-107); Estimated GFR-MDRD 6; Potassium 4.2 mmol/L (3.5-5.1); Sodium 140 mmol/L (136-145)
[2017-09-13 23:10] LABS: ALT (SGPT) 21 U/L (8-55); AST (SGOT) 39 U/L (5-34); Albumin 4.1 g/dL (3.5-5.0); Alkaline Phosphatase 115 U/L (40-150); Bilirubin, Total 1.1 mg/dL (0.2-1.2); CK (CPK) 87 U/L (29-168); Globulin 3.9 g/dL (2.4-3.5); Glucose 89 mg/dL (70-105); Lipase 34 U/L (8-78)
--- NOTE | 2017-09-13 23:11 | RAD ---
FRONTAL VIEW CHEST: Comparison: 09-10-17 Indication: Cough. FINDINGS: There is enlargement of the cardiac silhouette. Left sided pleural effusion is present, mild. There i s vascular congestion and pulmonary edema. No additional significant interval change. IMPRESSION: Decompensated CHF with pulmonary edema and mild left pleural fluid. POS: [facility]
[2017-09-13 23:13] LABS: Troponin I 0.297 ng/mL (< 0.028)
[2017-09-13 23:15] LABS: #Lymphocytes 1.3 thou/uL (1.20-3.40); #Monocytes 0.6 thou/uL (0.11-0.59); #Neutrophils 3.1 thou/uL (1.40-6.50); %Basophils 0.8 % (0.0-1.0); %Eosinophils 0.9 % (0.0-10.0); %Lymphocytes 24.5 % (21.0-51.0); %Monocytes 12.3 % (0.0-10.0); %Neutrophils 61.4 % (42.0-75.0); PLT Morphology Comment Appears Decreased
[2017-09-14] MEDS ORDERED: Acetaminophen 500 MG TAB ONE (00:13)
[2017-09-14] MEDS ORDERED: Fentanyl 100 MCG/2 ML VIAL ONE (00:13)
[2017-09-14] MEDS ORDERED: Acetaminophen 325 MG TAB PO PRN (01:38)
[2017-09-14] MEDS ORDERED: Digoxin 0.125 MG TAB PO PRN (01:57)
[2017-09-14 02:38] VITALS: BMI 28.5
[2017-09-14 02:44] LABS: Lactic Acid 1.9 mmol/L (0.5-2.2)
--- NOTE | 2017-09-14 03:20 | HP ---
CHIEF COMPLAINT: Shortness of breath. HISTORY OF PRESENT ILLNESS: Patient is a 41-year-old female who presents with worsening shortness of breath for the last several days. Patient also complaining of some coughing and fever. Otherwise, she is a hemodialysis patient and dialyzes 3 times a week. Last dialysis was yesterday. PAST MEDICAL HISTORY: Patient is significant for end-stage renal disease, hypertension, atrial fibri llation, history of aortic dissection, and seizure disorder. PAST SURGICAL HISTORY: Patient has had prior colostomy, peritoneal shunt removal, cholecystectomy, C -section x2. Left upper extremity dialysis shunt placement and tubal ligation as well as thyroidecto my. SOCIAL HISTORY: Negative tobacco or alcohol use. ALLERGIES: Patient allergic to CLINDAMYCIN, CODEINE, ANCEF, DILANTIN, HYDROCODONE, IODINE. LABORATORY AND X-RAY DATA: CBC: White count is 5.1, H&H 13 and 45 with platelet 114. PT was 16, IN R is 1.3, PTT was 37. Sodium is 140, potassium 4.2, chloride 96, bicarbonate 27, BUN 28, creatinine 8.9. Patient's chest x-ray shows left-sided effusion along with what appears to be venous congestion and pulmonary edema. PHYSICAL EXAMINATION: VITAL SIGNS: Blood pressure 94/57, pulse 81, respirations 20. Patient satting 92% on 2 liters, T-ma x is 100.4. GENERAL: Patient is awake, alert, and oriented x3, no acute distress. HEENT: Pupils are equal, round, reactive to light and accommodation. Extraocular muscles intact. T Ms clear. No erythema in throat. NECK: No JVD, no lymphadenopathy. CARDIOVASCULAR: Regular rate and rhythm. LUNGS: Clear to auscultation bilaterally. ABDOMEN: Positive bowel sounds. Soft, nontender, nondistended. EXTREMITIES: No clubbing, cyanosis, or edema. NEUROLOGIC: Cranial nerves II-XII are grossly intact. PSYCHIATRIC: Patient is cooperative and answers questions appropriately. ASSESSMENT AND PLAN: 1. Shortness of breath. Patient did get antibiotics in the ER; however, a chest x-ray would point m ore towards volume overload. Patient does relate that she thinks that she is over her dry weight, ev en though she is told that she is diuresed enough during dialysis. Nephrology consulted and we will wait for them to decide whether to do further dialysis to take fluid off this patient. 2. Seizure disorder. Continue Keppra. 3. Atrial fibrillation. Continue patient on outpatient anticoagulation and rate control. CODE STATUS: Patient is FULL CODE.
[2017-09-14] MEDS: Ondansetron HCl/PF 4 MG/2 ML Vial IVP PRN ×2 (05:32→12:55)
--- NOTE | 2017-09-14 08:26 | PDOC.PN ---
- Subjective Encounter Start Date: 09/14/17 Encounter Start Time: 08:24 Subjective: sob comes and goes - Objective Resuscitation Status: Resuscitation Status FULL:Full Resuscitation MAR Reviewed: Yes Vital Signs & Weight: Vital Signs (12 hours) Temp Pulse Resp Pulse Ox 09/14/17 04:00 98.2 F 09/14/17 02:22 97 09/14/17 02:00 98.1 F 78 25 H 98 Most Recent Monitor Data Heart Rate from ECG 82 NIBP 100/66 NIBP BP-Mean 77 Respiration from ECG 18 SpO2 100 I&O: 09/13/17 09/14/17 09/15/17 06:59 06:59 06:59 Intake Total 0 Output Total 0 0 Balance 0 0 Result Diagrams: 09/13/17 22:37 09/13/17 22:37 Phys Exam - Physical Examination Constitutional: NAD Neck: no JVD coarse with rhonchi Cardiovascular: irregular Gastrointestinal: soft, positive bowel sounds superfiscial ulcers on lower legs Dx/Plan (1) Dyspnea Code(s): R06.00 - DYSPNEA, UNSPECIFIED Status: Acute (2) Diastolic CHF, chronic Code(s): I50.32 - CHRONIC DIASTOLIC (CONGESTIVE) HEART FAILURE Status: Chronic (3) End stage renal disease on dialysis Code(s): N18.6 - END STAGE RENAL DISEASE; Z99.2 - DEPENDENCE ON RENAL DIALYSIS Status: Chronic (4) GERD (gastroesophageal reflux disease) Code(s): K21.9 - GASTRO-ESOPHAGEAL REFLUX DISEASE WITHOUT ESOPHAGITIS Status: Chronic (5) Hyperlipidemia Code(s): E78.5 - HYPERLIPIDEMIA, UNSPECIFIED Status: Chronic (6) Paroxysmal a-fib Code(s): I48.0 - PAROXYSMAL ATRIAL FIBRILLATION Status: Chronic (7) Seizure disorder Code(s): G40.909 - EPILEPSY, UNSP, NOT INTRACTABLE, WITHOUT STATUS EPILEPTICUS Status: Chronic Comment: Continue Keppra 500mg BID (8) Pulmonary HTN Code(s): I27.20 - PULMONARY HYPERTENSION, UNSPECIFIED Status: Acute (9) CAD (coronary artery disease) Code(s): I25.10 - ATHSCL HEART DISEASE OF [place] CORONARY ARTERY W/O ANG PCTRS Status: Acute Qualifiers: Coronary Disease-Associated Artery/Lesion type: [place] artery [place] vs. transplanted heart: [place] heart Associated angina: without angina Qualified Code(s): I25.10 - Atherosclerotic heart disease of [place] coronary artery without angina pectoris (10) Lactic acidosis Code(s): E87.2 - ACIDOSIS Status: Resolved - Plan discuss with nephrology -: consult Dr Guardado -: cont current meds -: nebs, po antibx * .
[2017-09-14] MEDS: levETIRAcetam 500 MG TAB PO SCH ×2 (09:02→21:27)
[2017-09-14] MEDS: Apixaban 5 MG TAB PO SCH ×2 (09:02→21:27)
[2017-09-14] MEDS: Doxycycline 100 MG CAP PO SCH ×3 (09:02→21:27)
[2017-09-14] MEDS: Aspirin 81 mg Enteric Coated Tablet PO SCH (09:03)
--- NOTE | 2017-09-14 09:22 | CON ---
DATE OF CONSULTATION: 09/14/2017 CONSULTING PHYSICIAN: Hospitalist group. REASON FOR CONSULTATION: Shortness of breath and cough. HISTORY OF PRESENT ILLNESS: This is a 41-year-old female who has previously seen Dr. Gillis in our pr actice. She has a cousin by the identical name who also comes to the hospital frequently. The patient presented last night with a cough that had been present for the last 3 days. She was ini tially written to go to the Intermediate Care Unit, but because of lack of beds she was placed in the CCU. She is doing well at this time and has no acute complaints and feels better. PAST MEDICAL HISTORY: 1. End-stage renal disease requiring 3 times weekly dialysis - last dialyzed on Thursday. 2. Hypertension. 3. Chronic atrial fibrillation. 4. Aortic dissection. 5. Seizure disorder. 6. Colostomy. 7. Peritoneal shunt removal. 8. Cholecystectomy. 9. x2. 10. Left upper extremity dialysis shunt placement. 11. Tubal ligation. 12. Thyroidectomy. SOCIAL HISTORY: She does not smoke, does not consume alcohol. ALLERGIES: CLINDAMYCIN, CODEINE, ANCEF, DILANTIN, HYDROCODONE, IODINE. MEDICATIONS PRIOR TO ADMISSION: Alprazolam 1 mg every night, Questran 4 grams b.i.d., aspirin 81 mg daily, Eliquis 5 mg b.i.d., Nephro-[place] one tablet daily, Multaq 400 mg b.i.d., digoxin 125 mg as ne eded, Flexeril 5 mg b.i.d., omeprazole 40 mg daily, Proctofoam as needed, vancomycin 250 mg 4 times d aily?, Zoloft 25 mg every morning, Zofran 4 mg every 6 hours as needed, Ambien 5 mg at night if neede d, hydrocodone 1-2 tablets 500/325 every 4 hours as needed for pain, Benadryl 25 mg every 6 hours as needed, tramadol 50 to 100 mg every 6 hours as needed, Keppra 500 mg b.i.d. 12. REVIEW OF SYSTEMS: Ten point review of systems otherwise negative. PHYSICAL EXAMINATION: VITAL SIGNS: Temperature 97.8, pulse 79, saturation 100% on 2 liters. GENERAL: The patient is awake, alert and in no distress. HEENT: Pupils react. Sclerae are anicteric. Oropharynx clear. NECK: No JVD. LUNGS: Clear to auscultation. No wheezing or rhonchi. CARDIAC: S1, S2 regular, without murmur. ABDOMEN: Soft, protuberant. EXTREMITIES: Somewhat diminished pulses in her left foot. She has a dialysis shunt in her left uppe r arm. Chest x-ray shows cardiomegaly. This was reviewed by myself personally. LABORATORY DATA: White blood cell count 5.1, hematocrit 45.5, platelet count 114. INR 1.3, sodium 1 40, potassium 4.2, chloride 96, CO2 27, BUN 20, creatinine 8.9, glucose 89. ASSESSMENT: Increased cough and perhaps somewhat fluid overloaded - does not seem to be anything cri tical at this time. RECOMMENDATIONS: I would consult her hand turner and get her moved out to the telemetry unit. She may need to move upper dialysis by a day. She is currently on oral doxycycline, which should cover a ny component of bronchitis. I do not think she has pneumonia. We will be happy to follow with you. I will inform Dr. Gillis of the patient's hospitalization.
[2017-09-14] MEDS ORDERED: Hydrocortisone/Pramoxine (Proctofoam HC) 10 GM BOX PR PRN (12:06)
[2017-09-14] MEDS ORDERED: Gabapentin 300 MG CAP PO PRN (20:29)
[2017-09-14] MEDS: ALPRAZolam 1 MG TAB PO SCH (21:27)
[2017-09-14] MEDS: HYDROcodone/Acetaminophen 5/325 mg Tablet PO PRN (21:27)
[2017-09-14] MEDS: diphenhydrAMINE 25 MG CAP PO PRN (21:28)
[2017-09-14] MEDS: Zolpidem Tartrate 5 MG TAB PO PRN (23:23)
[2017-09-15] MEDS: HYDROcodone/Acetaminophen 5/325 mg Tablet PO PRN ×3 (04:54→21:20)
[2017-09-15] MEDS: diphenhydrAMINE 25 MG CAP PO PRN ×3 (04:54→21:21)
[2017-09-15 05:03] LABS: Hemoglobin 13.4 g/dL (12.0-16.0); Platelet Count 102 thou/uL (130-400)
[2017-09-15] MEDS: Aspirin 81 mg Enteric Coated Tablet PO SCH (08:52)
[2017-09-15] MEDS: Doxycycline 100 MG CAP PO SCH ×2 (08:52→21:20)
[2017-09-15] MEDS: levETIRAcetam 500 MG TAB PO SCH ×2 (08:52→21:20)
[2017-09-15] MEDS: Apixaban 5 MG TAB PO SCH ×2 (08:52→21:20)
--- NOTE | 2017-09-15 08:53 | CON ---
DATE OF CONSULTATION: 09/14/2017 HISTORY: Myriam Morris is a 41-year-old black female with history of end- stage renal disease, on dialysis. She also has had atrial fibrillation in the past and undergone cardioversion. She had atrial flutter ablation in 2011 and redo flutter ablation in 11/2014. She continued to have problems with difficult to control atrial fibrillation rate and was started on digoxin in July for rate control and started on Eliquis. With this, her rate seems to be fairly well controlled at this time. She denies any chest discomfort or palpitations. She now is admitted with increased shortness of breath and cough. She denies any fevers. PAST MEDICAL HISTORY: End-stage renal disease, on dialysis; history of aortic dissection with repair; chronic atrial fibrillation; hypertension; severe 3- vessel coronary artery disease very heavily calcified vessels, felt best to treat medically; seizure disorder. OPERATIONS: Prior colostomy, peritoneal shunt and removal, cholecystectomy, C- section, dialysis, AV shunt placement, tubal ligation, thyroidectomy, repair of leg fracture. MEDICATIONS: At home include alprazolam 1 mg q.p.m.; Eliquis 5 mg b.i.d.; aspirin 81 daily; Questran Light 4 g b.i.d.; Flexeril 5 b.i.d.; digoxin 0.125 mcg; Multaq 400 mg b.i.d., which she should be off of; Benadryl p.r.n.; hydrocodone p.r.n.; Keppra 500 mg b.i.d.; omeprazole 40 q.a.m.; Zoloft 25 q.a.m. ; tramadol 50-100 q.6 hours p.r.n.; vancomycin 250 q.i.d.; Ambien 5 mg p.o. at bedtime p.r.n. ALLERGIES: Include ANCEF, CODEINE, CLINDAMYCIN, IODINATED CONTRAST and PHENYTOIN. SOCIAL HISTORY: She does not smoke or drink. REVIEW OF SYSTEMS: Ten-point review of systems was otherwise unremarkable except for some abdominal pain at times. PHYSICAL EXAMINATION: VITAL SIGNS: Blood pressure 105/69, pulse of 85 and irregularly irregular. HEENT: PERRL. NECK: Supple. CHEST: Reveals occasional expiratory wheezing. CARDIOVASCULAR EXAMINATION: S1 and S2 are normal without any S3, S4, or murmurs. ABDOMEN: Normal bowel sounds without tenderness. EXTREMITIES: Reveal 2+ pretibial edema. NEUROLOGIC: Grossly intact. LABORATORY DATA: EKG reveals atrial fibrillation with nonspecific ST- and T- wave changes, incomplete right bundle branch block. Hemoglobin is 13.7, hematocrit 45.5, white count 5100, and platelets 114,000. INR is 1.3. Sodium 140, potassium 4.2, chloride 96, carbon dioxide 21, BUN 28, creatinine 8.98. BNP is 3008.8. Troponin I is 0.297. IMPRESSION: 1. Increased dyspnea. 2. Chronic diastolic heart failure with ejection fraction around 65% at catheterization. 3. Severe 3-vessel coronary artery disease with diffuse coronary artery calcifications, felt best for medical treatment. 4. End-stage renal disease, on dialysis. 5. Paroxysmal atrial fibrillation. 6. Hyperlipidemia. 7. Seizure disorder. 8. Left ventricular hypertrophy. 9. Pulmonary artery hypertension. On her last echocardiogram high tricuspid regurgitation volumes were not appreciated. However, on echocardiogram in the past, she has had right ventricular pressure of up to 71 mm. PLAN: Certainly aggressive dialysis with volume removal would be our best option; however, with her blood pressure, this will be difficult to achieve. She does have severe 3-vessel coronary artery disease and her long-term prognosis is poor. At the present time, her heart rate is well controlled, on digoxin alone. MTDD
--- NOTE | 2017-09-15 11:26 | CON ---
DATE OF CONSULTATION: 09/15/2017 HISTORY OF PRESENT ILLNESS: This is a 41-year-old with end-stage renal disease secondary to severe h ypertension. Her hypertension is no longer requiring treatment, but she does have chronic diastolic congestive heart failure with normal ejection fraction, severe three-vessel disease felt to be treate d best medically. She has a history of atrial fibrillation, dyslipidemia, seizure disorder, and pulm onary artery hypertension. PAST MEDICAL HISTORY: Aortic dissection in 2009 and the ascending aorta undergoing repair for that. PAST SURGICAL HISTORY: Otherwise significant for tubal ligation, cholecystectomy, repair of a left t ibial plateau fracture with subsequent infection of the hardware removal, prior parathyroidectomy. SOCIAL HISTORY: She is a nonsmoker. She lives with 2 children. She dialyzes Thursday, , and Thursday. PHYSICAL EXAMINATION: GENERAL: She is an alert, cooperative lady with a somewhat swollen face and head. NECK: No carotid bruits. LUNGS: Clear to auscultation anteriorly. CARDIAC: Irregularly irregular rhythm with no murmurs. ABDOMEN: Obese, nontender. EXTREMITIES: She has palpable femoral and popliteal pulses bilaterally as well as a right dorsalis p maria g pulse. She has absent pedal pulses in the left foot with a black second toe. She states that i t is painful. She has a Doppler signal in her left DP, PT and right DP, PT. Signals are better on t he right than the left. She has multiple small skin lesions on the lower legs, unknown etiology. krystin has a dressing over the left anterior tibial plateau area. I have reviewed a prior CTA from last spring, showing about 70% left common iliac artery stenosis. I suspect she has significant tibial disease bilaterally and I have suggested angiography. I have jia e over the procedure, risks, complications, and expectations, and informed consent has been obtained for tomorrow.
--- NOTE | 2017-09-15 12:57 | PRG ---
DATE OF SERVICE: 09/15/2017 VITAL SIGNS: She is afebrile, heart rate is 90, respiratory rate is 16, oximetry is 96 on 2 liters, blood pressure 93/60. LUNGS: Clear anteriorly. HEART: Regular rhythm. ABDOMEN: Soft. LABORATORY DATA: Hemoglobin is 13.4 grams. Sodium 140, potassium 4.2, chloride 96, bicarbonate 27, BUN 20, creatinine 8.98. IMPRESSION: 1. End-stage renal disease. 2. Hypertension. 3. Atrial fibrillation. 4. Volume related cough that has improved. Fluid removal seems to have helped, we will continue to follow as long as she is here.
--- NOTE | 2017-09-15 16:23 | PDOC.PN ---
- Subjective Encounter Start Date: 09/15/17 Encounter Start Time: 16:22 Subjective: less sob, 3 liters removed at HD - Objective Resuscitation Status: Resuscitation Status FULL:Full Resuscitation MAR Reviewed: Yes Vital Signs & Weight: Vital Signs (12 hours) Temp Pulse Resp BP Pulse Ox 09/15/17 11:13 98 F 91 20 93/60 09/15/17 08:00 98.4 F 90 16 93/60 96 09/15/17 07:19 82 18 94 L 09/15/17 07:00 98.5 F 09/15/17 05:00 98.4 F Most Recent Monitor Data Heart Rate from ECG 84 NIBP 93/67 NIBP BP-Mean 79 Respiration from ECG 26 SpO2 91 I&O: 09/14/17 09/15/17 09/16/17 06:59 06:59 06:59 Intake Total 1170 470 Output Total 0 0 0 Balance 0 1170 470 Result Diagrams: 09/15/17 04:17 09/15/17 04:17 Phys Exam - Physical Examination Neck: no JVD coarse BS with rhochi Cardiovascular: RRR, no significant murmur Gastrointestinal: soft, positive bowel sounds Musculoskeletal: edema present Dx/Plan (1) Dyspnea Code(s): R06.00 - DYSPNEA, UNSPECIFIED Status: Acute Qualifiers: Dyspnea type: shortness of breath Qualified Code(s): R06.02 - Shortness of breath; R06.00 - Dyspnea, unspecified; R06.01 - Orthopnea (2) Diastolic CHF, chronic Code(s): I50.32 - CHRONIC DIASTOLIC (CONGESTIVE) HEART FAILURE Status: Chronic (3) End stage renal disease on dialysis Code(s): N18.6 - END STAGE RENAL DISEASE; Z99.2 - DEPENDENCE ON RENAL DIALYSIS Status: Chronic (4) GERD (gastroesophageal reflux disease) Code(s): K21.9 - GASTRO-ESOPHAGEAL REFLUX DISEASE WITHOUT ESOPHAGITIS Status: Chronic (5) Hyperlipidemia Code(s): E78.5 - HYPERLIPIDEMIA, UNSPECIFIED Status: Chronic (6) Paroxysmal a-fib Code(s): I48.0 - PAROXYSMAL ATRIAL FIBRILLATION Status: Chronic (7) Seizure disorder Code(s): G40.909 - EPILEPSY, UNSP, NOT INTRACTABLE, WITHOUT STATUS EPILEPTICUS Status: Chronic Comment: Continue Keppra 500mg BID (8) Pulmonary HTN Code(s): I27.20 - PULMONARY HYPERTENSION, UNSPECIFIED Status: Acute (9) CAD (coronary artery disease) Code(s): I25.10 - ATHSCL HEART DISEASE OF [place] CORONARY ARTERY W/O ANG PCTRS Status: Acute Qualifiers: Coronary Disease-Associated Artery/Lesion type: [place] artery [place] vs. transplanted heart: [place] heart Associated angina: without angina Qualified Code(s): I25.10 - Atherosclerotic heart disease of [place] coronary artery without angina pectoris (10) Lactic acidosis Code(s): E87.2 - ACIDOSIS Status: Resolved - Plan cont HD, rpt CXR -: cont nebs doxycycline -: angio to evaluate PVD in am * .
--- NOTE | 2017-09-15 17:54 | RAD ---
PORTABLE UPRIGHT FRONTAL CHEST RADIOGRAPH 09/15/17 COMPARISON: 09/13/17 HISTORY: CHF . FINDINGS: Stable enlargement of the cardiac silhouette. Stable midline sternotomy wires and superior mediastina l vascular stent material. No pneumothorax is noted. Pulmonary vascular congestion noted, improved. T here is patchy left perihilar interstitial and alveolar opacity, slightly improved. There is a small stable left pleural effusion. Aeration in both lung bases has slightly improved since the prior exam. IMPRESSION: Findings suggesting improving pulmonary edema. Followup to full resolution advised. POS: ALEKSEY
[2017-09-15] MEDS: Benzonatate 100 MG CAP PO PRN (18:43)
--- NOTE | 2017-09-15 19:37 | CON ---
DATE OF CONSULTATION: 09/15/2017 CONSULTING PHYSICIAN: Zeferino Matthew M.D. REQUESTING PHYSICIAN: Garry Lowery M.D. REASON FOR CONSULTATION: Need for maintenance hemodialysis. IMPRESSION: 1. End-stage renal disease, hemodialysis dependent. 2. Hypervolemia in the context of fluid overload. PLAN: 1. The patient to be dialyzed in accordance with her schedule as there is no emergent indication for renal replacement therapy. The patient is to be dialyzed today with ultrafiltration as tolerated by hemodynamics. 2. Counseling on the need to stay compliant with fluid. HISTORY OF PRESENT ILLNESS: This is a 41-year-old female patient with end-stage renal disease, hemod ialysis dependent, Thursday, , and Thursday schedule, who presented here with shortness of nicky ath with imaging studies in keeping with hypervolemia. The need for continued hemodialysis and ultra filtration necessitated his renal consultation. PAST MEDICAL HISTORY: Significant for end-stage renal disease, hypertension, atrial fibrillation, ao rtic dissection, seizure disorder. MEDICATIONS: Reviewed and as documented on [employer]. ALLERGIES: CLINDAMYCIN, CODEINE, NSAIDs, DILANTIN, HYDROCODONE, IODINE. SOCIAL HISTORY: Significant for tobacco, but no alcohol or illicit drug use. REVIEW OF SYSTEMS: As documented in the body of the history. All the other systems were reviewed an d found not to be significantly related to the present illness. PHYSICAL EXAMINATION: GENERAL: The patient was found to be in some respiratory distress and noted with the following vital signs. VITAL SIGNS: Afebrile with temperature 98, pulse 91, respiratory rate of 20, blood pressure 93/60. HEENT: Unremarkable. CARDIOVASCULAR SYSTEM: First and second heart sounds were heard, irregular. RESPIRATORY SYSTEM: Reveals some rales. DIGESTIVE SYSTEM: Revealed benign abdomen with positive bowel sounds. EXTREMITIES: No significant peripheral edema. SKIN: No new gross rash. LYMPHATICS: No peripheral lymphadenopathy. SUMMARY: A 41-year-old female patient with end-stage renal disease, hemodialysis dependent, who pres ented here with shortness of breath. Thank you for this consultation. We will follow with you.
[2017-09-15] MEDS: ALPRAZolam 1 MG TAB PO SCH (21:20)
[2017-09-15] MEDS: Zolpidem Tartrate 5 MG TAB PO PRN (21:22)
[2017-09-16] MEDS ORDERED: Sodium Chloride 0.9% 500 ML IVPB SCH (04:00)
--- NOTE | 2017-09-16 07:27 | PDOC.PN ---
- Subjective Encounter Start Date: 09/16/17 Encounter Start Time: 07:25 Subjective: liteheaed during nite, received dolus NS, now up and about - Objective Resuscitation Status: Resuscitation Status FULL:Full Resuscitation MAR Reviewed: Yes Vital Signs & Weight: Vital Signs (12 hours) Temp Pulse Resp BP BP Pulse Ox 09/16/17 05:50 81 86/55 L 09/16/17 03:30 98.6 F 81 17 83/49 L 95 09/16/17 02:46 90 18 92 L 09/16/17 00:45 98.3 F 92 18 95/62 98 09/16/17 00:00 98.9 F 09/15/17 20:00 99.0 F 09/15/17 19:26 99.0 F 85 18 96 Most Recent Monitor Data Heart Rate from ECG 92 NIBP 105/68 NIBP BP-Mean 79 Respiration from ECG 27 SpO2 100 I&O: 09/15/17 09/16/17 09/17/17 06:59 06:59 06:59 Intake Total 1170 1030 Output Total 0 0 Balance 1170 1030 Result Diagrams: 09/15/17 04:17 09/15/17 04:17 Phys Exam - Physical Examination Neck: no JVD dull L base OW clear Cardiovascular: RRR, no significant murmur Gastrointestinal: soft, positive bowel sounds Musculoskeletal: edema present Dx/Plan (1) Dyspnea Code(s): R06.00 - DYSPNEA, UNSPECIFIED Status: Acute Qualifiers: Dyspnea type: shortness of breath Qualified Code(s): R06.02 - Shortness of breath; R06.00 - Dyspnea, unspecified; R06.01 - Orthopnea (2) Diastolic CHF, chronic Code(s): I50.32 - CHRONIC DIASTOLIC (CONGESTIVE) HEART FAILURE Status: Chronic (3) End stage renal disease on dialysis Code(s): N18.6 - END STAGE RENAL DISEASE; Z99.2 - DEPENDENCE ON RENAL DIALYSIS Status: Chronic (4) GERD (gastroesophageal reflux disease) Code(s): K21.9 - GASTRO-ESOPHAGEAL REFLUX DISEASE WITHOUT ESOPHAGITIS Status: Chronic (5) Hyperlipidemia Code(s): E78.5 - HYPERLIPIDEMIA, UNSPECIFIED Status: Chronic (6) Paroxysmal a-fib Code(s): I48.0 - PAROXYSMAL ATRIAL FIBRILLATION Status: Chronic (7) Seizure disorder Code(s): G40.909 - EPILEPSY, UNSP, NOT INTRACTABLE, WITHOUT STATUS EPILEPTICUS Status: Chronic Comment: Continue Keppra 500mg BID (8) Pulmonary HTN Code(s): I27.20 - PULMONARY HYPERTENSION, UNSPECIFIED Status: Acute (9) CAD (coronary artery disease) Code(s): I25.10 - ATHSCL HEART DISEASE OF [place] CORONARY ARTERY W/O ANG PCTRS Status: Acute Qualifiers: Coronary Disease-Associated Artery/Lesion type: [place] artery [place] vs. transplanted heart: [place] heart Associated angina: without angina Qualified Code(s): I25.10 - Atherosclerotic heart disease of [place] coronary artery without angina pectoris (10) Lactic acidosis Code(s): E87.2 - ACIDOSIS Status: Resolved - Plan cont HD per renal -: angios per CVS today -: close to baseline at this point -: rpt echo pending, suspect pul HTN * .
[2017-09-16] MEDS: Apixaban 5 MG TAB PO SCH (10:37)
[2017-09-16] MEDS: Aspirin 81 mg Enteric Coated Tablet PO SCH (10:37)
[2017-09-16] MEDS: Benzonatate 100 MG CAP PO PRN (10:38)
[2017-09-16] MEDS: Doxycycline 100 MG CAP PO SCH (10:38)
[2017-09-16] MEDS: levETIRAcetam 500 MG TAB PO SCH (10:38)
[2017-09-16] MEDS: HYDROcodone/Acetaminophen 5/325 mg Tablet PO PRN (12:09)
[2017-09-16] MEDS: Ondansetron HCl/PF 4 MG/2 ML Vial IVP PRN (12:09)
[2017-09-16] MEDS: diphenhydrAMINE 25 MG CAP PO PRN (12:12)
[2017-09-16 17:04] VITALS: BP 86/50; TEMP 98.4
--- NOTE | 2017-09-16 17:56 | DIS ---
DATE OF ADMISSION: DATE OF DISCHARGE: 09/16/2017 FINAL DIAGNOSES: Volume overload, end-stage renal disease on hemodialysis, essential hypertension, c oronary artery disease, atrial fibrillation, chronic anticoagulation with Eliquis, anxiety, depressio n; diastolic heart failure, acute on chronic; seizure disorder. DISCHARGE MEDICATIONS: Keppra 500 twice a day, Ambien 5 mg at bedtime p.r.n., Zoloft 25 mg a day, Zo [place] 4 mg oral dissolving tablet q.6 h. p.r.n., omeprazole 40 mg a day, Eliquis 5 mg twice a day, dox ycycline 100 mg twice a day for 7 days, hydrocodone 5/325 one or two tablets every 4 hours as needed for pain. ALLERGIES: NSAID, CODEINE, CLINDAMYCIN, DILANTIN, IODINATED CONTRAST. CODE STATUS: FULL. PENDING AT THE TIME OF DISCHARGE: Nothing. HOSPITAL COURSE: The patient was admitted to [facility] for worsening shortness of breath. Chest x-ray showed some left-sided effusion, some venous congestion. Laboratory was othe rwise unremarkable, chest x-ray. The patient underwent hemodialysis x2 while in the hospital. She c urrently has a clear chest exam. Vital signs were stable. She is being discharged home. She was sc heduled to have angiography of her legs; however, due to her Eliquis and IODINATED CONTRAST allergy, this has to be put off until next week. CONSULTATIONS IN THE HOSPITAL: Tyler Mejias M.D., Pulmonology; Sly Guardado M.D., Cardiology; Gabriel Pablo M.D., Cardiovascular Surgery. The patient is being discharged home. PROCEDURES: None. She will keep her Thursday, , and Thursday hemodialysis appointments start ing tomorrow, . She will see her PCP in follow up in 1 week. She is to call Dr. Pablo's off ice on Thursday about arranging angiography of her legs per plan.
--- NOTE | 2017-09-16 19:13 | PRG ---
DATE OF SERVICE: 09/16/2017 SUBJECTIVE: The patient is seen and examined, noted with the following vital signs. OBJECTIVE: VITAL SIGNS: Afebrile with temperature 98.6, pulse 81, respiratory rate 18, blood pressure 86/55, O2 saturation 95%. HEENT: Unremarkable with moist oral mucosa. Neck is supple. No conjunctival injection or icterus. CARDIOVASCULAR: First and second heart sounds were heard, irregular. RESPIRATORY: Clear to auscultation. DIGESTIVE: Revealed a benign abdomen. EXTREMITIES: No peripheral edema. SKIN: No new gross rash. LYMPHATICS: No peripheral lymphadenopathy. IMPRESSION: 1. End-stage renal disease, hemodialysis dependent. 2. Atrial fibrillation. 3. Labile hemodynamics. PLAN: 1. The patient remains here by tomorrow. She will undergo hemodialysis with ultrafiltration as tole rated by hemodynamics. 2. Further management will be dependent on the clinical course.
--- NOTE | 2017-09-19 17:46 | EKG ---
Test Reason : Blood Pressure : / mmHG Vent. Rate : 082 BPM Atrial Rate : 059 BPM P-R Int : 000 ms QRS Dur : 100 ms QT Int : 410 ms P-R-T Axes : 000 231 110 degrees QTc Int : 479 ms Atrial fibrillation with a competing junctional pacemaker Right superior axis deviation Incomplete right bundle branch block Right ventricular hypertrophy with repolarization abnormality Cannot rule out Anterior infarct , age undetermined Abnormal ECG Confirmed by FARRUKH MARVIN, RAY ([id number]), videotape editor HERSON GARZA ([id number]) on 09/19/2017 5:46:05 PM Referred By: Confirmed By:RAY CHADWICK MD
== END 2017-09-16 19:30 | disposition home or self-care (01) | DRG 291 ==
LOC: ERS 22:00 → ERHOLD 23:27 → CCU 09-14 01:58 → 2SE 09-16 00:57
PROVIDERS: ADMIT Hospitalist; ATTEND Hospitalist
PROC: 5A1D70Z Performance of Urinary Filtration, Intermittent, Less than 6 Hours Per Day (ICD-10-PCS; principal; 2017-09-15)
DX: I13.2 Hypertensive heart and chronic kidney disease with heart failure and with stage 5 chronic kidney disease, or end stage renal disease (principal); N18.6 End stage renal disease; I50.33 Acute on chronic diastolic (congestive) heart failure; E87.2 Acidosis; I27.20 Pulmonary hypertension, unspecified; I48.0 Paroxysmal atrial fibrillation; G40.909 Epilepsy, unspecified, not intractable, without status epilepticus; E78.5 Hyperlipidemia, unspecified; F32.9 Major depressive disorder, single episode, unspecified; F41.9 Anxiety disorder, unspecified; I25.10 Atherosclerotic heart disease of native coronary artery without angina pectoris; K21.9 Gastro-esophageal reflux disease without esophagitis; Z99.2 Dependence on renal dialysis; Z88.1 Allergy status to other antibiotic agents; Z88.5 Allergy status to narcotic agent; Z91.041 Radiographic dye allergy status; Z88.6 Allergy status to analgesic agent; Z88.8 Allergy status to other drugs, medicaments and biological substances; Z90.49 Acquired absence of other specified parts of digestive tract; Z79.01 Long term (current) use of anticoagulants; Z79.82 Long term (current) use of aspirin; Z79.899 Other long term (current) drug therapy
CPT/HCPCS: 36415; 71045; 80053; 82550; 82553; 82565; 83605; 83690; 83880; 84484; 85014; 85018; 85025; 85049; 85610; 85730; 87040; 87804; 90935; 93005; 94640; 96365; 96367; 96375; 99406; G0257; J1956; J2405; J3010; J3370; J7620

== ENCOUNTER 2017-09-26 00:26 | Inpatient (IN) | payer MEDICARE, MEDICAID ==
[2017-09-26 01:49] LABS: Hemoglobin 14.5 g/dL (12.0-16.0); Mean Corpuscular HGB CONC 29.4 g/dL (32.0-36.0); Mean Corpuscular Hemoglobin 29.5 pg (27.0-31.0); Mean Platelet Volume 10.9 fL (7.4-10.4); Platelet Count 151 thou/uL (130-400); RBC Distribution Width 22.7 % (11.5-14.5); Red Blood Cell (RBC) Count 4.92 mill/uL (4.20-5.40); White Blood Cell (WBC) Count 6.4 thou/uL (4.8-10.8)
[2017-09-26 02:10] LABS: Anisocytosis SLIGHT = 6-15 cells (100X) (0-5/hpf); Band 1 % (5-11); Eosinophils 1 % (0-10); Lymphocytes 14 % (21-51); MDiff Complete? YES; Monocytes 12 % (0-10); Neutrophil 72 % (42-75); Nucleated RBC 1 % (0); Polychromasia SLIGHT = 2-3 cells (100X) (0-2/hpf)
[2017-09-26 02:11] LABS: PTT 35.1 SEC (22.9-36.1)
[2017-09-26 02:12] LABS: INR-International Normal Ratio 1.2; Prothrombin Time 15.5 SEC (12.0-14.7)
[2017-09-26 03:00] LABS: ALT (SGPT) 15 U/L (8-55); AST (SGOT) 20 U/L (5-34); Alkaline Phosphatase 102 U/L (40-150); Anion Gap 22 mmol/L (10-20); BUN (Urea Nitrogen) 29 mg/dL (7.0-18.7); Bilirubin, Total 1.4 mg/dL (0.2-1.2); Calc. Creatinine Clearance 0 mL/min (70-130); Calcium 8.1 mg/dL (7.8-10.44); Carbon Dioxide 22 mmol/L (22-29); Chloride 102 mmol/L (98-107); Estimated GFR-MDRD 6; Globulin 3.5 g/dL (2.4-3.5); Glucose 86 mg/dL (70-105); Protein, Total 7.5 g/dL (6.0-8.3); Sodium 143 mmol/L (136-145)
[2017-09-26 03:09] LABS: Potassium 2.7 mmol/L (3.5-5.1)
[2017-09-26 04:58] LABS: Hemoglobin 13.9 g/dL (12.0-16.0); Mean Corpuscular Hemoglobin 30.3 pg (27.0-31.0); Mean Corpuscular Volume 97.7 fl (81.0-99.0); Mean Platelet Volume 10.2 fL (7.4-10.4); Platelet Count 146 thou/uL (130-400); RBC Distribution Width 22.1 % (11.5-14.5); Red Blood Cell (RBC) Count 4.59 mill/uL (4.20-5.40)
[2017-09-26 05:16] LABS: Band 1 % (5-11); Eosinophils 5 % (0-10); Lymphocytes 21 % (21-51); MDiff Complete? YES; Monocytes 11 % (0-10); Neutrophil 62 % (42-75); Nucleated RBC 2 % (0); Polychromasia SLIGHT = 2-3 cells (100X) (0-2/hpf); White Blood Cell (WBC) Count 7.1 thou/uL (4.8-10.8)
--- NOTE | 2017-09-26 05:26 | HP ---
PRIMARY CARE PHYSICIAN: Dr. Bibiana Almanzar. REASON FOR ADMISSION: Hypotension, rectal bleed. HISTORY OF PRESENT ILLNESS: A 41-year-old -Citizen Of [place] female with a history of end-stage renal disease who presented to emergency room with bright red blood per rectum. The patient's bleeding sta rted yesterday with bowel movement. Patient was having several times hematochezia. She was feeling weak and tired at home. She denies any dizziness. She denies any fever or chills. She denies any p ain associated with bleeding. She denies any hematemesis, melena. She denies any abdominal distensi on. She denies any nausea, vomiting, diarrhea. She denies any constipation. ALLERGIES: ANCEF, CLINDAMYCIN, CODEINE SULFATE, DILANTIN, HYDROCODONE, IODINE. REVIEW OF SYSTEMS: The following complete review of systems was negative, unless otherwise mentioned in the HPI or below: Constitutional: Weight loss or gain, ability to conduct usual activities. Skin: Rash, itching. Eyes: Double vision, pain. ENT/Mouth: Nose bleeding, neck stiffness, pain, tenderness. Cardiovascular: Palpitations, dyspnea on exertion, orthopnea. Respiratory: Shortness of breath, wheezing, cough, hemoptysis, fever or night sweats. Gastrointestinal: Poor appetite, abdominal pain, heartburn, nausea, vomiting, constipation, or diarr hea. Genitourinary: Urgency, frequency, dysuria, nocturia. Musculoskeletal: Pain, swelling. Neurologic/Psychiatric: Anxiety, depression. Allergy/Immunologic: Skin rash, bleeding tendency. Please see my HPI for pertinent positive and negative. All other review of systems reviewed and nega tive except as mentioned in the HPI. CURRENT HOME MEDICATIONS: Nephro-[place] one tablet p.o. daily, Keppra 500 mg twice daily, Zoloft 25 mg p.o. daily, Ambien 5 mg p.o. at bedtime, [place] 5 one tablet q.4 hourly p.r.n., gabapentin 300 mg at bedtime p.r.n., Flexeril 5 mg q.8 hourly p.r.n., Zofran 4 mg q.6 hourly p.r.n., omeprazole 20 mg p.o. daily. PAST MEDICAL HISTORY: End-stage renal disease on Thursday, , and Thursday hemodialysis; parox ysmal atrial fibrillation; chronic anticoagulation with Eliquis; seizure disorder; hypertension; ervin pheral neuropathy. PAST SURGICAL HISTORY: AV fistula placement, colectomy, , bilateral tubal ligation, thoraci c aortic aneurysm repair. PAST PSYCHIATRIC HISTORY: Anxiety and depression. FAMILY HISTORY: Positive for heart disease among several family members. SOCIAL HISTORY: Patient lives in [place]. She is on disability. She smokes about half pack per day. She denies any alcohol abuse. She denies any other illicit drug abuse. EMERGENCY ROOM COURSE: Patient is given slow IV fluid. PHYSICAL EXAMINATION: VITAL SIGNS: Blood pressure 91/58, pulse 88, respiratory rate 16, temperature 98.9, saturation 96% o n room air, weight 83 kilograms. GENERAL: The patient is currently alert, awake, chronically ill, no obvious acute distress. HEAD: Normocephalic, atraumatic. EYES: Pupils round, reactive to light. Extraocular muscle intact. ENT: Oropharynx within normal limits. Moist mucous membranes, no oral lesion, no pharyngeal erythem a, no exudate. Pale mucous membranes. NECK: Supple, no JVD, no thyromegaly, no carotid bruit, no jugular venous distention. LUNGS: Clear to auscultation without any rhonchi or rales. CARDIAC: S1 and S2 appears irregular. No murmur elicited, no gallop, no rub. ABDOMEN: Soft, bowel sounds present, nontender, nondistended. No organomegaly, no mass, no suprapub ic tenderness. Rectal examination showed external hemorrhoid. No obvious bleeding noted. BACK: Examination unremarkable, no CVA tenderness. EXTREMITIES: Upper extremity passive movements of all joints are normal. Left upper extremity, AV f istula in place with good palpable thrill. Lower extremity, no edema. Good peripheral pulsation. SKIN: No skin rash. HEMATOLOGICAL SYSTEM: No lymphadenopathy. PSYCHIATRIC: Normal affect. NEUROLOGIC: Nonfocal examination. 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 CBC: WBC 6 .4, hemoglobin 14.5, platelet 151 with 1 band. INR 1.2. BMP: Sodium 143, potassium 2.7, chloride 1 02, carbon dioxide 22, anion gap 22, BUN 29, creatinine 9.42, glucose 86, calcium 8.1. LFT 1.4, AST 20, ALT 17, alkaline phosphatase 102, total protein 7.5, albumin 3.5. Stool for guaiac is positive. ASSESSMENT AND PLAN/IMPRESSION: 1. Hematochezia. 2. Hypokalemia. 3. End-stage renal disease on Thursday, , and Thursday hemodialysis. 4. Macrocytosis, hypokalemia, chronic anticoagulation with Eliquis, chronic low back pain, seizure d isorder, gastroesophageal reflux disorder, GI disorders, gastroesophageal reflux disease, anxiety and depression. PLAN: 1. Admission to [facility]. Hemodialysis as per Nephrology. Replace potassium IV. Monitor vitals. 2. Deep venous thrombosis prophylaxis, sequential compression device boots only. No Lovenox because of bleeding. 3. Gastrointestinal prophylaxis, Protonix 40 mg IV daily. 4. Code status: The patient is FULL CODE. Patient does not have any surrogate decision maker. Disposition plan based on clinical course. At this point, patient's hemoglobin is stable, does not r equire any blood transfusion. We will defer further plan to dermatologist managing partner. OBJECTIVE: See above. Awake, alert, in no acute distress. GENERAL APPEARANCE AND MENTAL STATUS: Fair. HEAD/NECK: Normocephalic. Atraumatic. EYES: EOMI. No deformity. EARS: Clear. No ulcers. NOSE: Intact. No lesions. MOUTH: Clear. No discharge. THROAT: Clear. No exudate. LUNGS: Clear. No crackles. CARDIAC: S1, S2. No rub. ABDOMEN: Benign. BS+. GENITALIA/RECTUM: Stewart absent. BACK/EXTREMITIES: Edema 0+ Ulcer- NEUROLOGICAL: Alert and motor intact. SKIN: Rash- Bruise- LYMPHATICS: Edema- Ulcer-
[2017-09-26] MEDS ORDERED: Mag-Al 1200 mg/1200 mg/30 ML UDCUP PO PRN (06:43)
[2017-09-26] MEDS ORDERED: Milk Of Magnesia 30 ML UDCUP PO PRN (06:43)
[2017-09-26] MEDS ORDERED: Eucerin (Mineral Oil/Petrolatum,White) 30 gm Jar TOP PRN (06:43)
[2017-09-26] MEDS ORDERED: Loratadine 10 MG TAB PO PRN (06:43)
[2017-09-26] MEDS ORDERED: Sodium Chloride 0.65% Nasal 44 ML BOT EA NARE PRN (06:43)
[2017-09-26] MEDS ORDERED: Cyclobenzaprine 10 MG TAB PO PRN (06:43)
[2017-09-26] MEDS ORDERED: Artificial Tears 18 DROP/0.9 ML EA EYE PRN (06:43)
[2017-09-26] MEDS ORDERED: hydrALAZINE 20 MG/ML VIAL SLOW IVP PRN (06:43)
[2017-09-26] MEDS ORDERED: Nitroglycerin 0.4 MG TAB (25 Tab Bottle) SL PRN (06:43)
[2017-09-26] MEDS ORDERED: Diabetic Tussin 200 MG/10 ML UDCUP PO PRN (06:43)
[2017-09-26] MEDS ORDERED: Chloraseptic Spray 180 ml Bottle PO PRN (06:43)
[2017-09-26] MEDS: levETIRAcetam 500 MG TAB PO SCH ×2 (08:06→22:47)
[2017-09-26] MEDS: Gabapentin 100 MG CAP PO SCH (08:06)
[2017-09-26] MEDS: Pantoprazole 40 MG VIAL IVP SCH (08:06)
--- NOTE | 2017-09-26 09:28 | RAD ---
RADIOGRAPH CHEST 1 VIEW: Date: 09/26/17. Time: 4:37 a.m. HISTORY: A 41-year-old female followup congestive heart failure. COMPARISON: 09/23/17, 5:20 p.m. FINDINGS: New right subclavian central line. Otherwise, no other interval change. IMPRESSION: 1. Interval placement of right subclavian central vascular catheter. 2. No other interval change. 3. Severe cardiomegaly. 4. Left pleural effusion. 5. Diffusely prominent interstitial markings. JN [] POS: ALEKSEY
[2017-09-26 12:20] LABS: Hemoglobin 13.4 g/dL (12.0-16.0)
[2017-09-26] MEDS: Ondansetron ODT 4 MG TAB PO PRN (12:49)
[2017-09-26] MEDS ORDERED: Potassium Chloride 20 MEQ TAB PO SCH (14:15)
--- NOTE | 2017-09-26 15:02 | CON ---
DATE OF CONSULTATION: 09/26/2017 SERVICE: Pulmonary Medicine. REASON FOR CONSULTATION: IMCU patient. HISTORY OF PRESENT ILLNESS: The patient is a 41-year-old -[place] female with past medical history significant for end-stage renal disease and hemorrhoids. She presented to the hospital with rectal bleeding. She had a low blood pressure. Ultimately, she was stabilized. The bleeding was stopped and she was tucked into the IMCU for close observation. She remains a little bit somnolent right now. She wakes up, is appropriate, and answers questions, but without stimulation for greater than 10 seconds, she drifts off back to sleep. She denies any current fevers or chills that precipitated this rectal bleeding. Otherwise, she remains in her usual state of health. She denies any cough, shortness of breath, or sputum production. PAST MEDICAL HISTORY: 1. End-stage renal disease. 2. Paroxysmal atrial fibrillation. 3. Seizure disorder. 4. Hypertension. 5. Peripheral neuropathy. PAST SURGICAL HISTORY: 1. AV fistula placement. 2. Colectomy. 3. section. 4. Bilateral tubal ligation. 5. Thoracic aortic aneurysm repair. FAMILY HISTORY: Noncontributory. SOCIAL HISTORY: The patient lives in [place], and is disabled. She continues to smoke a half-pack per day and has a [id number] history of smoking. She denies any alcohol or illicit drug use. She has no exposure to chemicals, dust , asbestos, or tuberculosis. ALLERGIES: CEFAZOLIN, CODEINE, CLINDAMYCIN, CONTRAST, PHENYTOIN. MEDICATIONS: List of her inpatient medications were reviewed. No specific updates were made at this time. REVIEW OF SYSTEMS: General, head, ears, eyes, nose, throat, cardiovascular, respiratory, GI, , musculoskeletal, neurologic, and skin are negative except as mentioned in the HPI. PHYSICAL EXAMINATION: VITAL SIGNS: Afebrile, pulse 84, blood pressure 89/55, respirations of 20, saturation 95% on room air. GENERAL: Patient is somnolent. She wakes up and is appropriate, but will drift back off to sleep in greater than 10 seconds without stimulation. HEENT: Normocephalic, atraumatic. Sclerae are white, conjunctivae pink. Oral and nasal mucosa is moist without lesions. LUNGS: Excellent air entry. There is no prolonged expiratory phase or wheezing present. HEART: Normal rate, regular. ABDOMEN: Soft, nontender, nondistended. Bowel sounds are positive. MUSCULOSKELETAL: No cyanosis or clubbing. There is no pitting in the bilateral lower extremities. SKIN: Has good turgor. GENITOURINARY: No Stewart. NEUROLOGIC: Grossly nonfocal outside of her sleepiness. LABORATORY DATA: Hemoglobin 13.4 and stable. CBC is, otherwise, unremarkable. INR 1.2. Potassium 2.7. Creatinine 9.42, BUN 29. Basic metabolic profile is , otherwise, unremarkable. Total bilirubin 1.4. IMAGING: Chest x-ray demonstrates cardiomegaly. Right-sided subclavian central venous catheter is in good position. Median sternotomy wires are evident. There is a left-sided pleural effusion. ASSESSMENT: 1. Acute hypoxic respiratory failure. 2. Hematochezia secondary to hemorrhoids. 3. Hypokalemia. 4. End-stage renal disease. PLAN: We will gently replace the potassium and follow some laboratories moving forward. Pulmonary Critical Care will continue to follow while she remains in this location. She remains a little somnolent and so centrally acting medications and anything directed at pain or agitation will be interrupted temporarily. Pulmonary Critical Care will continue to follow. 70 minutes have been devoted to this patient in various activities. I personally reviewed all imaging studies and laboratory data noted within this document. For greater than fifty percent of this time, I was interacting with the patient at the bedside or coordinating care with the care team. For the remainder of the time I was immediately available to the patient in the hospital unit. ABHINAV
[2017-09-27] MEDS: Acetaminophen 325 MG TAB PO PRN (01:08)
--- NOTE | 2017-09-27 01:27 | CON ---
DATE OF CONSULTATION: 09/26/2017 CONSULTING PHYSICIAN: Zeferino Matthew M.D. REQUESTING PHYSICIAN: Abril Snider M.D. REASON FOR CONSULTATION: Need for maintenance hemodialysis. IMPRESSION: 1. End-stage renal disease, hemodialysis dependent, due for dialysis today as per schedule. 2. Rectal bleeding . 3. Labile hemodynamics. PLAN: 1. The patient to be dialyzed today with a higher potassium bath as patient was very hypokalemic. 2. Further management to be dependent on the clinical course. HISTORY OF PRESENT ILLNESS: History is that of 41-year-old female patient with end-stage renal disea se who has been here on a recurrent basis for the different concerns. In any case, the patient prese nted here hypotensive with history of rectal bleed and is now being admitted for further workup. PAST MEDICAL HISTORY, FAMILY HISTORY, AND SOCIAL HISTORY: Remain the same from the last recent hospi talization. For the details, refer to those. REVIEW OF SYSTEMS: As documented in the body of the history. Other systems were reviewed. PHYSICAL EXAMINATION: GENERAL: The patient was found to be very sleepy, but arousable. VITAL SIGNS: Systolic blood pressure in the 90s. HEENT: Unremarkable. Moist oral mucosa. NECK: Supple . CARDIOVASCULAR SYSTEM: First and second heart sounds were heard. RESPIRATORY SYSTEM: Clear to auscultation. DIGESTIVE SYSTEM: Revealed a benign abdomen with positive bowel sounds. EXTREMITIES: No peripheral edema. SKIN: No new gross rash. LYMPHATICS: No peripheral lymphadenopathy.
--- NOTE | 2017-09-27 01:50 | CON ---
DATE OF CONSULTATION: 09/26/2017 REASON FOR CONSULTATION: Rectal bleed. HISTORY OF PRESENT ILLNESS: Ms. Morris is a 41-year-old female who has been in this hospital numerou s times as well as at the [facility]. She has a history of chronic renal failure and is on dialysis. She was last seen by us here in the office in 05/2017 and 06/2017 mainly for co mplications related to recent C. difficile infection. Last year, she became ill in January with recurre nt C. diff infections for which she was seen over at [facility]. She has some bl eeding and anemia. Had upper and lower endoscopies, which were essentially negative. She was last s een by Dr. Villegas here in this hospital when she came in with acute diarrhea, was noted to have C. diff antigen positive and toxin negative. The endoscopies in 01/2017 did show an ileocolonic anastomosis . She has had a history of probable prior resection related adhesions. She did follow up once after that and her evaluation improved, but has not been seen back since that time. The patient reports that she was doing fine and began to have diarrhea yesterday that was severe and she had about 11 bowel movements; towards the end of this, she began to have blood and mucus in her s tool. The diarrhea was the main thing that brought her to the office with that she was having some l ower abdominal cramps. She had no fever or chills that she is aware of and had no clots in her stool . She was admitted to the hospital with a diagnosis of lower GI bleeding, talked with the nurses, sh e has passed no more stool, diarrheal or otherwise and has had no bleeding. The patient reports that she has on and off diarrhea, it seems to come and go at times since she has difficult time quantifying how much or what time this occurs. ALLERGIES: ANCEF, CLINDAMYCIN, CODEINE, DILANTIN, HYDROCODONE, IODINE. HOME MEDICATIONS: Nephro-Clinton, Keppra, Zoloft, Ambien, gabapentin, Flexeril, Zofran, omeprazole. PAST MEDICAL HISTORY: End-stage renal disease, on dialysis Thursday, and Thursday; paroxysma l atrial fibrillation; chronic atrial fibrillation, on Eliquis; seizure disorder; hypertension; perip heral neuropathy; history of prior recurrent multiple episodes of C. diff towards the end of last yea r. Please note, she has had previous cardioversions for atrial fibrillation. PAST SURGICAL HISTORY: AV fistula, colectomy right-sided with ileus and colonic anastomosis, C-secti on, prior tubal ligation, thoracic aortic aneurysm repair, prior cervical cancer with radiation thera py. She had upper and lower endoscopy in 01/2017. PRESENT MEDICATIONS: Tylenol, Maalox, , Robitussin, Apresoline, Keppra, Imodium, Claritin, Milk of Magnesia, nitroglycerin, Zofran, Protonix 40 IV daily, potassium, Senokot, and Zoloft. PHYSICAL EXAMINATION: GENERAL: Patient is resting in bed. She is a little bit drowsy. She is in no distress. She has ce ntral line in right shoulder. VITAL SIGNS: Temperature is 97, pulse 84, blood pressure is 89/55 to 96/60. LUNGS: Clear. HEART: Regular without murmurs. ABDOMEN: Soft, nontender, no palpable hepatosplenomegaly. EXTREMITIES: No clubbing, cyanosis or edema. RECTAL: Reveals no blood or stool in the vault. LABORATORY DATA: Hemoglobin is stable at 13.4 at 12 this afternoon, it was 13.9 at 4 this morning, i t was 14.5 at 1:30 this morning, it was 13.4 on 09/15/2017. White count 7.1, platelet count 146. IN R 1.2. Sodium 134, potassium 2.7, BUN and creatinine are 29 and 9.42. ASSESSMENT: 1. Rectal bleeding, this seems to be outlet in origin. It could be related to multiple bowel moveme nts. She had 11 stools yesterday she reports. There is no signs of gastrointestinal hemorrhage. He r hemoglobin is stable. 2. Hypotension, probably related to her diarrhea. She needs to be hydrated. 3. History of Clostridium difficile in the past. No diarrhea now. She is a very poor historian, bu t it seems that she had acute onset of diarrhea yesterday. This could have been from multiple etiolo gies. At this time as she has normal white count and no signs of abdominal pain, I would just order stool studies for C. diff toxin and antigen and fecal white blood cells and routine cultures if she h as further diarrhea. 4. I would hold off on Eliquis for right now.
[2017-09-27] MEDS ORDERED: Sodium Chloride 0.9% 500 ML IVPB SCH (04:15)
[2017-09-27 04:46] LABS: Anion Gap 14 mmol/L (10-20); BUN (Urea Nitrogen) 15 mg/dL (7.0-18.7); Calc. Creatinine Clearance 15 mL/min (70-130); Calcium 7.5 mg/dL (7.8-10.44); Carbon Dioxide 27 mmol/L (22-29); Chloride 99 mmol/L (98-107); Estimated GFR-MDRD 9; Glucose 95 mg/dL (70-105); Potassium 3.1 mmol/L (3.5-5.1); Sodium 137 mmol/L (136-145)
[2017-09-27 05:22] LABS: #Eosinphils 0.1 thou/uL (0.0-0.7); #Lymphocytes 1.8 thou/uL (1.20-3.40); #Monocytes 0.8 thou/uL (0.11-0.59); #Neutrophils 3.9 thou/uL (1.40-6.50); %Basophils 0.2 % (0.0-1.0); %Eosinophils 1.1 % (0.0-10.0); %Monocytes 12.4 % (0.0-10.0); %Neutrophils 59.2 % (42.0-75.0); Anisocytosis SLIGHT = 6-15 cells (100X) (0-5/hpf); Elliptocytes SLIGHT = 2-5 cells (100X) (0-1/hpf); Hemoglobin 12.9 g/dL (12.0-16.0); MDiff Complete? YES; Macrocytosis SLIGHT = 6-15 cells (100X) (0-5/hpf); Mean Corpuscular HGB CONC 30.7 g/dL (32.0-36.0); Mean Corpuscular Hemoglobin 29.9 pg (27.0-31.0); Mean Corpuscular Volume 97.5 fl (81.0-99.0); Mean Platelet Volume 10.9 fL (7.4-10.4); PLT Morphology Comment Appears Decreased; Platelet Count 106 thou/uL (130-400); RBC Distribution Width 22.8 % (11.5-14.5); Red Blood Cell (RBC) Count 4.32 mill/uL (4.20-5.40); White Blood Cell (WBC) Count 6.5 thou/uL (4.8-10.8)
[2017-09-27] MEDS ORDERED: Potassium Chloride 20 MEQ TAB PO SCH (06:30)
[2017-09-27] MEDS: Ondansetron ODT 4 MG TAB PO PRN (08:20)
[2017-09-27] MEDS: Pantoprazole 40 MG VIAL IVP SCH (08:21)
[2017-09-27] MEDS ORDERED: Ciprofloxacin Lactate/D5W 200 MG in Premix Bag 1 BAG IVPB SCH (08:45)
[2017-09-27] MEDS: Gabapentin 100 MG CAP PO SCH (09:08)
[2017-09-27] MEDS: levETIRAcetam 500 MG TAB PO SCH ×2 (09:08→20:48)
[2017-09-27] MEDS: Ciprofloxacin 500 MG TAB PO SCH (09:10)
[2017-09-27] MEDS ORDERED: Sodium Chloride 0.9% 1,000 ML IV SCH (11:00)
[2017-09-27] MEDS ORDERED: Saccharomyces boulardii 250 MG CAP PO SCH (12:00)
--- NOTE | 2017-09-27 15:02 | PRG ---
DATE OF SERVICE: 09/27/2017 SUBJECTIVE: Ms. Morris states she is still having a little bit of diarrhea and some cramps at times. Her stool came back positive for Campylobacter and Lactoferrin. Stool is negative for C. diff toxi n or antigen. MEDICATIONS: Cipro started today, gabapentin, Keppra, Protonix. PHYSICAL EXAMINATION: VITAL SIGNS: Temperature is 97, pulse 81, blood pressure 85/52, her industrial cafeteria manager notes this is her r outine blood pressure. LUNGS: Clear. HEART: Regular rate and rhythm. ABDOMEN: Mildly tender, but there is no rebound. There is no guarding. LABORATORY STUDIES: White count 6.5, hemoglobin 12.9, platelet count 106. Sodium 137, potassium 3.1 , BUN and creatinine are 15 and 5.8. ASSESSMENT: Diarrheal illness. She has had chronic diarrhea on and off. She has had multiple episo eva of Clostridium diff in the past, but this time Clostridium diff toxin, antigen was negative. Her fecal lactoferrin is positive and her Campylobacter antigens positive. She notes that she did eat o ut the day before. She came in that she can express and felt the gravy was not hot as it should have been. RECOMMENDATIONS: I agree with treating 3 to 4 days of fluoroquinolone. We will add a probiotic as s he has had C. diff in the past and we will stop her PPI and place her on H2 brian, decrease risk of recurrent C. diff.
--- NOTE | 2017-09-27 16:04 | PDOC.PN ---
- Subjective Encounter Start Date: 09/27/17 Encounter Start Time: 11:10 -: old records requested/rev - Objective Resuscitation Status: Resuscitation Status FULL:Full Resuscitation MAR Reviewed: Yes Vital Signs & Weight: Vital Signs (12 hours) Temp Pulse Resp BP BP BP Pulse Ox 09/27/17 12:00 99.3 F 87 18 91/53 L 95 09/27/17 07:45 97.8 F 81 20 100 09/27/17 07:39 97.8 F 81 20 85/46 L 100 09/27/17 06:35 85/52 L 09/27/17 05:45 78/44 L 09/27/17 04:50 78 84/68 L Weight Admit Weight 176 lb Weight 177 lb 4 oz I&O: 09/26/17 09/27/17 09/28/17 06:59 06:59 06:59 Intake Total 2180 840 Output Total 500 Balance 1680 840 Result Diagrams: 09/30/17 04:56 09/30/17 03:30 Radiology Reviewed by me: Yes EKG Reviewed by me: Yes Phys Exam - Physical Examination Constitutional: NAD HEENT: PERRLA, moist MMs, sclera anicteric, oral pharynx no lesions Neck: no nodes, no JVD, supple, full ROM Respiratory: no wheezing, no rales, no rhonchi, clear to auscultation bilateral Cardiovascular: RRR, no significant murmur, no rub Gastrointestinal: soft, non-tender, positive bowel sounds distended, hyperactive BS Musculoskeletal: no edema no palp pulses, feet cool, left 2nd toe tipwith dry gangrene Neurological: non-focal, normal sensation, moves all 4 limbs Lymphatic: no nodes Psychiatric: normal affect, A&O x 3 Skin: no rash, normal turgor Dx/Plan (1) Peripheral arterial occlusive disease Code(s): I77.9 - DISORDER OF ARTERIES AND ARTERIOLES, UNSPECIFIED Status: Acute Comment: contiue to hydrate, still not fully hydrated i think (2) Atrial fibrillation with RVR Code(s): I48.91 - UNSPECIFIED ATRIAL FIBRILLATION Status: Chronic (3) Campylobacter diarrhea Code(s): A04.5 - CAMPYLOBACTER ENTERITIS Status: Acute Comment: campy antigen positive. will start on IV cipro (4) Anxiety and depression Code(s): F41.8 - OTHER SPECIFIED ANXIETY DISORDERS Status: Chronic (5) Benign hypertension Code(s): I10 - ESSENTIAL (PRIMARY) HYPERTENSION Status: Chronic (6) Diastolic CHF, chronic Code(s): I50.32 - CHRONIC DIASTOLIC (CONGESTIVE) HEART FAILURE Status: Chronic (7) End stage renal disease on dialysis Code(s): N18.6 - END STAGE RENAL DISEASE; Z99.2 - DEPENDENCE ON RENAL DIALYSIS Status: Chronic Comment: HD per renal. chronically low BP. (8) GERD (gastroesophageal reflux disease) Code(s): K21.9 - GASTRO-ESOPHAGEAL REFLUX DISEASE WITHOUT ESOPHAGITIS Status: Chronic Qualifiers: Esophagitis presence: without esophagitis Qualified Code(s): K21.9 - Gastro -esophageal reflux disease without esophagitis (9) Hyperlipidemia Code(s): E78.5 - HYPERLIPIDEMIA, UNSPECIFIED Status: Chronic (10) Obesity (BMI 30.0-34.9) Code(s): E66.9 - OBESITY, UNSPECIFIED Status: Chronic (11) Paroxysmal a-fib Code(s): I48.0 - PAROXYSMAL ATRIAL FIBRILLATION Status: Chronic (12) Seizure disorder Code(s): G40.909 - EPILEPSY, UNSP, NOT INTRACTABLE, WITHOUT STATUS EPILEPTICUS Status: Chronic Comment: Continue Keppra 500mg BID (13) History of aortic dissection Code(s): Z86.79 - PERSONAL HISTORY OF OTHER DISEASES OF THE CIRCULATORY SYSTEM Status: Resolved (14) Moderate dehydration Code(s): E86.0 - DEHYDRATION Status: Resolved (15) CAD (coronary artery disease) Code(s): I25.10 - ATHSCL HEART DISEASE OF [place] CORONARY ARTERY W/O ANG PCTRS Status: Acute Qualifiers: Coronary Disease-Associated Artery/Lesion type: [place] artery [place] vs. transplanted heart: [place] heart Associated angina: without angina Qualified Code(s): I25.10 - Atherosclerotic heart disease of [place] coronary artery without angina pectoris (16) Pulmonary HTN Code(s): I27.20 - PULMONARY HYPERTENSION, UNSPECIFIED Status: Chronic - Plan * .
--- NOTE | 2017-09-27 16:33 | PRG ---
DATE OF SERVICE: 09/27/2017 SERVICE: Pulmonary Medicine. INTERVAL HISTORY: The patient indicates she is feeling much improved today. She continues to have b owel movements. Otherwise, there has been no interval change to her condition. Her strength is impr salvador as well as her outlook. She is much more awake and is in a better mood today. PHYSICAL EXAMINATION: VITAL SIGNS: Afebrile, pulse 87, blood pressure 91/53, respirations 18, saturation 95% on liter nasa l cannula. HEENT: Normocephalic, atraumatic. Sclerae are white, conjunctivae pink. Oral and nasal mucosa is m oist without lesions. LUNGS: Excellent air entry. No prolonged expiratory phase or wheezing. There are no crackles. HEART: Normal rate, regular. ABDOMEN: Minimally tender to palpation without rebound or guarding. Bowel sounds are active. GENITOURINARY: No Stewart. NEUROLOGIC: Grossly nonfocal. LABORATORY DATA: WBC 6.5, hemoglobin 12.9, platelets 106,000 and down trending. Potassium 3.1, crea tinine is 5.98. Basic metabolic profile is otherwise unremarkable. Calcium 7.5. Campylobacter is p ositive. Shiga and E. coli toxins are unremarkable. C. diff antigen and toxin is negative. Stool l actoferrin is strongly positive. ASSESSMENT: 1. Acute hypoxic respiratory failure, resolving. 2. End-stage kidney disease. 3. Dehydration. 4. Enteritis secondary to Campylobacter. DISCUSSION AND PLAN: The patient is already on appropriate antibiotics. We will advance her diet a little bit. She is requesting a Cardiology consultation because she has a lack of blood flow to one of her toes based on what Podiatry is saying. We were essentially expediting an outpatient evaluatio n. Pulmonary Critical Care will continue to follow while the patient remains in this location, but s he is stable for transition out.
--- NOTE | 2017-09-27 17:25 | PRG ---
DATE OF SERVICE: 09/27/2017 SUBJECTIVE: Myriam Morris was seen and examined, seems to be feeling much better and noted with the following vital signs. OBJECTIVE: VITAL SIGNS: Afebrile with temperature 98.1, pulse 84, respiratory rate of 18, O2 sat 90% with blood pressure 92/53. HEENT: Unremarkable. CARDIOVASCULAR: Positive bowel sounds. RESPIRATORY: Clear to auscultation. DIGESTIVE: Revealed a benign abdomen. EXTREMITIES: No peripheral edema. SKIN: No new gross rash. IMPRESSION: 1. End-stage renal disease, hemodialysis dependent. 2. Atrial fibrillation. PLAN: 1. The patient to undergo dialysis per her schedule with ultrafiltration as tolerated by hemodynamic s. 2. Further management to be dependent on the clinical course.
[2017-09-27] MEDS ORDERED: Sodium Chloride 0.9% 200 ML IVPB SCH (20:15)
[2017-09-27] MEDS: Famotidine 20 MG TAB PO SCH (20:48)
[2017-09-27] MEDS: Saccharomyces boulardii 250 MG CAP PO SCH (20:48)
[2017-09-27] MEDS ORDERED: Melatonin 3 MG TAB PO SCH (23:30)
[2017-09-27] MEDS: Senokot 8.6 MG TAB PO PRN (23:53)
[2017-09-28 06:03] LABS: #Eosinphils 0.1 thou/uL (0.0-0.7); #Lymphocytes 1.6 thou/uL (1.20-3.40); #Monocytes 0.9 thou/uL (0.11-0.59); #Neutrophils 3.4 thou/uL (1.40-6.50); %Basophils 0.5 % (0.0-1.0); %Eosinophils 0.8 % (0.0-10.0); %Lymphocytes 26.3 % (21.0-51.0); %Monocytes 14.3 % (0.0-10.0); %Neutrophils 58.1 % (42.0-75.0); ALT (SGPT) 13 U/L (8-55); AST (SGOT) 19 U/L (5-34); Albumin 3.5 g/dL (3.5-5.0); Alkaline Phosphatase 92 U/L (40-150); Anion Gap 13 mmol/L (10-20); Anisocytosis SLIGHT = 6-15 cells (100X) (0-5/hpf); BUN (Urea Nitrogen) 21 mg/dL (7.0-18.7); Bilirubin, Total 1.3 mg/dL (0.2-1.2); Calc. Creatinine Clearance 13 mL/min (70-130); Carbon Dioxide 25 mmol/L (22-29); Chloride 104 mmol/L (98-107); Estimated GFR-MDRD 7; Globulin 2.8 g/dL (2.4-3.5); Glucose 91 mg/dL (70-105); Hemoglobin 12.6 g/dL (12.0-16.0); MDiff Complete? YES; Magnesium 1.7 mg/dL (1.6-2.6); Mean Corpuscular HGB CONC 29.4 g/dL (32.0-36.0); Mean Corpuscular Volume 98.7 fl (81.0-99.0); Mean Platelet Volume 11.3 fL (7.4-10.4); PLT Morphology Comment Appears Decreased; Platelet Count 97 thou/uL (130-400); Potassium 3.3 mmol/L (3.5-5.1); Protein, Total 6.3 g/dL (6.0-8.3); RBC Distribution Width 22.8 % (11.5-14.5); Red Blood Cell (RBC) Count 4.33 mill/uL (4.20-5.40); Sodium 139 mmol/L (136-145); White Blood Cell (WBC) Count 5.9 thou/uL (4.8-10.8)
[2017-09-28] MEDS: Famotidine 20 MG TAB PO SCH ×2 (08:31→20:19)
[2017-09-28] MEDS: Ciprofloxacin 500 MG TAB PO SCH (08:31)
[2017-09-28] MEDS: Saccharomyces boulardii 250 MG CAP PO SCH ×2 (08:31→20:19)
[2017-09-28] MEDS: Gabapentin 100 MG CAP PO SCH (08:31)
[2017-09-28] MEDS: levETIRAcetam 500 MG TAB PO SCH ×2 (08:31→20:19)
[2017-09-28] MEDS: Ondansetron ODT 4 MG TAB PO PRN (08:38)
--- NOTE | 2017-09-28 13:11 | PQF ---
CLINICAL DOCUMENTATION IMPROVEMENT CLARIFICATION FORM: ICD-10 Updated PLEASE DO AN ADDENDUM TO THE PROGRESS NOTE WITH ANY DOCUMENTATION UPDATES OR ADDITIONS AND CARRY THROUGH TO DC SUMMARY. THANK YOU. Date: 09/28/17 ATTN: DR. AGUILAR Please exercise your independent, professional judgment in responding to the clarification form. Clinical indicators are provided on the bottom of this form for your review Please check appropriate box(s): [ ] Protein Calorie Malnutrition: [ ] Mild [ ] Moderate [ ] Severe [ ] Other Malnutrition (please specify) __ [ ] Underweight without malnutrition [ ] Cachexia [ ] Other diagnosis [ ] Unable to determine In addition, please specify: Present on Admission (POA): [ ] Yes [ ] No [ ] Unable to determine CLINICAL INDICATORS - SIGNS / SYMPTOMS / LABS DIETARY NOTE 09/26: "KCAL AND PROTEIN NEEDS NOT MET." RISKS: POOR WOUND HEALING CAMPYLOBACTER ENTERITIS TREATMENT: DIETARY CONSULT GI CONSULT NUTRITIONAL SUPPLEMENTS RECOMMENDED Moderate Malnutrition (in acute illness) Energy Intake: <75% of estimated energy requirement for > 7 days Weight Loss: 1-2%/1 week; 5%/ 1 month; 7.5%/3 months Other: mild body fat loss; mild muscle mass loss; mild fluid accumulation; Severe Malnutrition (in acute illness) Energy Intake: < 50% of estimated energy requirement for > 5 days Weight Loss: >1-2%/1 week; >5%/1 month; >7.5%/3 months Other: moderate body fat loss; moderate muscle mass loss; moderate- severe fluid accumulation; measurably reduced finished metal repairer strength Moderate Malnutrition (in chronic illness) Energy Intake: <75% of estimated energy requirement for >1 month Weight Loss: 5%/1 month; 7.5%/3 months; 10%/6 months; 20%/1 year Other: mild body fat loss; mild muscle mass loss; mild fluid accumulation Severe Malnutrition (in chronic illness) Energy Intake: <75% of estimated energy requirement for >1 month SAP 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 All Rights Reserved [email or web address] [email or web address] Office: [phone] [facility] SYSTEMMary
--- NOTE | 2017-09-28 13:29 | PRG ---
DATE OF SERVICE: 09/28/2017 SUBJECTIVE: Ms. Morris has had no further bleeding. She states she is having diarrhea and she is a very poor historian. The nurse reports she has had about 3 to 4 stools that are loose stool, but she is not having any constipation at this time. PHYSICAL EXAMINATION: VITAL SIGNS: Temperature is 97, pulse 36, blood pressure 90/56. ABDOMEN: Soft, nontender, no rebound, no guarding. LABORATORY STUDIES: White count 5.9, hemoglobin 12.6, platelet count 97,000. Sodium 139, potassium 3.3, BUN and creatinine are 21 and 7.28. Stool negative for C. diff toxin, culture negative for Shiga toxin, positive for Campylobacter. ASSESSMENT: Recurrent diarrhea with positive fecal lactoferrin and positive Campylobacter antigen, w e would treat for 5 days with fluoroquinolone. If symptoms persist, consider changing to erythromyci n or something similar to get fluoroquinolone resistance. We will continue probiotics as well. No s igns of overt bleeding. We will continue to follow.
--- NOTE | 2017-09-28 13:39 | PRG ---
DATE OF SERVICE: 09/28/2017 Ms. Morris is only complaining of her bottom being raw. PHYSICAL EXAMINATION: VITAL SIGNS: She is afebrile, heart rate 76, respiratory rate is 18, oximetry is 99 on room air. PETR NGS: Lungs are clear. HEART: Regular rhythm. ABDOMEN: Abdomen is nontender. LABORATORY: White count 5.9, hemoglobin 12.6, platelets 97,000. Sodium 139, potassium 3.3, chloride 104, bicarbonate 25, BUN 21, creatinine 7.28. IMPRESSION: 1. Enteritis felt possibly secondary to Campylobacter. 2. End-stage renal disease. 3. Intravascular volume depletion on presentation because of diarrhea. PLAN: Continue supportive care.
--- NOTE | 2017-09-28 16:31 | PDOC.PN ---
- Subjective Encounter Start Date: 09/28/17 Encounter Start Time: 11:45 diarrhea starting to slow. 10BM in last 24 hours, probably getting less in than out, BP still low. pt lives in low output state due to valvular disease, pulm HTN etc. no F/C, no N/V/D/C,no CP or SOB. rectal area hurts. +tenesmus. 10 point rOS peformed and neg for all systems except as per HPI - Objective Resuscitation Status: Resuscitation Status FULL:Full Resuscitation Vital Signs & Weight: Vital Signs (12 hours) Temp Pulse Resp BP Pulse Ox 09/28/17 16:00 98.2 F 80 20 95/63 97 09/28/17 11:47 98.2 F 76 18 87/59 L 99 09/28/17 07:57 97 09/28/17 07:42 97.5 F L 79 18 98 09/28/17 07:27 97.5 F L 79 18 98/68 98 Weight Admit Weight 176 lb Weight 177 lb 4 oz I&O: 09/27/17 09/28/17 09/29/17 06:59 06:59 06:59 Intake Total 2180 2540 720 Output Total 500 Balance 1680 2540 720 Result Diagrams: 09/30/17 04:56 09/30/17 03:30 Phys Exam - Physical Examination Constitutional: NAD HEENT: PERRLA, moist MMs, sclera anicteric, oral pharynx no lesions Neck: no nodes, no JVD, supple, full ROM Respiratory: no wheezing, no rales, no rhonchi, clear to auscultation bilateral Cardiovascular: RRR, no significant murmur, no rub Gastrointestinal: soft, non-tender, no distention, positive bowel sounds Musculoskeletal: no edema Neurological: non-focal, normal sensation, moves all 4 limbs Lymphatic: no nodes Psychiatric: normal affect, A&O x 3 Skin: no rash, normal turgor, cap refill <2 seconds Dx/Plan (1) Campylobacter diarrhea Code(s): A04.5 - CAMPYLOBACTER ENTERITIS Status: Acute Comment: campy antigen positive. bertha cipro, improving (2) Demand ischemia Code(s): I24.8 - OTHER FORMS OF ACUTE ISCHEMIC HEART DISEASE Status: Resolved (3) Peripheral arterial occlusive disease Code(s): I77.9 - DISORDER OF ARTERIES AND ARTERIOLES, UNSPECIFIED Status: Acute Comment: contiue to hydrate, still not fully hydrated i think. arterial U/S today, notify Dr Pablo ptis here. was supposed to have angio as outpatient (4) Anxiety and depression Code(s): F41.8 - OTHER SPECIFIED ANXIETY DISORDERS Status: Chronic (5) Atrial fibrillation with RVR Code(s): I48.91 - UNSPECIFIED ATRIAL FIBRILLATION Status: Chronic (6) Benign hypertension Code(s): I10 - ESSENTIAL (PRIMARY) HYPERTENSION Status: Chronic (7) Diastolic CHF, chronic Code(s): I50.32 - CHRONIC DIASTOLIC (CONGESTIVE) HEART FAILURE Status: Chronic (8) End stage renal disease on dialysis Code(s): N18.6 - END STAGE RENAL DISEASE; Z99.2 - DEPENDENCE ON RENAL DIALYSIS Status: Chronic Comment: HD per renal. chronically low BP. (9) GERD (gastroesophageal reflux disease) Code(s): K21.9 - GASTRO-ESOPHAGEAL REFLUX DISEASE WITHOUT ESOPHAGITIS Status: Chronic Qualifiers: Esophagitis presence: without esophagitis Qualified Code(s): K21.9 - Gastro -esophageal reflux disease without esophagitis (10) Hyperlipidemia Code(s): E78.5 - HYPERLIPIDEMIA, UNSPECIFIED Status: Chronic (11) Obesity (BMI 30.0-34.9) Code(s): E66.9 - OBESITY, UNSPECIFIED Status: Chronic (12) Paroxysmal a-fib Code(s): I48.0 - PAROXYSMAL ATRIAL FIBRILLATION Status: Chronic (13) Moderate dehydration Code(s): E86.0 - DEHYDRATION Status: Resolved (14) CAD (coronary artery disease) Code(s): I25.10 - ATHSCL HEART DISEASE OF [place] CORONARY ARTERY W/O ANG PCTRS Status: Acute Qualifiers: Coronary Disease-Associated Artery/Lesion type: [place] artery [place] vs. transplanted heart: [place] heart Associated angina: without angina Qualified Code(s): I25.10 - Atherosclerotic heart disease of [place] coronary artery without angina pectoris (15) Pulmonary HTN Code(s): I27.20 - PULMONARY HYPERTENSION, UNSPECIFIED Status: Chronic - Plan * .
--- NOTE | 2017-09-28 18:27 | ULT ---
LEFT LOWER EXTREMITY ARTERIAL DOPPLER: Date: 09/28/17 HISTORY: Left lower extremity pain. Ischemic second toe. Peripheral vascular disease. COMPARISON: CT angiogram dated 07/24/17. FINDINGS: There is slow flow throughout the left lower extremity arterial system. Common femoral artery peak sy stolic velocity of 77 cm/second with triphasic waveform. The proximal femoral artery has a peak systo lic velocity of 51 cm/second with triphasic waveform. The deep femoral artery peak systolic velocity is 42.8 cm/second with triphasic waveform. Mid femoral artery peak systolic velocity is 67 cm/second with triphasic waveform. Distal femoral artery peak systolic velocity of 34 cm/second with triphasic waveform. Popliteal artery has biphasic waveform with peak systolic velocity of 30 cm/second. The pos terior tibial artery has monophasic waveform with peak systolic velocity of 11 cm/second. Anterior ti bial artery has monophasic waveform with peak systolic velocity of 26 cm/second. The dorsalis pedis a rtery has a peak systolic velocity of 11 cm/second with monophasic waveform. IMPRESSION: Slow flow throughout the left lower extremity arterial system suggests a proximal stenosis. Of note, on the aortic dissection protocol CT from 07/24/17, there was a left common iliac arterial stent whic h may be the source of the narrowing. POS: [facility]
--- NOTE | 2017-09-28 18:35 | PRG ---
SUBJECTIVE: The patient was seen and examined, no new complaint, noted with the following vital sign s. PHYSICAL EXAMINATION: VITAL SIGNS: Afebrile, temperature 98.2, pulse 80, respiratory rate of 20, O2 saturation 97% with bl ood pressure 95/63. HEENT: Unremarkable. Moist oral mucosa. NECK: Supple. No conjunctival injection or icterus. CARDIOVASCULAR SYSTEM: First and second heart sounds were heard. RESPIRATORY SYSTEM: Clear to auscultation. DIGESTIVE SYSTEM: Revealed a benign abdomen with positive bowel sounds. EXTREMITIES: No peripheral edema. SKIN: No new gross rash. LYMPHATICS: No peripheral lymphadenopathy. IMPRESSION: 1. End-stage renal disease, on hemodialysis. 2. Labile hemodynamics. 3. Gastroenteritis. PLAN: 1. The patient to continue with hemodialysis as per schedule, therefore, the patient to be dialyzed tomorrow. 2. Further management to be dependent on the clinical course.
[2017-09-28] MEDS ORDERED: Hydrocerin (Eucerin) Cream 120 gm Jar TOP PRN (20:54)
[2017-09-29] MEDS: Acetaminophen 325 MG TAB PO PRN (00:37)
[2017-09-29] MEDS: predniSONE 50 MG TAB PO SCH ×3 (00:37→15:19)
[2017-09-29] MEDS: Loperamide HCl 2 MG CAP PO PRN (01:18)
[2017-09-29] MEDS: Ondansetron HCl/PF 4 MG/2 ML Vial IVP PRN ×2 (01:18→18:35)
[2017-09-29 05:26] LABS: ALT (SGPT) 12 U/L (8-55); AST (SGOT) 14 U/L (5-34); Albumin 3.8 g/dL (3.5-5.0); Alkaline Phosphatase 95 U/L (40-150); Anion Gap 17 mmol/L (10-20); BUN (Urea Nitrogen) 29 mg/dL (7.0-18.7); Bilirubin, Total 1.5 mg/dL (0.2-1.2); Calc. Creatinine Clearance 11 mL/min (70-130); Calcium 7.2 mg/dL (7.8-10.44); Carbon Dioxide 23 mmol/L (22-29); Chloride 103 mmol/L (98-107); Estimated GFR-MDRD 6; Globulin 3.1 g/dL (2.4-3.5); Glucose 126 mg/dL (70-105); Magnesium 1.8 mg/dL (1.6-2.6); Potassium 3.6 mmol/L (3.5-5.1); Protein, Total 6.9 g/dL (6.0-8.3); Sodium 139 mmol/L (136-145)
[2017-09-29 06:56] LABS: #Lymphocytes 0.8 thou/uL (1.20-3.40); #Monocytes 0.2 thou/uL (0.11-0.59); #Neutrophils 4.6 thou/uL (1.40-6.50); %Basophils 0.7 % (0.0-1.0); %Eosinophils 0.4 % (0.0-10.0); %Monocytes 3.8 % (0.0-10.0); %Neutrophils 81.1 % (42.0-75.0); Anisocytosis MODERATE=16-30 cells (100X) (0-5/hpf); Hemoglobin 13.4 g/dL (12.0-16.0); MDiff Complete? YES; Mean Corpuscular HGB CONC 30.3 g/dL (32.0-36.0); Mean Corpuscular Hemoglobin 29.8 pg (27.0-31.0); Mean Corpuscular Volume 98.4 fl (81.0-99.0); PLT Morphology Comment Appears Decreased; Platelet Count 90 thou/uL (130-400); RBC Distribution Width 22.9 % (11.5-14.5); Red Blood Cell (RBC) Count 4.48 mill/uL (4.20-5.40); Tear Drops SLIGHT = 2-5 cells (100X) (0-1/hpf); White Blood Cell (WBC) Count 5.7 thou/uL (4.8-10.8)
[2017-09-29 08:26] VITALS: BMI 29.2
[2017-09-29] MEDS: Ciprofloxacin 500 MG TAB PO SCH ×2 (10:55→15:18)
[2017-09-29] MEDS ORDERED: Lidocaine 1% (PF) 30 ML VIAL ONE ×2 (11:46→13:34)
[2017-09-29] MEDS ORDERED: diphenhydrAMINE 50 MG/ML VIAL ONE (12:26)
[2017-09-29] MEDS ORDERED: diphenhydrAMINE 50 MG CAP PO SCH (13:00)
[2017-09-29] MEDS ORDERED: Heparin 10,000 UNITS/1 ML VIAL ONE (13:13)
[2017-09-29] MEDS ORDERED: Protamine Sulfate 50 MG/5 ML VIAL ONE (13:41)
--- NOTE | 2017-09-29 14:12 | OP ---
DATE OF PROCEDURE: 09/29/2017 TIME: 1:50 p.m. PROCEDURE: Abdominal aortogram and left leg runoff. SURGEON: Dr. Peng Pablo ANESTHESIA: 1% lidocaine with IV Benadryl. CONTRAST: 28 mL. FLUOROSCOPY: 20 minutes. FINDINGS: Pertinent positives; left common iliac 70% stenosis, left tibioperoneal trunk 100% occlude d for about 2 cm, left anterior tibial 70-90% stenosis at its origin. Anterior tibial did not commun icate directly with the foot, but ended above the ankle and collaterals. The posterior tibial and pe roneal reconstituted with the peroneal tapering at the level of the ankle as would be expected and th e posterior tibial not clearly seen entering the ankle area. PROCEDURE IN DETAIL: After adequate anesthesia had been obtained, ultrasound guided puncture of the right common femoral artery was performed and a 5 Maltese sheath was placed. Contra catheter advanced , aorta iliac angiography was then obtained. A Contra catheter was then used to direct the wire over the bifurcation; however, the contra would not track this wire and a [employer] Crow stiffen regular Glidewires were all attempted. A glide catheter did advance over to allow runoff of the left leg bas ed in the superficial femoral artery. However, multiple catheters would not allow a stiff enough wir e to advance to allow a destination sheath to go over the bifurcation. Lidocaine was then infiltrate d in the left groin and 3 punctures of the common femoral artery all resulted in wires that would not track down the superficial femoral artery. At this time, the procedure was terminated with no inter vention.
[2017-09-29] MEDS: Famotidine 20 MG TAB PO SCH ×2 (15:17→20:46)
[2017-09-29] MEDS: levETIRAcetam 500 MG TAB PO SCH ×2 (15:18→20:46)
[2017-09-29] MEDS: Gabapentin 100 MG CAP PO SCH (15:18)
[2017-09-29] MEDS: Saccharomyces boulardii 250 MG CAP PO SCH ×2 (15:18→20:46)
[2017-09-29] MEDS ORDERED: HYDROcodone/Acetaminophen 5/325 mg Tablet PO PRN ×2 (16:18)
[2017-09-29] MEDS ORDERED: Iopamidol 370 76% 50 ML VIAL FS ONE (16:22)
--- NOTE | 2017-09-29 17:58 | PRG ---
DATE OF SERVICE: 09/29/2017 SUBJECTIVE: Ms. Morris says her stool is getting a little better. OBJECTIVE: VITAL SIGNS: She is afebrile, heart rate is 86, respiratory rate is 16, oximetry is 98 on room air, blood pressure 106/68. LUNGS: Clear. HEART: Regular rhythm. ABDOMEN: Soft. LABORATORY DATA: White count 5.7, hemoglobin 13.4, platelets 90,000. Sodium 139, potassium 3.6, chloride 103, bicarbonate 22, BUN 29, creatinine 8.51. IMPRESSION: 1. End-stage renal disease. 2. Ischemic toe, status post angiography today. 3. History of frequent hospital admissions. 4. Campylobacter isolated in her stool 5 days of quinolones recommended by Gastroenterology. It is not bleeding. She says her stools are becoming more formed. We will continue with current care. Josie mcclelland probably could be moved out of the telemetry unit.
--- NOTE | 2017-09-29 19:03 | PRG ---
DATE OF SERVICE: 09/29/2017 SUBJECTIVE: Seen and examined today, noted with the following vital signs. PHYSICAL EXAMINATION: VITAL SIGNS: Afebrile with temperature 97.7, pulse 92, respiratory rate of 20, O2 sat 95%, blood pre ssure 102/63. HEENT: Unremarkable. CARDIOVASCULAR: First and second heart sounds were heard. RESPIRATORY SYSTEM: Clear to auscultation. DIGESTIVE SYSTEM: Revealed a benign abdomen. EXTREMITIES: No peripheral edema. SKIN: No new gross rash. LYMPHATICS: No peripheral lymphadenopathy. LABORATORY INVESTIGATION: Showed a creatinine of 8.51, BUN of 29. IMPRESSION: 1. End-stage renal disease, hemodialysis dependent. He did undergo dialysis today. 2. Peripheral vascular disease, status post angiogram. PLAN: 1. The patient to continue with current regimen of hemodialysis. 2. Further management will be dependent on the clinical course.
[2017-09-29] MEDS: Senokot 8.6 MG TAB PO PRN (20:47)
[2017-09-30] MEDS ORDERED: Preparation H Ointment 28 GM TUBE TOP PRN (00:13)
[2017-09-30] MEDS ORDERED: Witch Hazel-Glycerin 1 EACH JAR TOP PRN (00:18)
[2017-09-30 05:47] LABS: Anion Gap 17 mmol/L (10-20); BUN (Urea Nitrogen) 22 mg/dL (7.0-18.7); Calc. Creatinine Clearance 16 mL/min (70-130); Calcium 7.3 mg/dL (7.8-10.44); Carbon Dioxide 26 mmol/L (22-29); Chloride 99 mmol/L (98-107); Estimated GFR-MDRD 10; Glucose 166 mg/dL (70-105); Magnesium 1.7 mg/dL (1.6-2.6); Potassium 3.7 mmol/L (3.5-5.1); Sodium 138 mmol/L (136-145)
[2017-09-30 06:06] LABS: #Lymphocytes 0.9 thou/uL (1.20-3.40); #Monocytes 0.3 thou/uL (0.11-0.59); #Neutrophils 5.1 thou/uL (1.40-6.50); %Basophils 0.2 % (0.0-1.0); %Eosinophils 0.2 % (0.0-10.0); %Lymphocytes 14.1 % (21.0-51.0); %Monocytes 4.7 % (0.0-10.0); %Neutrophils 80.8 % (42.0-75.0); Anisocytosis SLIGHT = 6-15 cells (100X) (0-5/hpf); Hemoglobin 13.4 g/dL (12.0-16.0); Hypochromia SLIGHT = 6-15 cells (100X) (0-5/hpf); MDiff Complete? YES; Macrocytosis SLIGHT = 6-15 cells (100X) (0-5/hpf); Mean Corpuscular Hemoglobin 30.2 pg (27.0-31.0); Mean Platelet Volume 11.2 fL (7.4-10.4); PLT Morphology Comment Appears Decreased; Platelet Count 110 thou/uL (130-400); RBC Distribution Width 23.3 % (11.5-14.5); Red Blood Cell (RBC) Count 4.44 mill/uL (4.20-5.40); Tear Drops SLIGHT = 2-5 cells (100X) (0-1/hpf); White Blood Cell (WBC) Count 6.4 thou/uL (4.8-10.8)
--- NOTE | 2017-09-30 08:13 | PDOC.PN ---
- Subjective Encounter Start Date: 09/29/17 Encounter Start Time: 10:45 Pt feeling better, 9 BM in lsdt 24 hours, but less volume/more formed No F/c, no N/v/D/C. getting pre-contrast steroids in anticipation of AoFem angiography. No N/V, no GI bleeding, no chest pain, no SOB, BP stable at patients baseline 10 point ROS performed and neg for all systemse xcept as per HPI - Objective Resuscitation Status: Resuscitation Status FULL:Full Resuscitation MAR Reviewed: Yes Vital Signs & Weight: Vital Signs (12 hours) Temp Pulse Resp BP Pulse Ox 09/30/17 04:25 98 09/30/17 03:20 98.5 F 76 18 89/59 L 98 Weight Admit Weight 176 lb Weight 177 lb 9.6 oz I&O: 09/29/17 09/30/17 10/01/17 06:59 06:59 06:59 Intake Total 1270 840 Output Total 3000 Balance 1270 -2160 Result Diagrams: 09/30/17 04:56 09/30/17 03:30 Radiology Reviewed by me: Yes EKG Reviewed by me: Yes Phys Exam - Physical Examination Constitutional: NAD HEENT: PERRLA, moist MMs, sclera anicteric, oral pharynx no lesions Neck: no nodes, no JVD, supple, full ROM Respiratory: no wheezing, no rales, no rhonchi, clear to auscultation bilateral Cardiovascular: RRR, no significant murmur, no rub Gastrointestinal: soft, non-tender, positive bowel sounds Musculoskeletal: pulses present, edema present Neurological: non-focal, normal sensation, moves all 4 limbs Lymphatic: no nodes Psychiatric: normal affect, A&O x 3 Skin: no rash, normal turgor, cap refill <2 seconds Deviation from normal: 2nd toe stable, distal tip dry gangrene Dx/Plan (1) Campylobacter diarrhea Code(s): A04.5 - CAMPYLOBACTER ENTERITIS Status: Acute Comment: improved, on cipro, to po soon. i>O finalkly (2) Moderate dehydration Code(s): E86.0 - DEHYDRATION Status: Resolved (3) Anxiety and depression Code(s): F41.8 - OTHER SPECIFIED ANXIETY DISORDERS Status: Chronic (4) Benign hypertension Code(s): I10 - ESSENTIAL (PRIMARY) HYPERTENSION Status: Chronic (5) Diastolic CHF, chronic Code(s): I50.32 - CHRONIC DIASTOLIC (CONGESTIVE) HEART FAILURE Status: Chronic (6) End stage renal disease on dialysis Code(s): N18.6 - END STAGE RENAL DISEASE; Z99.2 - DEPENDENCE ON RENAL DIALYSIS Status: Chronic Comment: HD per renal. chronically low BP. (7) GERD (gastroesophageal reflux disease) Code(s): K21.9 - GASTRO-ESOPHAGEAL REFLUX DISEASE WITHOUT ESOPHAGITIS Status: Chronic Qualifiers: Esophagitis presence: without esophagitis Qualified Code(s): K21.9 - Gastro -esophageal reflux disease without esophagitis (8) History of aortic dissection Code(s): Z86.79 - PERSONAL HISTORY OF OTHER DISEASES OF THE CIRCULATORY SYSTEM Status: Resolved (9) Hyperlipidemia Code(s): E78.5 - HYPERLIPIDEMIA, UNSPECIFIED Status: Chronic (10) Pulmonary HTN Code(s): I27.20 - PULMONARY HYPERTENSION, UNSPECIFIED Status: Chronic - Plan cont current plan of care, continue antibiotics, PT/OT, out of bed/ambulate * .
[2017-09-30] MEDS: Saccharomyces boulardii 250 MG CAP PO SCH ×2 (11:23→20:35)
[2017-09-30] MEDS: Famotidine 20 MG TAB PO SCH ×2 (11:24→20:35)
[2017-09-30] MEDS: Gabapentin 100 MG CAP PO SCH (11:24)
[2017-09-30] MEDS: levETIRAcetam 500 MG TAB PO SCH ×2 (11:24→20:35)
[2017-09-30] MEDS: Dicyclomine 10 MG CAP PO SCH ×4 (11:24→20:35)
--- NOTE | 2017-09-30 12:55 | PRG ---
DATE OF SERVICE: 09/30/2017 Ms. Morris has about bowel movements a day now. She states they are getting more formed, but the aci dity of the stools is really bothering her bottom. MEDICATIONS: She is emollient cream for her bottom. She is on loperamide p.r.n. She continues on a ntibiotic and saccharomyces boulardii. RECOMMENDATIONS: Start Colestid at bedtime to help with her diarrhea.
[2017-09-30] MEDS: Ciprofloxacin 500 MG TAB PO SCH (14:55)
--- NOTE | 2017-09-30 15:01 | PRG ---
DATE OF SERVICE: 09/30/2017 SUBJECTIVE: Ms. Morris is afebrile. OBJECTIVE: VITAL SIGNS: Heart rate is 76, respiratory rate is 18, oximetry is 98 and blood pressure is 89/59. LUNGS: Clear. She is on room air. HEART: Regular rhythm. ABDOMEN: Soft. LABORATORY DATA: White count 6.4, hemoglobin 13.4 and platelets 110. Electrolytes are normal. BUN is 22 and creatinine is 5.7. IMPRESSION: Campylobacter enteritis. She is still complaining of significant burning when she has b owel movement. PLAN: Colestid was started today by Dr. Casey. She is stable from a pulmonary standpoint.
[2017-09-30] MEDS: Loperamide HCl 2 MG CAP PO PRN (16:04)
--- NOTE | 2017-09-30 17:54 | PRG ---
DATE OF SERVICE: 09/30/2017 SUBJECTIVE: The patient is seen and examined with no new complaints and noted with the following. OBJECTIVE: VITAL SIGNS: Afebrile, heart rate of 76, respiratory rate of 18, O2 saturation 98% with a blood pres sure of 89/59. HEENT: Unremarkable with moist oral mucosa. No conjunctival injection, no icterus. NECK: Supple. CARDIOVASCULAR SYSTEM: First and second heart sounds were heard. RESPIRATORY SYSTEM: Clear to auscultation. DIGESTIVE SYSTEM: Revealed a benign abdomen with positive bowel sounds. EXTREMITIES: No peripheral edema. SKIN: No new gross rash. LYMPHATICS: No peripheral lymphadenopathy. IMPRESSION: 1. End-stage renal disease, hemodialysis dependent. 2. Persistent diarrhea, query cause. PLAN: 1. The patient to continue with hemodialysis as per schedule on Thursday, , and Thursday. patient is on due for dialysis today. 2. Further management to be dependent on the clinical course.
[2017-09-30 22:36] VITALS: BP 95/59; TEMP 97.2
== END 2017-09-30 21:33 | disposition home or self-care (01) | DRG 371 ==
LOC: ERS 00:26 → IMCU/EMU 04:18 → 2NO 09-29 18:11
PROVIDERS: ADMIT Internal Medicine; ATTEND Internal Medicine
PROC: 05HY33Z Insertion of Infusion Device into Upper Vein, Percutaneous Approach (ICD-10-PCS; 2017-09-26)
PROC: B4101ZZ Fluoroscopy of Abdominal Aorta using Low Osmolar Contrast (ICD-10-PCS; principal; 2017-09-29)
PROC: B41G1ZZ Fluoroscopy of Left Lower Extremity Arteries using Low Osmolar Contrast (ICD-10-PCS; 2017-09-29)
DX: A04.5 Campylobacter enteritis (principal); N18.6 End stage renal disease; J96.01 Acute respiratory failure with hypoxia; I13.2 Hypertensive heart and chronic kidney disease with heart failure and with stage 5 chronic kidney disease, or end stage renal disease; I95.9 Hypotension, unspecified; I24.8 Other forms of acute ischemic heart disease; I27.20 Pulmonary hypertension, unspecified; G62.9 Polyneuropathy, unspecified; I50.32 Chronic diastolic (congestive) heart failure; I48.0 Paroxysmal atrial fibrillation; I48.91 Unspecified atrial fibrillation; Z88.5 Allergy status to narcotic agent; Z88.1 Allergy status to other antibiotic agents; Z91.041 Radiographic dye allergy status; Z79.01 Long term (current) use of anticoagulants; G40.909 Epilepsy, unspecified, not intractable, without status epilepticus; Z99.2 Dependence on renal dialysis; F41.9 Anxiety disorder, unspecified; F32.9 Major depressive disorder, single episode, unspecified; F17.210 Nicotine dependence, cigarettes, uncomplicated; E87.6 Hypokalemia; G89.29 Other chronic pain; M54.5 Low back pain; K21.9 Gastro-esophageal reflux disease without esophagitis; I70.202 Unspecified atherosclerosis of native arteries of extremities, left leg; E86.0 Dehydration; Z86.79 Personal history of other diseases of the circulatory system; E66.9 Obesity, unspecified; Z68.28 Body mass index [BMI] 28.0-28.9, adult
CPT/HCPCS: 36247; 36415; 36556; 71045; 75630; 75710; 76942; 80048; 80053; 82274; 83630; 83735; 85025; 85347; 85610; 85730; 86850; 86900; 86901; 87045; 87046; 87324; 87449; 87899; 90935; 93923; 96360; A4216; C1769; C1887; C9113; G0257; J1200; J1644; J2001; J2405; J2720

== ENCOUNTER 2017-10-26 06:24 | Day surgery (SDC) | payer MEDICARE, MEDICAID ==
[2017-10-22 15:37] VITALS: BMI 31.7
[~2017-10-26 06:24] MED LIST changes: -ISOVUE-370 76%-LOCM 1 ML ONE; +Lidocaine 1% (PF) 30 ML VIAL ONE
[2017-10-26 07:14] LABS: Hemoglobin 14.6 g/dL (12.0-16.0); Mean Corpuscular HGB CONC 30.6 g/dL (32.0-36.0); Mean Corpuscular Hemoglobin 31.1 pg (27.0-31.0); Mean Platelet Volume 10.5 fL (7.4-10.4); Platelet Count 145 thou/uL (130-400); RBC Distribution Width 22.2 % (11.5-14.5); Red Blood Cell (RBC) Count 4.69 mill/uL (4.20-5.40); White Blood Cell (WBC) Count 8.8 thou/uL (4.8-10.8)
[2017-10-26 07:22] LABS: Anion Gap 23 mmol/L (10-20); BUN (Urea Nitrogen) 56 mg/dL (7.0-18.7); Calc. Creatinine Clearance 11 mL/min (70-130); Carbon Dioxide 21 mmol/L (22-29); Chloride 102 mmol/L (98-107); Estimated GFR-MDRD 5; Glucose 64 mg/dL (70-105); Potassium 3.8 mmol/L (3.5-5.1); Sodium 142 mmol/L (136-145)
[2017-10-26] MEDS ORDERED: Fentanyl 100 MCG/2 ML VIAL ONE ×2 (07:22→09:01)
[2017-10-26 07:25] LABS: Band 1 % (5-11); Eosinophils 5 % (0-10); Lymphocytes 18 % (21-51); MDiff Complete? YES; Macrocytosis SLIGHT = 6-15 cells (100X) (0-5/hpf); Monocytes 2 % (0-10); Neutrophil 73 % (42-75); PLT Morphology Comment Appears Adequate; Promyelocytes 1 % (0-0)
[2017-10-26] MEDS ORDERED: Heparin 10,000 UNITS/1 ML VIAL ONE (08:18)
[2017-10-26] MEDS ORDERED: Protamine Sulfate 50 MG/5 ML VIAL ONE (08:20)
[2017-10-26] MEDS ORDERED: Clopidogrel Bisulfate 300 MG TAB ONE (08:30)
[2017-10-26] MEDS ORDERED: Aspirin 325 mg Enteric Coated Tablet ONE (09:01)
--- NOTE | 2017-10-26 09:09 | OP ---
PREOPERATIVE DIAGNOSES: Nonhealing wound in left lower extremity and gangrenous tip of left second t oe secondary to peripheral artery disease. PROCEDURES: 1. Left lower extremity angiography with BRAKE [employer]PA[employer] RAILROAD and stent placement. 2. Left anterior tibial with a 3 x 16 mm drug-eluting stent. SURGEON: Peng Pablo M.D. BULB GRADER: Dr. Win. CONTRAST: 49 mL. FLUOROSCOPY: 13.7 minutes. PROCEDURE IN DETAIL: After adequate anesthesia had been obtained with 1% lidocaine in the left groin , ultrasound guided puncture of the left common femoral artery was performed. Micropuncture set was used and a wire was inserted down the SFA, 5 German micropuncture catheter placed. A [employer] wire an d then a 5 German dilator and sheath advanced. The patient was given 5000 units of heparin and an an gled Chestnut was advanced over the 0.035 wire. An 0.014 loose wire was then advanced and with some pers istence, the anterior tibial was cannulated. Following this, a 3 x 60 balloon was used to dilate the lesion and completion angiography showed much improved result; however, still some haziness in that region. For this reason, it was elected to place a 3 x 16 mm drug-eluting stent. Completion angiogr aphy showed flow down the anterior tibial to about the level of the ankle. The peroneal artery was r eally the dominant vessel and collateralized with the anterior tibial. There was about a 2 cm occlus ion at the origin of the tibioperoneal trunk prior to giving off the peroneal and posterior tibial. If improving flow through the anterior tibial was not enough to resolve her wound problems, considera tion could be given to popliteal to peroneal bypass. She does have superficial femoral artery diseas e, but moderate in nature. Long-term prognosis is poor with the patient's dialysis and smoking.
[2017-10-26] MEDS ORDERED: Iopamidol 370 76% 50 ML VIAL FS ONE (09:33)
== END 2017-10-26 15:50 | disposition home or self-care (01) ==
LOC: CCL 06:24
PROVIDERS: ATTEND Thoracic Surgery (Cardiothoracic Vascular Surgery)
PROC: B40G1ZZ Plain Radiography of Left Lower Extremity Arteries using Low Osmolar Contrast (ICD-10-PCS; principal; 2017-10-26)
DX: I70.262 Atherosclerosis of native arteries of extremities with gangrene, left leg (principal); I12.0 Hypertensive chronic kidney disease with stage 5 chronic kidney disease or end stage renal disease; N18.6 End stage renal disease; I48.0 Paroxysmal atrial fibrillation; G40.909 Epilepsy, unspecified, not intractable, without status epilepticus; G62.9 Polyneuropathy, unspecified; F32.9 Major depressive disorder, single episode, unspecified; F41.9 Anxiety disorder, unspecified; K21.9 Gastro-esophageal reflux disease without esophagitis; Z88.1 Allergy status to other antibiotic agents; Z88.5 Allergy status to narcotic agent; Z88.8 Allergy status to other drugs, medicaments and biological substances; Z79.01 Long term (current) use of anticoagulants; Z79.899 Other long term (current) drug therapy; Z99.2 Dependence on renal dialysis
CPT/HCPCS: 37230; 76942; 80048; 85025; 85347; 96374; C1725; C1769 ×2; C1874; 36415; 99152; 99153; J1644; J2001; J2720; J3010

== ENCOUNTER 2018-01-12 14:31 | Inpatient (IN) | payer MEDICARE, MEDICAID ==
[2018-01-12] MEDS ORDERED: Acetaminophen 500 MG TAB ONE (15:25)
[2018-01-12 15:42] LABS: #Eosinphils 0.1 thou/uL (0.0-0.7); #Lymphocytes 1.3 thou/uL (1.20-3.40); #Monocytes 0.9 thou/uL (0.11-0.59); %Basophils 0.2 % (0.0-1.0); %Eosinophils 1.4 % (0.0-10.0); %Lymphocytes 14.3 % (21.0-51.0); %Monocytes 9.6 % (0.0-10.0); %Neutrophils 74.6 % (42.0-75.0); Anisocytosis SLIGHT = 6-15 cells (100X) (0-5/hpf); Hemoglobin 13.1 g/dL (12.0-16.0); Large Platelets SLIGHT; MDiff Complete? YES; Mean Corpuscular HGB CONC 32.1 g/dL (32.0-36.0); Mean Corpuscular Hemoglobin 31.6 pg (27.0-31.0); Mean Corpuscular Volume 98.5 fl (81.0-99.0); Mean Platelet Volume 9.3 fL (7.4-10.4); Ovalocytes SLIGHT = 2-5 cells (100X) (0-1/hpf); PLT Morphology Comment Appears Decreased; Platelet Count 115 thou/uL (130-400); Polychromasia SLIGHT = 2-3 cells (100X) (0-2/hpf); RBC Distribution Width 19.1 % (11.5-14.5); Red Blood Cell (RBC) Count 4.14 mill/uL (4.20-5.40); White Blood Cell (WBC) Count 9.3 thou/uL (4.8-10.8)
[2018-01-12 15:44] LABS: ALT (SGPT) 11 U/L (8-55); AST (SGOT) 17 U/L (5-34); Albumin 3.7 g/dL (3.5-5.0); Alkaline Phosphatase 103 U/L (40-150); Anion Gap 20 mmol/L (10-20); BUN (Urea Nitrogen) 36 mg/dL (7.0-18.7); CK (CPK) 54 U/L (29-168); Calc. Creatinine Clearance 0 mL/min (70-130); Carbon Dioxide 25 mmol/L (22-29); Chloride 97 mmol/L (98-107); Estimated GFR-MDRD 8; Globulin 2.9 g/dL (2.4-3.5); Glucose 77 mg/dL (70-105); Lipase 32 U/L (8-78); Potassium 3.7 mmol/L (3.5-5.1); Protein, Total 6.6 g/dL (6.0-8.3); Sodium 138 mmol/L (136-145)
[2018-01-12 15:48] LABS: Troponin I 0.102 ng/mL (< 0.028)
--- NOTE | 2018-01-12 15:58 | RAD ---
AP CHEST: Indication: Chest pain after dialysis. FINDINGS: There is cardiomegaly with pulmonary vascular congestion, perihilar edema. There is a small left tiny pleural effusion. No pneumothorax. Vascular stent is seen within the region of the left brachiocepha lic, unchanged. Osseous structures are similar appearing. IMPRESSION: Findings of volume overload or CHF. POS: [facility]
[2018-01-12] MEDS ORDERED: Ondansetron ODT 4 MG TAB ONE (16:25)
[2018-01-12] MEDS ORDERED: Fentanyl 100 MCG/2 ML VIAL ONE (16:25)
[2018-01-12 18:24] LABS: Troponin I 0.089 ng/mL (< 0.028)
[2018-01-12] MEDS ORDERED: Ondansetron HCl/PF 4 MG/2 ML Vial IVP PRN ×2 (18:34→19:05)
[2018-01-12] MEDS ORDERED: Sodium Chloride 0.9% 1,000 ML IV SCH (18:34)
[2018-01-12] MEDS ORDERED: Ondansetron ODT 4 MG TAB SL PRN (18:34)
[2018-01-12] MEDS ORDERED: HYDROcodone/Acetaminophen 5/325 mg Tablet PO PRN ×2 (19:05→19:46)
[2018-01-12] MEDS ORDERED: Acetaminophen 650 MG Suppository PR PRN (19:05)
[2018-01-12] MEDS ORDERED: Zolpidem Tartrate 5 MG TAB PO PRN (19:05)
[2018-01-12] MEDS ORDERED: Bisacodyl 5 MG TAB PO PRN (19:05)
[2018-01-12] MEDS ORDERED: Acetaminophen 325 MG TAB PO PRN (19:05)
[2018-01-12 20:25] LABS: Troponin I 0.105 ng/mL (< 0.028)
[2018-01-12] MEDS: levETIRAcetam 500 MG TAB PO SCH (20:49)
[2018-01-12] MEDS: Doxycycline 100 MG CAP PO SCH (20:49)
[2018-01-12] MEDS: Docusate 100 MG CAP PO SCH (20:49)
[2018-01-12] MEDS: Famotidine 20 MG TAB PO SCH (20:49)
[2018-01-12] MEDS: Apixaban 5 MG TAB PO SCH (20:49)
[2018-01-12 22:17] VITALS: BMI 31.1
[2018-01-12] MEDS: Ondansetron ODT 4 MG TAB PO PRN (23:13)
[2018-01-12] MEDS: HYDROcodone/Acetaminophen 5/325 mg Tablet PO PRN (23:14)
--- NOTE | 2018-01-13 01:23 | HP ---
PRIMARY CARE PHYSICIAN: Bibiana Almanzar M.D. PRIMARY TRIAL ATTORNEY: Zeferino Matthew M.D. CHIEF COMPLAINT: Chest pain. HISTORY OF PRESENT ILLNESS: This is a 42-year-old Afro-[place] female with a known history of end-s tage renal disease, on hemodialysis, also with a history of atrial fibrillation and peripheral vascul ar disease. The patient reports that she has been having a cough productive of yellow sputum for the last 3-4 days, then yesterday started to develop a left sternum squeezing chest pain, worse with cou gh and deep breathing. This got worse overnight and then today in dialysis it got significantly wors e during her dialysis. She was also noted to have some low blood pressures and so her dialysis had t o be stopped, uncertain exactly how long it went or how much fluid they took off. She was then sent over to the emergency room here. In the ER here, she has had blood pressures fluctuating between 80s systolic to 90s systolic. She has had continued chest pain. They gave her a little bit of fentanyl , but they could not give very much due to her blood pressures, so she is still having the chest pain . She was not able to tolerate any nitroglycerin. She did have no significant changes on her EKG an d she had an indeterminate troponin that is stable with her baseline as well as her brain natriuretic peptide is actually low for her on previous checks. Her chest x-ray did show continued vascular con gestion and cardiomegaly. She is being admitted to the hospital for persistent chest pain, possibili ty of cardiac etiology versus pulmonary infection. PAST MEDICAL HISTORY: 1. End-stage renal disease, on hemodialysis Thursday, , and Thursday. 2. Paroxysmal atrial fibrillation, on chronic Eliquis. 3. Seizure disorder. 4. Hypertension. 5. Peripheral neuropathy. PAST SURGICAL HISTORY: 1. AV fistula placement. 2. Colectomy. 3. . 4. Bilateral tubal ligation. 5. Thoracic aortic aneurysm repair. PAST PSYCHIATRIC HISTORY: Anxiety and depression. FAMILY HISTORY: Positive for hypertension, stroke, and coronary artery disease in multiple family me mbers. SOCIAL HISTORY: The patient lives in [place] with her teenage son and 28-year-old son. She is on disa bility. She smokes about a half pack of cigarettes per day. Denies alcohol abuse or illicit drug ab use. ALLERGIES: 1. ANCEF. 2. CLINDAMYCIN. 3. CODEINE SULFATE. 4. DILANTIN. 5. HYDROCODONE causes itching. However, she is on it at home. 6. INTRAVENOUS IODINE. CURRENT MEDICATIONS: 1. ProRenal 1 tablet daily. 2. Levetiracetam 500 mg twice a day. 3. Sertraline 25 mg daily. 4. Ambien 5 mg at night. 5. Hydrocodone 5/325 1-2 tabs every 4 hours as needed. 6. Gabapentin 300 mg at night as needed for pain. 7. Cyclobenzaprine 5 mg every 8 hours as needed for back pain. 8. Zofran 4 mg every 6 hours as needed for nausea and vomiting. 9. Omeprazole 20 mg daily. 10. Eliquis 5 mg twice a day. She has actually been taking this only once a day for the last 2 week s, because she had some rectal bleeding at that time and has not had any since. This was her decisio n on a doctor's order, then decreased it. REVIEW OF SYSTEMS: Constitutional. She did have some chills last night and reports that she had a t emperature measured 101 she thinks at dialysis. She was afebrile here. Eyes: No double vision. Josie mcclelland has had some blurred vision recently. ENT: No congestion, drainage, or sore throat. Cardiovascul ar: See HPI. No racing or palpitations. Pulmonary: See HPI. No current shortness of breath. Gas trointestinal: No abdominal pain, no nausea or vomiting, no diarrhea or constipation. Genitourinary : She does not produce any urine. Musculoskeletal: She has generalized body aches. Skin: No rash es or other lesions. Neurologic: She does have some intermittent tingling and numbness of her left lower extremity from her peripheral vascular disease. This is a baseline. PHYSICAL EXAMINATION: VITAL SIGNS: Blood pressure 92/53, pulse 89, respirations 20, temperature 98.8, O2 sat 98% on room a ir. GENERAL: This is a well-developed -[place]ian female in no acute distress. HEENT EXAM: Pupils equal, round, and reactive to light. Oropharynx clear without lesions, erythema, or exudate. NECK: Supple, no lymphadenopathy, no thyroid nodules or enlargement, no JVD. HEART: Regular rate and rhythm, no murmurs. LUNGS: Clear to auscultation bilaterally. No wheezes, crackles, or rhonchi. ABDOMEN: She does have some tenderness to palpation of the sternum, which reproduces her chest pain. Abdomen is soft, nontender to palpation, normoactive bowel sounds, no hepatosplenomegaly or other m asses. EXTREMITIES: No clubbing, cyanosis, or edema. The left lower extremity does look a little darker th an the right. She states this is chronic. SKIN: No rashes or other lesions noted. NEUROLOGIC: Normal strength in all extremities and no facial droop. LABORATORY DATA: CBC grossly within normal limits except for platelet count of 115. A complete meta bolic panel was notable for a chloride of 97, BUN of 36, creatinine of 6.89, total bilirubin of 2, an d the rest is normal. Troponin is indeterminate 0.102, which is actually stable or less than previou s checks, repeat was 0.089. Brain natriuretic peptide of 1800, most recent ones before this were 300 0 and 1500. Chest x-ray: I did review the chest x-ray done in the emergency room along with the rad iologist's report. It does show persistent cardiomegaly and evidence of congestive heart failure and overload. ASSESSMENT AND PLAN: 1. Upper respiratory tract infection, likely bronchitis. We will start patient on doxycycline. 2. Chest pain, appears to be musculoskeletal secondary to patient's repetitive coughing. There is a lways a concern for coronary artery disease in this patient with loss of vascular disease as well as the history of the thoracic aortic aneurysm and dissection. We will put her in the intermediate care unit and observe her closely and trend her troponins. If her blood pressure does respond or improve s, I think she might benefit from nitroglycerin as well. 3. Hypotension. The patient is borderline hypotensive without any symptoms besides the chest pain a t this time. We will hold her blood pressure medicines. She still looks a little bit fluid overload ed, so we will avoid giving fluids at this time unless her blood pressure gets worse. We will consul t Cardiology and Critical Care to help with this patient. 4. End-stage renal disease, on dialysis. Consult Dr. Mcgarry for continued dialysis as tolerated . 5. GI prophylaxis. Continue patient's proton pump inhibitor. 6. Atrial fibrillation, rate currently controlled. We will continue patient's Eliquis. 7. Code Status: I did discuss with the patient. She is a FULL CODE. Should she be incapacitated, her son would be her medical decision maker, his name is Jayden Morris.
[2018-01-13 05:41] LABS: Anion Gap 22 mmol/L (10-20); BUN (Urea Nitrogen) 45 mg/dL (7.0-18.7); Calc. Creatinine Clearance 12 mL/min (70-130); Calcium 7.9 mg/dL (7.8-10.44); Carbon Dioxide 22 mmol/L (22-29); Chloride 98 mmol/L (98-107); Estimated GFR-MDRD 7; Glucose 95 mg/dL (70-105); Potassium 4.4 mmol/L (3.5-5.1); Sodium 138 mmol/L (136-145)
[2018-01-13 05:45] LABS: Band 3 % (5-11); Eosinophils 4 % (0-10); Hemoglobin 12.7 g/dL (12.0-16.0); Lymphocytes 19 % (21-51); MDiff Complete? YES; Mean Corpuscular HGB CONC 31.3 g/dL (32.0-36.0); Mean Corpuscular Hemoglobin 31.5 pg (27.0-31.0); Mean Platelet Volume 10.4 fL (7.4-10.4); Monocytes 11 % (0-10); Neutrophil 63 % (42-75); Nucleated RBC 1 % (0); PLT Morphology Comment Appears Decreased; Platelet Count 122 thou/uL (130-400); RBC Distribution Width 19.1 % (11.5-14.5); Red Blood Cell (RBC) Count 4.04 mill/uL (4.20-5.40)
[2018-01-13] MEDS ORDERED: Prevnar 13-Val Conj/PF 0.5 ML SYRINGE IM ONE (09:00)
[2018-01-13] MEDS: Apixaban 5 MG TAB PO SCH (09:14)
[2018-01-13] MEDS: Doxycycline 100 MG CAP PO SCH ×2 (09:14→21:07)
[2018-01-13] MEDS: levETIRAcetam 500 MG TAB PO SCH ×2 (09:14→21:07)
[2018-01-13] MEDS: HYDROcodone/Acetaminophen 5/325 mg Tablet PO PRN ×2 (09:15→21:07)
[2018-01-13] MEDS: Docusate 100 MG CAP PO SCH ×2 (09:17→21:08)
[2018-01-13] MEDS ORDERED: Benzonatate 100 MG CAP PO PRN (09:51)
[2018-01-13] MEDS ORDERED: guaiFENesin 100 MG/5 ML UDCUP PO PRN (09:52)
--- NOTE | 2018-01-13 09:56 | PDOC.PN ---
- Subjective Encounter Start Date: 01/13/18 Encounter Start Time: 12:50 Subjective: Patient reports no further chest pain, just a little sore if touched. Cough -: improved a bit. BP low all night but patient states that has been like that -: for 2 months now. - Objective Resuscitation Status: Resuscitation Status FULL:Full Resuscitation MAR Reviewed: Yes Vital Signs & Weight: Vital Signs (12 hours) Temp Pulse Resp BP Pulse Ox 01/13/18 07:35 97.2 F L 73 15 83/51 L 92 L 01/13/18 03:50 97.8 F 78 19 109/68 93 L 01/13/18 02:50 97 01/13/18 00:06 97.7 F 72 21 H 86/45 L 100 01/12/18 22:00 97.9 F 75 20 105/59 L 99 Weight Weight 192 lb 14.4 oz I&O: 01/12/18 01/13/18 01/14/18 06:59 06:59 06:59 Intake Total 450 Balance 450 Result Diagrams: 01/13/18 04:44 01/13/18 04:44 Phys Exam - Physical Examination Constitutional: NAD HEENT: moist MMs Respiratory: no wheezing, no rales, no rhonchi Cardiovascular: RRR Gastrointestinal: soft, positive bowel sounds Neurological: non-focal, moves all 4 limbs Psychiatric: normal affect, A&O x 3 Dx/Plan (1) Acute bronchitis Code(s): J20.9 - ACUTE BRONCHITIS, UNSPECIFIED Status: Acute Comment: on doxycycline, add Tessalon and Guaifenesin (2) Chest pain Code(s): R07.9 - CHEST PAIN, UNSPECIFIED Status: Acute Comment: appears to be musculoskeletal due to cough (3) Hypotension Status: Acute Comment: Patient states she often runs low in the 80s, asymptomatic at this time (4) Elevation of cardiac enzymes Code(s): R74.8 - ABNORMAL LEVELS OF OTHER SERUM ENZYMES Status: Chronic Comment: appears chronic, stable since admit (5) Diastolic CHF, chronic Code(s): I50.32 - CHRONIC DIASTOLIC (CONGESTIVE) HEART FAILURE Status: Chronic Comment: BNP appears at baseline (6) End stage renal disease on dialysis Code(s): N18.6 - END STAGE RENAL DISEASE; Z99.2 - DEPENDENCE ON RENAL DIALYSIS Status: Chronic Comment: HD per renal. chronically low BP. (7) Atrial fibrillation Code(s): I48.91 - UNSPECIFIED ATRIAL FIBRILLATION Status: Chronic Qualifiers: Atrial fibrillation type: chronic Qualified Code(s): I48.2 - Chronic atrial fibrillation Comment: rate controlled - Plan cont current plan of care, continue antibiotics, PT/OT Awaiting cardiology consult * . - Discharge Day Encounter end time: 13:00
[2018-01-13] MEDS: Ondansetron ODT 4 MG TAB PO PRN ×2 (10:06→19:40)
[2018-01-13] MEDS ORDERED: Diabetic Tussin 200 MG/10 ML UDCUP PO PRN (10:28)
[2018-01-13] MEDS: Sodium Chloride 0.9% 1,000 ML IV SCH (15:21)
--- NOTE | 2018-01-13 19:13 | CON ---
DATE OF CONSULTATION: 01/13/2018 SUBJECTIVE: Ms. Morris is a very pleasant 42-year-old female with end-stage renal disease. She is well known to multiple physicians at this hospital. She presented last night with complaints of chest discomfort. She subsequently has been admitted for workup of this. PAST MEDICAL HISTORY: 1. Remarkable for end-stage renal disease. 2. History of atrial fibrillation. 3. History of seizure disorder. 4. History of Hypertension. 5. History of anticoagulation with Eliquis. 6. History of peripheral neuropathy. 7. History of multiple vascular access procedures. 8. History of partial colon resection. 9. History of tubal ligation. 10. History of an aortic aneurysm repair in her thorax. 11. History of seizure disorder. 12. History of multiple episodes of Clostridium difficile. 13. History of cardioversion for atrial fibrillation, multiple times in the past. 14. History of a and tubal ligation. 15. History of cervical cancer, status post radiation therapy. 16. History of upper and lower endoscopy in 2017. FAMILY HISTORY: Negative for lung disease at an early age. Positive for vascular disease in multiple family members. SOCIAL HISTORY: She is still smoking a half pack a day. She does not drink. ALLERGIES: She has reported allergies to CEPHALOSPORINS, CLEOCIN, CODEINE, DILANTIN, HYDROCODONE and IODINE. REVIEW OF SYSTEMS: Ten point review of system is otherwise negative. She denies chest pain, shortness of breath at this time. OBJECTIVE: VITAL SIGNS She is afebrile, heart rate is 73, respiratory is 18, oximetry is 98 on 1 liter cannula and 92 on room air, blood pressure is between 75 and 83 systolic. HEENT: Pupils are equal. Sclerae is anicteric. General: She appears older than her age. NECK: Supple, no lymphadenopathy. LUNGS: Remarkable for crackles at her lung bases. HEART: Regular rhythm. S1 and S2 are normal. Grade 2/6 systolic murmur is heard. ABDOMEN: Soft and nontender. EXTREMITIES: Without clubbing, cyanosis, or edema. NEUROLOGIC: Grossly nonfocal. LABORATORY DATA: White count 8, hemoglobin 12.7, platelets 122,000. Sodium 138 , potassium 4.4, chloride 98, bicarbonate 22. BNP of 45, creatinine 7.96. Chest radiograph shows pulmonary edema. IMPRESSION: 1. Volume overload. 2. Chest discomfort. Troponins in my opinion is more consistent with her renal failure and not indicative of an acute myocardial infarction. I will be happy to follow with the other physicians caring for her. Dialysis is difficult given her hypotension and her radiographic findings of volume overload. She appears to be clinically stable at this point, no distress. This is a 50 minute consult with greater than 50% spent on the unit with coordination of care. ABHINAV
--- NOTE | 2018-01-13 19:26 | CON ---
DATE OF CONSULTATION: 01/13/2018 PRIMARY DISTRIBUTION DESIGNER: Dr. Sly Guardado. REASON FOR CONSULTATION: Hypotension. HISTORY OF PRESENT ILLNESS: Ms. Myriam Morris is a 42-year-old patient of Dr. Sly Guardado. The patient has a history of end-stage renal disease, coronary artery disease, hypotension, atrial fibri llation who was admitted to the hospital yesterday with hypotension after dialysis and remains hypote nsive. The patient did have some chest pain yesterday. She is pain free today. She had a cardiac catheteri zation done in 06/2017 showing distal atherosclerosis with calcium. Medical therapy is the only opti on at that point. PAST MEDICAL HISTORY: 1. Atrial fibrillation, previous cardioversion. 2. Coronary artery disease. 3. End-stage renal disease. MEDICATIONS: Now she is on no medicines to lower the blood pressure as an outpatient yesterday. She is on aspirin as well as apixaban, the outpatient dose is listed as 2.5 mg once a day and here in [facility], she is on 5 mg twice a day. REVIEW OF SYSTEMS: Constitutional: No significant weight gain or loss. Vision: No changes. Heari ng: No changes. Pulmonary: No cough or wheezing. Gastrointestinal: No nausea, vomiting, diarrhea . Skin: No rashes. Neurologic: No unilateral weakness or numbness. Psychiatric: No unusual depression or anxiety. ALLERGIES: She is allergic to CEFAZOLIN, CODEINE, CLINDAMYCIN and IODINE. PHYSICAL EXAMINATION: GENERAL: This is a pleasant 42-year-old woman in no distress. VITAL SIGNS: Blood pressure was 75/45, pulse 70, irregularly irregular. EYES: Sclerae nonicteric. Mouth mucous membranes moist. NECK: Supple, no lymphadenopathy. LUNGS: Clear, no wheezing, rales or rhonchi. CARDIAC: Irregularly irregular. ABDOMEN: Soft, nontender. EXTREMITIES: There is no edema. SKIN: Warm and dry. PERTINENT LABORATORY AND X-RAY FINDINGS: The hemoglobin is 12.7. The creatinine 7.96. EKG reveals atrial fibrillation. ASSESSMENT: 1. History of atrial fibrillation which now appears chronic. Rate is controlled. 2. Hypertension. 3. End-stage renal disease. PLAN: 1. Repeat echocardiogram. 2. Intravenous fluid 1 liter over [address] Guardado to address dose of apixaban to be used in this patient. She does have end-stage torie al disease, currently on 5 mg twice a day of apixaban. For now, we will reduce the dose to 2.5 mg a day until Dr. Guardado decides dose long-term.
[2018-01-13] MEDS: Famotidine 20 MG TAB PO SCH (21:07)
[2018-01-13] MEDS: Apixaban 2.5 MG TAB PO SCH (21:07)
--- NOTE | 2018-01-14 01:02 | CON ---
DATE OF CONSULTATION: 01/13/2018 CONSULTING PHYSICIAN: Zeferino Matthew MD REQUESTING PHYSICIAN: Ashish Leahy MD REASON FOR CONSULTATION: Need for maintenance hemodialysis. IMPRESSION: 1. End-stage renal disease, hemodialysis dependent. 2. Chest pain, query cause. 3. Peripheral vascular disease. PLAN: There is no emergent indication for renal replacement therapy; therefore, we will hold off on dialyzing this patient. Plan was keeping the patient on her schedule of Thursday, , and . HISTORY OF PRESENT ILLNESS: A 42-year-old female patient who was at dialysis, but developed chest di [place]om[place], necessitating transfer to the hospital. Patient did not complete her dialysis treatment. Patient currently undergoing workup for chest pain and cough. PAST MEDICAL HISTORY: Significant for end-stage renal disease, hemodialysis dependent, paroxysmal at rial fibrillation, seizure disorder, hypertension, and peripheral neuropathy. MEDICATIONS: Reviewed and as documented on [employer]. FAMILY HISTORY: Not significantly related to the presenting illness. SOCIAL HISTORY: Significant for cigarette usage, but denies alcohol or illicit drug use. ALLERGIES: ANCEF, CLINDAMYCIN, CODEINE, DILANTIN, HYDROCODONE, and CONTRAST. REVIEW OF SYSTEMS: As documented in the body of the history. All the other systems were reviewed an d found not to be significantly related to presenting illness.: PHYSICAL EXAMINATION: GENERAL: The patient was found not to be in any obvious distress, sleeping, but arousable noted with the following vital signs. VITAL SIGNS: Afebrile with temperature 97.2, pulse 73, respiratory 18, O2 sat of 95% with a blood pr essure of 75/45 to 94/58. HEENT: Unremarkable with moist oral mucosa. No conjunctival injection or icterus. NECK: Supple. CARDIOVASCULAR SYSTEM: First and second heart sounds were heard. RESPIRATORY SYSTEM: Clear to auscultation anteriorly. DIGESTIVE SYSTEM: Revealed a slightly distended abdomen. EXTREMITIES: No significant peripheral edema. NEUROLOGIC: Alert and oriented. No lateralizing sign. LYMPHATICS: No peripheral lymphadenopathy. SUMMARY: A 42-year-old female patient with end-stage renal disease who is undergoing workup for ches t pain. Thank you for this consultation. We will follow with you.
[2018-01-14] MEDS: Sodium Chloride 0.9% 1,000 ML IV SCH ×3 (03:56→22:45)
[2018-01-14] MEDS: levETIRAcetam 500 MG TAB PO SCH ×2 (09:09→20:36)
[2018-01-14] MEDS: Doxycycline 100 MG CAP PO SCH ×2 (09:09→20:36)
[2018-01-14] MEDS: Apixaban 2.5 MG TAB PO SCH (09:11)
[2018-01-14] MEDS: Docusate 100 MG CAP PO SCH ×2 (09:11→20:36)
[2018-01-14] MEDS ORDERED: Gabapentin 300 MG CAP PO PRN (11:10)
[2018-01-14] MEDS: Ondansetron ODT 4 MG TAB PO PRN ×2 (12:24→20:40)
--- NOTE | 2018-01-14 12:25 | PRG ---
DATE OF SERVICE: 01/14/2018 Mr. Morris has no complaints. PHYSICAL EXAMINATION: VITAL SIGNS: Blood pressure is running in the 80s-90s today. Heart rate 70. She is afebrile, respi ratory rate 16. LUNGS: Clear. HEART: Regular rhythm. ABDOMEN: Soft. LABORATORY DATA: White count 8.9, hemoglobin 12.7, platelets 122. Sodium 138, potassium 4.4, chlori de 90, bicarbonate 22, BUN 45, creatinine 7.96. Echocardiogram shows an ejection fraction of 65-70%. She has evidence of pulmonary hypertension. She had evidence of this in [address] pulmonar y angiogram that did not show evidence of thromboembolic disease according to old notes. IMPRESSION: 1. End-stage renal disease 2. Pulmonary hypertension, likely secondary to severe diastolic dysfunction. 3. History of atrial fibrillation with a cardioversion in the past. 4. Recurrent atrial fibrillation with controlled rate. 5. History of hypertension. Prognosis is poor with her cardiac and renal issues and underlying low blood pressure. She is curren tly on no medicines that would affect her blood pressure. She is stable to move out of the Inter[facility] Unit to a telemetry bed.
--- NOTE | 2018-01-14 15:24 | PRG ---
DATE OF SERVICE: 01/14/2018 SUBJECTIVE: The patient is seen and examined at dialysis, seems to be doing okay. PHYSICAL EXAMINATION: VITAL SIGNS: Afebrile with temperature 97.2, pulse 70, respiratory 16, O2 saturation 100% with blood pressure 93/52. HEENT: Unremarkable with moist oral mucosa. No conjunctival injection or icterus. NECK: Supple. CARDIOVASCULAR: First and second heart sounds were heard. RESPIRATORY: Clear to auscultation. DIGESTIVE: Revealed a benign abdomen. EXTREMITIES: Minimal peripheral edema. IMPRESSION: 1. End-stage renal disease. 2. Chest pain, query cause. 3. Hypervolemia. PLAN: 1. The patient to undergo a modified hemodialysis today with emphasis on ultrafiltration in order to address the hypervolemia in this patient with labile hemodynamics. 2. Further management to be dependent on the clinical course.
--- NOTE | 2018-01-14 16:16 | PDOC.PN ---
- Subjective Encounter Start Date: 01/14/18 Encounter Start Time: 16:14 Subjective: feels well,no dizziness, weakness,nausea/vomiting - Objective Resuscitation Status: Resuscitation Status FULL:Full Resuscitation MAR Reviewed: Yes Vital Signs & Weight: Vital Signs (12 hours) Temp Pulse Resp BP Pulse Ox 01/14/18 10:55 97.2 F L 70 16 93/52 L 100 01/14/18 08:00 98.4 F 72 16 98 01/14/18 07:46 98.4 F 72 16 83/50 L 90 L Weight Weight 195 lb 12.8 oz I&O: 01/13/18 01/14/18 01/15/18 06:59 06:59 06:59 Intake Total 450 1480 Balance 450 1480 Result Diagrams: 01/13/18 04:44 01/13/18 04:44 Additional Labs: Microbiology 01/12/18 20:32 Venous blood - Right Hand Blood Culture - Preliminary Specimen has been received and culture in progress. No Growth to date. 01/12/18 20:32 Venous blood - Right Hand Blood Culture - Preliminary NO GROWTH AT 48 HOURS 01/12/18 19:30 Venous blood - Right Hand Blood Culture - Preliminary Specimen has been received and culture in progress. No Growth to date. 01/12/18 19:30 Venous blood - Right Hand Blood Culture - Preliminary NO GROWTH AT 48 HOURS Laboratory Tests 01/12/18 01/12/18 01/12/18 15:11 15:11 17:52 Troponin I 0.102 H 0.089 H B-Natriuretic Peptide 1894.1 H 01/12/18 19:30 Troponin I 0.105 H B-Natriuretic Peptide labs reviewed Phys Exam - Physical Examination Constitutional: NAD HEENT: PERRLA, moist MMs, sclera anicteric, oral pharynx no lesions Neck: no nodes, no JVD, supple, full ROM Respiratory: no wheezing, no rales, no rhonchi, clear to auscultation bilateral Cardiovascular: RRR, no significant murmur Gastrointestinal: soft, non-tender, no distention, positive bowel sounds Musculoskeletal: no edema, pulses present Neurological: non-focal, normal sensation, moves all 4 limbs Psychiatric: normal affect, A&O x 3 Skin: no rash Dx/Plan (1) Acute bronchitis Code(s): J20.9 - ACUTE BRONCHITIS, UNSPECIFIED Status: Acute Comment: on doxycycline, add Tessalon and Guaifenesin (2) Hypotension Status: Acute Comment: Patient states she often runs low in the 80s, asymptomatic at this time (3) Atrial fibrillation Code(s): I48.91 - UNSPECIFIED ATRIAL FIBRILLATION Status: Chronic Qualifiers: Atrial fibrillation type: chronic Qualified Code(s): I48.2 - Chronic atrial fibrillation Comment: rate controlled.on eliquis (4) Benign hypertension Code(s): I10 - ESSENTIAL (PRIMARY) HYPERTENSION Status: Chronic (5) Diastolic CHF, chronic Code(s): I50.32 - CHRONIC DIASTOLIC (CONGESTIVE) HEART FAILURE Status: Chronic Comment: BNP appears at baseline (6) End stage renal disease on dialysis Code(s): N18.6 - END STAGE RENAL DISEASE; Z99.2 - DEPENDENCE ON RENAL DIALYSIS Status: Chronic Comment: HD per renal. chronically low BP. (7) GERD (gastroesophageal reflux disease) Code(s): K21.9 - GASTRO-ESOPHAGEAL REFLUX DISEASE WITHOUT ESOPHAGITIS Status: Chronic Qualifiers: Esophagitis presence: without esophagitis Qualified Code(s): K21.9 - Gastro -esophageal reflux disease without esophagitis (8) Hyperlipidemia Code(s): E78.5 - HYPERLIPIDEMIA, UNSPECIFIED Status: Chronic (9) Obesity (BMI 30.0-34.9) Code(s): E66.9 - OBESITY, UNSPECIFIED Status: Chronic (10) Seizure disorder Code(s): G40.909 - EPILEPSY, UNSP, NOT INTRACTABLE, WITHOUT STATUS EPILEPTICUS Status: Chronic Comment: Continue Keppra 500mg BID (11) History of aortic dissection Code(s): Z86.79 - PERSONAL HISTORY OF OTHER DISEASES OF THE CIRCULATORY SYSTEM Status: Resolved (12) CAD (coronary artery disease) Code(s): I25.10 - ATHSCL HEART DISEASE OF [place] CORONARY ARTERY W/O ANG PCTRS Status: Acute Qualifiers: Coronary Disease-Associated Artery/Lesion type: [place] artery [place] vs. transplanted heart: [place] heart Associated angina: without angina Qualified Code(s): I25.10 - Atherosclerotic heart disease of [place] coronary artery without angina pectoris (13) Pulmonary HTN Code(s): I27.20 - PULMONARY HYPERTENSION, UNSPECIFIED Status: Chronic - Plan PT/OT, out of bed/ambulate, DVT proph w/SCDs hemodynamically stable. can move out of CCU. -: BP stable. runs low chronically.no clear etiology -: no evidence of hypovolemia,infection,cardiac causes -: cont hemodialysis.monitor renal fx -: likle Dc soon if BP stable.am labs * . Review of Systems - Review of Systems Constitutional: negative: fever, chills, sweats, weakness, malaise, other ENT: negative: Ear Pain, Ear Discharge, Nose Pain, Nose Discharge, Nose Congestion, Mouth Pain, Mouth Swelling, Throat Pain, Throat Swelling, Other Respiratory: negative: Cough, Dry, Shortness of Breath, Hemoptysis, SOB with Excertion, Pleuritic Pain, Sputum, Wheezing Cardiovascular: negative: chest pain, palpitations, orthopnea, paroxysmal nocturnal dyspnea, edema, light headedness, other Gastrointestinal: negative: Nausea, Vomiting, Abdominal Pain, Diarrhea, Constipation, Melena, Hematochezia, Other Genitourinary: negative: Dysuria, Frequency, Incontinence, Hematuria, Retention , Other Musculoskeletal: negative: Neck Pain, Shoulder Pain, Arm Pain, Back Pain, Hand Pain, Leg Pain, Foot Pain, Other Neurological: negative: Weakness, Numbness, Incoordination, Change in Speech, Confusion, Seizures, Other - Medications/Allergies Allergies/Adverse Reactions: Allergies Allergy/AdvReac Type Severity Reaction Status Date / Time cefazolin sodium [From Ancef] Allergy Intermediate Anaphylaxis Verified 15:38 codeine [Codeine] Allergy Intermediate ITCHING Verified 10/22/17 15:38 clindamycin Allergy Verified 10/22/17 15:38 Iodinated Contrast- Oral and Allergy itching Verified 10/22/17 15:38 IV Dye phenytoin sodium Allergy Rash Verified 10/22/17 15:38 [From Dilantin] phenytoin sodium extended Allergy Rash Verified 10/22/17 15:38 [From Dilantin] Medications: Current Medications Acetaminophen (Tylenol) 650 mg PO Q4H PRN PRN Reason: Headache/Fever or Pain Acetaminophen (Tylenol) 650 mg MO Q4H PRN PRN Reason: Headache/Fever or Pain Hydrocodone Bitart/Acetaminophen ([place] 5/325) 1 tab PO Q4H PRN PRN Reason: Mild-Moderate Pain (1-5) Last Admin: 06/20/18 21:07 Dose: 1 tab Hydrocodone Bitart/Acetaminophen ([place] 5/325) 2 tab PO Q4H PRN PRN Reason: Moderate to Severe Pain (6-10) Apixaban (Eliquis) 5 mg PO BID [facility] Benzonatate (Tessalon) 100 mg PO Q4H PRN PRN Reason: Cough Bisacodyl (Dulcolax) 10 mg PO DAILYPRN PRN PRN Reason: Constipation Colestipol HCl (Colestid) 1 gm PO HS [facility] Docusate Sodium (Colace) 100 mg PO BID [facility] Last Admin: 01/14/18 09:11 Dose: Not Given Doxycycline Hyclate (Vibramycin) 100 mg PO BID [facility] Last Admin: 01/14/18 09:09 Dose: 100 mg Famotidine (Pepcid) 20 mg PO QPM [facility] Last Admin: 01/13/18 21:07 Dose: 20 mg Gabapentin (Neurontin) 300 mg PO HS PRN PRN Reason: Pain Guaifenesin (Robitussin Sf) 200 mg PO Q4H PRN PRN Reason: COUGH Sodium Chloride (Normal Saline 0.9%) 1,000 mls @ 100 mls/hr IV .Q10H [facility] Last Admin: 01/14/18 11:32 Dose: Not Given Levetiracetam (Keppra) 500 mg PO BID [facility] Last Admin: 01/14/18 09:09 Dose: 500 mg Ondansetron HCl (Zofran Odt) 4 mg PO Q6H PRN PRN Reason: Nausea/Vomiting Last Admin: 01/14/18 12:24 Dose: 4 mg Ondansetron HCl (Zofran) 4 mg IVP Q6H PRN PRN Reason: Nausea/Vomiting Pantoprazole Sodium (Protonix) 40 mg PO QAM [facility] Last Admin: 01/14/18 09:09 Dose: 40 mg Sertraline HCl (Zoloft) [facility] [place] Last Admin: 01/14/18 09:09 Dose: 25 mg Sodium Chloride (Flush - Normal Saline) 10 ml IVF Q12HR [facility] Last Admin: 01/14/18 09:10 Dose: 10 ml Sodium Chloride (Flush - Normal Saline) 10 ml IVF PRN PRN PRN Reason: Saline Flush Vitamin B Complex/Vit C/Folic Acid (Nephro-[place] Tablet) 1 tab PO DAILY [facility] Zolpidem Tartrate (Ambien) 5 mg PO PRN PRN PRN Reason: Insomnia
--- NOTE | 2018-01-14 16:48 | PDOC.CTH ---
<[email or web address] - Last Filed: 01/14/18 16:44> Cardiology Progress Note - Subjective EP Progress note: HPI: We were asked to revisit Ms. Morris to address her atrial arrhythmias. We have seen her recently. Today she seems to be doing fairly well, near her baseline. We have discussed treatment option for AF in the past and have offered PVAI for her long standing persistent atrial fibrillation. She has always declined. Her VR has been fairly well controlled with digoxin and she does not feel symptomatic with her arrhythmia. She does deal with chronic hypotension which is certainly worse without an atrial kick. ROS: negative for heart racing, palpitations, chest pain, pressure, syncope or near syncope. Denies stroke or stroke like symptoms. Denies blood in urine or stool - Objective Vital Signs Temp Pulse Resp BP Pulse Ox 01/14/18 10:55 97.2 F L 70 16 93/52 L 100 01/14/18 08:00 98.4 F 72 16 98 01/14/18 07:46 98.4 F 72 16 83/50 L 90 L Weight 195 lb 12.8 oz 01/13/18 01/14/18 01/15/18 06:59 06:59 06:59 Intake Total 450 1480 Balance 450 1480 - Physical Examination General/Neuro: alert & oriented x3, NAD Neck: no JVD present Lungs: unlabored respirations Heart: other: (AF) Abdomen: NT/ND, soft - Telemetry Telemetry Rhythm: AF - Labs Result Diagrams: 01/13/18 04:44 01/13/18 04:44 Troponin/CKMB CK-MB (CK-2) 1.0 ng/mL (0-6.6) 01/12/18 15:11 Troponin I 0.105 ng/mL (< 0.028) H 01/12/18 19:30 - Assessment/Plan Assessment: 1. Long standing persistent atrial fibrillation, rate controlled with digoxin. Failed multaq in the past 2. Stroke prophylaxis with Eliquis 5mg BID 3. Atypical chest pain, thought to be related to repeated coughing. 4. Hypotension, chronic issue 5. ESRD Plan: Continue eliquis. Continue rate control for AF. PVI would be the next step but is certainly not without risk given her chronic cormobidities and frail health status. <Ash,Lucio - Last Filed: 01/18/18 15:22> Cardiology Progress Note - Objective Weight 184 lb 11.958 oz 01/17/18 01/18/18 01/19/18 06:59 06:59 06:59 Intake Total 600 360 Output Total 2500 Balance -1900 360 - Labs Result Diagrams: 01/16/18 03:59 01/16/18 03:59 Troponin/CKMB CK-MB (CK-2) 1.0 ng/mL (0-6.6) 01/12/18 15:11 Troponin I 0.105 ng/mL (< 0.028) H 01/12/18 19:30 Attending Addendum - Attending Addendum Date/Time: 01/18/18 1521 I personally evaluated the patient and discussed the management with Ms Nascimento. I agree with the History, Examination, Assessment and Plan documented above with any addition or exceptions noted below.
[2018-01-14] MEDS: Apixaban 5 MG TAB PO SCH (20:36)
[2018-01-14] MEDS: Famotidine 20 MG TAB PO SCH (20:36)
[2018-01-15 05:12] LABS: Digoxin 1.39 ng/mL (0.8-2.0)
[2018-01-15] MEDS: Ondansetron ODT 4 MG TAB PO PRN ×3 (05:20→22:55)
[2018-01-15] MEDS: Sodium Chloride 0.9% 1,000 ML IV SCH (05:56)
[2018-01-15] MEDS: Doxycycline 100 MG CAP PO SCH ×2 (08:42→20:26)
[2018-01-15] MEDS: levETIRAcetam 500 MG TAB PO SCH ×2 (08:42→20:26)
[2018-01-15] MEDS: Folic Acid/Vit B Comp W-C PO SCH (08:42)
[2018-01-15] MEDS: Apixaban 5 MG TAB PO SCH ×2 (08:42→20:26)
[2018-01-15] MEDS: Docusate 100 MG CAP PO SCH ×2 (08:43→20:27)
[2018-01-15] MEDS: Digoxin 0.125 MG TAB PO SCH (09:30)
[2018-01-15] MEDS ORDERED: Sodium Chloride 0.9% 1,000 ML IV SCH (09:46)
[2018-01-15] MEDS: Midodrine HCl 5 MG TAB PO SCH ×3 (13:16→20:26)
--- NOTE | 2018-01-15 13:27 | PDOC.CTH ---
<Taryn Nascimento - Last Filed: 01/15/18 13:26> Cardiology Progress Note - Subjective EP progress note: Patient seen and evaluated. No new cardiac concerns or complaints. Resting comfortably in bed. - Objective Vital Signs Temp Pulse Resp BP BP Pulse Ox 01/15/18 11:33 98.7 F 71 17 80/45 L 98 01/15/18 09:30 81 01/15/18 08:23 102/53 L 01/15/18 08:06 98.2 F 107 H 16 85/44 L 100 01/15/18 08:00 98.5 F 81 18 95 01/15/18 05:00 101/51 L 01/15/18 04:00 98.5 F 71 16 82/45 L 91 L Weight 185 lb 14.4 oz 01/14/18 01/15/18 01/16/18 06:59 06:59 06:59 Intake Total 1480 1410 Output Total 4500 Balance 1480 -3090 - Physical Examination General/Neuro: alert & oriented x3, NAD Neck: no JVD present Lungs: unlabored respirations Abdomen: NT/ND, soft - Telemetry Telemetry Rhythm: AF, VR controlled - Labs Result Diagrams: 01/13/18 04:44 01/13/18 04:44 Troponin/CKMB CK-MB (CK-2) 1.0 ng/mL (0-6.6) 01/12/18 15:11 Troponin I 0.105 ng/mL (< 0.028) H 01/12/18 19:30 - Assessment/Plan Assessment: 1. Long standing persistent atrial fibrillation, rate controlled with digoxin. Failed multaq in the past 2. Stroke prophylaxis with Eliquis 5mg BID 3. Atypical chest pain, thought to be related to repeated coughing. 4. Hypotension, chronic issue but more pronounced 5. ESRD Plan: Continue eliquis. Continue rate control for AF. PVI would be the next step but is certainly not without risk given her chronic cormobidities and frail health status. She continues to decline PVI at this time, which would not be done this hospitalization but arranged as OP when she is more stable. She remains asymptomatic with her AF <Lucio Aleman - Last Filed: 01/18/18 15:33> Cardiology Progress Note - Objective Weight 184 lb 11.958 oz 01/17/18 01/18/18 01/19/18 06:59 06:59 06:59 Intake Total 600 360 Output Total 2500 Balance -1900 360 - Labs Result Diagrams: 01/16/18 03:59 01/16/18 03:59 Troponin/CKMB CK-MB (CK-2) 1.0 ng/mL (0-6.6) 01/12/18 15:11 Troponin I 0.105 ng/mL (< 0.028) H 01/12/18 19:30 Attending Addendum - Attending Addendum Date/Time: 01/18/18 5332 I personally evaluated the patient and discussed the management with Ms Nascimento. I agree with the History, Examination, Assessment and Plan documented above with any addition or exceptions noted below.
--- NOTE | 2018-01-15 13:52 | PDOC.PN ---
- Subjective Encounter Start Date: 01/15/18 Encounter Start Time: 13:50 Subjective: no new events overnight.pt seen and examined.discussed w RN -: reports on and off dizziness - Objective Resuscitation Status: Resuscitation Status FULL:Full Resuscitation MAR Reviewed: Yes Vital Signs & Weight: Vital Signs (12 hours) Temp Pulse Resp BP BP Pulse Ox 01/15/18 11:33 98.7 F 71 17 80/45 L 98 01/15/18 09:30 81 01/15/18 08:23 102/53 L 01/15/18 08:06 98.2 F 107 H 16 85/44 L 100 01/15/18 08:00 98.5 F 81 18 95 01/15/18 05:00 101/51 L 01/15/18 04:00 98.5 F 71 16 82/45 L 91 L Weight Weight 185 lb 14.4 oz I&O: 01/14/18 01/15/18 01/16/18 06:59 06:59 06:59 Intake Total 1480 1410 Output Total 4500 Balance 1480 -3090 Result Diagrams: 01/13/18 04:44 01/13/18 04:44 Additional Labs: Microbiology 01/12/18 20:32 Venous blood - Right Hand Blood Culture - Preliminary NO GROWTH AT 48 HOURS 01/12/18 19:30 Venous blood - Right Hand Blood Culture - Preliminary NO GROWTH AT 48 HOURS Laboratory Tests 01/12/18 01/12/18 01/12/18 15:11 15:11 17:52 Troponin I 0.102 H 0.089 H B-Natriuretic Peptide 1894.1 H 01/12/18 19:30 Troponin I 0.105 H B-Natriuretic Peptide labs reviewed Radiology Reviewed by me: Yes (ECHO-severe TR,Mod [place],RVE,LAE) Phys Exam - Physical Examination Constitutional: NAD HEENT: PERRLA, moist MMs, sclera anicteric, oral pharynx no lesions Neck: no nodes, no JVD, supple, full ROM Respiratory: no wheezing, no rales, no rhonchi, clear to auscultation bilateral Cardiovascular: RRR, no significant murmur, no rub Gastrointestinal: soft, non-tender, no distention, positive bowel sounds Musculoskeletal: no edema, pulses present Neurological: non-focal, normal sensation, moves all 4 limbs Psychiatric: normal affect, A&O x 3 Skin: no rash Dx/Plan (1) Acute bronchitis Code(s): J20.9 - ACUTE BRONCHITIS, UNSPECIFIED Status: Acute Comment: on doxycycline, add Tessalon and Guaifenesin (2) Hypotension Status: Acute Comment: Patient states she often runs low in the 80s, (3) Atrial fibrillation Code(s): I48.91 - UNSPECIFIED ATRIAL FIBRILLATION Status: Chronic Qualifiers: Atrial fibrillation type: chronic Qualified Code(s): I48.2 - Chronic atrial fibrillation Comment: rate controlled.on eliquis and now digoxin. (4) Benign hypertension Code(s): I10 - ESSENTIAL (PRIMARY) HYPERTENSION Status: Chronic (5) Diastolic CHF, chronic Code(s): I50.32 - CHRONIC DIASTOLIC (CONGESTIVE) HEART FAILURE Status: Chronic Comment: BNP appears at baseline (6) End stage renal disease on dialysis Code(s): N18.6 - END STAGE RENAL DISEASE; Z99.2 - DEPENDENCE ON RENAL DIALYSIS Status: Chronic Comment: HD per renal. chronically low BP. (7) GERD (gastroesophageal reflux disease) Code(s): K21.9 - GASTRO-ESOPHAGEAL REFLUX DISEASE WITHOUT ESOPHAGITIS Status: Chronic Qualifiers: Esophagitis presence: without esophagitis Qualified Code(s): K21.9 - Gastro -esophageal reflux disease without esophagitis (8) Hyperlipidemia Code(s): E78.5 - HYPERLIPIDEMIA, UNSPECIFIED Status: Chronic (9) Obesity (BMI 30.0-34.9) Code(s): E66.9 - OBESITY, UNSPECIFIED Status: Chronic (10) Seizure disorder Code(s): G40.909 - EPILEPSY, UNSP, NOT INTRACTABLE, WITHOUT STATUS EPILEPTICUS Status: Chronic Comment: Continue Keppra 500mg BID (11) History of aortic dissection Code(s): Z86.79 - PERSONAL HISTORY OF OTHER DISEASES OF THE CIRCULATORY SYSTEM Status: Resolved (12) CAD (coronary artery disease) Code(s): I25.10 - ATHSCL HEART DISEASE OF [place] CORONARY ARTERY W/O ANG PCTRS Status: Acute Qualifiers: Coronary Disease-Associated Artery/Lesion type: [place] artery [place] vs. transplanted heart: [place] heart Associated angina: without angina Qualified Code(s): I25.10 - Atherosclerotic heart disease of [place] coronary artery without angina pectoris Comment: ECHO-severe TR,Mod [place],RVE,LAE.EF 65-70% (13) Pulmonary HTN Code(s): I27.20 - PULMONARY HYPERTENSION, UNSPECIFIED Status: Chronic - Plan PT/OT, out of bed/ambulate, DVT proph w/SCDs Pt still w symptoms of dizziness w low BP.will add Midodrine today & monito -: cont eliquis and digoxin for now. OP ablation if desired.not ready yet -: Ok to move out of CCU. -: cont HD as per schedule.monitor renal Fx.stable for now -: empiric ABx.Blood Cx remain negative * .Likley home tomorrow if BP better. * add PT * am labs Review of Systems - Review of Systems Constitutional: negative: fever, chills, sweats, weakness, malaise, other Respiratory: negative: Cough, Dry, Shortness of Breath, Hemoptysis, SOB with Excertion, Pleuritic Pain, Sputum, Wheezing Cardiovascular: negative: chest pain, palpitations, orthopnea, paroxysmal nocturnal dyspnea, edema, light headedness, other Gastrointestinal: negative: Nausea, Vomiting, Abdominal Pain, Diarrhea, Constipation, Melena, Hematochezia, Other Genitourinary: negative: Dysuria, Frequency, Incontinence, Hematuria, Retention , Other - Medications/Allergies Allergies/Adverse Reactions: Allergies Allergy/AdvReac Type Severity Reaction Status Date / Time cefazolin sodium [From Ancef] Allergy Intermediate Anaphylaxis Verified 15:38 codeine [Codeine] Allergy Intermediate ITCHING Verified 10/22/17 15:38 clindamycin Allergy Verified 10/22/17 15:38 Iodinated Contrast- Oral and Allergy itching Verified 10/22/17 15:38 IV Dye phenytoin sodium Allergy Rash Verified 10/22/17 15:38 [From Dilantin] phenytoin sodium extended Allergy Rash Verified 10/22/17 15:38 [From Dilantin] Medications: Current Medications Acetaminophen (Tylenol) 650 mg PO Q4H PRN PRN Reason: Headache/Fever or Pain Acetaminophen (Tylenol) 650 mg [place] Q4H PRN PRN Reason: Headache/Fever or Pain Hydrocodone Bitart/Acetaminophen ([place] 5/325) 1 tab PO Q4H PRN PRN Reason: Mild-Moderate Pain (1-5) Last Admin: 01/13/18 21:07 Dose: 1 tab Hydrocodone Bitart/Acetaminophen ([place] 5/325) 2 tab PO Q4H PRN PRN Reason: Moderate to Severe Pain (6-10) Apixaban (Eliquis) 5 mg PO BID [facility] Last Admin: 01/15/18 08:42 Dose: 5 mg Benzonatate (Tessalon) 100 mg PO Q4H PRN PRN Reason: Cough Bisacodyl (Dulcolax) 10 mg PO DAILYPRN PRN PRN Reason: Constipation Colestipol HCl (Colestid) 1 gm PO HS [facility] Last Admin: 01/14/18 20:36 Dose: 1 gm Digoxin (Lanoxin) 0.125 mg PO SuTuWeFrSa@0900 [facility] Last Admin: 01/15/18 09:30 Dose: 0.125 mg Docusate Sodium (Colace) 100 mg PO BID [facility] Last Admin: 01/15/18 08:43 Dose: Not Given Doxycycline Hyclate (Vibramycin) 100 mg PO BID [facility] Last Admin: 01/15/18 08:42 Dose: 100 mg Famotidine (Pepcid) 20 mg PO QPM [facility] Last Admin: 01/14/18 20:36 Dose: 20 mg Gabapentin (Neurontin) 300 mg PO HS PRN PRN Reason: Pain Guaifenesin (Robitussin Sf) 200 mg PO Q4H PRN PRN Reason: COUGH Sodium Chloride (Normal Saline 0.9%) 1,000 mls @ 50 mls/hr IV .Q20H [facility] Levetiracetam (Keppra) 500 mg PO BID [facility] Last Admin: 01/15/18 08:42 Dose: 500 mg Midodrine (Proamatine) 5 mg PO TID [facility] Last Admin: 01/15/18 13:16 Dose: 5 mg Ondansetron HCl (Zofran Odt) 4 mg PO Q6H PRN PRN Reason: Nausea/Vomiting Last Admin: 01/15/18 05:20 Dose: 4 mg Ondansetron HCl (Zofran) 4 mg IVP Q6H PRN PRN Reason: Nausea/Vomiting Pantoprazole Sodium (Protonix) 40 mg PO QAM [facility] Last Admin: 01/15/18 08:42 Dose: 40 mg Sertraline HCl (Zoloft) 25 mg PO QAM [facility] Last Admin: 01/15/18 08:42 Dose: 25 mg Sodium Chloride (Flush - Normal Saline) 10 ml IVF Q12HR [facility] Last Admin: 01/15/18 08:42 Dose: 10 ml Sodium Chloride (Flush - Normal Saline) 10 ml IVF PRN PRN PRN Reason: Saline Flush Vitamin B Complex/Vit C/Folic Acid (Nephro-[place] Tablet) 1 tab PO DAILY [facility] Last Admin: 01/15/18 08:42 Dose: 1 tab Zolpidem Tartrate (Ambien) 5 mg PO PRN PRN PRN Reason: Insomnia
[2018-01-15] MEDS: Famotidine 20 MG TAB PO SCH (20:26)
--- NOTE | 2018-01-15 20:28 | PRG ---
DATE OF SERVICE: 01/15/2018 SUBJECTIVE: The patient was seen and examined, noted with the following vital signs. OBJECTIVE: VITAL SIGNS: Afebrile with temperature 98.7, pulse 71, respiratory rate 17, O2 sat 98%, blood pressu re 80/45. HEENT: Unremarkable. CARDIOVASCULAR SYSTEM: First and second heart sounds were heard. RESPIRATORY SYSTEM: Clear to auscultation. DIGESTIVE SYSTEM: Revealed a benign abdomen with positive bowel sounds. EXTREMITIES: No peripheral edema. SKIN: No new gross rash. LYMPHATICS: No peripheral lymphadenopathy. IMPRESSION: 1. End-stage renal disease, hemodialysis dependent. 2. Labile hemodynamics/hypotension. 3. Atrial fibrillation. PLAN: 1. Start this patient on blood pressure supportive medications like midodrine. 2. No IV fluid support in this patient. 3. Hemodialysis as tolerated by hemodynamics.
[2018-01-16 04:45] LABS: #Eosinphils 0.2 thou/uL (0.0-0.7); #Lymphocytes 1.4 thou/uL (1.20-3.40); #Monocytes 0.7 thou/uL (0.11-0.59); #Neutrophils 3.9 thou/uL (1.40-6.50); %Basophils 0.3 % (0.0-1.0); %Eosinophils 3.5 % (0.0-10.0); %Lymphocytes 22.3 % (21.0-51.0); %Monocytes 10.5 % (0.0-10.0); %Neutrophils 63.4 % (42.0-75.0); Hemoglobin 13.1 g/dL (12.0-16.0); Mean Corpuscular HGB CONC 31.9 g/dL (32.0-36.0); Mean Corpuscular Hemoglobin 31.1 pg (27.0-31.0); Mean Corpuscular Volume 97.4 fL (78.0-98.0); Mean Platelet Volume 9.3 fL (7.4-10.4); Platelet Count 156 thou/uL (130-400); RBC Distribution Width 18.8 % (11.5-14.5); White Blood Cell (WBC) Count 6.2 thou/uL (4.8-10.8)
[2018-01-16 05:01] LABS: Anion Gap 24 mmol/L (10-20); BUN (Urea Nitrogen) 67 mg/dL (7.0-18.7); Calc. Creatinine Clearance 9 mL/min (70-130); Calcium 7.1 mg/dL (7.8-10.44); Carbon Dioxide 21 mmol/L (22-29); Chloride 96 mmol/L (98-107); Estimated GFR-MDRD 5; Glucose 97 mg/dL (70-105); Potassium 4.3 mmol/L (3.5-5.1); Sodium 137 mmol/L (136-145)
[2018-01-16] MEDS: Docusate 100 MG CAP PO SCH ×2 (09:20→20:20)
[2018-01-16] MEDS: Apixaban 5 MG TAB PO SCH ×2 (09:22→20:20)
[2018-01-16] MEDS: Doxycycline 100 MG CAP PO SCH ×2 (09:22→20:19)
[2018-01-16] MEDS: Digoxin 0.125 MG TAB PO SCH (09:23)
[2018-01-16] MEDS: Folic Acid/Vit B Comp W-C PO SCH (09:23)
[2018-01-16] MEDS: Midodrine HCl 5 MG TAB PO SCH ×3 (09:23→20:20)
[2018-01-16] MEDS: levETIRAcetam 500 MG TAB PO SCH ×2 (09:25→20:19)
[2018-01-16] MEDS: Ondansetron ODT 4 MG TAB PO PRN ×2 (11:38→18:01)
--- NOTE | 2018-01-16 13:31 | PRG ---
DATE OF SERVICE: 01/16/2018 SERVICE: Pulmonary Medicine. INTERVAL HISTORY: The patient is doing outstanding from a respiratory standpoint. She denies any cu rrent chest pain, nausea, vomiting, fevers or chills. Her shortness of breath is improved a little b it. She is tolerating p.o. PHYSICAL EXAMINATION: VITAL SIGNS: Afebrile, pulse 68, blood pressure 83/43, respirations 16, saturation 98% on room air c urrently. HEENT: Normocephalic, atraumatic. Sclerae are white, conjunctivae pink. Oral and nasal mucosa is m oist without lesions. LUNGS: Excellent air entry with no prolonged expiratory phase, wheezing, rhonchi or crackles. HEART: Normal rate, regular. ABDOMEN: Soft, nontender, nondistended. Bowel sounds are positive. MUSCULOSKELETAL: No cyanosis or clubbing. No pitting in the bilateral lower extremities. NEUROLOGIC: Grossly nonfocal. LABORATORY DATA: WBC 6.2, hemoglobin 13.1, platelets 156,000. Creatinine 10.1, BUN 67, anion gap 24 , bicarbonate 21, chloride 96. Basic metabolic profile is otherwise unremarkable. Blood cultures x2 are negative. ASSESSMENT: 1. Acute hypoxic respiratory failure, resolved. 2. End-stage renal disease. 3. Acute on chronic diastolic heart failure. PLAN: At this point, the patient is stable for transition out of the ICU to the telemetry unit. Pul monary and Critical Care will continue to follow along if she remains in this location.
--- NOTE | 2018-01-16 14:00 | PDOC.PN ---
- Subjective Encounter Start Date: 01/16/18 Encounter Start Time: 13:58 Subjective: still feels weak,tired an ddizzy -: discussed cardiac ablation again-pt wants time to decide - Objective Resuscitation Status: Resuscitation Status FULL:Full Resuscitation MAR Reviewed: Yes Vital Signs & Weight: Vital Signs (12 hours) Temp Pulse Resp BP Pulse Ox 01/16/18 11:04 63 83/43 L 01/16/18 09:23 65 01/16/18 08:00 97.9 F 68 16 98 01/16/18 07:00 98.8 F 68 16 90/55 L 98 01/16/18 05:05 97.9 F 68 16 84/53 L 93 L 01/16/18 04:29 93/54 L Weight Weight 187 lb I&O: 01/15/18 01/16/18 01/17/18 06:59 06:59 06:59 Intake Total 1410 486 Output Total 4500 Balance -3090 486 Result Diagrams: 01/16/18 03:59 01/16/18 03:59 Additional Labs: labs reviewed Phys Exam - Physical Examination Constitutional: NAD HEENT: PERRLA, moist MMs, sclera anicteric, oral pharynx no lesions Neck: no nodes, no JVD, supple, full ROM Respiratory: no wheezing, no rales, no rhonchi, clear to auscultation bilateral Cardiovascular: RRR, no significant murmur, no rub Gastrointestinal: soft, non-tender, no distention, positive bowel sounds Musculoskeletal: no edema, pulses present Neurological: non-focal, normal sensation, moves all 4 limbs Psychiatric: normal affect, A&O x 3 Skin: no rash Dx/Plan (1) Acute bronchitis Code(s): J20.9 - ACUTE BRONCHITIS, UNSPECIFIED Status: Acute Comment: on doxycycline, add Tessalon and Guaifenesin (2) Hypotension Status: Acute Comment: Patient states she often runs low in the 80s, (3) Atrial fibrillation Code(s): I48.91 - UNSPECIFIED ATRIAL FIBRILLATION Status: Chronic Qualifiers: Atrial fibrillation type: chronic Qualified Code(s): I48.2 - Chronic atrial fibrillation Comment: rate controlled.on eliquis and now digoxin. (4) Benign hypertension Code(s): I10 - ESSENTIAL (PRIMARY) HYPERTENSION Status: Chronic (5) Diastolic CHF, chronic Code(s): I50.32 - CHRONIC DIASTOLIC (CONGESTIVE) HEART FAILURE Status: Chronic Comment: BNP appears at baseline (6) End stage renal disease on dialysis Code(s): N18.6 - END STAGE RENAL DISEASE; Z99.2 - DEPENDENCE ON RENAL DIALYSIS Status: Chronic Comment: HD per renal. chronically low BP. (7) GERD (gastroesophageal reflux disease) Code(s): K21.9 - GASTRO-ESOPHAGEAL REFLUX DISEASE WITHOUT ESOPHAGITIS Status: Chronic Qualifiers: Esophagitis presence: without esophagitis Qualified Code(s): K21.9 - Gastro -esophageal reflux disease without esophagitis (8) Hyperlipidemia Code(s): E78.5 - HYPERLIPIDEMIA, UNSPECIFIED Status: Chronic (9) Obesity (BMI 30.0-34.9) Code(s): E66.9 - OBESITY, UNSPECIFIED Status: Chronic (10) Seizure disorder Code(s): G40.909 - EPILEPSY, UNSP, NOT INTRACTABLE, WITHOUT STATUS EPILEPTICUS Status: Chronic Comment: Continue Keppra 500mg BID (11) History of aortic dissection Code(s): Z86.79 - PERSONAL HISTORY OF OTHER DISEASES OF THE CIRCULATORY SYSTEM Status: Resolved (12) CAD (coronary artery disease) Code(s): I25.10 - ATHSCL HEART DISEASE OF [place] CORONARY ARTERY W/O ANG PCTRS Status: Acute Qualifiers: Coronary Disease-Associated Artery/Lesion type: [place] artery [place] vs. transplanted heart: [place] heart Associated angina: without angina Qualified Code(s): I25.10 - Atherosclerotic heart disease of [place] coronary artery without angina pectoris Comment: ECHO-severe TR,Mod AR,SC,RVE,LAE.EF 65-70% (13) Pulmonary HTN Code(s): I27.20 - PULMONARY HYPERTENSION, UNSPECIFIED Status: Chronic - Plan DVT proph w/SCDs started on midodrine & Bp better. cont -: HD for ESRD.stable.monitor renal Fx -: OP f/u w EP & cardiology to discuss ablation. -: HR controlled on Rythmol.cont antocoag w eliquis. -: kelly [place]ne am if BP stable. * . Review of Systems - Review of Systems Constitutional: weakness, malaise. negative: fever, chills, sweats, other Respiratory: negative: Cough, Dry, Shortness of Breath, Hemoptysis, SOB with Excertion, Pleuritic Pain, Sputum, Wheezing Cardiovascular: light headedness. negative: chest pain, palpitations, orthopnea , paroxysmal nocturnal dyspnea, edema, other Gastrointestinal: negative: Nausea, Vomiting, Abdominal Pain, Diarrhea, Constipation, Melena, Hematochezia, Other Genitourinary: negative: Dysuria, Frequency, Incontinence, Hematuria, Retention , Other Musculoskeletal: negative: Neck Pain, Shoulder Pain, Arm Pain, Back Pain, Hand Pain, Leg Pain, Foot Pain, Other Skin: negative: Rash, Lesions, David, Bruising, Other Neurological: negative: Weakness, Numbness, Incoordination, Change in Speech, Confusion, Seizures, Other - Medications/Allergies Allergies/Adverse Reactions: Allergies Allergy/AdvReac Type Severity Reaction Status Date / Time cefazolin sodium [From Ancef] Allergy Intermediate Anaphylaxis Verified 15:38 codeine [Codeine] Allergy Intermediate ITCHING Verified 10/22/17 15:38 clindamycin Allergy Verified 10/22/17 15:38 Iodinated Contrast- Oral and Allergy itching Verified 10/22/17 15:38 IV Dye phenytoin sodium Allergy Rash Verified 10/22/17 15:38 [From Dilantin] phenytoin sodium extended Allergy Rash Verified 10/22/17 15:38 [From Dilantin] Medications: Current Medications Acetaminophen (Tylenol) 650 mg PO Q4H PRN PRN Reason: Headache/Fever or Pain Last Admin: 01/15/18 23:02 Dose: 650 mg Acetaminophen (Tylenol) 650 mg [place] Q4H PRN PRN Reason: Headache/Fever or Pain Hydrocodone Bitart/Acetaminophen ([place] 5/325) 1 tab PO Q4H PRN PRN Reason: Mild-Moderate Pain (1-5) Last Admin: 01/13/18 21:07 Dose: 1 tab Hydrocodone Bitart/Acetaminophen ([place] 5/325) 2 tab PO Q4H PRN PRN Reason: Moderate to Severe Pain (6-10) Apixaban (Eliquis) 5 mg PO BID [facility] Last Admin: 01/16/18 09:22 Dose: 5 mg Benzonatate (Tessalon) 100 mg PO Q4H PRN PRN Reason: Cough Bisacodyl (Dulcolax) 10 mg PO DAILYPRN PRN PRN Reason: Constipation Colestipol HCl (Colestid) 1 gm PO HS [facility] Last Admin: 01/15/18 20:26 Dose: 1 gm Digoxin (Lanoxin) 0.125 mg PO SuTuWeFrSa@0900 [facility] Last Admin: 01/16/18 09:23 Dose: 0.125 mg Docusate Sodium (Colace) 100 mg PO BID [facility] Last Admin: 01/16/18 09:20 Dose: Not Given Doxycycline Hyclate (Vibramycin) 100 mg PO BID [facility] Last Admin: 01/16/18 09:22 Dose: 100 mg Famotidine (Pepcid) 20 mg PO QPM [facility] Last Admin: 01/15/18 20:26 Dose: 20 mg Gabapentin (Neurontin) 300 mg PO HS PRN PRN Reason: Pain Guaifenesin (Robitussin Sf) 200 mg PO Q4H PRN PRN Reason: COUGH Levetiracetam (Keppra) 500 mg PO BID [facility] Last Admin: 01/16/18 09:25 Dose: 500 mg Midodrine (Proamatine) 5 mg PO TID [facility] Last Admin: 01/16/18 09:23 Dose: 5 mg Ondansetron HCl (Zofran Odt) 4 mg PO Q6H PRN PRN Reason: Nausea/Vomiting Last Admin: 01/16/18 11:38 Dose: 4 mg Ondansetron HCl (Zofran) 4 mg IVP Q6H PRN PRN Reason: Nausea/Vomiting Pantoprazole Sodium (Protonix) 40 mg PO QAM [facility] Last Admin: 01/16/18 09:23 Dose: 40 mg Sertraline HCl (Zoloft) 25 mg PO QAM [facility] Last Admin: 01/16/18 09:25 Dose: 25 mg Sodium Chloride (Flush - Normal Saline) 10 ml IVF Q12HR [facility] Last Admin: 01/16/18 09:22 Dose: 10 ml Sodium Chloride (Flush - Normal Saline) 10 ml IVF PRN PRN PRN Reason: Saline Flush Vitamin B Complex/Vit C/Folic Acid (Nephro-[place] Tablet) 1 tab PO DAILY [facility] Last Admin: 01/16/18 09:23 Dose: 1 tab Zolpidem Tartrate (Ambien) 5 mg PO PRN PRN PRN Reason: Insomnia
[2018-01-16] MEDS: Famotidine 20 MG TAB PO SCH (20:19)
[2018-01-16] MEDS ORDERED: Promethazine HCl 25 MG/ML VIAL SLOW IVP PRN (21:11)
--- NOTE | 2018-01-17 03:14 | PRG ---
DATE OF SERVICE: 01/16/2018 SUBJECTIVE: The patient was seen and examined with no new complaint noted with the following vital s igns. OBJECTIVE: VITAL SIGNS: Afebrile with temperature 97.9, pulse 84, respiratory rate 16, O2 sat 95% with a blood pressure 119/61. HEENT: Unremarkable with moist oral mucosa. Neck was supple. No conjunctival injection or icterus. CARDIOVASCULAR: First and second heart sounds were heard. RESPIRATORY: Clear to auscultation. DIGESTIVE: Revealed a benign abdomen. EXTREMITIES: No peripheral edema. SKIN: No new gross rash. LYMPHATICS: No peripheral lymphadenopathy. IMPRESSION: 1. End-stage renal disease, hemodialysis dependent. 2. Atrial fibrillation with labile hemodynamics. 3. Improve labile hemodynamics on midodrine. PLAN: 1. We will continue with midodrine for blood pressure support. 2. Renal replacement therapy (hemodialysis, patient is scheduled). 3. Further management to be dependent on the clinical course.
[2018-01-17 07:25] VITALS: BP 98/57; TEMP 97.1
[2018-01-17] MEDS ORDERED: Promethazine HCl 12.5 MG in Sodium Chloride 0.9% 50 ML IVPB PRN (07:48)
[2018-01-17] MEDS: levETIRAcetam 500 MG TAB PO SCH (08:28)
[2018-01-17] MEDS: Digoxin 0.125 MG TAB PO SCH (08:28)
[2018-01-17] MEDS: Apixaban 5 MG TAB PO SCH (08:29)
[2018-01-17] MEDS: Doxycycline 100 MG CAP PO SCH (08:29)
[2018-01-17] MEDS: Midodrine HCl 5 MG TAB PO SCH (08:29)
[2018-01-17] MEDS: Folic Acid/Vit B Comp W-C PO SCH (08:29)
[2018-01-17] MEDS: Docusate 100 MG CAP PO SCH (08:31)
--- NOTE | 2018-01-17 13:19 | PRG ---
DATE OF SERVICE: 01/17/2018. SERVICE: Pulmonary Medicine. INTERVAL HISTORY: The patient is doing outstanding from a respiratory standpoint. He denies any cur rent chest pain, nausea, vomiting, shortness of breath. Otherwise, there has been no interval change to her condition. She is preparing to go home today. She feels back to her usual state of health a nd has no complaints of nausea, vomiting, or diarrhea. PHYSICAL EXAMINATION: VITAL SIGNS: Afebrile, pulse 69, blood pressure 98/57, respirations 17, saturation 94% on room air. GENERAL: The patient is awake, alert, no apparent distress. LUNGS: Decent air entry. Dependent crackles are minimal. HEART: Normal rate, regular. ABDOMEN: Soft, nontender, nondistended. Bowel sounds are positive. MUSCULOSKELETAL: No cyanosis or clubbing. No pitting in the bilateral lower extremities. NEUROLOGIC: Grossly nonfocal. LABORATORY DATA: Blood cultures x2 are unremarkable. ASSESSMENT: 1. Acute hypoxic respiratory failure, resolved. 2. End-stage renal disease. 3. Acute on chronic diastolic heart failure. DISCUSSION AND PLAN: At this point, the patient has no further requirements for inpatient Pulmonary Critical Care opinion. As such, I will sign off. If she has increasing fever, or productive sputum, she is to let her healthcare providers know.
--- NOTE | 2018-01-17 16:59 | PRG ---
DATE OF SERVICE: 01/17/2018. The patient seen and examined with no new complaint noted. PHYSICAL EXAMINATION: VITAL SIGNS: Afebrile, temperature 97.1, pulse 66, respiratory rate of 17, O2 sat 94% with a blood p ressure 99/57. HEENT: Unremarkable with moist oral mucosa. Neck was supple. No conjunctival injection or icterus. CARDIOVASCULAR SYSTEM: First and second heart sounds were heard. RESPIRATORY SYSTEM: Clear to auscultation. DIGESTIVE SYSTEM: Revealed a benign abdomen, positive bowel sounds. EXTREMITIES: No peripheral edema. SKIN: No new gross rash. LYMPHATICS: No peripheral lymphadenopathy. IMPRESSION: 1. End-stage renal disease, on hemodialysis. 2. Chest pain, query cause. 3. Labile hemodynamics. PLAN: 1. From the renal standpoint, the patient is good for discharge. 2. Outpatient management of the blood pressure with midodrine and titrate accordingly. 3. Further management to be dependent on the clinical course.
--- NOTE | 2018-01-17 22:30 | DIS ---
DATE OF ADMISSION: 01/12/2018 DATE OF DISCHARGE: 01/17/2018 PRIMARY CARE PHYSICIAN: Bibiana Almanzar M.D. DISCHARGE DIAGNOSES: 1. Hypotension. 2. Acute bronchitis, resolved. 3. Chronic atrial fibrillation, on anticoagulation. 4. Benign hypertension. 5. Chronic diastolic congestive heart failure without any exacerbation. 6. End-stage renal disease, on dialysis. 7. Gastroesophageal reflux disease. 8. Dyslipidemia. 9. Seizure disorder. 10. History of aortic dissection. 11. Coronary artery disease. 12. Pulmonary arterial hypertension. DISCHARGE MEDICATIONS: As follows: Eliquis dose was increased by Dr. Guardado from 2.5 mg daily to 5 mg p.o. b.i.d., digoxin dose is changed to 0.125 mg Thursday, Thursday, Thursday, Thursday, and , midodrine 5 mg p.o. t.i.d. Resume home medications as follows: Zoloft 25 mg in the morning, alpr azolam 1 mg p.o. b.i.d., Keppra 500 mg p.o. b.i.d., omeprazole 40 mg daily, Flexeril p.r.n., gabapent in 300 mg at bedtime, Zofran p.r.n., tramadol p.r.n., Nephro-Clinton daily, colestipol 1 gram at bedtime , aspirin 81 mg daily. CONSULTATIONS: Inhouse: 1. Nephrology, Dr. Matthew. 2. Electrophysiology, Dr. Aleman. 3. Cardiology, Dr. Guardado. PROCEDURES DONE IN THE HOSPITAL: 1. Transthoracic echocardiogram, which shows severe concentric left ventricular hypertrophy and atri al fibrillation. EF 65%-70%. She has severe enlargement of the right ventricle cavity, moderate aor tic regurgitation and pulmonary regurgitation and severe tricuspid regurgitation. 2. Maintenance hemodialysis. HISTORY OF PRESENTING ILLNESS: Ms. Morris is a pleasant, 42-year-old, -[place] female with p ast medical history of end-stage renal disease, on hemodialysis and chronic atrial fibrillation, on a nticoagulation, who presented to the emergency room with complaints of chest pain and some yellow pro ductive cough and low blood pressures, requiring the dialysis to be stopped. She was sent from the [facility] to the emergency room for further workup. In the ER, her blood pressure fluctuated between 8 0 systolic to 90s systolic. EKG was done, which did not show any significant changes to suggest card iac etiology. Indeterminate troponins were noticed. BNP was at baseline. Chest x-ray did show some vascular congestion and cardiomegaly. She was admitted for further workup to rule out cardiopulmona ry etiology. She was started on empiric antibiotics for possible upper respiratory tract infection, on oral doxycycline. Please see admission history and physical for further details. HOSPITAL COURSE: Cardiology, Pulmonary and Nephrology were consulted by the admitting physician for this patient given her complicated past medical history. Dr. Gillis saw her from the pulmonary depart ment and agreed that she indeed is volume overloaded. Fluid was removed by dialysis and she tolerate d it very well. Cardiac enzymes were trended and they were consistent with chronic elevation from he r chronic kidney disease. Echocardiogram was done, which showed severe diastolic dysfunction with mu ltiple valvular abnormalities as above. She was seen by Cardiology, Dr. Valles initially and then Dr. Guardado. Dr. Valles suggested decreas ing her Eliquis to 2.5 mg a day, but it was later increased back to [address] Guardado after seeing the patient. She was started on digoxin, which she tolerated very well. Her digoxin level w as 1.39. Eventually, she was cleared by Dr. Guardado for discharge. There was also the question of low blood pressure, and the patient feeling dizzy. She was monitored over several days, and her blood pressure remained in the 80s to 90s systolic range. The patient did report that this is normal for her. Despite the low blood pressure, Dr. Mcgarry from Nephrology was able to remove fluid from her. Because of her dizziness, she was started on midodrine, which did help improve her blood pressure, but not much of her symptoms. Because of the persistent symptoms, Dr. Guardado recommended consulting Electrophysiology for possible ablation for her chronic atrial fi brillation that might help control some of her symptoms. She was seen by Dr. Aleman and his nurse prac titioner, Ms. Taryn Nascimento. They recommended continuation of rate control and anticoagulation for now and outpatient followup as the patient was not sure if she wants to get it done or not, and ther e is also question if she would be a good candidate or not given her multiple comorbidities. By the time of discharge, the patient is back to her baseline, though she does have some nausea, whic h is chronic for her. Her blood pressure is much improved and she will be discharged home today. Josie mcclelland has an upcoming appointment with her patient companion, Dr. Guardado in a day or so. She is also instru cted to follow up with Dr. Aleman and has verbalized understanding. She is instructed to get her midod rine dose adjusted and keep a blood pressure log for her genetic scientist to review. She was seen and examined prior to discharge. PHYSICAL EXAMINATION: VITAL SIGNS: This morning, temperature 97.1, pulse of 66, respirations 17, saturating 94% on room ai r, blood pressure 98/57. GENERAL: No acute distress, awake, alert, oriented x3. CHEST: Clear to auscultation without any wheezing, rales or rhonchi. CARDIOVASCULAR: Rate and rhythm is regular without any murmur, rubs or gallops. ABDOMEN: Soft, nontender, nondistended. EXTREMITIES: Showed trace pitting edema. Discharge plan was discussed with the patient, who verbalized understanding. Total time spent in the discharge of this patient, 35 minutes.
== END 2018-01-17 15:43 | disposition home or self-care (01) | DRG 202 ==
LOC: ERS 14:31 → IMCU/EMU 18:36
PROVIDERS: ADMIT Emergency Medicine; ATTEND Emergency Medicine
DX: J20.9 Acute bronchitis, unspecified (principal); N18.6 End stage renal disease; I13.0 Hypertensive heart and chronic kidney disease with heart failure and stage 1 through stage 4 chronic kidney disease, or unspecified chronic kidney disease; I50.32 Chronic diastolic (congestive) heart failure; Z99.2 Dependence on renal dialysis; I73.9 Peripheral vascular disease, unspecified; I48.0 Paroxysmal atrial fibrillation; Z79.01 Long term (current) use of anticoagulants; G40.909 Epilepsy, unspecified, not intractable, without status epilepticus; G62.9 Polyneuropathy, unspecified; F32.9 Major depressive disorder, single episode, unspecified; F41.9 Anxiety disorder, unspecified; Z88.1 Allergy status to other antibiotic agents; Z88.5 Allergy status to narcotic agent; Z91.041 Radiographic dye allergy status; Z79.899 Other long term (current) drug therapy; Z79.891 Long term (current) use of opiate analgesic; R07.89 Other chest pain; I95.9 Hypotension, unspecified; K21.9 Gastro-esophageal reflux disease without esophagitis; E78.5 Hyperlipidemia, unspecified; I25.10 Atherosclerotic heart disease of native coronary artery without angina pectoris; I27.20 Pulmonary hypertension, unspecified; F17.210 Nicotine dependence, cigarettes, uncomplicated
CPT/HCPCS: 36415; 71045; 80048; 80053; 80162; 82550; 82553; 83690; 83880; 84484; 85025; 87040; 90935; 93005; 93306; 94640; 94760; 96361; 96374; A4216; G0257; G8978-GP-CN; G8979-GP-CK; G8987-GO-CH; G8988-GO-CH; G8989-GO-CH; J2405; J2550; J3010; J7050; J7620; Q0162

== ENCOUNTER 2018-02-11 14:41 | Observation (INO) | payer MEDICARE, MEDICAID ==
--- NOTE | 2018-02-11 15:57 | CT ---
CT ABDOMEN AND PELVIS WITHOUT CONTRAST: COMPARISON: None. HISTORY: Left lower quadrant abdominal pain that began 1 week ago. COMPARISON: 11/23/16. TECHNIQUE: Multiple contiguous axial images were obtained in a CT of the abdomen and pelvis without contrast. C oronal reformats were performed. FINDINGS: The patient is status post cholecystectomy. The kidneys are small and atrophic. There is a hypodens ity in the left kidney measuring 3.6 cm in size which likely represents a cyst. A hyperdensity emana ting from the mid portion of the left kidney likely represents a hyperdense cyst. There is also a hy perdense cyst emanating from the small right kidney. There is a small amount of ascites. The liver has a slightly nodular contour which may represent sclerosis. Calcifications in the spleen are likel y from prior granulomatous disease. The adrenal glands and pancreas are unremarkable. No focal uterine abnormality is seen. There are extensive vascular calcifications in the pelvis. Th e large and small bowel are unremarkable. No abdominal or pelvic lymphadenopathy are seen. Diffuse soft tissue anasarca is seen. There is a small left pleural effusion. IMPRESSION: 1. No evidence of acute intraabdominal/pelvic abnormality. 2. Bilateral renal cysts. 3. Small kidneys are likely secondary to chronic renal failure. 4. Possible cirrhosis. POS: [facility]
[2018-02-11] MEDS ORDERED: Ondansetron HCl/PF 4 MG/2 ML Vial ONE (17:04)
[2018-02-11 17:21] LABS: BHCG - Serum Negative (NEGATIVE); Pregs Control Background? CLEAR/WHITE (CLR/WHITE); Pregs Control Bar Appear? YES (CONTROL BAR)
[2018-02-11 17:26] LABS: #Basophils 0.1 thou/uL (0.0-0.2); #Eosinphils 0.1 thou/uL (0.0-0.7); #Lymphocytes 1.3 thou/uL (1.20-3.40); #Monocytes 0.5 thou/uL (0.11-0.59); #Neutrophils 3.6 thou/uL (1.40-6.50); %Basophils 0.9 % (0.0-1.0); %Eosinophils 2.5 % (0.0-10.0); %Lymphocytes 23.9 % (21.0-51.0); %Monocytes 9.1 % (0.0-10.0); %Neutrophils 63.6 % (42.0-75.0); Hemoglobin 15.5 g/dL (12.0-16.0); Mean Corpuscular HGB CONC 31.9 g/dL (32.0-36.0); Mean Corpuscular Hemoglobin 30.6 pg (27.0-31.0); Mean Corpuscular Volume 95.8 fL (78.0-98.0); Mean Platelet Volume 9.8 fL (7.4-10.4); Platelet Count 111 thou/uL (130-400); RBC Distribution Width 18.6 % (11.5-14.5); Red Blood Cell (RBC) Count 5.07 mill/uL (4.20-5.40); White Blood Cell (WBC) Count 5.6 thou/uL (4.8-10.8)
[2018-02-11 17:32] LABS: ALT (SGPT) 11 U/L (8-55); AST (SGOT) 16 U/L (5-34); Albumin 4.5 g/dL (3.5-5.0); Alkaline Phosphatase 102 U/L (40-150); Anion Gap 16 mmol/L (10-20); BUN (Urea Nitrogen) 15 mg/dL (7.0-18.7); Bilirubin, Total 2.1 mg/dL (0.2-1.2); Calc. Creatinine Clearance 0 mL/min (70-130); Calcium 10.4 mg/dL (7.8-10.44); Carbon Dioxide 30 mmol/L (22-29); Chloride 98 mmol/L (98-107); Estimated GFR-MDRD 7; Globulin 3.8 g/dL (2.4-3.5); Glucose 87 mg/dL (70-105); Lipase 21 U/L (8-78); Protein, Total 8.3 g/dL (6.0-8.3); Sodium 141 mmol/L (136-145)
[2018-02-11 17:36] LABS: Potassium 2.8 mmol/L (3.5-5.1)
[2018-02-11] MEDS ORDERED: Potassium Chloride 20 MEQ TAB ONE ×2 (17:42→22:50)
[2018-02-11] MEDS ORDERED: Fleet Enema 133 ML BOT PR ONE (18:15)
[2018-02-11] MEDS ORDERED: Promethazine HCl 25 MG/ML VIAL ONE ×2 (20:07→22:18)
[2018-02-11] MEDS ORDERED: Polyethylene Glycol 3350 17 GM Packet PO SCH (21:00)
[2018-02-11 21:31] LABS: Potassium 2.9 mmol/L (3.5-5.1)
[2018-02-12] MEDS ORDERED: Promethazine HCl 25 MG/ML VIAL SLOW IVP PRN (02:30)
[2018-02-12] MEDS ORDERED: Zolpidem Tartrate 5 MG TAB PO PRN (09:55)
[2018-02-12] MEDS ORDERED: Cyclobenzaprine 10 MG TAB PO PRN (09:55)
[2018-02-12] MEDS ORDERED: Promethazine HCl 25 MG/ML VIAL IM/IV PRN (09:55)
[2018-02-12] MEDS ORDERED: Diabetic Tussin 200 MG/10 ML UDCUP PO PRN (09:55)
[2018-02-12] MEDS ORDERED: Acetaminophen 325 MG TAB PO PRN (09:55)
[2018-02-12] MEDS ORDERED: Loperamide HCl 2 MG CAP PO PRN (09:55)
[2018-02-12] MEDS ORDERED: Artificial Tears 18 DROP/0.9 ML EA EYE PRN (09:55)
[2018-02-12] MEDS ORDERED: Gabapentin 300 MG CAP PO PRN (09:55)
[2018-02-12] MEDS ORDERED: Sodium Chloride 0.65% Nasal 44 ML BOT EA NARE PRN (09:55)
[2018-02-12] MEDS ORDERED: Milk Of Magnesia 30 ML UDCUP PO PRN (09:55)
[2018-02-12] MEDS ORDERED: Mag-Al 1200 mg/1200 mg/30 ML UDCUP PO PRN (09:55)
[2018-02-12] MEDS ORDERED: Ondansetron ODT 4 MG TAB PO PRN (09:55)
[2018-02-12] MEDS ORDERED: Loratadine 10 MG TAB PO PRN (09:55)
[2018-02-12] MEDS ORDERED: Eucerin (Mineral Oil/Petrolatum,White) 30 gm Jar TOP PRN (09:55)
[2018-02-12] MEDS ORDERED: Senokot 8.6 MG TAB PO PRN (09:55)
[2018-02-12] MEDS ORDERED: hydrALAZINE 20 MG/ML VIAL SLOW IVP PRN (09:55)
[2018-02-12] MEDS ORDERED: Chloraseptic Spray 180 ml Bottle PO PRN (09:55)
[2018-02-12] MEDS ORDERED: Bisacodyl 10 MG SUPP PR PRN (11:12)
[2018-02-12] MEDS ORDERED: Magnesium Citrate 300 ML BOT PO SCH (11:15)
[2018-02-12] MEDS ORDERED: Potassium Chloride 20 MEQ TAB PO SCH (11:30)
--- NOTE | 2018-02-12 11:37 | HP ---
PRIMARY CARE PHYSICIAN: Dr. Bibiana Almanzar. REASON FOR ADMISSION: Severe constipation, nausea, vomiting. HISTORY OF PRESENT ILLNESS: A 42-year-old -Oman[place] female who has multiple medical problems who was sent from [facility] because of nausea and vomiting as well as lower abdominal pain. T he patient does not have any bowel movement for last 7 days and she was complaining of lower abdomina l pain along with nausea. Whenever she was eating anything, she was feeling fullness as well as she was feeling nausea and she also had vomiting. Patient reports that she tried laxity by herself at [facility] which did not give any good result. The patient was not tolerating p.o. intake for about 2-3 days and she was experiencing nausea and vomiting. She was also feeling crampy lower abdominal pain. Sh e denies any melena or hematochezia. She denies any hematemesis. Patient normally gets constipation , but this episode was more intense. In the emergency room, this patient had CT of the abdomen and p rogelio which did not show any acute abdominal or pelvic process. The patient was given Fleet enema af ter admission that only gave a little amount of stool. Patient denies any UTI symptoms. She denies any fever or chills. She denies any headache, focal motor or sensory symptoms. She denies any chest pain, palpitation, cough, shortness of breath. REVIEW OF SYSTEMS: The following complete review of systems was negative, unless otherwise mentioned in the HPI or below: Constitutional: Weight loss or gain, ability to conduct usual activities. Skin: Rash, itching. Eyes: Double vision, pain. ENT/Mouth: Nose bleeding, neck stiffness, pain, tenderness. Cardiovascular: Palpitations, dyspnea on exertion, orthopnea. Respiratory: Shortness of breath, wheezing, cough, hemoptysis, fever or night sweats. Gastrointestinal: Poor appetite, abdominal pain, heartburn, nausea, vomiting, constipation, or diarr hea. Genitourinary: Urgency, frequency, dysuria, nocturia. Musculoskeletal: Pain, swelling. Neurologic/Psychiatric: Anxiety, depression. Allergy/Immunologic: Skin rash, bleeding tendency. Please see my HPI for pertinent positive and negative. All other review of systems reviewed and nega tive except as mentioned in the HPI. PAST MEDICAL HISTORY: Peripheral neuropathy, hypertension, seizure disorder, paroxysmal atrial fibri llation on chronic anticoagulation with Eliquis, end-stage renal disease on hemodialysis Thursday, Thu, and Thursday, chronic low back pain, gastroesophageal reflux disease, dyslipidemia. PAST SURGICAL HISTORY: AV fistula in left upper extremity, colectomy, , bilateral tubal lig ation, thoracic aortic aneurysm repair, x2, history of peritoneal dialysis catheter placeme nt and subsequent removal, history of colostomy, cholecystectomy, history of aortic dissection. PAST PSYCHIATRIC HISTORY: Anxiety and depression. FAMILY HISTORY: Positive for hypertension, coronary artery disease, stroke in several family members . SOCIAL HISTORY: Patient lives in [place] with her teenage son as well as 28-year-old son. She is on d isability. She smokes about half pack per day. She denies any alcohol abuse. She denies any other illicit drug abuse. ALLERGIES: ANCEF, CLINDAMYCIN, CODEINE, NORCO, DILANTIN and IODINATED CONTRAST. CURRENT HOME MEDICATIONS: Nephro-Clinton one tablet daily, Keppra 500 mg twice daily, Zoloft 25 mg p.o. daily, Ambien 5 mg p.o. at bedtime, gabapentin 300 mg p.o. at bedtime, omeprazole 20 mg p.o. daily, Xanax 1 mg p.o. b.i.d., aspirin 81 mg p.o. daily, Benadryl 25 mg q.6 hourly p.r.n., Plavix 75 mg p.o. daily, Bentyl 10 mg daily, digoxin 125 mcg 4 times per week, Eliquis 2.5 mg p.o. b.i.d., Imodium p.r .n. basis, Thurman 5 one tablet q.4 hourly p.r.n., Tums 1 tablet p.r.n., Tylenol p.r.n., prednisone 5 m g p.o. daily, Questran 4 mg twice daily, Zofran on p.r.n. basis. EMERGENCY ROOM COURSE: Patient was given potassium chloride 20 mEq, Phenergan 12.5 mg, MiraLax 17 gr ams, Fleet enema, Phenergan 12.5 mg second dose, potassium chloride 20 mEq, Zofran 4 mg, IV fluid 250 mL and Bentyl intramuscularly 20 mg. PHYSICAL EXAMINATION: VITAL SIGNS: On arrival, blood pressure 115/79, pulse 82, respiratory rate 18, temperature 97.8, sat uration 95% on room air, weight 83 kilograms. GENERAL: Patient is currently alert, awake, no obvious acute distress. HEAD: Normocephalic, atraumatic. EYES: Pupils round, reactive to light. Extraocular muscle intact. ENT: Oropharynx within normal limits. Moist mucous membranes, no oral lesion, no pharyngeal erythem a, no exudate. NECK: Supple, no JVD, no thyromegaly, no carotid bruit, no jugular venous distention. LUNGS: Clear to auscultation without any rhonchi or rales. CARDIAC: S1, S2 regular. No significant murmur noted, no gallop, no rub. ABDOMEN: Soft, mild diffuse discomfort noted especially in lower part, but no peritoneal sign, no gu arding, no rigidity, no rebound, no organomegaly, no mass, no suprapubic tenderness. BACK: Examination unremarkable, no CVA tenderness. EXTREMITIES: Upper extremity passive movements of all joints are normal. Lower extremities: No stu ma. Good peripheral pulsation. Patient does have left upper extremity fistula with good thrill. NEUROLOGIC: Nonfocal examination. Patient is moving all four limbs. Speech normal. SKIN: No skin rash. PSYCHIATRIC: Normal affect. IMAGING DATA AND SIGNIFICANT LABORATORY DATA: 1. EKG showing atrial fibrillation with controlled ventricular response, incomplete right bundle bra nch block pattern, right ventricular hypertrophy with repolarization changes. CT of the abdomen and pelvis showing no evidence of acute intra-abdominal or pelvic pathology, bilateral renal cysts, small kidneys consistent with chronic kidney disease, possible cirrhosis. 2. CBC: WBC 5.6, hemoglobin 15.5, platelet of 111. 3. BMP: Sodium 141, potassium 2.8, chloride 98, carbon dioxide 30, BUN 15, creatinine of 7.18, gluc ose 87, calcium 10.4, magnesium 2.0. 4. LFT: AST 16, ALT 11, alkaline phosphatase is 102, albumin 4.5, lipase 21. test negati ve. Magnesium 2.0. 5. Repeat potassium is 2.9. ASSESSMENT AND PLAN/IMPRESSION: 1. Severe constipation. The patient reports that she does not have any bowel movement for last 7 da ys. The patient is given Fleet enema. We will continue with the MiraLax 17 grams p.o. b.i.d. We wi ll also give her magnesium citrate one time dose. We will use p.r.n. basis Dulcolax. We will treat underlying severe constipation. 2. Nausea and vomiting, most likely related with problem #1. At this point, patient will be symptom atically treated with Protonix 40 mg IV daily. We will continue with Phenergan 12.5 mg IM or IV q.6 hourly p.r.n. along with Zofran on p.r.n. basis. We will treat underlying constipation as well. The patient had CT of the abdomen and pelvis which did not show any acute abdominal process. 3. Paroxysmal atrial fibrillation. Currently, patient's rate is under control and she is on and off in atrial fibrillation. The patient is already on chronic anticoagulation with Eliquis 2.5 mg p.o. b.i.d. We will continue that as well as aspirin 81 mg p.o. daily. We will continue digoxin 0.125 mg p.o. daily. We will check digoxin level tomorrow. 4. Anxiety and depression. We will continue Xanax 1 mg p.o. b.i.d., Zoloft 25 mg p.o. b.i.d. 5. For her insomnia, we will continue Ambien 5 mg p.o. at bedtime. 6. Seizure disorder. We will continue Keppra 500 mg p.o. b.i.d. 7. Gastroesophageal reflux disease. The patient is kept on Protonix 40 mg IV daily while in [facility]. Upon discharge, we will resume omeprazole 40 mg p.o. daily. 8. Chronic low back pain. Continue Flexeril 5 mg q.8 hourly p.r.n., gabapentin 300 mg p.o. at bedti me p.r.n. 9. End-stage renal disease on hemodialysis. Patient is getting dialysis Thursday, , Thursday . She is due for dialysis tomorrow. We will consult Nephrology for evaluation. Another possibility that this patient can get dialysis tomorrow afternoon at her regular dialysis place. 10. Hypokalemia. The patient is given potassium chloride 2 doses in the emergency room. We will gi ve her another potassium chloride 20 mEq one time dose and we will repeat labs tomorrow. 11. Deep venous thrombosis prophylaxis not needed because we are expecting discharge in 24 hours as well as patient is already on Eliquis therapy. 12. Gastrointestinal prophylaxis. Patient is kept on Protonix therapy. 13. Code status: The patient is FULL CODE. Patient does not have any surrogate decision maker. Disposition plan within 24 hours. Plan of care discussed with the patient in detail.
[2018-02-12] MEDS: Midodrine HCl 5 MG TAB PO SCH ×2 (14:51→21:15)
[2018-02-12] MEDS: Ondansetron HCl/PF 4 MG/2 ML Vial IVP PRN (17:36)
[2018-02-12] MEDS ORDERED: Non-Formulary Item 1 EACH (Apixaban [Eliquis] 2.5 MG) PO SCH (21:00)
[2018-02-12] MEDS: ALPRAZolam 1 MG TAB PO SCH (21:14)
[2018-02-12] MEDS: Apixaban 2.5 MG TAB PO SCH (21:14)
[2018-02-12] MEDS: levETIRAcetam 500 MG TAB PO SCH (21:15)
[2018-02-12] MEDS ORDERED: Promethazine HCl 12.5 MG in Sodium Chloride 0.9% 50 ML IVPB PRN (22:19)
--- NOTE | 2018-02-13 01:27 | CON ---
DATE OF CONSULTATION: 02/12/2018 CONSULTING PHYSICIAN: Zeferino Matthew M.D. REQUESTING PHYSICIAN: Dr. Snider. REASON FOR CONSULTATION: The need for maintenance hemodialysis. IMPRESSION: 1. End-stage renal disease on a Thursday, , Thursday schedule. 2. Constipation, query cause. PLAN: Patient to be dialyzed in accordance with her schedule on a Thursday, , and Thursday. There is no emergent indication to dialyze this patient today. HISTORY OF PRESENT ILLNESS: A 42-year-old female patient with end-stage renal disease who could not complete her dialysis, got only about 2 hours dialysis, presented with complaint of abdominal pain an d clinical evaluation revealed patient with severe constipation requiring treatment. PAST MEDICAL HISTORY: Significant for end-stage renal disease, hemodialysis dependent, peripheral va scular disease, seizure disorder, hypertension, and paroxysmal atrial fibrillation. MEDICATIONS: Reviewed and as documented on [employer]. FAMILY HISTORY: None significantly related to the presenting illness. SOCIAL HISTORY: Significant for tobacco use, denies alcohol or illicit drug use. ALLERGIES: ANCEF, CLINDAMYCIN, CODEINE, NORCO, DILANTIN, and IODINATED CONTRAST. REVIEW OF SYSTEMS: As documented in the body of the history. All the other systems were reviewed an d found not to be significantly related to presenting illness. PHYSICAL EXAMINATION: GENERAL: Patient was found not to be in any obvious distress noted with the following vital sig ns. VITAL SIGNS: Afebrile, temperature 97.7, pulse 82, respiratory rate 20, O2 sat 95% with blood pressu re 118/70. HEENT: Unremarkable. Moist oral mucosa. NECK: Supple. No conjunctival injection or icterus. CARDIOVASCULAR SYSTEM: First and second heart sounds were heard. RESPIRATORY SYSTEM: Clear to auscultation. EXTREMITIES: No peripheral edema. SUMMARY: A 42-year-old female patient with end-stage renal disease, hemodialysis dependent, who pres ented here with abdominal discomfort. Thank you for this consultation. We will follow with you.
[2018-02-13 04:36] VITALS: TEMP 97.9
[2018-02-13 05:07] LABS: Albumin 3.9 g/dL (3.5-5.0); Anion Gap 20 mmol/L (10-20); BUN (Urea Nitrogen) 22 mg/dL (7.0-18.7); Calc. Creatinine Clearance 11 mL/min (70-130); Calcium 9.1 mg/dL (7.8-10.44); Carbon Dioxide 20 mmol/L (22-29); Chloride 104 mmol/L (98-107); Estimated GFR-MDRD 6; Glucose 82 mg/dL (70-105); Phosphorus 2.8 mg/dL (2.3-4.7); Potassium 3.6 mmol/L (3.5-5.1); Sodium 140 mmol/L (136-145)
[2018-02-13 05:30] LABS: #Eosinphils 0.2 thou/uL (0.0-0.7); #Lymphocytes 1.6 thou/uL (1.20-3.40); #Monocytes 0.7 thou/uL (0.11-0.59); #Neutrophils 3.4 thou/uL (1.40-6.50); %Basophils 0.4 % (0.0-1.0); %Eosinophils 3.8 % (0.0-10.0); %Lymphocytes 27.3 % (21.0-51.0); %Monocytes 11.3 % (0.0-10.0); %Neutrophils 57.3 % (42.0-75.0); Mean Corpuscular HGB CONC 31.2 g/dL (32.0-36.0); Mean Corpuscular Hemoglobin 29.9 pg (27.0-31.0); Mean Platelet Volume 10.7 fL (7.4-10.4); Platelet Count 109 thou/uL (130-400); RBC Distribution Width 18.9 % (11.5-14.5); Red Blood Cell (RBC) Count 4.69 mill/uL (4.20-5.40); White Blood Cell (WBC) Count 5.9 thou/uL (4.8-10.8)
[2018-02-13 05:32] LABS: Digoxin 0.77 ng/mL (0.8-2.0)
[2018-02-13] MEDS: Apixaban 2.5 MG TAB PO SCH (08:22)
[2018-02-13] MEDS: ALPRAZolam 1 MG TAB PO SCH (08:23)
[2018-02-13] MEDS: levETIRAcetam 500 MG TAB PO SCH (08:23)
[2018-02-13] MEDS: Midodrine HCl 5 MG TAB PO SCH (08:34)
[2018-02-13] MEDS: Ondansetron HCl/PF 4 MG/2 ML Vial IVP PRN (08:35)
[2018-02-13] MEDS ORDERED: Aspirin 81 mg Enteric Coated Tablet PO SCH (09:00)
[2018-02-13] MEDS ORDERED: Digoxin 0.125 MG TAB PO SCH (09:00)
[2018-02-13] MEDS ORDERED: Pantoprazole 40 MG VIAL IVP SCH (09:00)
[2018-02-13] MEDS ORDERED: Folic Acid/Vit B Comp W-C PO SCH (09:00)
[2018-02-13] MEDS ORDERED: Polyethylene Glycol 3350 17 GM Packet PO SCH (09:00)
[2018-02-13 09:05] VITALS: BP 133/96
--- NOTE | 2018-02-13 10:29 | DIS ---
DATE OF ADMISSION: 02/11/2018 DATE OF DISCHARGE: 02/13/2018 PRIMARY CARE PHYSICIAN: Bibiana Almanzar M.D. DISCHARGE DISPOSITION: Home. PRIMARY DISCHARGE DIAGNOSES: 1. Severe constipation, resolved. 2. Intractable nausea and vomiting, controlled. 3. Hypokalemia. SECONDARY DISCHARGE DIAGNOSES: Seizure disorder, paroxysmal atrial fibrillation, chronic anticoagula tion, history of aortic dissection required repair, dyslipidemia, gastroesophageal reflux disease, en d-stage renal disease on hemodialysis Thursday, , and Thursday, chronic diastolic heart failur e, benign hypertension, anxiety, and depression. PRIMARY PROCEDURE/OPERATION: None. RADIOLOGICAL INVESTIGATION: Abdomen and pelvis CT scan did not show any acute abdominal process. SIGNIFICANT LABORATORY DATA: WBC 5.9, hemoglobin 14.0, platelets 109. Sodium 140, potassium 3.6, BU N 22, creatinine 8.81, calcium 9.1, phosphorus 2.8, magnesium 2.0. Liver enzymes normal. test negative. Lipase 21. Digoxin level 0.77. DISCHARGE MEDICATIONS: Xanax 1 mg p.o. b.i.d., Eliquis 2.5 mg p.o. b.i.d., aspirin 81 mg p.o. daily, Colestid 1 gram p.o. at bedtime, Flexeril 5 mg q.8 hourly p.r.n., digoxin 0.125 mg daily, gabapentin 300 mg p.o. at bedtime p.r.n., Nephro-Clinton 1 tablet p.o. daily, Keppra 500 mg p.o. b.i.d., [place] 5 o ne or two tablets q.4 hourly p.r.n., Tylenol 650 mg q.4 hours p.r.n., midodrine 5 mg p.o. t.i.d., ome prazole 40 mg p.o. daily, Zofran ODT 4 mg q.6 hourly p.r.n., Zoloft 25 mg p.o. daily, tramadol 50 mg 1 or 2 tablets q.6 hourly p.r.n., Ambien 5 mg p.o. at bedtime p.r.n. CONTRAINDICATIONS: None. CODE STATUS: FULL CODE. INPATIENT CONSULTANTS: Dr. Mcgarry, oracle database developer, was consulted while in hospital. TEST RESULTS PENDING ON DISCHARGE: None. ALLERGIES: CEFAZOLIN, CODEINE, CLINDAMYCIN and DILANTIN. DISCHARGE PLAN: Post hospital, the patient is planned for outpatient dialysis later on today and she will schedule appointment with primary care physician in 1 week. HOSPITAL COURSE: A 42-year-old female who was getting dialysis on Thursday and after dialysis, she w as having nausea, vomiting, and lower abdominal pain, that is why she was sent to the emergency room for evaluation. In the emergency room, patient had CT of the abdomen and pelvis which did not show a ny acute process. She did not have any bowel movement for almost 7 days and that was causing her abd ominal discomfort, bloating and nausea or vomiting. Patient was treated with Fleet enema while in [facility] with good result. Her nausea and vomiting resolved. Patient was on room air. She was not vo lume overloaded. We consulted Nephrology, but patient was not requiring any dialysis while in hospit al. He recommended to continue hemodialysis as an outpatient basis. Patient is planned for dialysis today at 12:00 noon and that is why we are discharging early this morning and she will go directly t here for dialysis. The patient is seen and examined at bedside today. Her nausea and vomiting resolved. Her constipati on, resolved. REVIEW OF SYSTEMS: Negative. PHYSICAL EXAMINATION: VITAL SIGNS: Currently, temperature 97.9, pulse 76, blood pressure 133/96, weight 182 pounds. She i s on room air and saturating 94%. GENERAL: Patient is currently alert, awake, no acute distress. HEAD: Normocephalic, atraumatic. EYES: Pupils are round, reactive to light. Extraocular muscles are intact. ENT: Oropharynx within normal limits. Moist mucous membrane, no oral lesion, no pharyngeal erythema , no exudate. NECK: Supple, no JVD, no thyromegaly, no carotid bruit. LUNGS: Clear to auscultation without any rhonchi or rales. CARDIAC: S1, S2 regular without any murmur. ABDOMEN: Soft and benign without any tenderness. EXTREMITIES: No edema. NEUROLOGIC: Nonfocal examination. CONDITION: The patient is medically stable for discharge today.
== END 2018-02-13 10:08 | disposition home or self-care (01) ==
LOC: ERS 14:41 → 2SW 23:50
PROVIDERS: ADMIT Hospitalist; ATTEND Hospitalist
DX: K59.00 Constipation, unspecified (principal); R11.2 Nausea with vomiting, unspecified; E87.6 Hypokalemia; K21.9 Gastro-esophageal reflux disease without esophagitis; I13.2 Hypertensive heart and chronic kidney disease with heart failure and with stage 5 chronic kidney disease, or end stage renal disease; N18.6 End stage renal disease; I50.32 Chronic diastolic (congestive) heart failure; G40.909 Epilepsy, unspecified, not intractable, without status epilepticus; I48.0 Paroxysmal atrial fibrillation; E78.5 Hyperlipidemia, unspecified; Z99.2 Dependence on renal dialysis; Z88.5 Allergy status to narcotic agent; Z79.01 Long term (current) use of anticoagulants; Z79.82 Long term (current) use of aspirin; Z79.899 Other long term (current) drug therapy; Z91.041 Radiographic dye allergy status
CPT/HCPCS: 74176; 80053; 80069; 80162; 83690; 83735; 84132; 84703; 85025 ×2; 93005; 96372 ×2; 96374; 96375; 96376 ×3; 99285; G0378; 36415; A4216; C9113; J2405; J2550; J7050

== ENCOUNTER 2018-03-19 10:37 | Inpatient (IN) | payer MEDICARE, MEDICAID ==
[2018-03-19 12:10] LABS: ALT (SGPT) 11 U/L (8-55); AST (SGOT) 13 U/L (5-34); Albumin 4.2 g/dL (3.5-5.0); Alkaline Phosphatase 82 U/L (40-150); Anion Gap 22 mmol/L (10-20); BUN (Urea Nitrogen) 45 mg/dL (7.0-18.7); Bilirubin, Total 1.5 mg/dL (0.2-1.2); Calc. Creatinine Clearance 0 mL/min (70-130); Calcium 7.3 mg/dL (7.8-10.44); Carbon Dioxide 21 mmol/L (22-29); Chloride 103 mmol/L (98-107); Estimated GFR-MDRD 4; Globulin 3.2 g/dL (2.4-3.5); Glucose 88 mg/dL (70-105); Potassium 3.5 mmol/L (3.5-5.1); Protein, Total 7.4 g/dL (6.0-8.3); Sodium 142 mmol/L (136-145)
[2018-03-19] MEDS ORDERED: diphenhydrAMINE 50 MG/ML VIAL ONE (12:50)
[2018-03-19] MEDS ORDERED: ISOVUE-370 76%-LOCM 1 ML ONE (13:32)
[2018-03-19] MEDS ORDERED: methylPREDNISolone Sod Succ/PF 125 MG/2 ML VIAL ONE (13:44)
[2018-03-19] MEDS ORDERED: Famotidine/PF 20 mg/2ml Vial ONE (13:44)
--- NOTE | 2018-03-19 14:41 | CT ---
CT ABDOMEN AND PELVIS WITH IV CONTRAST: Date: 03/19/18 HISTORY: Abdominal pain. Patient is post cholecystectomy and partial colectomy, and is on dialysis. FINDINGS: Comparison made with exam of 12/03/16. Small pleural effusions are seen with adjacent atelectatic changes. There is free fluid in the abdome n and pelvis consistent with ascites. Edema is seen in the abdominal wall. No hepatic mass is noted. The kidneys are atrophic with a stable left superior pole cyst. A small hyperdense exophytic 9.0 mm m ass is seen arising from the right kidney which measured 14.0 mm on the exam of 12/03/16. The pancrea s, adrenal glands, and spleen are unremarkable. No free air is seen. There is thickening of the wall of the colon. Uterus is present. There are degenerative changes in the spine. No aneurysmal dilatatio n of the abdominal aorta is seen. IMPRESSION: 1. Ascites and anasarca. 2. Atrophic kidneys consistent with renal failure. 3. Stable left renal cyst and hyperdense right renal mass which is smaller since 12/03/16. 4. Colonic wall thickening. 5. Small pleural effusions. POS: [facility]
[2018-03-19 15:40] LABS: Hemoglobin 13.5 g/dL (12.0-16.0); Mean Corpuscular Volume 93.3 fL (78.0-98.0); Mean Platelet Volume 10.2 fL (7.4-10.4); Platelet Count 131 thou/uL (130-400); Red Blood Cell (RBC) Count 4.65 mill/uL (4.20-5.40); White Blood Cell (WBC) Count 6.7 thou/uL (4.8-10.8)
[2018-03-19 16:01] LABS: Anisocytosis SLIGHT = 6-15 cells (100X) (0-5/hpf); Elliptocytes SLIGHT = 2-5 cells (100X) (0-1/hpf); Eosinophils 4 % (0-10); Lymphocytes 13 % (21-51); MDiff Complete? YES; Monocytes 12 % (0-10); Neutrophil 70 % (42-75); Nucleated RBC 1 % (0); Ovalocytes SLIGHT = 2-5 cells (100X) (0-1/hpf); PLT Morphology Comment Appears Adequate; Polychromasia SLIGHT = 2-3 cells (100X) (0-2/hpf)
[2018-03-19] MEDS ORDERED: Promethazine HCl 25 MG/ML VIAL ONE (18:28)
[2018-03-19] MEDS ORDERED: Acetaminophen 325 MG TAB PO PRN ×2 (20:07→20:44)
[2018-03-19] MEDS ORDERED: Ondansetron ODT 4 MG TAB SL PRN (20:07)
[2018-03-19] MEDS ORDERED: Ondansetron HCl/PF 4 MG/2 ML Vial IVP PRN (20:07)
[2018-03-19] MEDS ORDERED: Zolpidem Tartrate 5 MG TAB PO PRN (20:44)
[2018-03-19] MEDS ORDERED: Guaifenesin DM 100-10/5 ML UDCUP PO PRN (20:44)
[2018-03-19] MEDS ORDERED: Promethazine HCl 25 MG/ML VIAL IM/IV PRN (20:44)
[2018-03-19] MEDS ORDERED: Mag-Al 1200 mg/1200 mg/30 ML UDCUP PO PRN (20:44)
[2018-03-19] MEDS ORDERED: Gabapentin 300 MG CAP PO PRN (20:44)
[2018-03-19 20:49] VITALS: BMI 31.4
[2018-03-19] MEDS: Midodrine HCl 5 MG TAB PO SCH (23:28)
[2018-03-19] MEDS: ALPRAZolam 1 MG TAB PO SCH (23:28)
[2018-03-19] MEDS: Apixaban 2.5 MG TAB PO SCH (23:28)
[2018-03-19] MEDS: Vancomycin HCl 25 MG/ML Oral PO SCH (23:29)
[2018-03-20] MEDS: diphenhydrAMINE 25 MG CAP PO PRN ×3 (00:51→21:49)
--- NOTE | 2018-03-20 02:09 | HP ---
REASON FOR ADMISSION: Abdominal pain. HISTORY OF PRESENT ILLNESS: The patient gives a history of severe abdominal pain in the left upper q uadrant. The patient states that she has had alternating bowel movements from almost a month now. F or the last 3-4 days now, she has had continuous watery diarrhea, at least 4-5 times a day. She had gone to see Dr. Villegas's PA this morning and was told she will get a CAT scan in the outpatient setting after insurance approval. As patient's abdominal pain continued, she made it to the emergency room here. She also complains of nauseating feeling, but has not vomited as such. The patient mentions t hat she gets severe abdominal pain 2 hours into hemodialysis and the treatment has to be stopped. Josie mcclelland has not had a full 4-hour session dialysis in almost a month now per patient. No bleeding per rect um as such. No complaints of chest pain, palpitation, PND, or orthopnea. Her last dialysis was on . PAST MEDICAL AND SURGICAL HISTORY: History of end-stage renal disease, on hemodialysis; history of t horacic aortic dissection with prior surgery for the same; end-stage renal disease from 2006; history of seizure disorder with last seizure in 2009; hypertension; peripheral neuropathy; atrial fibrillat ion, which is paroxysmal, on Eliquis; chronic back pain; GERD; dyslipidemia; AV dialysis access proce dures including fistula in the left upper extremity; prior history of bowel surgery; ; tubal ligation; prior history of peritoneal dialysis catheter placement and removal; cholecystectomy; anxi ety and depression. CURRENT MEDICATIONS: Keppra 500 mg twice daily, Eliquis 2.5 mg twice daily, alprazolam 1 mg twice da surjit, Flexeril q.8 hourly 5 mg p.r.n., digoxin 0.125 mg 4 days a week, gabapentin 300 mg p.o. at bedti me, [place] p.r.n. for pain, omeprazole 40 mg daily, sertraline 25 mg p.o. q.a.m., zolpidem 5 mg p.o. a t bedtime p.r.n., aspirin 81 mg p.o. daily, midodrine 5 mg p.o. 3 times daily, Nephro-[place]inton 1 capsule daily. ALLERGIES: The patient has multiple allergies including CEFAZOLIN, CODEINE, CLINDAMYCIN, HYDROCODONE , but takes NORCO at home, PHENYTOIN, and IODINE causes mild itching. PERSONAL HISTORY: Does not abuse alcohol or drugs. No history of smoking. FAMILY HISTORY: Mother at the age of 54 years. She has had history of hypertension and massive CVA. Father at the age of 72 years from massive [place]. CODE STATUS: FULL. REVIEW OF SYSTEMS: The following complete review of systems was negative, unless otherwise mentioned in the HPI or below: Constitutional: Weight loss or gain, ability to conduct usual activities. Sk in: Rash, itching. Eyes: Double vision, pain. ENT/Mouth: Nose bleeding, neck stiffness, pain, te nderness. Cardiovascular: Palpitations, dyspnea on exertion, orthopnea. Respiratory: Shortness of breath, wheezing, cough, hemoptysis, fever, or night sweats. Gastrointestinal: Poor appetite, abdo vandana pain, heartburn, nausea, vomiting, constipation, or diarrhea. Genitourinary: Urgency, frequen cy, dysuria, nocturia. Musculoskeletal: Pain, swelling. Neurologic/Psychiatric: Anxiety, depressi on. Allergy/Immunologic: Skin rash, bleeding tendency. PHYSICAL EXAMINATION: GENERAL: The patient is a 42-year-old female, who is currently in mild distress from abdominal pain and nauseating feeling. VITAL SIGNS: Blood pressure 112/74, pulse 90 per minute, respiratory rate 16 per minute, temperature 98.6 degrees Fahrenheit, saturating 94% on room air. NECK: Supple, no elevated JVD. HEENT: Eyes: Extraocular muscles intact. Pupils reacting to light. Oral cavity mucous membranes a re moist. No exudates or congestion. CARDIOVASCULAR SYSTEM: S1 and S2 heard. S3 plus. RESPIRATORY SYSTEM: Air entry 1+ bilateral, rales plus in the infrascapular area. ABDOMEN: There is some mild tenderness in the left upper quadrant. No rigidity or guarding. Bowel sounds are heard. EXTREMITIES: There is 2+ peripheral edema, no calf tenderness. VASCULAR SYSTEM: Peripheral pulses 1+ bilateral, no ischemic ulcerations or gangrene. CENTRAL NERVOUS SYSTEM: No gross focal deficits noted. Patient is alert and oriented well. PSYCHIATRIC SYSTEM: The patient's mood is euthymic. No hallucinations or delusions. LABORATORY AND X-RAY FINDINGS: White count of 6.7, H and H of 13 and 43, platelet count 131 with 70% neutrophils, MCV is 43. Sodium 142, bicarbonate is 21, BUN 45, creatinine 12.1, glucose 88, total b ilirubin 1.5, calcium is 7.3. Liver enzymes within normal limits. Albumin is 4.2. Stool occult blo od is positive. CT of the abdomen and pelvis done shows ascites and anasarca, atrophic kidneys. The re is sigmoid colon thickening seen. I discussed her CAT scan findings with Dr. Wilson, radiologist. There is no obvious mesenteric vessel occlusions or stenosis, at least the proximal portions per Dr. Wilson. CLINICAL IMPRESSION AND PLAN: The patient will be under observation on medical floor for abdominal p ain, volume overload, intractable nausea and vomiting and diarrhea. I have discussed her CAT scan fi ndings with Dr. Wilson, radiologist, and there are no proximal mesenteric artery occlusions seen. Her vessels are widely patent. We will obtain stool for Clostridium difficile and cultures. I discusse d her findings with Dr. Casey as well. We will continue her Xanax, colestipol, Neurontin, [place], Ke ppra, midodrine, sertraline, and Ambien as before. We will treat her empirically with vancomycin wit h patient having multiple hospitalizations and current nausea, vomiting, and diarrhea and alternating stools for almost 4 weeks per patient. She will be on vancomycin 125 mg p.o. 4 times daily. We cuong l discontinue this if her stool for Clostridium difficile is negative. I have discussed her findings with Dr. Mcgarry, who will be dialyzing her. The patient's last dialysis was on Thursday. She leonard s also never had 4-hour session dialysis for the last 4 weeks or so now and is chronically volume ove rloaded. Code status was discussed with patient and she wants to be FULL CODE. Power of title attorney is her brother, Mr. Barrie Morris, number to reach him is [phone].
[2018-03-20] MEDS: HYDROcodone/Acetaminophen 5/325 mg Tablet PO PRN ×3 (04:52→23:15)
[2018-03-20 05:17] LABS: Anion Gap 22 mmol/L (10-20); BUN (Urea Nitrogen) 51 mg/dL (7.0-18.7); Calc. Creatinine Clearance 8 mL/min (70-130); Carbon Dioxide 18 mmol/L (22-29); Chloride 102 mmol/L (98-107); Estimated GFR-MDRD 4; Glucose 129 mg/dL (70-105); Potassium 4.1 mmol/L (3.5-5.1); Sodium 138 mmol/L (136-145)
[2018-03-20 06:06] LABS: #Lymphocytes 0.8 thou/uL (1.20-3.40); #Monocytes 0.2 thou/uL (0.11-0.59); #Neutrophils 3.7 thou/uL (1.40-6.50); %Basophils 0.2 % (0.0-1.0); %Eosinophils 0.2 % (0.0-10.0); %Lymphocytes 16.5 % (21.0-51.0); %Monocytes 4.4 % (0.0-10.0); %Neutrophils 78.7 % (42.0-75.0); Hemoglobin 13.6 g/dL (12.0-16.0); Mean Corpuscular HGB CONC 32.6 g/dL (32.0-36.0); Mean Corpuscular Hemoglobin 30.4 pg (27.0-31.0); Mean Corpuscular Volume 93.3 fL (78.0-98.0); Mean Platelet Volume 9.1 fL (7.4-10.4); PLT Morphology Comment Appears Decreased; Platelet Count 114 thou/uL (130-400); RBC Distribution Width 19.5 % (11.5-14.5); Red Blood Cell (RBC) Count 4.48 mill/uL (4.20-5.40); White Blood Cell (WBC) Count 4.8 thou/uL (4.8-10.8)
[2018-03-20] MEDS: Apixaban 2.5 MG TAB PO SCH ×2 (08:12→20:40)
[2018-03-20] MEDS: levETIRAcetam 500 MG TAB PO SCH (08:12)
[2018-03-20] MEDS: ALPRAZolam 1 MG TAB PO SCH ×2 (08:12→20:40)
[2018-03-20] MEDS: Folic Acid/Vit B Comp W-C PO SCH (08:12)
[2018-03-20] MEDS ORDERED: Aspirin 81 mg Enteric Coated Tablet PO SCH (09:00)
[2018-03-20] MEDS: Vancomycin HCl 25 MG/ML Oral PO SCH ×4 (10:00→20:40)
[2018-03-20] MEDS ORDERED: Cosyntropin 250 MCG VIAL SLOW IVP SCH (11:30)
--- NOTE | 2018-03-20 12:22 | PDOC.PN ---
- Subjective Encounter Start Date: 03/20/18 Encounter Start Time: 08:40 Subjective: is getting HD, no abd pain or nausea now - Objective Resuscitation Status: Resuscitation Status FULL:Full Resuscitation MAR Reviewed: Yes Vital Signs & Weight: Vital Signs (12 hours) Temp Pulse Resp BP BP Pulse Ox 03/20/18 08:00 96.9 F L 77 20 101/67 100 03/20/18 06:05 91/59 L 03/20/18 04:35 97.3 F L 75 18 88/59 L 92 L Weight Weight 196 lb 4.8 oz I&O: 03/19/18 03/20/18 03/21/18 06:59 06:59 06:59 Intake Total 240 240 Balance 240 240 Result Diagrams: 03/20/18 04:44 03/20/18 04:44 Phys Exam - Physical Examination HEENT: PERRLA, moist MMs Neck: no JVD, supple Respiratory: no wheezing, no rales Cardiovascular: RRR, no significant murmur Gastrointestinal: soft, non-tender, positive bowel sounds Musculoskeletal: pulses present, edema present Neurological: non-focal, moves all 4 limbs Dx/Plan (1) C. difficile colitis Status: Suspected (2) Nausea & vomiting Code(s): R11.2 - NAUSEA WITH VOMITING, UNSPECIFIED Status: Acute Qualifiers: Vomiting type: cyclical vomiting Vomiting Intractability: intractable Qualified Code(s): G43.A1 - Cyclical vomiting, intractable (3) Anxiety and depression Code(s): F41.8 - OTHER SPECIFIED ANXIETY DISORDERS Status: Chronic (4) Chronic anticoagulation Code(s): Z79.01 - SENIOR LIVING (CURRENT) USE OF ANTICOAGULANTS Status: Chronic (5) Diastolic CHF, chronic Code(s): I50.32 - CHRONIC DIASTOLIC (CONGESTIVE) HEART FAILURE Status: Chronic (6) End stage renal disease on dialysis Code(s): N18.6 - END STAGE RENAL DISEASE; Z99.2 - DEPENDENCE ON RENAL DIALYSIS Status: Chronic Comment: HD per renal. chronically low BP. (7) GERD (gastroesophageal reflux disease) Code(s): K21.9 - GASTRO-ESOPHAGEAL REFLUX DISEASE WITHOUT ESOPHAGITIS Status: Chronic Qualifiers: Esophagitis presence: esophagitis presence not specified Qualified Code(s) : K21.9 - Gastro-esophageal reflux disease without esophagitis (8) History of aortic dissection Code(s): Z86.79 - PERSONAL HISTORY OF OTHER DISEASES OF THE CIRCULATORY SYSTEM Status: Chronic Comment: prior repair in [address] [facility] in [place] (9) Hyperlipidemia Code(s): E78.5 - HYPERLIPIDEMIA, UNSPECIFIED Status: Chronic (10) Paroxysmal a-fib Code(s): I48.0 - PAROXYSMAL ATRIAL FIBRILLATION Status: Chronic (11) Seizure disorder Code(s): G40.909 - EPILEPSY, UNSP, NOT INTRACTABLE, WITHOUT STATUS EPILEPTICUS Status: Chronic - Plan hemostable -: empiric vanc po qid, await toxin assay, ag is +ve -: dc pt home after HD if ok with * . Review of Systems - Medications/Allergies Allergies/Adverse Reactions: Allergies Allergy/AdvReac Type Severity Reaction Status Date / Time cefazolin sodium [From Ancef] Allergy Intermediate Anaphylaxis Verified 03:18 codeine [Codeine] Allergy Intermediate ITCHING Verified 02/12/18 03:18 clindamycin Allergy Verified 02/12/18 03:18 hydrocodone Allergy Verified 03/19/18 20:37 Iodinated Contrast- Oral and Allergy itching Verified 02/12/18 03:18 IV Dye phenytoin sodium Allergy Rash Verified 02/12/18 03:18 [From Dilantin] phenytoin sodium extended Allergy Rash Verified 02/12/18 03:18 [From Dilantin] Medications: Current Medications Acetaminophen (Tylenol) 650 mg PO Q4H PRN PRN Reason: Headache/Fever or Pain Hydrocodone Bitart/Acetaminophen ([place] 5/325) 1 tab PO Q4H PRN PRN Reason: Moderate Pain (4-6) Last Admin: 03/20/18 11:20 Dose: 1 tab Al Hydroxide/Mg Hydroxide (Maalox) 30 ml PO Q6H PRN PRN Reason: Heartburn or Indigestion Alprazolam (Xanax) 1 mg PO BID [facility] Last Admin: 03/20/18 08:12 Dose: 1 mg Apixaban (Eliquis) 2.5 mg PO BID [facility] Last Admin: 03/20/18 08:12 Dose: 2.5 mg Calcium Carbonate (Tums) 1,000 mg PO Q4H PRN PRN Reason: Heartburn or Indigestion Colestipol HCl (Colestid) 1 gm PO HS [facility] Last Admin: 03/19/18 23:28 Dose: Not Given Cosyntropin (Cortrosyn) 250 mcg SLOW IVP WILLCALL [facility] Stop: 03/21/18 11:31 Digoxin (Lanoxin) 0.125 mg PO MoTuWeTh@0900 [facility] Diphenhydramine HCl (Benadryl) 25 mg PO Q4H PRN PRN Reason: WITH NORCO DUE TO ALLERGY Last Admin: 03/20/18 11:20 Dose: 25 mg Gabapentin (Neurontin) 300 mg PO HS PRN PRN Reason: Pain Guaifenesin/Dextromethorphan (Robitussin Dm) 15 ml PO Q4H PRN PRN Reason: Cough Levetiracetam (Keppra) 500 mg PO DAILY [facility] Last Admin: 03/20/18 08:12 Dose: 500 mg Midodrine (Proamatine) 5 mg PO TID [facility] Last Admin: 03/19/18 23:28 Dose: 5 mg Ondansetron HCl (Zofran) 4 mg IVP Q6H PRN PRN Reason: Nausea/Vomiting Promethazine HCl (Phenergan) 12.5 mg IM/IV Q6H PRN PRN Reason: Nausea/Vomiting Last Admin: 03/20/18 00:51 Dose: 12.5 mg Sertraline HCl (Zoloft) 25 mg PO QAM [facility] Last Admin: 03/20/18 08:12 Dose: 25 mg Sodium Chloride (Flush - Normal Saline) 10 ml IVF Q12HR [facility] Last Admin: 03/20/18 08:12 Dose: 10 ml Sodium Chloride (Flush - Normal Saline) 10 ml IVF PRN PRN PRN Reason: Saline Flush Vancomycin HCl (First Vancomycin) 125 mg PO QID [facility] Last Admin: 03/19/18 23:29 Dose: 125 mg Vitamin B Complex/Vit C/Folic Acid (Nephro-Clinton Tablet) 1 tab PO DAILY [facility] Last Admin: 03/20/18 08:12 Dose: 1 tab Zolpidem Tartrate (Ambien) 5 mg PO HSPRN PRN PRN Reason: Insomnia
[2018-03-20] MEDS: Midodrine HCl 5 MG TAB PO SCH ×3 (13:28→20:40)
[2018-03-20] MEDS: Ondansetron HCl/PF 4 MG/2 ML Vial IVP PRN (16:36)
--- NOTE | 2018-03-20 19:58 | CON ---
DATE OF CONSULTATION: 03/20/2018 REASON FOR CONSULTATION: Abdominal pain, diarrhea. HISTORY OF PRESENT ILLNESS: Ms. Morris is a 42-year-old female who was very ill with end-stage renal disease and severe cardiomyopathy. She has been seen over the years in our group for intermittent diarrhea in the past. She has had several bouts of Clostridium difficile colitis who predominantly has been taken care of at the [facility] for that. She had upper and lower endoscopies in 01/2017 that showed ileocolonic anastomosis, but no acute inflammation. She was in our office yesterday with new complaint of abdominal pain on dialysis with crampy mid abdominal pain every time she was in dialysis, nurse to come off within about 2 hours. She intermittently has some constipation, other times has diarrhea. She has had no blood in her stools or hematochezia. Presently, she is on dialysis and states the discomfort is present. She was seen in the office yesterday, stool studies were ordered as an outpatient, CAT scan was ordered., however, the patient did not want to wait for that and decided to come to the emergency room as her abdominal cramping was persisting. She was not vomiting, but did have some nausea. She denies any chest pain or shortness of breath. PAST MEDICAL HISTORY: End-stage renal disease, on dialysis; history of, thoracic aortic dissection with previous repair; seizure disorder, last seizure in 2009; hypertension; peripheral neuropathy; atrial fibrillation, paroxysmal, on Eliquis. She did have a cardioversion earlier this year, chronic back pain; reflux; and history of peripheral vascular disease, severe congestive heart failure. Echocardiogram in 12/2017 showed EF 65%, large right ventricle, left ventricle dilated, moderate MR, moderate AR, severe TR, right-sided pressures were not estimated, but is severely enlarged right ventricle. PAST SURGICAL HISTORY: Include, cholecystectomy, peritoneal dialysis catheter placed in the past, tubal ligation, , prior bowel resection, fistula surgery and endoscopies as noted above. Her last revascularization was on 10/26, a drug-eluting stent and PTCA in the left lower extremity. In June, she had orthopedic surgery in her left leg of 2016. In 10/2016, she had a diagnostic laparoscopy with a ileocecectomy and ileocolonic anastomosis for small-bowel obstruction with adhesions around the terminal ileum. ALLERGIES: CEFZIL, CLONIDINE, CLINDAMYCIN, HYDROCODONE, DILANTIN, IODINE causes mild itching. HOME MEDICATIONS: Keppra, Eliquis, Flexeril, digoxin, gabapentin, [place], omeprazole, sertraline, zolpidem, aspirin, midodrine, and Nephro-Clinton. FAMILY HISTORY: Mother at age 54 with hypertension, CVA. Father at 72 of [place]. SOCIAL HISTORY: Negative for alcohol, drugs, tobacco. REVIEW OF SYSTEMS: Negative for nausea, vomiting, dysphagia, odynophagia, melena, hematochezia or hematemesis. She states her weight has been stable. CURRENT MEDICATIONS: Tylenol, [place], Maalox, Xanax, Eliquis, Tums, Colestid, Lanoxin, Benadryl, Neurontin, Keppra, midodrine, Zofran, Phenergan, Zoloft, vancomycin 125 t.i.d., folic acid, Ambien. PHYSICAL EXAMINATION: VITAL SIGNS: Temperature is 96. She has been afebrile, pulse 97, blood pressure 91/59. GENERAL: She is on dialysis. She is sleepy, but arousable. LUNGS: Clear. HEART: Regular rate and rhythm without clicks or murmurs. ABDOMEN: Protuberant. There is shifting dullness and fluid wave. There is some massive hepatomegaly. Bowel sounds are positive. No bruits. EXTREMITIES: No clubbing, cyanosis or edema. LABORATORY STUDIES: White count 4.8, hemoglobin 13, platelet count 114. INR is 1.2, sodium 138, potassium 4.1, BUN and creatinine are 51 and 12.7, glucose is 129, bilirubin is 1.5, AST and ALT are 13 and 11, alkaline phosphatase is 82. Albumin is 4.2. Serum protein 7.4. Previous hepatitis C, A, and B serologies negative. Previous paracentesis 08/2014 showed with only 3% segs. Microbiology: C. diff testing, antigen positive, toxin pending. Stool occult blood test positive. Campylobacter negative, culture pending. IMAGING: Abdomen and pelvis CAT scan in the emergency room yesterday without contrast shows ascites, anasarca, atrophic kidneys, diffuse colon wall thickening with no stranding, previous partial colectomy, previous cholecystectomy, IV contrast was given. On my review of the film, she has got a massively dilated inferior vena cava. The thickening of this in the colon areas is difficult to fully take again as there is no oral contrast, but it is very similar to her previous CAT scans over the past several years at this hospital. ASSESSMENT: 1. Abdominal pain. This is when she is on dialysis. I suspect it is an ischemic event, it may be related to passive congestion on the venous side. It there may be some arterial blockages and it probably is related to her relative hypotension, which is present all the time and seems to be worse on dialysis. It may be reasonable to consider Cardiovascular Surgery consultation to see if there is anything amenable to revascularization of mesenteric vessels may be reasonable value, consider involvement of her Cardiology team to see if there is any right-sided heart failure relative hypotension. It would be reasonable to check for adrenal insufficiency in light of her relative hypotension that she seems to have all the time, although she had normal cortisol of 15 in March of last year. 2. Heme positive stool. She has had endoscopies last year. These need not be repeated. She has a normal hemoglobin. 3. With colonic wall thickening, there is no evidence of colonic ischemia ( no bleeding) this is a possibility. There are no overt signs of metabolic acidosis. It would not surprise me, however, she had a low degree of this. Most of her edema seems to be from passive congestion, probably related to her ascites and anasarca, this has been seen on multiple scans. 4. Ascites and anasarca. This seems to be related to her renal failure and heart failure. 5. History of Clostridium difficile. She has had multiple episodes in the past. She complains of some constipation, diarrhea, now she has got no leukocytosis or fever. She has a positive Clostridium difficile antigen. Toxin is pending. If the toxin is negative, I would not treat her, I would just put her on a probiotic, would check a fecal white blood cells. If this is positive, then it may be reasonable to consider treating her. We will follow along with you. ABHINAV
--- NOTE | 2018-03-21 00:12 | CON ---
DATE OF CONSULTATION: 03/20/2018 CONSULTING PHYSICIAN: Zeferino Matthew MD REQUESTING PHYSICIAN: Madison Vieira MD REASON FOR CONSULTATION: Need for maintenance hemodialysis. IMPRESSION: 1. End-stage renal disease; hemodialysis dependent; Thursday, , and Thursday. 2. Hypervolemia. 3. Abdominal pain, query cause. PLAN: 1. The patient to be dialyzed in accordance with her schedule as there is no emergent indication for renal replacement therapy at this point. 2. Further management will be dependent on the clinical course. HISTORY OF PRESENT ILLNESS: History is that of 42-year-old female patient with end-stage renal disea se, on hemodialysis; significant vasculopathy who presented here with abdominal discomfort and noted with some gastrointestinal wall edema as well as some mild ascites. The patient did complain of abdo vandana discomfort and leg pain. As a result, decision was taken to admit this patient for further man agement. The need for maintenance hemodialysis necessitated this renal consultation. PAST MEDICAL HISTORY: As documented in the body of the history. In addition, the patient does have a thoracic aortic dissection, status post repair; seizure disorder; hypertension; reflux disease; and dyslipidemia. MEDICATIONS: Reviewed and as documented on [employer] [facility] [employer]. ALLERGIES: CEFAZOLIN, CODEINE, CLINDAMYCIN, HYDROCODONE, PHENYTOIN, IODINE. SOCIAL HISTORY: Significant for tobacco use, but no alcohol abuse. FAMILY HISTORY: Not significantly related to presenting illness. REVIEW OF SYSTEMS: As documented in the body of the history. All the other systems were reviewed an d found not to be significantly related to the presenting illness. PHYSICAL EXAMINATION: GENERAL: The patient was found not to be in any obvious distress and noted with the following vital signs. VITAL SIGNS: Afebrile with temperature 96.9, pulse 77, respiratory rate of 20, O2 sat 100%, blood pr essure 101/67. HEENT: Unremarkable. Moist oral mucosa. No conjunctival injection or icterus. NECK: Supple. CARDIOVASCULAR SYSTEM: First and second heart sounds were heard. RESPIRATORY SYSTEM: Clear to auscultation. DIGESTIVE SYSTEM: Revealed a benign abdomen. Positive bowel sounds. EXTREMITIES: No peripheral edema. SKIN: No new gross rash. LYMPHATICS: No peripheral lymphadenopathy. SUMMARY: A 42-year-old female patient with end-stage renal disease, who presented here with abdomina l pain. Thank you for this consultation. We will follow with you.
[2018-03-21] MEDS: Ondansetron HCl/PF 4 MG/2 ML Vial IVP PRN ×2 (06:53→16:50)
[2018-03-21] MEDS: diphenhydrAMINE 25 MG CAP PO PRN ×2 (06:53→18:02)
[2018-03-21] MEDS: HYDROcodone/Acetaminophen 5/325 mg Tablet PO PRN ×2 (08:32→19:07)
[2018-03-21] MEDS: levETIRAcetam 500 MG TAB PO SCH (08:33)
[2018-03-21] MEDS: Vancomycin HCl 25 MG/ML Oral PO SCH ×3 (08:33→18:02)
[2018-03-21] MEDS: Apixaban 2.5 MG TAB PO SCH ×2 (08:33→22:47)
[2018-03-21] MEDS: Midodrine HCl 5 MG TAB PO SCH ×3 (08:33→22:48)
[2018-03-21] MEDS: ALPRAZolam 1 MG TAB PO SCH ×2 (08:33→22:48)
[2018-03-21] MEDS: Folic Acid/Vit B Comp W-C PO SCH (08:33)
[2018-03-21] MEDS ORDERED: Hydrocortisone Acetate 25 MG Suppository PR PRN (13:27)
[2018-03-21] MEDS ORDERED: Preparation H HC 1% Cream 26 GM TUBE TOP PRN (13:27)
--- NOTE | 2018-03-21 15:07 | PDOC.PN ---
- Subjective Encounter Start Date: 03/21/18 Encounter Start Time: 12:30 Subjective: is lethargic but is easily arousable -: was the same yesterday while dialysing -: abd pain is better, no nausea/vomiting now - Objective Resuscitation Status: Resuscitation Status FULL:Full Resuscitation MAR Reviewed: Yes Vital Signs & Weight: Vital Signs (12 hours) Temp Pulse Resp BP Pulse Ox 03/21/18 08:16 97.6 F 86 16 83/51 L 90 L 03/21/18 08:00 97.6 F 86 16 94 L 03/21/18 05:20 97.5 F L 84 16 97/67 91 L Weight Weight 196 lb 4.8 oz I&O: 03/20/18 03/21/18 03/22/18 06:59 06:59 06:59 Intake Total 240 590 Output Total 1999 Balance 240 -1410 Result Diagrams: 03/20/18 04:44 03/20/18 04:44 Phys Exam - Physical Examination HEENT: PERRLA, moist MMs Neck: supple, full ROM Respiratory: no wheezing, no rales Cardiovascular: RRR, no significant murmur Gastrointestinal: soft, positive bowel sounds Musculoskeletal: pulses present, edema present Neurological: non-focal, moves all 4 limbs Dx/Plan (1) C. difficile colitis Status: Acute (2) Nausea & vomiting Code(s): R11.2 - NAUSEA WITH VOMITING, UNSPECIFIED Status: Acute Qualifiers: Vomiting type: cyclical vomiting Vomiting Intractability: intractable Qualified Code(s): G43.A1 - Cyclical vomiting, intractable (3) Anxiety and depression Code(s): F41.8 - OTHER SPECIFIED ANXIETY DISORDERS Status: Chronic (4) Chronic anticoagulation Code(s): Z79.01 - PIE CHEF (CURRENT) USE OF ANTICOAGULANTS Status: Chronic (5) Diastolic CHF, chronic Code(s): I50.32 - CHRONIC DIASTOLIC (CONGESTIVE) HEART FAILURE Status: Chronic (6) End stage renal disease on dialysis Code(s): N18.6 - END STAGE RENAL DISEASE; Z99.2 - DEPENDENCE ON RENAL DIALYSIS Status: Chronic Comment: HD per renal. chronically low BP. (7) GERD (gastroesophageal reflux disease) Code(s): K21.9 - GASTRO-ESOPHAGEAL REFLUX DISEASE WITHOUT ESOPHAGITIS Status: Chronic Qualifiers: Esophagitis presence: esophagitis presence not specified Qualified Code(s) : K21.9 - Gastro-esophageal reflux disease without esophagitis (8) History of aortic dissection Code(s): Z86.79 - PERSONAL HISTORY OF OTHER DISEASES OF THE CIRCULATORY SYSTEM Status: Chronic Comment: prior repair in 2009 at [facility] in [place] (9) Hyperlipidemia Code(s): E78.5 - HYPERLIPIDEMIA, UNSPECIFIED Status: Chronic (10) Paroxysmal a-fib Code(s): I48.0 - PAROXYSMAL ATRIAL FIBRILLATION Status: Chronic (11) Seizure disorder Code(s): G40.909 - EPILEPSY, UNSP, NOT INTRACTABLE, WITHOUT STATUS EPILEPTICUS Status: Chronic - Plan to continue HD 4 hr sessions to remove as much fluid as tolerated -: oral vanc taper over 4-5 weeks, ?xifaxan per GI advice -: dc phenergan due to lethargy to avoid unnecessary resp failure -: dc plan in 24-36hrs -: pt to ambulate in hallway as tolerated * . Review of Systems - Medications/Allergies Allergies/Adverse Reactions: Allergies Allergy/AdvReac Type Severity Reaction Status Date / Time cefazolin sodium [From Ancef] Allergy Intermediate Anaphylaxis Verified 03:18 codeine [Codeine] Allergy Intermediate ITCHING Verified 02/12/18 03:18 clindamycin Allergy Verified 02/12/18 03:18 hydrocodone Allergy Verified 03/19/18 20:37 Iodinated Contrast- Oral and Allergy itching Verified 02/12/18 03:18 IV Dye phenytoin sodium Allergy Rash Verified 02/12/18 03:18 [From Dilantin] phenytoin sodium extended Allergy Rash Verified 02/12/18 03:18 [From Dilantin] Medications: Current Medications Acetaminophen (Tylenol) 650 mg PO Q4H PRN PRN Reason: Headache/Fever or Pain Hydrocodone Bitart/Acetaminophen ([place] 5/325) 1 tab PO Q4H PRN PRN Reason: Moderate Pain (4-6) Last Admin: 03/21/18 08:32 Dose: 1 tab Al Hydroxide/Mg Hydroxide (Maalox) 30 ml PO Q6H PRN PRN Reason: Heartburn or Indigestion Alprazolam (Xanax) 1 mg PO BID [facility] Last Admin: 03/21/18 08:33 Dose: 1 mg Apixaban (Eliquis) 2.5 mg PO BID [facility] Last Admin: 03/21/18 08:33 Dose: 2.5 mg Calcium Carbonate (Tums) 1,000 mg PO Q4H PRN PRN Reason: Heartburn or Indigestion Colestipol HCl (Colestid) 1 gm PO 2359 [facility] Digoxin (Lanoxin) 0.125 mg PO MoTuWeTh@0900 [facility] Diphenhydramine HCl (Benadryl) 25 mg PO Q4H PRN PRN Reason: WITH NORCO DUE TO ALLERGY Last Admin: 03/21/18 06:53 Dose: 25 mg Gabapentin (Neurontin) 300 mg PO HS PRN PRN Reason: Pain Guaifenesin/Dextromethorphan (Robitussin Dm) 15 ml PO Q4H PRN PRN Reason: Cough Hydrocortisone Acetate (Anusol-Hc) 25 mg ME BID PRN PRN Reason: Hemorrhoids Hydrocortisone Sodium Succinate (Preparation H Hc Cream) 0 gm TOP BID PRN PRN Reason: Anal/Rectal Irritations Last Admin: 03/21/18 15:02 Dose: 1 applic Levetiracetam (Keppra) 500 mg PO DAILY [facility] Last Admin: 03/21/18 08:33 Dose: 500 mg Midodrine (Proamatine) 5 mg PO TID [facility] Last Admin: 03/21/18 15:01 Dose: 5 mg Ondansetron HCl (Zofran) 4 mg IVP Q6H PRN PRN Reason: Nausea/Vomiting Last Admin: 03/21/18 06:53 Dose: 4 mg Sertraline HCl (Zoloft) 25 mg PO QAM [facility] Last Admin: 03/21/18 08:33 Dose: 25 mg Sodium Chloride (Flush - Normal Saline) 10 ml IVF Q12HR [facility] Last Admin: 03/21/18 08:35 Dose: 10 ml Sodium Chloride (Flush - Normal Saline) 10 ml IVF PRN PRN PRN Reason: Saline Flush Vancomycin HCl (First Vancomycin) 125 mg PO QID [facility] Last Admin: 03/21/18 14:15 Dose: 125 mg Vitamin B Complex/Vit C/Folic Acid (Nephro-Clinton Tablet) 1 tab PO DAILY [facility] Last Admin: 03/21/18 08:33 Dose: 1 tab Zolpidem Tartrate (Ambien) 5 mg PO HSPRN PRN PRN Reason: Insomnia
--- NOTE | 2018-03-21 17:00 | PRG ---
DATE OF SERVICE: 03/21/2018 SUBJECTIVE: Ms. Morris today states that she is still having some loose stools , particularly she is having diarrhea up to 4-5 times a day, then she would not have any bowel movements for 2 or 3 days. Now she is having a little bit of anal pain with bowel movements and little bit of bleeding. She denies any abdominal pain today. her abdominal pain in the mid abdomen, this is typically again on dialysis after about 2 hours. MEDICATIONS: Tylenol, Maalox, Xanax, Eliquis, Tums, Colestid, Lanoxin, Benadryl , Neurontin, Keppra, Zofran, vancomycin 125 p.o. q.i.d., and midodrine 5 mg p.o. t.i.d. OBJECTIVE: VITAL SIGNS: Temperature is 97.7, pulse 86, blood pressure runs systolics the highest has been 112, the lowest 83, diastolic 71-58. ABDOMEN: Soft, nontender. Bowel sounds are positive. No bruits. LABORATORY STUDIES: Sodium 138, potassium 4.1, BUN and creatinine 51 and 12 today. Cortrosyn stimulation test was normal with cortisol baseline is a little low at 3.5, which did go up to 13.3 with stimulation. ASSESSMENT: Diarrhea on and off, there has been multiple etiology of this in the past. She has had Clostridium difficile in the past. Presently, she has a Clostridium difficile toxin and antigen positive, but negative fecal white blood cells. I suspect she does not have active Clostridium difficile infection , but in light of the fact that she has had them in the past, I think we would have to treat her empirically where she is enough to have an endoscopy and at this point in time, I think with her low blood pressure, cardiovascular disease that will be a high risk procedure for her. Agree with vancomycin 125 q.i.d. for 2 weeks and then taper by 1 dose per week so that she would go to t.i.d. for a week, then b.i.d. for a week, then once a day for a week, then one dose every other day for 7 days, one dose every 7 days. She will need to stay on a probiotic lifelong. With regard to the Colestid, it may not be given within 3 hours any other pills because of old impaired absorption of those medications. With regard to her abdominal pain on dialysis, this is likely ischemic and related to her low blood pressure. She has had previous revascularization in her legs for arterial disease. I do not see any mesenteric angiograms and I am going to get a CT arteriogram of the abdomen. 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 ABHINAV
[2018-03-22] MEDS: Vancomycin HCl 25 MG/ML Oral PO SCH ×5 (00:10→19:38)
[2018-03-22] MEDS: diphenhydrAMINE 25 MG CAP PO PRN ×2 (01:13→16:59)
[2018-03-22] MEDS: HYDROcodone/Acetaminophen 5/325 mg Tablet PO PRN ×2 (01:59→17:39)
[2018-03-22] MEDS: predniSONE 50 MG TAB PO SCH ×3 (04:28→16:55)
[2018-03-22] MEDS: Ondansetron HCl/PF 4 MG/2 ML Vial IVP PRN ×2 (04:31→19:34)
[2018-03-22 08:32] LABS: #Eosinphils 0.1 thou/uL (0.0-0.7); #Lymphocytes 1.4 thou/uL (1.20-3.40); #Monocytes 0.8 thou/uL (0.11-0.59); #Neutrophils 4.7 thou/uL (1.40-6.50); %Basophils 0.3 % (0.0-1.0); %Eosinophils 1.9 % (0.0-10.0); %Lymphocytes 19.6 % (21.0-51.0); %Monocytes 11.1 % (0.0-10.0); %Neutrophils 67.1 % (42.0-75.0); Mean Corpuscular HGB CONC 31.7 g/dL (32.0-36.0); Mean Corpuscular Hemoglobin 29.5 pg (27.0-31.0); Mean Corpuscular Volume 93.1 fL (78.0-98.0); Mean Platelet Volume 9.7 fL (7.4-10.4); Platelet Count 111 thou/uL (130-400); RBC Distribution Width 19.6 % (11.5-14.5); Red Blood Cell (RBC) Count 4.41 mill/uL (4.20-5.40)
[2018-03-22 08:44] LABS: Anion Gap 22 mmol/L (10-20); BUN (Urea Nitrogen) 53 mg/dL (7.0-18.7); Calc. Creatinine Clearance 9 mL/min (70-130); Calcium 7.1 mg/dL (7.8-10.44); Carbon Dioxide 17 mmol/L (22-29); Chloride 101 mmol/L (98-107); Estimated GFR-MDRD 4; Glucose 95 mg/dL (70-105); Potassium 3.8 mmol/L (3.5-5.1); Sodium 136 mmol/L (136-145)
[2018-03-22] MEDS: Midodrine HCl 5 MG TAB PO SCH ×3 (09:49→19:37)
[2018-03-22] MEDS: Folic Acid/Vit B Comp W-C PO SCH (09:49)
[2018-03-22] MEDS: Apixaban 2.5 MG TAB PO SCH ×2 (09:49→19:38)
[2018-03-22] MEDS: Digoxin 0.125 MG TAB PO SCH (09:50)
[2018-03-22] MEDS: levETIRAcetam 500 MG TAB PO SCH (09:50)
[2018-03-22] MEDS: ALPRAZolam 1 MG TAB PO SCH ×3 (09:50→21:06)
--- NOTE | 2018-03-22 13:13 | PDOC.PN ---
- Subjective Encounter Start Date: 03/22/18 Encounter Start Time: 09:35 Subjective: no abd pain or nausea -: is alert this am - Objective Resuscitation Status: Resuscitation Status FULL:Full Resuscitation MAR Reviewed: Yes Vital Signs & Weight: Vital Signs (12 hours) Temp Pulse Resp BP Pulse Ox 03/22/18 12:15 97.7 F 78 16 96/59 L 91 L 03/22/18 09:50 88 03/22/18 08:27 97.8 F 85 18 89/56 L 92 L 03/22/18 08:00 97.8 F 85 18 92 L Weight Weight 196 lb 4.8 oz I&O: 03/21/18 03/22/18 03/23/18 06:59 06:59 06:59 Intake Total 590 1380 Output Total 2000 Balance -1410 1380 Result Diagrams: 03/22/18 08:19 03/22/18 08:19 Phys Exam - Physical Examination HEENT: PERRLA, moist MMs Neck: no JVD, supple Respiratory: no wheezing, no rales Cardiovascular: RRR, no significant murmur Gastrointestinal: soft, non-tender, positive bowel sounds Musculoskeletal: pulses present, edema present Neurological: non-focal, moves all 4 limbs Psychiatric: normal affect, A&O x 3 Dx/Plan (1) C. difficile colitis Status: Acute (2) Nausea & vomiting Code(s): R11.2 - NAUSEA WITH VOMITING, UNSPECIFIED Status: Acute Qualifiers: Vomiting type: cyclical vomiting Vomiting Intractability: intractable Qualified Code(s): G43.A1 - Cyclical vomiting, intractable (3) Anxiety and depression Code(s): F41.8 - OTHER SPECIFIED ANXIETY DISORDERS Status: Chronic (4) Chronic anticoagulation Code(s): Z79.01 - HEARING IMPAIRED TEACHER (CURRENT) USE OF ANTICOAGULANTS Status: Chronic (5) Diastolic CHF, chronic Code(s): I50.32 - CHRONIC DIASTOLIC (CONGESTIVE) HEART FAILURE Status: Chronic (6) End stage renal disease on dialysis Code(s): N18.6 - END STAGE RENAL DISEASE; Z99.2 - DEPENDENCE ON RENAL DIALYSIS Status: Chronic Comment: HD per renal. chronically low BP. (7) GERD (gastroesophageal reflux disease) Code(s): K21.9 - GASTRO-ESOPHAGEAL REFLUX DISEASE WITHOUT ESOPHAGITIS Status: Chronic Qualifiers: Esophagitis presence: esophagitis presence not specified Qualified Code(s) : K21.9 - Gastro-esophageal reflux disease without esophagitis (8) History of aortic dissection Code(s): Z86.79 - PERSONAL HISTORY OF OTHER DISEASES OF THE CIRCULATORY SYSTEM Status: Chronic Comment: prior repair in [address] [facility] in [place] (9) Hyperlipidemia Code(s): E78.5 - HYPERLIPIDEMIA, UNSPECIFIED Status: Chronic (10) Paroxysmal a-fib Code(s): I48.0 - PAROXYSMAL ATRIAL FIBRILLATION Status: Chronic (11) Seizure disorder Code(s): G40.909 - EPILEPSY, UNSP, NOT INTRACTABLE, WITHOUT STATUS EPILEPTICUS Status: Chronic - Plan is having her CT angio of abd today -: may dc home if ok with -: will need tapering vanc for 4-5 weeks, will need cm help for med help -: continue eliquis, digoxin, midodrine and keppra -: diarrhea has resolved now * . Review of Systems - Medications/Allergies Allergies/Adverse Reactions: Allergies Allergy/AdvReac Type Severity Reaction Status Date / Time cefazolin sodium [From Ancef] Allergy Intermediate Anaphylaxis Verified 03:18 codeine [Codeine] Allergy Intermediate ITCHING Verified 02/12/18 03:18 clindamycin Allergy Verified 02/12/18 03:18 hydrocodone Allergy Verified 03/19/18 20:37 Iodinated Contrast- Oral and Allergy itching Verified 02/12/18 03:18 IV Dye phenytoin sodium Allergy Rash Verified 02/12/18 03:18 [From Dilantin] phenytoin sodium extended Allergy Rash Verified 02/12/18 03:18 [From Dilantin] Medications: Current Medications Acetaminophen (Tylenol) 650 mg PO Q4H PRN PRN Reason: Headache/Fever or Pain Hydrocodone Bitart/Acetaminophen ([place] 5/325) 1 tab PO Q4H PRN PRN Reason: Moderate Pain (4-6) Last Admin: 03/22/18 01:59 Dose: 1 tab Al Hydroxide/Mg Hydroxide (Maalox) 30 ml PO Q6H PRN PRN Reason: Heartburn or Indigestion Alprazolam (Xanax) 1 mg PO BID [facility] Last Admin: 03/22/18 09:50 Dose: 1 mg Apixaban (Eliquis) 2.5 mg PO BID [facility] Last Admin: 03/22/18 09:49 Dose: 2.5 mg Calcium Carbonate (Tums) 1,000 mg PO Q4H PRN PRN Reason: Heartburn or Indigestion Colestipol HCl (Colestid) 1 gm PO 2359 [facility] Last Admin: 03/22/18 01:59 Dose: 1 gm Digoxin (Lanoxin) 0.125 mg PO MoTuWeTh@0900 [facility] Last Admin: 03/22/18 09:50 Dose: 0.125 mg Diphenhydramine HCl (Benadryl) 25 mg PO Q4H PRN PRN Reason: WITH NORCO DUE TO ALLERGY Last Admin: 03/22/18 01:13 Dose: 25 mg Diphenhydramine HCl (Benadryl) 50 mg PO 1800 [facility] Stop: 03/22/18 20:00 Gabapentin (Neurontin) 300 mg PO HS PRN PRN Reason: Pain Guaifenesin/Dextromethorphan (Robitussin Dm) 15 ml PO Q4H PRN PRN Reason: Cough Hydrocortisone Acetate (Anusol-Hc) 25 mg LA BID PRN PRN Reason: Hemorrhoids Hydrocortisone Sodium Succinate (Preparation H Hc Cream) 0 gm TOP BID PRN PRN Reason: Anal/Rectal Irritations Last Admin: 03/21/18 15:02 Dose: 1 applic Levetiracetam (Keppra) 500 mg PO DAILY [facility] Last Admin: 03/22/18 09:50 Dose: 500 mg Midodrine (Proamatine) 5 mg PO TID [facility] Last Admin: 03/22/18 09:49 Dose: 5 mg Ondansetron HCl (Zofran) 4 mg IVP Q6H PRN PRN Reason: Nausea/Vomiting Last Admin: 03/22/18 04:31 Dose: 4 mg Prednisone (Prednisone) 50 mg PO 0400,1000,1800 [facility] Stop: 03/22/18 18:01 Last Admin: 03/22/18 09:49 Dose: 50 mg Sertraline HCl (Zoloft) 25 mg PO QAM [facility] Last Admin: 03/22/18 09:50 Dose: 25 mg Sodium Chloride (Flush - Normal Saline) 10 ml IVF Q12HR [facility] Last Admin: 03/22/18 09:50 Dose: 10 ml Sodium Chloride (Flush - Normal Saline) 10 ml IVF PRN PRN PRN Reason: Saline Flush Vancomycin HCl (First Vancomycin) 125 mg PO QID [facility] Last Admin: 03/22/18 12:18 Dose: 125 mg Vitamin B Complex/Vit C/Folic Acid (Nephro-[place] Tablet) 1 tab PO DAILY [facility] Last Admin: 03/22/18 09:49 Dose: 1 tab Zolpidem Tartrate (Ambien) 5 mg PO HSPRN PRN PRN Reason: Insomnia
--- NOTE | 2018-03-22 16:44 | PRG ---
DATE OF SERVICE: 03/22/2018 SUBJECTIVE: The patient is concerned about her abdominal pain. She is concerned why she did not hav e her additional CT scan. Dr. Casey and radiologist discussed the need for repeat CT scan and the r adiologist felt since the mesenteric vessels were well visualized and that there was no evidence of a blockage, CT of the mesenteric vessels was not warranted. The patient is feeling well. She is eati ng well. She is having loose stools, but less so than when she was admitted. OBJECTIVE: VITAL SIGNS: Temperature 97.8, pulse 78, respiratory rate 16, blood pressure 96/59. HEENT: Unremarkable. CHEST: Clear. CARDIOVASCULAR: Regular rate and rhythm. ABDOMEN: Soft and nontender without organomegaly or masses. Bowel sounds are present and normoactiv e. RECTAL: Deferred. LABORATORY DATA: Shows a normal CBC except for platelet count of 111. Her creatinine is 11.71, BUN 5.3 and CO2 of 22. ASSESSMENT: 1. Abdominal pain on dialysis - this probably represents some mesenteric ischemia without focal mese nteric blockage. It probably represents a low flow state when she is on dialysis secondary to multip le factors including cardiomyopathy. 2. Clostridium difficile diarrhea - seems to be improved on vancomycin. This seems to be a recurren t problem and we will probably require long-term taper. 3. Cardiomyopathy. 4. End-stage renal disease on hemodialysis. RECOMMENDATIONS: 1. Stable for discharge from GI standpoint. 2. Continue oral vancomycin with a slow gradual taper. 3. May consider some cholestyramine to help with her loose stools, but this cannot be given with oth er medications, it should be given at mealtime. 4. Will discuss per Dr. Mcgarry.
[2018-03-22] MEDS ORDERED: diphenhydrAMINE 50 MG CAP PO SCH (18:00)
[2018-03-22] MEDS: Calcium Carbonate 500 MG ChewTAB PO PRN (21:05)
[2018-03-23] MEDS: ALPRAZolam 1 MG TAB PO SCH ×2 (00:23→09:01)
[2018-03-23] MEDS: HYDROcodone/Acetaminophen 5/325 mg Tablet PO PRN (00:28)
--- NOTE | 2018-03-23 01:31 | PRG ---
DATE OF SERVICE: 03/22/2018 SUBJECTIVE: The patient was seen and examined. She is complaining of some abdominal discomfort, not ed with the following vital signs. OBJECTIVE: VITAL SIGNS: Blood pressure 84/56-106/70, respiratory rate 18, O2 sat 92% and 97%, afebrile, pulse 7 5. HEENT: Remarkable for some facial puffiness. Otherwise, unremarkable. CARDIOVASCULAR SYSTEM: First and second heart sounds were heard. RESPIRATORY SYSTEM: Clear to auscultation. DIGESTIVE SYSTEM: Revealed a slightly distended abdomen. EXTREMITIES: No peripheral edema. SKIN: No new gross rash. IMPRESSION: 1. End-stage renal disease on hemodialysis. 2. Persistent gastrointestinal disorder including . PLAN: 1. . 2. We will defer to the gastroenterology service. 3. Continue with current measures. 4. Further management to be dependent on the clinical course.
[2018-03-23] MEDS: Midodrine HCl 5 MG TAB PO SCH ×2 (07:11→15:01)
[2018-03-23] MEDS ORDERED: Heparin 10,000 UNITS/ 10 ML VIAL ONE (08:00)
[2018-03-23] MEDS: Apixaban 2.5 MG TAB PO SCH (09:01)
[2018-03-23] MEDS: Folic Acid/Vit B Comp W-C PO SCH (09:02)
[2018-03-23] MEDS: Vancomycin HCl 25 MG/ML Oral PO SCH ×3 (09:02→16:39)
[2018-03-23] MEDS: Calcium Carbonate 500 MG ChewTAB PO PRN (09:14)
[2018-03-23] MEDS: Digoxin 0.125 MG TAB PO SCH (10:00)
[2018-03-23] MEDS: levETIRAcetam 500 MG TAB PO SCH (10:01)
--- NOTE | 2018-03-23 11:12 | PDOC.PN ---
- Subjective Encounter Start Date: 03/23/18 Encounter Start Time: 08:00 Subjective: is having HD, no diarrhea or abd pain now -: feels better, is awake and alert - Objective Resuscitation Status: Resuscitation Status FULL:Full Resuscitation MAR Reviewed: Yes Vital Signs & Weight: Vital Signs (12 hours) Temp Pulse Resp BP Pulse Ox 03/23/18 10:00 81 03/23/18 07:30 97.7 F 81 16 92 L 03/23/18 05:31 97.7 F 81 16 87/51 L 92 L 03/23/18 00:00 97.5 F L 88 18 120/73 92 L Weight Weight 196 lb 4.8 oz I&O: 03/22/18 03/23/18 03/24/18 06:59 06:59 06:59 Intake Total 1380 960 Balance 1380 960 Result Diagrams: 03/22/18 08:19 03/22/18 08:19 Phys Exam - Physical Examination HEENT: PERRLA, sclera anicteric Neck: no JVD, supple Respiratory: no wheezing, no rales Cardiovascular: RRR, no significant murmur Gastrointestinal: soft, non-tender, positive bowel sounds Musculoskeletal: pulses present, edema present Neurological: non-focal, moves all 4 limbs Psychiatric: normal affect, A&O x 3 Dx/Plan (1) C. difficile colitis Status: Acute (2) Nausea & vomiting Code(s): R11.2 - NAUSEA WITH VOMITING, UNSPECIFIED Status: Resolved Qualifiers: Vomiting type: cyclical vomiting Vomiting Intractability: intractable Qualified Code(s): G43.A1 - Cyclical vomiting, intractable (3) Anxiety and depression Code(s): F41.8 - OTHER SPECIFIED ANXIETY DISORDERS Status: Chronic (4) Chronic anticoagulation Code(s): Z79.01 - SENIOR CARE (CURRENT) USE OF ANTICOAGULANTS Status: Chronic (5) Diastolic CHF, chronic Code(s): I50.32 - CHRONIC DIASTOLIC (CONGESTIVE) HEART FAILURE Status: Chronic Comment: stage 2/B (6) End stage renal disease on dialysis Code(s): N18.6 - END STAGE RENAL DISEASE; Z99.2 - DEPENDENCE ON RENAL DIALYSIS Status: Chronic Comment: HD per renal. chronically low BP. (7) GERD (gastroesophageal reflux disease) Code(s): K21.9 - GASTRO-ESOPHAGEAL REFLUX DISEASE WITHOUT ESOPHAGITIS Status: Chronic Qualifiers: Esophagitis presence: esophagitis presence not specified Qualified Code(s) : K21.9 - Gastro-esophageal reflux disease without esophagitis (8) History of aortic dissection Code(s): Z86.79 - PERSONAL HISTORY OF OTHER DISEASES OF THE CIRCULATORY SYSTEM Status: Chronic Comment: prior repair in 2009 at [facility] in [place] (9) Hyperlipidemia Code(s): E78.5 - HYPERLIPIDEMIA, UNSPECIFIED Status: Chronic (10) Paroxysmal a-fib Code(s): I48.0 - PAROXYSMAL ATRIAL FIBRILLATION Status: Chronic (11) Seizure disorder Code(s): G40.909 - EPILEPSY, UNSP, NOT INTRACTABLE, WITHOUT STATUS EPILEPTICUS Status: Chronic - Plan oral vanc taper as prescribed over 8 weeks -: CM has confirmed very minimal copay for above, counselled pt reg compliance -: dc pt home after HD -: To take keppra once daily, dig 4times/week -: continue eliquis bid * .
[2018-03-23 12:50] VITALS: TEMP 97.5
[2018-03-23 18:17] VITALS: BP 104/71
--- NOTE | 2018-03-23 18:35 | DIS ---
DATE OF ADMISSION: 03/19/2018 DATE OF DISCHARGE: 03/23/2018 DISCHARGE DISPOSITION: To home. PRIMARY DISCHARGE DIAGNOSIS: Clostridium difficile colitis with abdominal pain, nausea, and vomiting , resolving. SECONDARY DISCHARGE DIAGNOSES: Chronic atrial fibrillation, on Eliquis; history of congestive heart failure with diastolic dysfunction, stage 2; end-stage renal disease, on hemodialysis; gastroesophage al reflux disease; history of prior aortic dissection with repair done in [address] [facility] in [place]; seizure disorder; dyslipidemia. PROCEDURES DONE DURING HOSPITALIZATION: The patient has had abdominal and pelvic CAT scan done on day of admission, which showed ascites and anasarca. They were atrophic kidneys seen, colonic wall thickening was seen, small pleural effusions were seen. Celiac, superior mesenteric and inferior me senteric arteries were widely patent at the origins and proximally. The more peripheral mesenteric v essels of the SMA distributions were difficult to evaluate due to very small size. Blood cultures x2 no growth. Stool for Clostridium difficile was positive. INPATIENT CONSULTS: Dr. Casey/Dr. Villegas for Gastroenterology, Dr. Mcgarry for Nephrology. DISCHARGE MEDICATIONS: Vancomycin 125 mg p.o. 4 times daily with a tapering dose as below, 125 mg 4 times daily for 2 weeks, 125 mg p.o. 3 times daily for 1 week, then b.i.d. for 1 week, then once a da y for 1 week, then alternate days for one week and then 1 tablet for every 7 days and to discontinue; Eliquis 2.5 mg twice daily; alprazolam 1 mg twice daily; gabapentin 300 mg p.o. at bedtime; Turner p. r.n. for pain; omeprazole 40 mg p.o. q.a.m.; Zoloft 25 mg p.o. q.a.m.; zolpidem 5 mg p.o. at bedtime p.r.n. for insomnia; aspirin 81 mg p.o. daily; digoxin 0.125 mg 4 times a week; Keppra 500 mg p.o. da surjit; midodrine 5 mg p.o. 3 times daily. ALLERGIES: CEFAZOLIN, CODEINE, CLINDAMYCIN, HYDROCODONE, PHENYTOIN and IODINE causes itching, but no anaphylaxis per patient. DISCHARGE PLAN: The patient to follow up with primary care physician in 1 week. She also needs foll ow up with Dr. Villegas in 4-6 weeks. BRIEF COURSE DURING HOSPITALIZATION: The patient initially came to ER with complaints of abdominal p ain, nausea, and vomiting. Initial CAT scan done was suggestive of colitis. Her stool came back pos itive for C. diff. The patient also mentioned that she gets severe abdominal pain two hours into hem odialysis session and has not had a full 4-hour session for almost 4 weeks now. She was volume overl oaded as well. Her CT of the abdomen and pelvis with contrast did not reveal any proximal stenosis o f mesenteric vessels. She was placed on vancomycin and needs to continue the tapering as prescribed. She has had multiple recurrences of C. diff and has been counseled regarding medication compliance for the full taper. Her abdominal pain is completely resolved and so is her nausea, vomiting. She i s tolerating oral solid diet. She is also tolerating 4-hour sessions of hemodialysis here. Please s ee a [id number] [facility] the day of discharge.
--- NOTE | 2018-03-23 20:55 | PRG ---
DATE OF SERVICE: 03/23/2018 SUBJECTIVE: Patient seen and examined, still complaining of some abdominal discomfort; otherwise hem odynamically stable, undergoing dialysis without much of any complaint. OBJECTIVE: HEENT: Unremarkable. CARDIOVASCULAR SYSTEM: First and second heart sounds were heard. RESPIRATORY SYSTEM: Clear to auscultation. DIGESTIVE SYSTEM: Revealed a benign abdomen with positive bowel sounds. EXTREMITIES: No peripheral edema. SKIN: No new gross rash. LYMPHATICS: No peripheral lymphadenopathy. IMPRESSION: 1. End-stage renal disease, hemodialysis dependent. 2. Clostridium difficile colitis. 3. Labile hemodynamics. PLAN: 1. Patient to continue with current regimen of hemodialysis. 2. Further management will be dependent on the clinical course.
--- NOTE | 2018-03-25 13:22 | EKG ---
Test Reason : GI COMPLAINT Blood Pressure : / mmHG Vent. Rate : 083 BPM Atrial Rate : 071 BPM P-R Int : 000 ms QRS Dur : 096 ms QT Int : 432 ms P-R-T Axes : 000 192 141 degrees QTc Int : 507 ms Atrial fibrillation Right superior axis deviation Incomplete right bundle branch block Right ventricular hypertrophy Possible Anterior infarct , age undetermined Prolonged QT No STEMI Abnormal ECG Confirmed by JOSH Solano, NINA ([id number]), marketing editor HERSON GARZA ([id number] on 03/25/2018 1:21:47 PM Referred By: Confirmed By:NINA MORENO M.D.
== END 2018-03-23 18:49 | disposition home or self-care (01) | DRG 371 ==
LOC: ERS 10:37 → 2SW 19:46 → OBSVTOIN 03-20 17:24 → T4-B 03-20 18:24
PROVIDERS: ADMIT Internal Medicine; ATTEND Internal Medicine
PROC: 5A1D70Z Performance of Urinary Filtration, Intermittent, Less than 6 Hours Per Day (ICD-10-PCS; principal; 2018-03-20)
PROC: 5A1D70Z Performance of Urinary Filtration, Intermittent, Less than 6 Hours Per Day (ICD-10-PCS; 2018-03-23)
DX: A04.72 Enterocolitis due to Clostridium difficile, not specified as recurrent (principal); N18.6 End stage renal disease; I13.2 Hypertensive heart and chronic kidney disease with heart failure and with stage 5 chronic kidney disease, or end stage renal disease; I50.32 Chronic diastolic (congestive) heart failure; I42.9 Cardiomyopathy, unspecified; R18.8 Other ascites; G40.909 Epilepsy, unspecified, not intractable, without status epilepticus; Z99.2 Dependence on renal dialysis; G62.9 Polyneuropathy, unspecified; I48.0 Paroxysmal atrial fibrillation; M54.9 Dorsalgia, unspecified; G89.29 Other chronic pain; K21.9 Gastro-esophageal reflux disease without esophagitis; E78.5 Hyperlipidemia, unspecified; F41.9 Anxiety disorder, unspecified; F32.9 Major depressive disorder, single episode, unspecified; G43.A1 Cyclical vomiting, in migraine, intractable; Z79.82 Long term (current) use of aspirin; Z79.01 Long term (current) use of anticoagulants; Z86.79 Personal history of other diseases of the circulatory system; Z90.49 Acquired absence of other specified parts of digestive tract; Z82.3 Family history of stroke; Z82.49 Family history of ischemic heart disease and other diseases of the circulatory system
CPT/HCPCS: 36415; 74177; 80048; 80053; 80400; 82274; 83630; 83690; 85025; 87040; 87045; 87046; 87324; 87449; 87493; 87899; 90935; 93005; 96374; 96375; 96376; A4216; G0257; J0834; J1200; J1644; J2270; J2405; J2550; J2930; S0028

== ENCOUNTER 2018-04-27 12:31 | Inpatient (IN) | payer MEDICARE, MEDICAID ==
[2018-04-27 13:34] LABS: #Basophils 0.1 thou/uL (0.0-0.2); #Eosinphils 0.1 thou/uL (0.0-0.7); #Lymphocytes 1.3 thou/uL (1.20-3.40); #Monocytes 0.8 thou/uL (0.11-0.59); #Neutrophils 5.2 thou/uL (1.40-6.50); %Eosinophils 1.6 % (0.0-10.0); %Lymphocytes 17.5 % (21.0-51.0); %Monocytes 10.8 % (0.0-10.0); %Neutrophils 69.2 % (42.0-75.0); Hemoglobin 14.6 g/dL (12.0-16.0); Mean Corpuscular HGB CONC 31.2 g/dL (32.0-36.0); Mean Corpuscular Hemoglobin 29.7 pg (27.0-31.0); Mean Corpuscular Volume 95.2 fL (78.0-98.0); Mean Platelet Volume 10.2 fL (7.4-10.4); Platelet Count 164 thou/uL (130-400); RBC Distribution Width 19.7 % (11.5-14.5); Red Blood Cell (RBC) Count 4.91 mill/uL (4.20-5.40); White Blood Cell (WBC) Count 7.5 thou/uL (4.8-10.8)
[2018-04-27 13:43] LABS: INR-International Normal Ratio 1.5; Prothrombin Time 17.7 SEC (12.0-14.7)
[2018-04-27 13:55] LABS: ALT (SGPT) 15 U/L (8-55); AST (SGOT) 17 U/L (5-34); Albumin 4.2 g/dL (3.5-5.0); Alkaline Phosphatase 110 U/L (40-150); Anion Gap 21 mmol/L (10-20); BUN (Urea Nitrogen) 42 mg/dL (7.0-18.7); Bilirubin, Total 1.7 mg/dL (0.2-1.2); Calc. Creatinine Clearance 0 mL/min (70-130); Calcium 7.6 mg/dL (7.8-10.44); Carbon Dioxide 25 mmol/L (22-29); Chloride 96 mmol/L (98-107); Estimated GFR-MDRD 5; Globulin 3.4 g/dL (2.4-3.5); Glucose 86 mg/dL (70-105); Potassium 3.5 mmol/L (3.5-5.1); Protein, Total 7.6 g/dL (6.0-8.3); Sodium 138 mmol/L (136-145)
[2018-04-27] MEDS ORDERED: diphenhydrAMINE 25 MG CAP ONE (14:05)
[2018-04-27] MEDS ORDERED: HYDROcodone/Acetaminophen 5/325 mg Tablet ONE (14:05)
--- NOTE | 2018-04-27 15:33 | RAD ---
AP VIEW OF THE CHEST: INDICATION: History of dialysis and with rectal bleeding and dizziness. COMPARISON: Prior exam dated January 12, 2018. FINDINGS: There is cardiomegaly with pulmonary vascular congestion and perihilar edema. There is small left an d tiny right pleural effusion. There is an endovascular stent overlying the region of the distal lef t subclavian vein and brachiocephalic vein. Midline sternotomy changes are present. IMPRESSION: Findings suggesting congestive heart failure. POS: TPC
[2018-04-27 18:24] LABS: Hep B Surf Ag Non-Reactive S/CO (NonReactive)
[2018-04-27] MEDS ORDERED: Ondansetron ODT 4 MG TAB PO PRN (20:35)
[2018-04-27] MEDS ORDERED: cloNIDine 0.1 MG TAB PO PRN (20:35)
[2018-04-27] MEDS ORDERED: Zolpidem Tartrate 5 MG TAB PO PRN (20:35)
[2018-04-27] MEDS ORDERED: Acetaminophen 500 MG TAB PO PRN (20:35)
[2018-04-27] MEDS ORDERED: Ondansetron PF 4 MG/2 ML Vial IVP PRN (20:35)
[2018-04-27] MEDS ORDERED: hydrALAZINE 20 MG/ML VIAL SLOW IVP PRN (20:35)
[2018-04-27] MEDS ORDERED: Gabapentin 300 MG CAP PO PRN (20:35)
--- NOTE | 2018-04-27 22:59 | CON ---
DATE OF CONSULTATION: 04/27/2018 HISTORY OF PRESENT ILLNESS: The patient is a 42-year-old -Tuval[place] female well known to me fr om various problems including recurrent C. difficile and recurrent anorectal pain. She reports her b owel movements lately have been fairly formed. She presented with pain in the rectal area and also b leeding. She reports her bleeding occurs when she is having bowel movement and also when she is not having a bowel movement. She denies any nausea or vomiting. Denies any weight loss. The patient is still on tapering doses of vancomycin for recurrent C. difficile. The patient underwent a colonosco py back in 01/2018 for chronic diarrhea. Random biopsies of the colon were normal. No anorectal abn ormalities were noted. This was done at [facility]. PAST MEDICAL HISTORY: Includes end-stage renal disease, on hemodialysis; recurrent C. difficile; atr ial fibrillation, on Eliquis; coronary artery disease; history of cervical cancer; congestive heart f ailure; hypertension; seizure disorder. ALLERGIES: Include ANCEF, CLINDAMYCIN, CODEINE, DILANTIN, and IODINE. MEDICATIONS: Include MiraLax 17 grams p.o. q. day, Analpram 2.5 mg t.i.d. p.r.n., hydrocodone 1 p.o. t.i.d. p.r.n., alprazolam 1 mg p.o. t.i.d. p.r.n., Ambien, gabapentin 300 mg p.o. t.i.d., omeprazole 20 mg p.o. q. day, Zofran 4 mg p.o. t.i.d. p.r.n., Zoloft 25 mg p.o. q. day. SOCIAL HISTORY: She is single. Does not smoke or drink. FAMILY HISTORY: Negative for GI or liver disease. REVIEW OF SYSTEMS: Constitutional: No fever or chills, no weight loss. Eyes: No blurred vision, d ouble vision. ENT: No sore throat or earaches. Cardiovascular: No chest pain or palpitation. Pul monary: No shortness of breath, cough or wheezing. Gastrointestinal: See above. Genitourinary: N o hematuria or dysuria. Musculoskeletal: No joint pain or muscle weakness. Neurologic: No seizure activity or numbness. PHYSICAL EXAMINATION: GENERAL: Shows a well-developed, well-nourished -[place] female, in no acute distress. VITAL SIGNS: Pulse is 86, blood pressure 127/90, respiratory rate 14. She is afebrile. HEENT: Unremarkable. NECK: Supple. CHEST: Clear. CARDIOVASCULAR: Regular rate and rhythm. ABDOMEN: Soft, nontender, without organomegaly or masses. Bowel sounds are present and normoactive. RECTAL: Deferred, emergency room doctors say she has a small hemorrhoid that is nonthrombosed. EXTREMITIES: Normal. NEUROLOGIC: Nonfocal. LABORATORY DATA: Shows hemoglobin 14.6, hematocrit 46.8, white blood cell count is 7.5. PT wi th an INR of 1.5. Chemistries show a BUN of 42, creatinine 10.13, calcium 7.6, total bilirubin 1.7. ASSESSMENT: 1. Recurrent anorectal pain - the patient has been referred to General Surgery in the past for this, but apparently has not seen the general surgeon. 2. Recurrence of C. difficile - the patient has not had any diarrhea lately. She is continuing to o n a tapering vancomycin dose. 3. End-stage renal disease, on hemodialysis. 4. Coronary artery disease. RECOMMENDATIONS: 1. Continue vancomycin at present tapering doses. 2. Hemodialysis. 3. The patient's hemoglobin is normal and she had a colonoscopy approximately one year ago; therefor e, no indication for colonoscopy at this time. 4. Analpram. 5. We will examine the patient with anoscope tomorrow.
[2018-04-27] MEDS ORDERED: Midodrine HCl 5 MG TAB PO SCH (23:45)
[2018-04-27] MEDS ORDERED: Apixaban 2.5 MG TAB PO SCH (23:45)
[2018-04-27 23:47] VITALS: BMI 29.3
[2018-04-27] MEDS ORDERED: HYDROcodone/Acetaminophen 5/325 mg Tablet PO PRN (23:59)
[2018-04-28] MEDS: diphenhydrAMINE 50 MG CAP PO PRN ×3 (00:59→21:03)
[2018-04-28] MEDS: Famotidine 20 MG TAB PO SCH ×2 (01:00→21:00)
[2018-04-28] MEDS: HYDROcodone/Acetaminophen 5/325 mg Tablet PO PRN ×3 (01:01→21:03)
[2018-04-28] MEDS: ALPRAZolam 1 MG TAB PO SCH ×3 (01:02→21:00)
[2018-04-28] MEDS: Hydrocortisone 2.5%/Pramoxine 1% CRM 30 GM TUBE TOP SCH ×4 (01:15→21:06)
--- NOTE | 2018-04-28 02:53 | HP ---
DATE OF ADMISSION: 04/27/2018 PRIMARY CARE PROVIDER: Dr. Bibiana Almanzar. PRIMARY STOCK CONTROL CLERK: Dr. Zeferino Matthew. CHIEF COMPLAINT: Rectal bleeding. HISTORY OF PRESENT ILLNESS: This is a 42-year-old -Swiss female who initially presented to [facility] Emergency Department in transport by EMS personnel after patient had complained of bright red rectal bleeding since approximately 6:00 a.m. on 04/27/2018. The patient admitted that she was having a bowel movement at the time and she noticed blood mixed with her stool. The patient admitted to some rectal pain and lightheadedness when she saw the blood in a toilet. The patient do es admit to history of hemorrhoids treated with Anusol-HC in the past. The patient also with a recen t diagnosis of Clostridium difficile colitis in 02/2018, taking oral vancomycin in a tapering fashion over the last several weeks. The patient denied any recent fever, chills, abdominal trauma, or naus ea and vomiting. The patient states she has been compliant with her chronic medication regimen and i s scheduled for her maintenance hemodialysis on the date of admission. In the emergency room, the merrill rosenberg underwent general evaluation with stool Hemoccult positive x1. The patient received DuoNebs, B enadryl, and Fenwick in the emergency room. Initial hemoglobin was assessed at 14.6. The patient's hi story is significant for chronic Eliquis due to chronic atrial fibrillation as well as aspirin and Pl avix due to coronary artery disease. The patient was transferred to the telemetry unit for further e valuation. PAST MEDICAL HISTORY: 1. Clostridium difficile colitis in 02/2018. 2. End-stage renal disease with hemodialysis Thursday, , and Thursday. 3. History of thoracic aortic dissection. 4. Seizure disorder. 5. Hypertension. 6. Peripheral neuropathy. 7. Chronic atrial fibrillation with chronic anticoagulation with Eliquis. 8. Chronic back pain. 9. Gastroesophageal reflux disease. 10. Dyslipidemia. 11. Anxiety/depression. PAST SURGICAL HISTORY: 1. Status post AV fistula placement in the left upper extremity. 2. Status post bowel resection. 3. Status post section. 4. Status post bilateral tubal ligation. 5. Status post peritoneal dialysis catheter placement with subsequent removal. 6. Status post cholecystectomy. CURRENT MEDICATIONS: 1. Keppra 500 mg p.o. b.i.d. 2. Eliquis 2.5 mg p.o. b.i.d. 3. Alprazolam 1 mg p.o. b.i.d. 4. Flexeril p.r.n. 5. Digoxin 0.125 mg p.o. 4 days per week. 6. Gabapentin 300 mg p.o. at bedtime. 7. Fenwick as needed for pain. 8. Omeprazole 40 mg p.o. daily. 9. Sertraline 25 mg p.o. q.a.m. 10. Zolpidem 5 mg p.o. at bedtime p.r.n. insomnia. 11. Aspirin 81 mg p.o. daily. 12. Midodrine 5 mg p.o. t.i.d. 13. Nephro-Clinton 1 capsule p.o. daily. ALLERGIES: CEFAZOLIN, CODEINE, CLINDAMYCIN, HYDROCODONE. The patient takes Fenwick at home. PHENYTOI N, IODINE. FAMILY HISTORY: Mother at 54 years of age with hypertension and secondary to complications of C VA. Father at the age of 72 after myocardial infarction. SOCIAL HISTORY: The patient resides in the [facility]. No alcohol, tobacco, or illi cit drug use. REVIEW OF SYSTEMS: The following complete review of systems was negative, unless otherwise mentioned in the HPI or below: Constitutional: Weight loss or gain, ability to conduct usual activities. Sk in: Rash, itching. Eyes: Double vision, pain. ENT/Mouth: Nose bleeding, neck stiffness, pain, te nderness. Cardiovascular: Palpitations, dyspnea on exertion, orthopnea. Respiratory: Shortness of breath, wheezing, cough, hemoptysis, fever or night sweats. Gastrointestinal: Poor appetite, abdom inal pain, heartburn, nausea, vomiting, constipation, or diarrhea. Genitourinary: Urgency, frequenc y, dysuria, nocturia. Musculoskeletal: Pain, swelling. Neurologic/Psychiatric: Anxiety, depressio n. Allergy/Immunologic: Skin rash, bleeding tendency. PHYSICAL EXAMINATION: VITAL SIGNS: Blood pressure 100/58, pulse 84, respiratory rate 17, temperature 98 degrees Fahrenheit , O2 saturation 100% on 3 liters per minute by nasal cannula. GENERAL APPEARANCE: This is a 42-year-old -Swiss female, alert and oriented x3, pleasant, in no acute distress. HEENT: Pupils are equal, round, and reactive to light and accommodation. Extraocular muscles are in tact. No scleral icterus, no conjunctival injection. Nares patent. OP is clear. Teeth in fair rep air. NECK: Supple. No cervical adenopathy, no thyromegaly, no carotid bruits, no JVD appreciated. Cervi solomon spine with full active and passive range of motion. No meningeal signs noted. CHEST: Coarse breath sounds with scattered rhonchi bilaterally. CARDIOVASCULAR: S1, S2 without murmur, rub, or gallop. ABDOMEN: Rounded, soft, nontender, nondistended. Bowel sounds are positive in all four quadrants. There is no hepatosplenomegaly, no rebound, no guarding. Bowel sounds are positive. EXTREMITIES: Warm and dry with fair turgor. Mild edema to the lower extremities. Left upper extrem ity with AV fistula in place. Pulses palpable distally at the dorsalis pedis, posterior tibial, and popliteal arteries bilaterally. Capillary refill less than 2 seconds. NEUROLOGIC: Cranial nerves II through XII are grossly intact. No focal or lateralizing signs apprec iated. GENITOURINARY: Rectal exam per ER exam, positive guaiac x1. Internal hemorrhoids noted per ER atten ding exam. PERTINENT LABORATORY AND X-RAY FINDINGS: Sodium 138, potassium 3.5, chloride 96, CO2 of 25, BUN 42, creatinine 10.13, estimated GFR 5, glucose 86, calcium 7.6, total bilirubin 1.7. LFTs within normal limits. CBC showed a white blood cell count of 7.5, hemoglobin 14.6, hematocrit 47, platelet count 1 64 with 69% neutrophils. PT 17.7, INR 1.5, PTT 36. Hepatitis B surface antigen nonreactive on 04/27. Stool Hemoccult positive x1 on 04/27/2018. Portable chest x-ray dated 04/27/2018 showed bila teral pulmonary vascular prominence. ASSESSMENT AND PLAN: 1. Rectal bleeding. The patient will be admitted to the telemetry unit. Suspect hemorrhoidal sourc e of rectal bleeding. Continue Analpram HC topically t.i.d. Serial H&H monitoring. Gastroenterolog y consult for general recommendations. Hold Eliquis x24 hours. 2. End-stage renal disease with hemodialysis. We will continue maintenance hemodialysis on 04/27/20 18. Serial monitoring per Nephrology Service. 3. Chronic anticoagulation. Hold Eliquis x24 hours. 4. Clostridium difficile colitis. Continue tapering regimen to include vancomycin 125 mg p.o. daily . 5. Prophylaxis. Sequential compression devices while in bed. Pepcid 20 mg p.o. b.i.d. 6. Code status is FULL. Surrogate medical decision maker is patient's brother, Barrie Morris.
--- NOTE | 2018-04-28 03:41 | CON ---
DATE OF CONSULTATION: 04/27/2018 CONSULTING PHYSICIAN: Zeferino Matthew M.D. REQUESTING PHYSICIAN: ER physician. REASON FOR CONSULTATION: The need for maintenance hemodialysis. IMPRESSION: 1. End-stage renal disease, hemodialysis dependent, due for dialysis today. 2. Gastrointestinal bleed . 3. Respiratory distress in the context of fluid overload. PLAN: 1. The patient to be dialyzed today in accordance with schedule with ultrafiltration as tolerated by hemodynamics. We will avoid heparin during this dialysis. The patient is already coagulopathic on Eliquis. 2. Further management to be dependent on the clinical course as well as further recommendations from the GI service. HISTORY OF PRESENT ILLNESS: History is that of a 42-year-old female patient with end-stage renal dis ease, hemodialysis dependent, Thursday, , and Thursday, who went to dialysis today, but could not dialyze given the rectal discomfort as well as bleeding per rectum. The patient presented to the ER where the patient has been admitted to undergo some gastroenterology workup. The patient is due for dialysis and does have some evidence of respiratory distress due to fluid overload. As a result of this, decision was taken to involve Renal in the management of this case. PAST MEDICAL HISTORY: Significant for end-stage renal disease, hemodialysis dependent, peripheral va scular disease, and atrial fibrillation with rapid ventricular response, vasculopathy. MEDICATIONS: Reviewed as documented on [employer]. ALLERGIES: No known drug allergy. FAMILY HISTORY: Not significantly related to the presenting illness. SOCIAL HISTORY: No illicit drug use. The patient does smoke cigarettes. REVIEW OF SYSTEMS: As documented in the body of the history. All the other systems were reviewed an d found not to be significantly related to presenting illness. PHYSICAL EXAMINATION: GENERAL: The patient was found to be in some respiratory distress, otherwise hemodynamically stable, afebrile. HEENT: Unremarkable. Moist oral mucosa. NECK: Supple. No conjunctival injection or icterus. CARDIOVASCULAR SYSTEM: First and second heart sounds were heard. RESPIRATORY SYSTEM: Clear to auscultation. DIGESTIVE SYSTEM: Revealed a benign abdomen with positive bowel sounds. EXTREMITIES: No peripheral edema. SKIN: No new gross rash. LYMPHATICS: No peripheral lymphadenopathy. SUMMARY: A 42-year-old female patient with end-stage renal disease who presented here with GI bleed. Thank you for this consultation. We will follow with you.
[2018-04-28 05:28] LABS: Anion Gap 19 mmol/L (10-20); BUN (Urea Nitrogen) 25 mg/dL (7.0-18.7); Calc. Creatinine Clearance 13 mL/min (70-130); Calcium 7.6 mg/dL (7.8-10.44); Carbon Dioxide 25 mmol/L (22-29); Chloride 99 mmol/L (98-107); Estimated GFR-MDRD 7; Glucose 98 mg/dL (70-105); Potassium 3.2 mmol/L (3.5-5.1); Sodium 140 mmol/L (136-145)
[2018-04-28 06:10] LABS: Band 2 % (5-11); Eosinophils 2 % (0-10); Hemoglobin 13.8 g/dL (12.0-16.0); Lymphocytes 21 % (21-51); MDiff Complete? YES; Mean Corpuscular HGB CONC 30.6 g/dL (32.0-36.0); Mean Corpuscular Hemoglobin 29.3 pg (27.0-31.0); Mean Corpuscular Volume 95.7 fL (78.0-98.0); Mean Platelet Volume 10.2 fL (7.4-10.4); Monocytes 8 % (0-10); Neutrophil 67 % (42-75); Nucleated RBC 1 % (0); Ovalocytes SLIGHT = 2-5 cells (100X) (0-1/hpf); Platelet Count 174 thou/uL (130-400); Polychromasia SLIGHT = 2-3 cells (100X) (0-2/hpf); RBC Distribution Width 19.9 % (11.5-14.5); White Blood Cell (WBC) Count 6.8 thou/uL (4.8-10.8)
[2018-04-28] MEDS ORDERED: Apixaban 2.5 MG TAB PO SCH (09:00)
[2018-04-28] MEDS ORDERED: Prevnar 13-Val Conj/PF 0.5 ML SYRINGE IM ONE (09:00)
[2018-04-28] MEDS: Vancomycin HCl 25 MG/ML Oral PO SCH (10:13)
[2018-04-28] MEDS: Midodrine HCl 5 MG TAB PO SCH ×3 (10:13→21:00)
[2018-04-28] MEDS: levETIRAcetam 500 MG TAB PO SCH (10:13)
[2018-04-28] MEDS: Digoxin 0.125 MG TAB PO SCH (10:13)
[2018-04-28] MEDS: Aspirin 81 mg Enteric Coated Tablet PO SCH (10:13)
[2018-04-28] MEDS: Folic Acid/Vit B Comp W-C PO SCH (10:13)
--- NOTE | 2018-04-28 18:04 | PRG ---
DATE OF SERVICE: 04/28/2018 SUBJECTIVE: The patient continues to complain of pain. She has had no bleeding. OBJECTIVE: VITAL SIGNS: Temperature 97.7, pulse 82, respiratory rate 16, blood pressure 91/55. CHEST: Clear. CARDIOVASCULAR: Regular rate and rhythm. ABDOMEN: Soft and nontender without organomegaly or masses. RECTAL: Attempted for possible anoscopy; however, she has too much pain for rectal exam. EXTREMITIES: Normal. LABORATORY DATA: Shows hemoglobin 13.8, hematocrit 45.0. Chemistries showed BUN 25, creatinine 7.41 . ASSESSMENT: 1. Anal pain. 2. Hematochezia. 3. End-stage renal disease. 4. Atrial fibrillation, on Eliquis. 5. Recurrent C. difficile colitis -- presently on long vancomycin taper. RECOMMENDATIONS: 1. Consult General Surgery for possible exam under anesthesia. 2. Continue to hold Eliquis pending Surgery evaluation.
--- NOTE | 2018-04-28 19:24 | PRG ---
DATE OF SERVICE: 04/28/2018 The patient was seen and examined, seems to be having some discomfort in the anal area noted with the following vital signs. PHYSICAL EXAMINATION: VITAL SIGNS: Afebrile with temperature 97.6, pulse 74, respiratory rate 16, O2 sat 97% with blood pr essure 91/55 through 83/49. HEENT: Unremarkable. CARDIOVASCULAR: First and second heart sounds were heard. RESPIRATORY: Clear to auscultation. DIGESTIVE: Revealed a benign abdomen with positive bowel sounds. EXTREMITIES: No peripheral edema. SKIN: No new gross rash. LYMPHATICS: No peripheral lymphadenopathy. LABORATORY INVESTIGATIONS: Showed hemoglobin stable. Chemistries revealed a creatinine of 7.41 with BUN of 25. IMPRESSION: 1. Gastrointestinal bleed, likely of lower gastrointestinal tract. 2. Anal pain, query cause. Unfortunately, due to pain could not allow the head knitting machine fixer to do anal/rectal examination. 3. End-stage renal disease, hemodialysis dependent on Thursday, , Thursday schedule. PLAN: 1. The patient is to continue with current regimen of hemodialysis. 2. According to Gastroenterology, discussion patient to be seen by surgery with possibility of gener al anesthesia in order to enable . Rectal examination to be carried out. 3. Further management to be dependent on the clinical course.
--- NOTE | 2018-04-28 20:41 | PDOC.PN ---
- Subjective Encounter Start Date: 04/28/18 Encounter Start Time: 20:30 Subjective: f/u for hematochezia and anal pain. No current bleeding. -: Feels ok overall. - Objective Resuscitation Status: Resuscitation Status FULL:Full Resuscitation MAR Reviewed: Yes Vital Signs & Weight: Vital Signs (12 hours) Temp Pulse Resp BP Pulse Ox 04/28/18 16:00 97.5 F L 81 18 88/50 L 95 04/28/18 12:20 97.7 F 82 16 91/55 L 94 L 04/28/18 10:13 74 Weight Weight 182 lb I&O: 04/27/18 04/28/18 04/29/18 06:59 06:59 06:59 Intake Total 880 Balance 880 Result Diagrams: 04/28/18 04:55 04/28/18 04:55 Additional Labs: Microbiology 05/31/17 14:29 Stool C. difficile GDH Antigen & Toxins - Final Laboratory Tests 06/03/17 06/03/17 06/03/17 05:30 05:30 22:22 Hgb Potassium Magnesium 1.7 Troponin I 0.024 TSH 3rd Generation 3.6845 06/04/17 04/27/18 04/27/18 03:45 13:15 13:15 Hgb 14.6 Potassium 3.5 Magnesium Troponin I 0.039 H TSH 3rd Generation EKG Reviewed by me: Yes (Tele - A-fib in 80's) Phys Exam - Physical Examination Constitutional: NAD HEENT: PERRLA, sclera anicteric, oral pharynx no lesions Neck: no nodes, no JVD, supple, full ROM Respiratory: no wheezing, no rales, no rhonchi, clear to auscultation bilateral S1, S2 Cardiovascular: no rub, gallop, irregular Gastrointestinal: soft, non-tender, no distention, positive bowel sounds Musculoskeletal: no edema, pulses present Neurological: normal sensation, moves all 4 limbs Psychiatric: normal affect, A&O x 3 Skin: no rash, normal turgor, cap refill <2 seconds Dx/Plan (1) Hematochezia Code(s): K92.1 - MELENA Status: Acute Comment: Stable currently, anticoagulation on hold, Analpram, likely will need EUA (2) Chronic atrial fibrillation Code(s): I48.2 - CHRONIC ATRIAL FIBRILLATION Status: Chronic Comment: Rate- controlled currently, continue Digoxin (3) Chronic anticoagulation Code(s): Z79.01 - MANAGER COUNTRY (CURRENT) USE OF ANTICOAGULANTS Status: Chronic Comment: Eliquis on hold due to #1 (4) End stage renal disease on dialysis Code(s): N18.6 - END STAGE RENAL DISEASE; Z99.2 - DEPENDENCE ON RENAL DIALYSIS Status: Chronic Comment: Maintenance HD per Renal service (5) C. difficile colitis Status: Chronic Comment: Continues on tapering Vancomycin regimen - Plan geriatric social worker, out of bed/ambulate, DVT proph w/SCDs Stable currently -: Continue Analpram -: Hold Eliquis -: Continue ASA 81mg daily -: HD per Renal service * Continue Vancomycin po daily * AM lab: H/H
[2018-04-29 05:36] LABS: Hemoglobin 14.4 g/dL (12.0-16.0); Platelet Count 169 thou/uL (130-400)
[2018-04-29] MEDS: Hydrocortisone 2.5%/Pramoxine 1% CRM 30 GM TUBE TOP SCH ×3 (08:18→21:38)
[2018-04-29] MEDS ORDERED: Magnesium Citrate 300 ML BOT PO SCH (08:30)
[2018-04-29] MEDS: HYDROcodone/Acetaminophen 5/325 mg Tablet PO PRN ×2 (09:42→21:55)
[2018-04-29] MEDS: ALPRAZolam 1 MG TAB PO SCH ×2 (09:42→21:38)
[2018-04-29] MEDS: Folic Acid/Vit B Comp W-C PO SCH (09:43)
[2018-04-29] MEDS: levETIRAcetam 500 MG TAB PO SCH (09:43)
[2018-04-29] MEDS: Digoxin 0.125 MG TAB PO SCH (09:43)
[2018-04-29] MEDS: Citrucel 500 MG TAB PO SCH (09:43)
[2018-04-29] MEDS: Midodrine HCl 5 MG TAB PO SCH ×3 (09:44→21:38)
[2018-04-29] MEDS: Aspirin 81 mg Enteric Coated Tablet PO SCH (09:44)
[2018-04-29] MEDS: diphenhydrAMINE 50 MG CAP PO PRN ×2 (09:44→21:55)
[2018-04-29] MEDS: Vancomycin HCl 25 MG/ML Oral PO SCH (10:43)
--- NOTE | 2018-04-29 12:41 | HP ---
HISTORY OF PRESENT ILLNESS: A 42-year-old black female with end-stage renal disease on maintenance d ialysis via left arm fistula who is well known to me. She reports anal pain for the past several mon ths refractory to MiraLax, Preparation-H and hydrocortisone cream. Dr. Villegas saw her in this hospital [facility] in consultation. Patient presented with rectal bleeding. Her hemoglobin was noted to be nor mal at 14. She has not dropped since 04/27/[address] Villegas attempted anoscopy, but it was too painful and tender. The patient had a colonoscopy last year, essentially normal. Last year, I performed the ileocecectomy for a bowel obstruction and adhesions. The patient reports severe pain, tearing, burning, ripping in nature, associated with defecation and with sitting. As I watch her mov e from the bathroom to the bed, she is in extreme pain. She states that she uses routinely, bu t otherwise has not used appropriate therapy for an anal fissure. She does report intermittent sever e constipation. ALLERGIES: Multiple medications, CEFAZOLIN, CLINDAMYCIN, CODEINE, DILANTIN, IODINE. TOBACCO: None. ALCOHOL: None. MEDICATIONS: Benadryl p.r.n., alprazolam 1 mg b.i.d., midodrine 5 mg t.i.d., gabapentin 300 mg at be dtime, Eliquis 2.5 mg p.o. b.i.d. held yesterday, Tylenol p.r.n., hydrocodone p.r.n., aspirin 81 mg a day, zolpidem 5 mg a day, Zofran, Prilosec 40 mg a day, folic acid, sertraline 25 mg a day, vancomyc in 125 mg p.o. b.i.d., Keppra 500 mg daily, hydrocortisone 25 mg b.i.d., digoxin 0.125 mg Thursday, Thu, Thursday and . PAST MEDICAL HISTORY: C. difficile colitis on a long vancomycin taper followed by GI, end-stage bruce l disease on maintenance dialysis Thursday, , and Thursday, history of aortic dissection, seiz ure disorder, hypertension, peripheral neuropathy, chronic atrial fibrillation with Eliquis treatment , chronic back pain, GERD, dyslipidemia, anxiety, depression. PAST SURGICAL HISTORY: Left arm primary fistula, proximal radial artery serving her well for dialysi s, status post ileocecectomy last year for adhesive disease and obstruction, history of , bi lateral tubal ligation, history of peritoneal dialysis catheter placed and subsequent removal, histor y of cholecystectomy, left arm basilic vein transposition of fistula on 09/26/2011, basilic vein aneu rysm fistula repair on 11/24/2011, ascending arch aneurysm repair in [place] on 2009. PHYSICAL EXAMINATION: VITAL SIGNS: 5 foot, 683 pounds, 29 BMI, 98.3, 71, 90/53. HEENT: Unremarkable. LUNGS: Clear to auscultation. CARDIAC: Regular rate and rhythm without murmur or gallop. ABDOMEN: Soft, nontender, well-healed sternotomy incision, well healed laparotomy incision without h ernia. EXTREMITIES: Unremarkable. GENITOURINARY: Perianal area exquisitely tender posteriorly. She has some hemorrhoidal tags and I c annot adequately visualize the posterior anal area due to these redundant hemorrhoidal skin tags and the patient's extreme discomfort. LABORATORY DATA: White count 6, hemoglobin 14, sodium 140, potassium 3.2, BUN and creatinine changes consistent with end-stage renal disease. ASSESSMENT AND PLAN: 1. Anal fissure. I have discussed the medical treatment, which should consist of MiraLax, fiber tit rated to avoid constipation and warm to hot baths 2-4 times a day for comfort and nitro paste 0.2% cr eam compounded, [facility] pharmacy, but the patient desires more definitive surgery as soon as possibl e due to her exquisite pain and prolonged symptoms which I think is appropriate. We have held her El iquis yesterday. We will hold it today and she can resume her Eliquis the day after surgery, would p jessica tomorrow, Thursday. Exam under anesthesia, internal sphincterotomy and indicated procedures, risk of infection, bleeding, reoperation, incontinence explained and she consents. Postoperatively, we wo uld recommend continuing MiraLax and fiber to avoid constipation for the next few weeks and she can e ventually discontinue this. She is on chronic narcotics, which adds to her constipation. 2. End-stage renal disease. 3. Hypertension. 4. Multiple allergies. 5. History of Clostridium difficile colitis.
--- NOTE | 2018-04-29 13:58 | PRG ---
DATE OF SERVICE: 04/29/2018. SUBJECTIVE: The patient continues to have rectal pain. She was seen by Dr. Coto and planned for a sphincterotomy tomorrow. OBJECTIVE: VITAL SIGNS: Temperature 97.4, pulse 84, respiratory rate 16, blood pressure 102/55. CHEST: Clear. CARDIOVASCULAR: Regular rate and rhythm. ABDOMEN: Benign. LABORATORY DATA: Shows hemoglobin 14.4. ASSESSMENT: 1. Anal and rectal pain. 2. Hematochezia. RECOMMENDATIONS: Nnamdi has planned an exam under anesthesia and possible sphincterotomy tomorrow.
[2018-04-29] MEDS: Polyethylene Glycol 3350 17 GM Packet PO SCH (14:17)
--- NOTE | 2018-04-29 14:19 | PDOC.PN ---
- Subjective Encounter Start Date: 04/29/18 Encounter Start Time: 14:00 Subjective: f/u for hematochezia due to anal fissure. Planning on surgical correction -: in am. No new complaints. Tolerated HD today. - Objective Resuscitation Status: Resuscitation Status FULL:Full Resuscitation MAR Reviewed: Yes Vital Signs & Weight: Vital Signs (12 hours) Temp Pulse Resp BP BP Pulse Ox 04/29/18 09:43 68 04/29/18 08:40 97.4 F L 84 16 102/55 L 92 L 04/29/18 04:00 98.3 F 71 20 88/50 L 93 L Weight Weight 183 lb 6.4 oz I&O: 04/28/18 04/29/18 04/30/18 06:59 06:59 06:59 Intake Total 1280 Balance 1280 Result Diagrams: 04/29/18 05:01 04/29/18 05:01 Additional Labs: Microbiology 05/31/17 14:29 Stool C. difficile GDH Antigen & Toxins - Final Laboratory Tests 06/03/17 06/03/17 06/03/17 05:30 05:30 22:22 Hgb Potassium Magnesium 1.7 Troponin I 0.024 TSH 3rd Generation 3.6845 06/04/17 04/27/18 04/27/18 03:45 13:15 13:15 Hgb 14.6 Potassium 3.5 Magnesium Troponin I 0.039 H TSH 3rd Generation EKG Reviewed by me: Yes (Tele - A-fib in 80's) Phys Exam - Physical Examination Constitutional: NAD HEENT: PERRLA, sclera anicteric, oral pharynx no lesions Neck: no nodes, no JVD, supple, full ROM Respiratory: no wheezing, no rales, no rhonchi, clear to auscultation bilateral S1, S2 Cardiovascular: no significant murmur, no rub, gallop, irregular Gastrointestinal: soft, non-tender, no distention, positive bowel sounds Musculoskeletal: pulses present, edema present Neurological: normal sensation, moves all 4 limbs Psychiatric: normal affect, A&O x 3 Skin: normal turgor, cap refill <2 seconds Dx/Plan (1) Hematochezia Code(s): K92.1 - MELENA Status: Acute Comment: Stable currently, anticoagulation on hold, Analpram, EUA with planned sphincterotomy in am (2) Chronic atrial fibrillation Code(s): I48.2 - CHRONIC ATRIAL FIBRILLATION Status: Chronic Comment: Rate- controlled currently, continue Digoxin (3) Chronic anticoagulation 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 difficile colitis Status: Chronic Comment: Continues on tapering Vancomycin regimen - Plan continue antibiotics, neonatal social worker, out of bed/ambulate Stable overall -: EUA with sphincterotomy in am -: HD per Renal service -: Hold Eliquis -: AM lab: H/H * .
--- NOTE | 2018-04-29 20:58 | PRG ---
DATE OF SERVICE: 04/29/2018 SUBJECTIVE: The patient seen and examined today during dialysis, seems to be doing okay, hemodynamic ally stable. OBJECTIVE: HEENT: Unremarkable. CARDIOVASCULAR: First and second sounds were heard. RESPIRATORY: Clear to auscultation. DIGESTIVE SYSTEM: Revealed a benign abdomen with positive bowel sounds. EXTREMITIES: No peripheral edema. SKIN: No new gross rash. LYMPHATICS: No peripheral lymphadenopathy. IMPRESSION: 1. End-stage renal disease, hemodialysis dependent. 2. . 3. Gastrointestinal bleed. PLAN: 1. The patient to continue with regimen of hemodialysis. 2. The patient possibly to undergo surgical treatment of the . 3. Further management to be dependent on the clinical course.
[2018-04-29] MEDS: Famotidine 20 MG TAB PO SCH (21:38)
[2018-04-30] MEDS ORDERED: PROPOFOL 200 MG/20 ML VIAL ONE (10:16)
[2018-04-30] MEDS ORDERED: metroNIDAZOLE 500 MG/100 ML BAG ONE (15:13)
[2018-04-30] MEDS ORDERED: Levofloxacin 500 mg/D5W 100 ml Premix Bag ONE (15:14)
[2018-04-30] MEDS ORDERED: metroNIDAZOLE 500 MG in Premix Bag 1 BAG IVPB SCH (15:15)
[2018-04-30] MEDS ORDERED: Bupivacaine HCl 0.5%/Epinephrine 1:200,000/PF 30 ml Vial ONE (16:22)
[2018-04-30] MEDS ORDERED: Lidocaine 2% PF Inj 2 ML VIAL ONE (16:22)
[2018-04-30] MEDS ORDERED: HYDROcodone/Acetaminophen 7.5/325 mg Tablet PO PRN (16:23)
[2018-04-30] MEDS ORDERED: Lidocaine 2% Jelly 5 ML TUBE ONE (16:31)
[2018-04-30] MEDS ORDERED: Fentanyl 100 MCG/2 ML VIAL ONE (16:42)
[2018-04-30] MEDS ORDERED: Midazolam HCl 2 mg/2 ml Vial ONE (16:42)
--- NOTE | 2018-04-30 17:23 | PRG ---
DATE OF SERVICE: 04/30/2018. SUBJECTIVE: patient was noted with the following vital signs. PHYSICAL EXAMINATION: VITAL SIGNS: Afebrile with temperature 97.5, pulse 75, respiratory rate of 20, O2 sat of 98%, and bl ood pressure of 96/60. HEENT: Unremarkable with moist oral mucosa. Neck is supple. No conjunctival injection or icterus. CARDIOVASCULAR: First and second heart sounds are heard. RESPIRATORY: Clear to auscultation. DIGESTIVE: Revealed a benign abdomen with positive bowel sounds. EXTREMITIES: No peripheral edema. SKIN: No new gross rash. LYMPHATICS: No peripheral lymphadenopathy. IMPRESSION: 1. End-stage renal disease, hemodialysis dependent. 2. 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 PLAN: 1. The patient to continue dialysis with the current schedule. 2. Further management will be dependent on the surgical team as well as the primary team and Gastroe nterology.
[2018-04-30] MEDS: Aspirin 81 mg Enteric Coated Tablet PO SCH (18:09)
[2018-04-30] MEDS: Folic Acid/Vit B Comp W-C PO SCH (18:09)
[2018-04-30] MEDS: ALPRAZolam 1 MG TAB PO SCH ×2 (18:09→21:41)
[2018-04-30] MEDS: Citrucel 500 MG TAB PO SCH (18:09)
[2018-04-30] MEDS: Midodrine HCl 5 MG TAB PO SCH ×2 (18:10→21:41)
[2018-04-30] MEDS: Hydrocortisone 2.5%/Pramoxine 1% CRM 30 GM TUBE TOP SCH ×2 (18:10→21:41)
[2018-04-30] MEDS: levETIRAcetam 500 MG TAB PO SCH (18:10)
[2018-04-30] MEDS: Polyethylene Glycol 3350 17 GM Packet PO SCH (18:10)
[2018-04-30] MEDS: Vancomycin HCl 25 MG/ML Oral PO SCH (18:57)
--- NOTE | 2018-04-30 20:52 | PDOC.PN ---
- Subjective Encounter Start Date: 04/30/18 Encounter Start Time: 20:45 Subjective: f/u for hematochezia and anal fissure s/p sphincterotomy. Some pain -: but overall feeling ok. - Objective Resuscitation Status: Resuscitation Status FULL:Full Resuscitation MAR Reviewed: Yes Vital Signs & Weight: Vital Signs (12 hours) Temp Pulse Resp BP Pulse Ox 04/30/18 20:00 98 04/30/18 19:59 98.0 F 116 H 18 99/56 L 98 04/30/18 12:00 97.5 F L 75 20 96/60 98 Weight Weight 184 lb 4.8 oz I&O: 04/29/18 04/30/18 05/01/18 06:59 06:59 06:59 Intake Total 1280 1120 Output Total 3200 Balance 1280 -2080 Result Diagrams: 04/29/18 05:01 04/29/18 05:01 Additional Labs: Microbiology 05/31/17 14:29 Stool C. difficile GDH Antigen & Toxins - Final Laboratory Tests 06/03/17 06/03/17 06/03/17 05:30 05:30 22:22 Hgb Potassium Magnesium 1.7 Troponin I 0.024 TSH 3rd Generation 3.6845 06/04/17 04/27/18 04/27/18 03:45 13:15 13:15 Hgb 14.6 Potassium 3.5 Magnesium Troponin I 0.039 H TSH 3rd Generation EKG Reviewed by me: Yes (Tele - A-fib) Phys Exam - Physical Examination Constitutional: NAD HEENT: PERRLA, sclera anicteric, oral pharynx no lesions Neck: no nodes, no JVD, supple, full ROM Respiratory: no wheezing, no rales, no rhonchi, clear to auscultation bilateral S1, S2 Cardiovascular: no significant murmur, no rub, gallop, irregular Gastrointestinal: soft, non-tender, no distention, positive bowel sounds Musculoskeletal: no edema, pulses present Neurological: normal sensation, moves all 4 limbs Psychiatric: A&O x 3 Skin: normal turgor, cap refill <2 seconds Dx/Plan (1) Hematochezia Code(s): K92.1 - MELENA Status: Acute Comment: Stable currently, anticoagulation on hold, Analpram, s/p sphincterotomy (2) Chronic atrial fibrillation Code(s): I48.2 - CHRONIC ATRIAL FIBRILLATION Status: Chronic Comment: Rate- controlled currently, continue Digoxin (3) Chronic anticoagulation Code(s): Z79.01 - ALF (CURRENT) USE OF ANTICOAGULANTS Status: Chronic Comment: Eliquis on hold due to #1 (4) End stage renal disease on dialysis Code(s): N18.6 - END STAGE RENAL DISEASE; Z99.2 - DEPENDENCE ON RENAL DIALYSIS Status: Chronic Comment: Maintenance HD per Renal service (5) C. 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
[2018-04-30] MEDS: HYDROcodone/Acetaminophen 7.5/325 mg Tablet PO PRN (21:39)
[2018-04-30] MEDS: Famotidine 20 MG TAB PO SCH (21:41)
[2018-04-30] MEDS: diphenhydrAMINE 50 MG CAP PO PRN (21:47)
[2018-04-30] MEDS ORDERED: Acetaminophen 1,000 MG in Premix Bag 1 BAG IVPB PRN (23:48)
[2018-05-01] MEDS: HYDROcodone/Acetaminophen 7.5/325 mg Tablet PO PRN (02:47)
[2018-05-01 05:50] LABS: Hemoglobin 14.9 g/dL (12.0-16.0); Platelet Count 177 thou/uL (130-400)
[2018-05-01] MEDS: levETIRAcetam 500 MG TAB PO SCH (09:32)
[2018-05-01] MEDS: Folic Acid/Vit B Comp W-C PO SCH (09:32)
[2018-05-01] MEDS: Hydrocortisone 2.5%/Pramoxine 1% CRM 30 GM TUBE TOP SCH (09:32)
[2018-05-01] MEDS: Aspirin 81 mg Enteric Coated Tablet PO SCH (09:32)
[2018-05-01] MEDS: Citrucel 500 MG TAB PO SCH (09:32)
[2018-05-01] MEDS: ALPRAZolam 1 MG TAB PO SCH (09:32)
[2018-05-01] MEDS: Midodrine HCl 5 MG TAB PO SCH (09:32)
[2018-05-01] MEDS: Polyethylene Glycol 3350 17 GM Packet PO SCH (09:32)
[2018-05-01] MEDS: Vancomycin HCl 25 MG/ML Oral PO SCH (09:36)
--- NOTE | 2018-05-01 18:37 | DIS ---
DATE OF ADMISSION: 04/27/2018 DATE OF DISCHARGE: 05/01/2018 DISCHARGE DIAGNOSES: 1. Hematochezia secondarily to anal fissure, resolved. 2. Anal fissure status post sphincterotomy, 04/30/2018. 3. Chronic atrial fibrillation, rate controlled. 4. Chronic anticoagulation with Eliquis. 5. End-stage renal disease with hemodialysis. 6. Clostridium difficile colitis, stable. CONSULTATIONS: Dr. Zeferino Matthew with Nephrology Service. Dr. Villegas with GI Service. Dr. Arsen shea with General Surgery Service. PERTINENT LAB AND X-RAY FINDINGS: Creatinine ranged between 7.41-10.13. Potassium ranged between 3. 2-3.5. LFTs within normal limits. CBC showed hemoglobin ranging between 13.8-14.9. Hepatitis B basil face antigen nonreactive 04/27/2018. Stool Hemoccult positive x1, 04/27/2018. Portable chest x-ray dated 04/27/2018 showed pulmonary vascular prominence and perihilar edema. HOSPITAL COURSE: The patient was initially admitted to the telemetry unit after presenting with rect al bleeding in the context of known anal fissure and chronic anticoagulation with Eliquis. The patie nt's hemoglobin remained stable throughout the hospital course and patient was evaluated by the GI se dank. The patient was treated with topical preparation of hydrocortisone and pramoxine and evaluate d by General Surgery. The patient underwent sphincterotomy on 04/30/2018 with successful resolution of the anal fissure. The patient continued on maintenance hemodialysis throughout the hospital cours e stabilizing without clinical decompensation. The patient also continued on treatment for Clostridi um difficile with a tapering regimen of oral vancomycin. The patient did remain clinically stable as stated previously, tolerating regular oral intake, ambulating without assistance or difficulty with stable vital signs. I have examined the patient at the time of discharge and discussed followup inst ructions. The patient overall clinically stable and ready for discharge on 05/01/2018. DISCHARGE MEDICATIONS: 1. Alprazolam 1 mg p.o. b.i.d. 2. Benadryl 50 mg p.o. q.4-6 hours p.r.n. 3. Gabapentin 300 mg p.o. at bedtime. 4. Omeprazole 40 mg p.o. daily. 5. Zoloft 25 mg p.o. q.a.m. 6. Vancomycin 125 mg p.o. daily. 7. Ambien 5 mg p.o. at bedtime p.r.n. 8. Eliquis 2.5 mg p.o. b.i.d. 9. Enteric coated aspirin 81 mg p.o. daily. 10. Digoxin 0.125 mg p.o. Thursday, Thursday, Thursday, and . 11. Folic acid with vitamin B one tablet p.o. daily. 12. [place] 7.5/325 mg 1-2 tabs p.o. q.i.d. p.r.n. pain. 13. Anusol-HC 25 mg per rectum b.i.d. p.r.n. 14. Keppra 500 mg p.o. daily. 15. Midodrine 5 mg p.o. t.i.d. FOLLOWUP: Patient to follow up with her primary care provider, Dr. Bibiana Almanzar within 7 days of d ischarge. The patient will follow up with Dr. Zeferino Matthew with hemodialysis. The patient wi ll follow up with Dr. Thang Coto in 2-3 weeks after discharge. CONDITION ON DISCHARGE: Stable. ACTIVITY: Ad emerson. DIET: Renal. CODE STATUS: FULL. DISPOSITION: Home, 05/01/2018. Total time preparing and coordinating discharge 32 minutes.
[2018-05-01 19:57] VITALS: BP 94/56; TEMP 97.8
--- NOTE | 2018-05-05 13:48 | OP ---
DATE OF PROCEDURE: 05/05/2018 PREOPERATIVE DIAGNOSES: Anal fissure extreme pain and stenosis. POSTOPERATIVE DIAGNOSES: Anal fissure extreme pain and stenosis. PROCEDURE: Right lateral internal sphincterotomy examined under anesthesia. ANESTHESIA: General anesthesia. PROCEDURE: The patient was taken to the operating room under general anesthesia and stirrups, her pe rianal buttocks area prepared with Betadine, draped in routine fashion. Hill Arreaga retractor inse rted. A posterior anal fissure noted. Local anesthetic infiltrated into the skin and subcutaneous t issue about the right lisa anus perianal and incision made and internal sphincterotomy performed muna reyna a hemostat, cautery, closing skin with continuous locked suture of 3-0 chromic. There was a small tear posteriorly that was bleeding. This was also closed with 3-0 chromic. The patient tolerated th e procedure well.
== END 2018-05-01 12:28 | disposition home or self-care (01) | DRG 347 ==
LOC: ERS 12:31 → 2NO 15:39
PROVIDERS: ADMIT Family Medicine; ATTEND Family Medicine
PROC: 0D8R0ZZ Division of Anal Sphincter, Open Approach (ICD-10-PCS; principal; 2018-04-27)
DX: K92.1 Melena (principal); N18.6 End stage renal disease; I13.2 Hypertensive heart and chronic kidney disease with heart failure and with stage 5 chronic kidney disease, or end stage renal disease; A04.71 Enterocolitis due to Clostridium difficile, recurrent; I50.32 Chronic diastolic (congestive) heart failure; K60.2 Anal fissure, unspecified; Z99.2 Dependence on renal dialysis; I48.2 Chronic atrial fibrillation; Z79.01 Long term (current) use of anticoagulants; Z85.41 Personal history of malignant neoplasm of cervix uteri; I25.10 Atherosclerotic heart disease of native coronary artery without angina pectoris; I73.9 Peripheral vascular disease, unspecified
CPT/HCPCS: 36415; 71045; 80048; 80053; 82274; 82565; 85007; 85014; 85018; 85025; 85027; 85049; 85610; 85730; 86850; 86900; 86901; 87340; 90471; 90670; 90935; 94640; 94760; G0009; G0257; J0131; J0670; J1956; J2250; J2704; J3010; J7620